=== PATIENT | female | born 1975 | race Caucasian/White ===

== ENCOUNTER 2016-03-18 18:58 | Outpatient (CLI) | payer OTHER ==
[~2016-03-18] VITALS: Ht 162.6 cm; Wt 77.1 kg
[~2016-03-18 18:58] MED LIST: ACET-1256 PO; ALBUAER2 INH; BUPR1SUB SL; CLC100 PO; ESOM20CA PO; GABA-113 PO; MIRT30TA PO; ONDA4TAB46 PO; PEDICHW50 PO; POLY335025 PO; SNQ/50 PO; [UNRECOGNIZED DRUG - CODE] PO; propanolol
[2016-03-18] MEDS ORDERED: PRENTAB26 PO (19:47)
[2016-03-18] MEDS ORDERED: LEVO112T2 PO (19:47)
[2016-03-18] MEDS ORDERED: CYCL1POW (19:47)
[2016-03-18] MEDS ORDERED: HYDR50CA2 PO (19:47)
[2016-03-18] MEDS ORDERED: ONDA4TAB65 PO (19:47)
[2016-03-18] MEDS ORDERED: POLY335019 PO (19:47)
[2016-03-18 19:49] VITALS: Ht 162.6 cm; Wt 77.1 kg
[2016-03-18 19:55] LABS: URINE APPEARANCE CLEAR (CLEAR); URINE BILIRUBIN NEG (NEG); URINE COLOR YELLOW; URINE EPITHELIAL CELL AUTO >30 /lpf (0-5); URINE NITRITE NEG (NEG); URINE SPECIFIC GRAVITY 1.006 (1.000-1.030); UROBILINOGEN NEG (NEG)
[2016-03-18 19:56] LABS: MANUAL MICROSCOPIC REQUIRED? NO; REVIEW REQ? NO
== END 2016-03-18 20:30 | disposition home or self-care (01) ==
LOC: C.OPB 18:58 → C.LD 18:58 → C.OPB 20:30
PROVIDERS: ATTEND Obstetrics & Gynecology
DX: O16.2 Unspecified maternal hypertension, second trimester (principal); O09.522 Supervision of elderly multigravida, second trimester; Z3A.22 22 weeks gestation of pregnancy

== ENCOUNTER → 2016-03-20 | Outpatient (CLI) | payer OTHER ==
[~2016-03-20] MED LIST changes: -ACET-1256 PO; -BUPR1SUB SL; -CLC100 PO; +CYCL1POW; -ESOM20CA PO; -GABA-113 PO; +HYDR50CA2 PO; +LEVO112T2 PO; -MIRT30TA PO; -ONDA4TAB46 PO; +ONDA4TAB65 PO; -PEDICHW50 PO; +POLY335019 PO; -POLY335025 PO; +PRENTAB26 PO; -SNQ/50 PO; -[UNRECOGNIZED DRUG - CODE] PO
[2016-03-20 12:24] LABS: PATIENT HEIGHT 165.1 cm
[2016-03-20 12:29] LABS: BASO % 0.4 %; BASO ABS # 0.03 K/uL (0-0.2); COMPLETE YES; EOS % 3.1 %; HEMATOCRIT 31.8 % (37-47); IG% 0.1 %; LYMPH % 23.4 %; LYMPH ABS # 1.57 K/uL (1.2-3.4); MEAN CELL VOLUME 94.1 fL (80-100); MEAN CORPUSCULAR HEMOGLOBIN 33.1 pg (25-34); MEAN CORPUSCULAR HGB CONC 35.2 g/dl (32-36); MEAN PLATELET VOLUME 9.4 fL (7.4-10.4); MONO % 8.5 %; NEUT % 64.5 %; PLATELET COUNT 222 K/uL (130-400); RED BLOOD COUNT 3.38 M/uL (4.2-5.4)
[2016-03-20 12:52] LABS: CREATININE 0.67 mg/dl (0.60-1.20); URIC ACID 2.4 mg/dl (2.6-7.2)
[2016-03-20 12:55] LABS: ALKALINE PHOSPHATASE 58 U/L (45-117); ALT/SGPT 13 U/L (12-78); AST/SGOT 13 U/L (15-37)
[2016-03-20 13:06] LABS: URINE TOTAL PROTEIN 13.2 mg/dl (0-11.9)
[2016-03-20 13:17] LABS: CREATININE 0.67 mg/dl (0.6-1.2); URINE TOTAL PROTEIN CALC 250.8 mg/24 hr (0-149.1)
== END | disposition home or self-care (01) ==
LOC: C.LAB 12:10
PROVIDERS: ATTEND Obstetrics & Gynecology
DX: O10.919 Unspecified pre-existing hypertension complicating pregnancy, unspecified trimester (principal)

== ENCOUNTER → 2016-03-23 | Outpatient (CLI) | payer OTHER ==
[~2016-03-23] MED LIST changes: +ACET-1256 PO; +BUPR1SUB SL; +CLC100 PO; +ESOM20CA PO; +GABA-113 PO; +MIRT30TA PO; +ONDA4TAB46 PO; +PEDICHW50 PO; +POLY335025 PO; +SNQ/50 PO; +[UNRECOGNIZED DRUG - CODE] PO
[2016-03-23 10:52] LABS: THYROID STIMULATING HORMONE 0.6 uIu/ml (0.300-4.500)
== END | disposition home or self-care (01) ==
LOC: C.LAB1850 09:18
PROVIDERS: ATTEND Obstetrics & Gynecology
DX: E05.00 Thyrotoxicosis with diffuse goiter without thyrotoxic crisis or storm (principal)

== ENCOUNTER → 2016-04-20 | Outpatient (CLI) | payer OTHER ==
[~2016-04-20] MED LIST changes: -ACET-1256 PO; -BUPR1SUB SL; -CLC100 PO; -ESOM20CA PO; -GABA-113 PO; -MIRT30TA PO; -ONDA4TAB46 PO; -PEDICHW50 PO; -POLY335025 PO; -SNQ/50 PO; -[UNRECOGNIZED DRUG - CODE] PO
[2016-04-20 13:02] LABS: HEMATOCRIT 30.4 % (37-47)
[2016-04-20 13:28] LABS: THYROID STIMULATING HORMONE 0.861 uIu/ml (0.300-4.500)
[2016-04-20 14:08] LABS: URINE APPEARANCE CLEAR (CLEAR); URINE BILIRUBIN NEG (NEG); URINE COLOR YELLOW; URINE EPITHELIAL CELL AUTO >30 /lpf (0-5); URINE NITRITE NEG (NEG); URINE PH 7.5 (4.5-7.5); URINE SPECIFIC GRAVITY 1.005 (1.000-1.030); UROBILINOGEN NEG (NEG)
[2016-04-20 14:11] LABS: MANUAL MICROSCOPIC REQUIRED? NO; REVIEW REQ? NO
== END | disposition home or self-care (01) ==
LOC: C.LAB1850 10:54
PROVIDERS: ATTEND Obstetrics & Gynecology
DX: O09.293 Supervision of pregnancy with other poor reproductive or obstetric history, third trimester (principal); O99.281 Endocrine, nutritional and metabolic diseases complicating pregnancy, first trimester

== ENCOUNTER → 2016-05-05 | Outpatient (CLI) | payer OTHER ==
[2016-05-05 14:38] LABS: PATIENT HEIGHT 165.1 cm
[2016-05-05 15:55] LABS: BASO % 0.4 %; BASO ABS # 0.03 K/uL (0-0.2); COMPLETE YES; EOS % 1.7 %; HEMATOCRIT 30.3 % (37-47); IG% 0.7 %; LYMPH % 23.8 %; LYMPH ABS # 1.67 K/uL (1.2-3.4); MEAN CELL VOLUME 90.4 fL (80-100); MEAN CORPUSCULAR HEMOGLOBIN 31.6 pg (25-34); MEAN PLATELET VOLUME 9.9 fL (7.4-10.4); NEUT % 61.4 %; PLATELET COUNT 245 K/uL (130-400); RED BLOOD COUNT 3.35 M/uL (4.2-5.4); WHITE BLOOD COUNT 7.01 K/uL (4.8-10.8)
[2016-05-05 16:11] LABS: URINE TOTAL PROTEIN 14.2 mg/dl (0-11.9)
[2016-05-05 16:14] LABS: THYROID STIMULATING HORMONE 0.788 uIu/ml (0.300-4.500); URIC ACID 3.1 mg/dl (2.6-7.2)
[2016-05-05 16:47] LABS: CREATININE 0.61 mg/dl (0.6-1.2); URINE TOTAL PROTEIN CALC 397.6 mg/24 hr (0-149.1)
== END | disposition home or self-care (01) ==
LOC: C.LAB1850 14:21
PROVIDERS: ATTEND Obstetrics & Gynecology
DX: I10 Essential (primary) hypertension (principal); O09.293 Supervision of pregnancy with other poor reproductive or obstetric history, third trimester; O99.282 Endocrine, nutritional and metabolic diseases complicating pregnancy, second trimester; O10.919 Unspecified pre-existing hypertension complicating pregnancy, unspecified trimester; F32.9 Major depressive disorder, single episode, unspecified

== ENCOUNTER → 2016-05-13 | Outpatient (CLI) | payer OTHER ==
[2016-05-13 10:21] LABS: HEMATOCRIT 31.3 % (37-47); MEAN CELL VOLUME 89.9 fL (80-100); MEAN CORPUSCULAR HEMOGLOBIN 30.7 pg (25-34); MEAN CORPUSCULAR HGB CONC 34.2 g/dl (32-36); MEAN PLATELET VOLUME 9.8 fL (7.4-10.4); PLATELET COUNT 244 K/uL (130-400); RED BLOOD COUNT 3.48 M/uL (4.2-5.4); WHITE BLOOD COUNT 8.09 K/uL (4.8-10.8)
[2016-05-13 10:32] LABS: ALT/SGPT 16 U/L (12-78); CREATININE 0.56 mg/dl (0.60-1.20); URIC ACID 3.5 mg/dl (2.6-7.2)
[2016-05-13 10:35] LABS: ALKALINE PHOSPHATASE 116 U/L (45-117); AST/SGOT 16 U/L (15-37)
== END | disposition home or self-care (01) ==
LOC: C.LAB1850 09:14
PROVIDERS: ATTEND Obstetrics & Gynecology
DX: O11.9 Pre-existing hypertension with pre-eclampsia, unspecified trimester (principal); O10.919 Unspecified pre-existing hypertension complicating pregnancy, unspecified trimester; Z3A.00 Weeks of gestation of pregnancy not specified

== ENCOUNTER → 2016-05-19 | Outpatient (CLI) | payer OTHER ==
[2016-05-19 12:54] LABS: HEMATOCRIT 30.7 % (37-47); MEAN CELL VOLUME 88.2 fL (80-100); MEAN CORPUSCULAR HEMOGLOBIN 30.7 pg (25-34); MEAN CORPUSCULAR HGB CONC 34.9 g/dl (32-36); MEAN PLATELET VOLUME 10.2 fL (7.4-10.4); PLATELET COUNT 217 K/uL (130-400); RED BLOOD COUNT 3.48 M/uL (4.2-5.4); WHITE BLOOD COUNT 7.05 K/uL (4.8-10.8)
[2016-05-19 13:19] LABS: ALKALINE PHOSPHATASE 135 U/L (45-117); ALT/SGPT 15 U/L (12-78); AST/SGOT 14 U/L (15-37)
== END | disposition home or self-care (01) ==
LOC: C.LAB1850 12:01
PROVIDERS: ATTEND Obstetrics & Gynecology
DX: O09.293 Supervision of pregnancy with other poor reproductive or obstetric history, third trimester (principal); Z3A.00 Weeks of gestation of pregnancy not specified

== ENCOUNTER → 2016-05-26 | Outpatient (CLI) | payer OTHER ==
[2016-05-26 13:18] LABS: HEMATOCRIT 32.3 % (37-47); MEAN CELL VOLUME 88.5 fL (80-100); MEAN CORPUSCULAR HEMOGLOBIN 30.1 pg (25-34); MEAN CORPUSCULAR HGB CONC 34.1 g/dl (32-36); MEAN PLATELET VOLUME 10.8 fL (7.4-10.4); PLATELET COUNT 256 K/uL (130-400); RED BLOOD COUNT 3.65 M/uL (4.2-5.4); WHITE BLOOD COUNT 7.49 K/uL (4.8-10.8)
[2016-05-26 14:05] LABS: ALT/SGPT 15 U/L (12-78); AST/SGOT 15 U/L (15-37); CREATININE 0.65 mg/dl (0.60-1.20); URIC ACID 4.1 mg/dl (2.6-7.2)
[2016-05-26 14:07] LABS: ALKALINE PHOSPHATASE 152 U/L (45-117)
== END | disposition home or self-care (01) ==
LOC: C.LAB1850 11:30
PROVIDERS: ATTEND Obstetrics & Gynecology
DX: O11.9 Pre-existing hypertension with pre-eclampsia, unspecified trimester (principal)

== ENCOUNTER → 2016-06-02 | Outpatient (CLI) | payer OTHER ==
[2016-06-02 12:33] LABS: BASO % 0.5 %; BASO ABS # 0.03 K/uL (0-0.2); COMPLETE YES; EOS % 1.1 %; HEMATOCRIT 32.2 % (37-47); IG% 0.6 %; LYMPH % 25.4 %; LYMPH ABS # 1.58 K/uL (1.2-3.4); MEAN CELL VOLUME 86.6 fL (80-100); MEAN CORPUSCULAR HEMOGLOBIN 29.6 pg (25-34); MEAN CORPUSCULAR HGB CONC 34.2 g/dl (32-36); MEAN PLATELET VOLUME 10.4 fL (7.4-10.4); MONO % 10.8 %; NEUT % 61.6 %; PLATELET COUNT 223 K/uL (130-400); RED BLOOD COUNT 3.72 M/uL (4.2-5.4); WHITE BLOOD COUNT 6.22 K/uL (4.8-10.8)
[2016-06-02 12:42] LABS: ALT/SGPT 16 U/L (12-78); AST/SGOT 13 U/L (15-37); CREATININE 0.72 mg/dl (0.60-1.20)
== END | disposition home or self-care (01) ==
LOC: C.LAB1850 10:55
PROVIDERS: ATTEND Obstetrics & Gynecology
DX: O11.9 Pre-existing hypertension with pre-eclampsia, unspecified trimester (principal)

== ENCOUNTER 2016-06-09 14:03 | Observation (INO) | payer OTHER ==
[~2016-06-09] VITALS: Ht 160 cm; Wt 84.8 kg
[2016-06-09] MEDS ORDERED: BETAMETH SOD PHOS/ACETATE IA 6 MG/ML IM SCH (14:45)
[2016-06-09] MEDS ORDERED: HydrALAZINE HCL 20 MG/ML VIAL IV. PRN (14:45)
[2016-06-09] MEDS ORDERED: MAGNESIUM SULFATE / WTR 1,000 ML IV ONE (14:45)
[2016-06-09] MEDS ORDERED: MAGNESIUM SULFATE 40GM/ WTR 1,000 ML BAG ONE (14:56)
[2016-06-09] MEDS ORDERED: MAGNESIUM SULFATE 40GM / WTR 1000 ML IV SCH (15:00)
[2016-06-09] MEDS ORDERED: IV FLUIDS COMPLETED PRN (15:00)
[2016-06-09] MEDS ORDERED: BETAMETH SOD PHOS/ACETATE IA 6 MG/ML ONE (15:00)
--- NOTE | 2016-06-09 15:07 | HISTORY & PHYSICAL EXAMINATION ---
DATE OF ADMISSION: 06/09/2016 REASON FOR ADMISSION: Severe preeclampsia. HISTORY OF PRESENT ILLNESS: This is a 40-year-old G4, P0-1-2-1 who was sent from the office due to elevated blood pressures and proteinuria. This has been complicated by chronic hypertension with propranolol, which the patient is reportedly given due to palpitations primarily as well as superimposed mild preeclampsia with current suspicion of conversion to severe preeclampsia. She additionally has diet-controlled gestational diabetes and Graves disease with hypothyroidism. She presented to the office today for a routine obstetric visit at 34 weeks and 1 day. Her pressures in the office were 180/110 and 170/110. The patient's protein dip in the office was negative; however, she has a prior 24-hour urine with greater than 300 mg of protein. The patient states she does not currently have a headache, vision changes, right upper quadrant pain or significant edema, although she does have trace edema in both ankles, which is relatively stable. She is feeling good movement, no contractions, no leakage of fluid and no vaginal bleeding. The patient was sent to labor and delivery for further evaluation. On arrival to labor and delivery, her first blood pressure was 195/103. Again, the patient is completely asymptomatic and when rolled on her left side her next blood pressure was in the 140s/90s. Given the liability of her blood pressures and her lack of symptoms, I have elected at this time not to give IV labetalol; however, the patient is aware that if her blood pressures continue to be in a severe range, she may require IV antihypertensive therapy. ALLERGIES: ASPIRIN AND SULFA DRUGS. CURRENT MEDICATIONS: Synthroid 112 mcg, Zofran as needed, propranolol 20 mg tablets, MiraLax as needed, vitamins daily, albuterol as needed, cyclobenzaprine which the patient has stopped, hydroxyzine and aspirin baby dose. PAST MEDICAL HISTORY: Chronic hypertension, depression and anxiety, Graves' disease, gastroesophageal reflux disease, asthma, hiatal hernia and varicella. PAST SURGICAL HISTORY: Includes a section, tonsillectomy, oral surgery for wisdom tooth removal, D\T\E, LEEP procedure and fundoplication x3. SOCIAL HISTORY: The patient is a tobacco user. She is a female. Denies use of alcohol or recreational drugs. FAMILY HISTORY: Noncontributory. OBSTETRIC HISTORY: The patient has a prior delivery in 2008 at 33 weeks of a 3 pound 9 ounce female via section for preeclampsia, which was severe as well as diet-controlled gestational diabetes. She also has 2 additional first trimester miscarriages, which were managed with dilation and evacuation. PHYSICAL EXAMINATION: VITAL SIGNS: On arrival, blood pressure as noted was 195/103 with a repeat blood pressure 140s/90s. Her pressures here in labor and delivery remained relatively labile with 159/87, 161/81 as the additional pressures so far obtained. heart tones are category 1, toco is quiet. ABDOMEN: The patient is gravid with a nontender abdomen. LOWER EXTREMITIES: Contained trace edema from knee down to the ankle; however, there is no pitting. Reflexes are 1+. CERVICAL AND VAGINAL: Deferred at this time. ASSESSMENT AND PLAN: This is a 40-year-old G4, P0-1-2-1 with a gannon intrauterine at 34 weeks and 1 day with chronic hypertension and now superimposed severe preeclampsia based on blood pressures. I have discussed with the patient that this merits delivery. She will be given her first dose of betamethasone here and started on IV magnesium with a 6 gram load for neuro protection followed by 2 grams maintenance. This is also has been discussed with Dr. Petersen of the accepting maternal medicine service at [place] to which she will be transferred and he is in agreement with this plan. The patient has thus far not required IV antihypertensives; however, if her blood pressures are again severe or she begins to have a headache or other symptoms, she is aware that this may merit acute treatment. The patient has been accepted in transfer based on her current condition over to [facility], and she will be transferred by you when transport is available.
[2016-06-09] MEDS ORDERED: MAG SULFATE IV SCH (15:30)
[2016-06-09] MEDS ORDERED: DEXTROSE 5% IV SCH (15:30)
[2016-06-09 15:44] LABS: BASO % 0.6 %; BASO ABS # 0.04 K/uL (0-0.2); EOS % 0.8 %; HEMATOCRIT 31.5 % (37-47); IG% 0.7 %; LYMPH % 23.9 %; LYMPH ABS # 1.73 K/uL (1.2-3.4); MEAN CELL VOLUME 87.7 fL (80-100); MEAN CORPUSCULAR HEMOGLOBIN 28.4 pg (25-34); MEAN PLATELET VOLUME 10.4 fL (7.4-10.4); MONO % 8.7 %; NEUT % 65.3 %; PLATELET COUNT 196 K/uL (130-400); RED BLOOD COUNT 3.59 M/uL (4.2-5.4); WHITE BLOOD COUNT 7.25 K/uL (4.8-10.8)
[2016-06-09 15:52] LABS: INR 0.9 (0.9-1.1); PROTHROMBIN TIME (PATIENT) 9.1 SECONDS (9.0-12.0)
[2016-06-09 15:58] LABS: COMPLETE YES; MEAN CORPUSCULAR HGB CONC 32.4 g/dl (32-36)
[2016-06-09 16:06] VITALS: Ht 160 cm; Wt 84.8 kg
[2016-06-09 16:11] LABS: CREATININE 0.65 mg/dl (0.60-1.20); URIC ACID 5.2 mg/dl (2.6-7.2)
--- NOTE | 2016-06-20 15:43 | DISCHARGE SUMMARY ---
COURSE OF CARE: A 40-year-old G4, P0-1-2-1 diagnosed with severe preeclampsia by a combination of blood pressures from the office in the hospital setting as well as lab work and status. The patient was recommended to deliver given her gestational age of 34 weeks 1 day and her diagnosis of severe preeclampsia. Her case was discussed with Dr. Petersen from [facility] service and he accepted the patient in transfer. A mutual decision was that the patient should be transferred via helicopter, which was indeed accomplished and the patient and her fetus were in stable condition at that time they departed [facility].
== END 2016-06-09 19:05 | disposition home or self-care (01) ==
LOC: C.OPB 14:03 → C.LD 14:03 → C.OPB 14:47 → C.LD 14:47
PROVIDERS: ADMIT Obstetrics & Gynecology; ATTEND Obstetrics & Gynecology
DX: O14.13 Severe pre-eclampsia, third trimester (principal); O09.523 Supervision of elderly multigravida, third trimester; O24.410 Gestational diabetes mellitus in pregnancy, diet controlled; O99.283 Endocrine, nutritional and metabolic diseases complicating pregnancy, third trimester; E03.9 Hypothyroidism, unspecified; O16.3 Unspecified maternal hypertension, third trimester; O99.343 Other mental disorders complicating pregnancy, third trimester; F32.9 Major depressive disorder, single episode, unspecified; O99.513 Diseases of the respiratory system complicating pregnancy, third trimester; J45.909 Unspecified asthma, uncomplicated; O99.333 Smoking (tobacco) complicating pregnancy, third trimester; F17.200 Nicotine dependence, unspecified, uncomplicated; Z3A.34 34 weeks gestation of pregnancy

== ENCOUNTER → 2017-01-04 | Outpatient (CLI) | payer OTHER ==
[~2017-01-04] MED LIST changes: -CYCL1POW; -HYDR50CA2 PO
--- NOTE | 2017-01-04 15:20 | MAMMOGRAPHY REPORT ---
BILATERAL DIGITAL SCREENING MAMMOGRAM TOMOSYNTHESIS WITH CAD: 01/04/2017 CLINICAL HISTORY: Routine screening. Baseline exam. TECHNIQUE: Breast tomosynthesis in addition to standard 2D mammography was performed. Current study was also evaluated with a Computer Aided Detection (CAD) system. COMPARISON: No prior exams were available for comparison. BREAST COMPOSITION: The tissue of both breasts is heterogeneously dense, which may obscure small mas ses. FINDINGS: No suspicious mass, architectural distortion or cluster of microcalcifications is seen. IMPRESSION: ACR BI-RADS CATEGORY 1: NEGATIVE There is no mammographic evidence of malignancy. A 1 year screening mammogram is recommended. The pa tient will receive written notification of the results. Approximately 10% of breast cancers are not detected with mammography. A negative mammographic report should not delay biopsy if a clinically suggestive mass is present. Chloe parks/evgeny:01/04/2017 13:32:55 Ordnance Equipment Worker: Zuleima JACQUES)(Ariane), [facility] letter sent: Normal 1/2 BI-RADS Code: ACR BI-RADS Category 1: Negative
== END | disposition home or self-care (01) ==
LOC: C.MAMM 13:04
PROVIDERS: ATTEND Physician Assistant
DX: Z12.31 Encounter for screening mammogram for malignant neoplasm of breast (principal)

== ENCOUNTER 2018-12-18 09:16 | Inpatient (IN) ==
[2018-12-18] MEDS ORDERED: ALBUTEROL 0.083% NEBU SOLN 3 ML VIAL NEB STA (09:31)
[2018-12-18] MEDS ORDERED: SODIUM CHLORIDE 0.9% 1000ML 2,000 ML IV ONE (09:31)
[2018-12-18] MEDS ORDERED: methylPREDNISolone 125 MG/2 ML VIAL IV STA ×2 (09:33→22:58)
[2018-12-18] MEDS ORDERED: LEVOFLOXACIN/D5W 750 MG/150 ML BAG IV SCH (09:45)
[2018-12-18 09:52] LABS: Base Excess VBG -3.7 mEq/L; Oxygen Saturation VBG 76.7 %; pH VBG 7.41 (7.36-7.41)
[2018-12-18 09:57] LABS: Basophils # (auto) 0.02 K/uL (0-0.2); Basophils % (auto) 0.2 %; Eosinophils # (auto) 0.02 K/uL (0-0.5); Eosinophils % (auto) 0.2 %; Hematocrit (blood only) 23.4 % (37-47); Hemoglobin 7.9 g/dL (12.0-16.0); Immature Granulocytes # (auto) 0.03 K/uL (0.00-0.02); Immature Granulocytes % (auto) 0.3 %; Lymphocytes # (auto) 0.54 K/uL (1.2-3.4); Lymphocytes % (auto) 4.7 %; Mean Corpuscular Hemoglobin 28.1 pg (25-34); Mean Corpuscular Hgb Conc 33.8 g/dL (32-36); Mean Corpuscular Volume 83.3 fL (80-100); Mean Platelet Volume 9.5 fL (7.4-10.4); Monocytes # (auto) 0.38 K/uL (0.11-0.59); Monocytes % (auto) 3.3 %; Neutrophils # (auto) 10.51 K/uL (1.4-6.5); Neutrophils % (auto) 91.3 %; Platelet Count 263 K/uL (130-400); RDW Coefficient of Variation 15.8 % (11.5-14.5); RDW Standard Deviation 48.9 fL (36.4-46.3); Red Blood Count 2.81 M/uL (4.2-5.4)
[2018-12-18 10:03] LABS: iSTAT Creatinine 1.1 mg/dl (0.6-1.3); iSTAT Hemoglobin 7.8 g/dl (12.0-16.0); iSTAT Ionized Calcium 1.14 mmol/l (1.12-1.32); iSTAT Potassium 3.1 mEq/L (3.3-5.0)
[2018-12-18 10:11] LABS: Partial Thromboplastin Time 26.2 Seconds (21.0-31.0); Prothrombin Time 10.3 Seconds (9.0-12.0)
[2018-12-18 10:12] LABS: Est GFR (African American) 64.5; Potassium 3.1 mmol/L (3.5-5.1)
[2018-12-18 10:13] LABS: Albumin Level 2.9 gm/dl (3.4-5.0); BUN Creatinine Ratio 11.3 (10-20); Calcium 8.1 mg/dl (8.5-10.1); Creatinine Clr Calc Pharmacy 63.3 ml/min; Est GFR (Non-African American) 55.7
[2018-12-18 10:15] LABS: Albumin Globulin Ratio 0.8 (0.9-2); Bilirubin,Total 0.4 mg/dl (0.2-1); Globulin 3.7 gm/dl (2.5-4.0); Total Protein 6.6 gm/dl (6.4-8.2)
[2018-12-18 10:20] LABS: Hypochromasia Present; Microcytosis Present; Polychromasia 1+
--- NOTE | 2018-12-18 10:29 | XRay Report ---
XR chest 1V portable CLINICAL HISTORY: Sepsis dyspnea COMPARISON STUDY: 07/03/2013 FINDINGS: Interval development of diffuse bilateral parenchymal infiltrative change versus pulmonary edema. Respiratory distress may present a similar fashion. Diaphragms are smooth. Costophrenic angles are sharp. IMPRESSION: 1. Diffuse bilateral parenchymal infiltrative change, versus pulmonary edema and/or respiratory distr ess. 2. No well-defined consolidative infiltrative process. The above report was generated using voice recognition software. It may contain grammatical, syntax or spelling errors. Electronically signed by: Vargas Patel M.D. 12/18/2018 10:28 AM
[2018-12-18] MEDS ORDERED: cefTRIAXone SODIUM 1,000 MG/50 ML BAG IV STA (10:31)
[2018-12-18] MEDS ORDERED: SODIUM CHLORIDE 0.9% 250 ML IV PRN (10:35)
[2018-12-18 11:02] LABS: Troponin I 0.106 ng/ml (0-0.045)
[2018-12-18] MEDS ORDERED: OPTIRAY 320 125ml IV PRN (11:46)
[2018-12-18 12:02] LABS: Immature Retic Fraction 13.9 % (3.0-15.9); Reticulated Hemoglobin 19.7 pg (28.2-36.6); Reticulocyte % 1.4 % (0.5-2.0); Reticulocytes # 0.04 10^6/uL (0.02-0.10)
--- NOTE | 2018-12-18 12:04 | CT Scan Report ---
CT angio chest PE protocol CT DOSE: 325.26 mGy.cm HISTORY: Dyspnea hypoxic tachy lexii trop TECHNIQUE: Multiaxial CT images of the chest were performed following the intravenous administration of contrast to evaluate the pulmonary arteries. Maximal intensity projection images were also obtaine d. A dose lowering technique was utilized adhering to the principles of ALARA. COMPARISON STUDY: None. FINDINGS: Study is considered negative for pulmonary embolism. No significant filling defect within t he pulmonary vasculature. Diffuse bilateral infiltrative and/or pulmonary edematous change. IMPRESSION: 1. Study is negative for pulmonary embolus. 2. Diffuse bilateral parenchymal infiltrative change versus pulmonary edema/respiratory distress. The above report was generated using voice recognition software. It may contain grammatical, syntax or spelling errors. Electronically signed by: Vargas Patel M.D. 12/18/2018 12:03 PM
[2018-12-18] MEDS ORDERED: POTASSIUM CHLORIDE 20 MEQ TABCR PO STA (12:23)
[2018-12-18 12:27] LABS: T4 Free Thyroxine 1.21 ng/dl (0.8-1.6); Thyroid Stimulating Hormone 0.227 uIu/ml (0.300-4.500)
--- NOTE | 2018-12-18 13:02 | History & Physical Report ---
Date of Service December 18, 2018 Assessment & Plan (1) Sepsis: (2) Community acquired pneumonia: This is a 43-year-old female who has significant PMH of asthma, tobacco abuse, HTN, GERD s/p monica fundoplication x3, chronic low back pain, migraine, depression with anxiety, Graves' disease status post thyroidectomy who presents to [facility] ED secondary to shortness of breath x2 to 3 days. In ED patient met sepsis criteria per CMS guidelines with SBP less than 100, t achycardia, subjective fever of 102.5 In ED POC lactic acid 1.7, procalcitonin elevated 1.21, influenza negative She received broad-spectrum IV antibiotics with Levaquin 750 mg and Rocephin 1 g Received IV fluid and blood pressure has remained adequate at time of admission 121/63 Source: Likely pulmonary with pneumonia, blood culture and urine culture ordered Her troponin and Pro BNP are elevated - no prior hx of CAD or CHF - + FH in mother of DE at 51 H/H low at 7.9/23.4 - 1 month prior Hgb 11.1 admit to PCU continue IV antibiotics - IV rocephin/azithromycin supplemental O2 with aggressive pulmonary tiolet trend procal blood culture pending sputum culture urine for legionella obtain echocardiogram (3) Hypoxia: 2/2 to PNA tx as above (4) Anemia: H&H 7.9 and 23.4 1 month prior baseline hemoglobin 11 Per history there is no apparent blood loss source, ? if dilutional due to 10lb weight gain Anemia work-up revealed iron low 8, ferritin 32, TIBC 419, transferrin 313 - likely iron deficiency anemia present Peripheral smear and haptoglobin pending Does not appear to be a hemolytic picture given normal LFTs, low reticulocyte count -but still in differential Serum mycoplasma pending FOBT stool Pt with hx of monica fundo - low threshold to consult GI (5) Hypokalemia: K3.1 40 M EQ KCl x1 now We will add additional 20 M EQ this evening Repeat BMP in a.m. (6) Weight gain: Bilateral lower extremity edema Venous Doppler negative for DVT Patient with hypothyroidism in setting of postsurgical removal due to Graves' disease Recent increase of her levothyroxine to 137 mcg, T4 1.21, TSH 0.227 today ? if 2/2 to hypothyroidism with recent change vs underlying acute process Will not treat with diuretic at this time, as patient still tachycardic Monitor volume status closely (7) Elevated troponin: troponin 0.106, proBNP 882 -may be in setting of underlying process/sepsis and demand ischemia She is without aj chest pain EKG reveals sinus tachycardia, RBBB, nonspecific ST anterior wave changes Currently do not feel we are dealing with ACS; however will get urgent echo to eval for wall motion abnormality Last echocardiogram was 11/29/2018, revealed EF 60 to 65%, no wall motion abnormality Trend troponin every 6 hours Repeat ECG Low threshold for cardiology consult (8) Hypertension: blood pressure low on arrival in setting of sepsis hold antihypertensives - labetalol and nifedipine (9) Depression: mood stable continue doxepin, hydroxyzine, clonazepam (10) Chronic low back pain: continue flexeril prn gabapentin recently started 11/20 due to numbness/tingling in lower ext Vit B12 low in EPIC and today is low normal here at 235 tx for deficiency - refer to Dr. Ro documentation (11) Tobacco abuse: encourage smoking cessation nicotine patch (12) DVT prophylaxis: SCD/TEDS for now hold chemical prophylaxis due to acute appearing anemia monitor daily for need for chemical prophylaxis Disposition: admit to PCU Follow up: PCP Jeanette Patel PA-C upon discharge Pt was seen and examined in collaboration with Dr. Ro, please see addendum History of Present Illness Chief Complaint: SOB x2-3 days. Primary Care Provider: Jeanette Patel PA-C This is a 43-year-old female who has significant PMH of asthma, tobacco abuse, HTN, GERD s/p monica fundoplication x3, chronic low back pain, migraine, depression with anxiety, Graves' disease status post thyroidectomy who presents to [facility] ED secondary to shortness of breath x2 to 3 days. Over the past 2 to 3 days she feels overall rundown, chest tightness, wheezing, dry cough, elevated temperature 99.5, 102.5 tympanically this morning. States she has history of pneumonia, "approximately once a year," but has never required hospitalization. She is been trying [id number] Tylenol and Mucinex with minimal relief. Requiring her albuterol inhaler 3-4 times a day with mild improvement. She further complains approximately 10 pound weight gain over the past 2 to 3 months along with myalgias in which she has been worked up by her PCP. Her PCP prescribed her Lasix 20 mg as needed in regards to her lower extremity swelling. She attributed it to her, "thyroid level being off." She feels her legs are swollen today, but improved from previously. Complains of lower extremity tightness, but no pain. She complains of chills/sweats. She denies dizziness, lightheadedness, syncope, chest pain, palpitations, hemoptysis, orthopnea, PND, BUCKLEY, emesis, abdominal pain, dysuria, increased urgency or frequency with urination, hematuria, melena, hematochezia, epistaxis. Appetite has been normal. Allergies Allergy/AdvReac Type Severity Reaction Status Date / Time aspirin Allergy Severe WHEEZING Verified 12/18/18 10:42 Sulfa (Sulfonamide Allergy Intermediate HIVES Verified 12/18/18 10:42 Antibiotics) Home Medications Home Medications Medication Instructions Recorded Confirmed Type albuterol sulfate [Ventolin HFA] 2 puff INHALATION Q6H #0 12/10/10 12/18/18 History multivitamin 1 tab PO HS #0 tab 03/18/16 12/18/18 History polyethylene glycol 3350 17 g PO DAILY #527 g 03/18/16 12/18/18 History cholecalciferol (vitamin D3) 50,000 unit PO RENO 12/18/18 12/18/18 History clonazepam 1 mg PO BID PRN 12/18/18 12/18/18 History cyclobenzaprine 10 mg PO TID PRN 12/18/18 12/18/18 History doxepin 300 mg PO HS 12/18/18 12/18/18 History furosemide 20 mg PO DAILY PRN 12/18/18 12/18/18 History gabapentin 600 mg PO TID 12/18/18 12/18/18 History hydroxyzine pamoate 50 mg PO HS PRN 12/18/18 12/18/18 History labetalol 200 mg PO BID 12/18/18 12/18/18 History levothyroxine 137 mcg PO QAM 12/18/18 12/18/18 History nifedipine 90 mg PO QAM 12/18/18 12/18/18 History ondansetron 4 mg PO Q6H PRN 12/18/18 12/18/18 History Past Med/Surg History Medical History Hypertension (Chronic) Asthma (Chronic) Fibromyalgia (Chronic) IBS (irritable bowel syndrome) (Chronic) Anxiety (Chronic) Depression (Chronic) Postoperative hypothyroidism (Chronic 12/11/10) Perforated viscus (Resolved) Surgical History History of dilation and curettage (Resolved) History of section (Resolved) Family History Mother COPD (chronic obstructive pulmonary disease) Myocardial infarction, Onset Age: 51 Social History Preferred Language: Omani Communication Ability: Effective Wardrobe Specialist Required: No Beliefs That Will Affect Care: None Current Living Situation: Family and Other Current Living Situation Comment: ex helps with children Other Information That Helps Us Care for You: No Feels Safe at Home: Yes Safety Concerns: Feels Safe At This Time Smoking Status: Current every day smoker Tobacco Type: cigarettes ; Cigarettes Per Day: 20 ; Do You Dip or Chew Tobacco: No ; Second Hand Exposure: No ; Tobacco Cessation Education Requested by Patient: No Hx Alcohol Use: No Hx Substance Use: No Review of Systems Review of Systems: All systems reviewed & are unremarkable except as noted in HPI & below Physical Exam Physical Exam: Constitutional: WD/WN,ill appearing, vitals as above, NAD, sitting up in bed, pleasant, conversing easily Head: Normocephalic, Atraumatic Eyes: PERRL, conjunctivae normal, anicteric sclerae ENMT: external ear and nose normal, oropharynx normal Neck: trachea midline, no thyromegaly normal visual inspection Respiratory: On O2 via oxymask, normal respiratory effort, lungs clear to auscultation with bibasilar crackles and crackles to L mid lung, no wheeze/rhonchi. Normal insp/exp effort, no accessory muscle use Cardiovascular: tachycardic rate and regular rhythm, no murmur, pre tibial edema L > R Vessels: no JVD or carotid bruit Chest: normal inspection of chest Abdomen: normal bowel sounds, soft, nontender, no hepatosplenomegaly Musculoskeletal: no cyanosis or clubbing, extremities motor strength 5/5 Skin: no rashes, warm and dry normal turgor Neurologic: PERRL, EOMI, accommodation nl, no face palsy, no dysarthria CN's II-XI intact bilaterally and moves all extremities Psychiatric: A+Ox3, euthymic affect Lymphatic: no cervical or axillary lymphadenopathy : deferred Results & Data Vital Signs (Past 12 Hours) Vital Signs Temp Pulse Pulse Resp BP BP Pulse Ox 12/18/18 11:14 102 H 22 94 12/18/18 11:00 100 H 21 126/64 93 12/18/18 10:45 103 H 34 H 93 12/18/18 10:31 104 H 29 H 92 12/18/18 10:30 102 H 106 H 34 H 121/63 121/63 92 12/18/18 10:15 106 H 25 H 96 12/18/18 10:03 96 H 18 118/71 99 12/18/18 10:01 96 H 14 95 12/18/18 10:00 97 H 98 H 23 118/71 97 12/18/18 09:47 89 L 12/18/18 09:45 100 H 29 H 91 12/18/18 09:40 89 L 12/18/18 09:32 108 H 17 91 12/18/18 09:30 110 H 24 115/62 91 12/18/18 09:20 37.2 C 111 H 24 94/52 L 76 L Laboratory Results Short CBC 12/18/18 12/18/18 Range/Units 09:39 09:39 WBC 11.50 H (4.8-10.8) K/uL Hgb 7.9 L (12.0-16.0) g/dL Hct 23.4 L (37-47) % Plt Count 263 (130-400) K/uL TSH 0.227 L (0.300-4.500) uIu/ml BMP 12/18/18 09:39 Sodium 138 Potassium 3.1 L Chloride 109 H Carbon Dioxide 20 L BUN 13 Creatinine 1.18 Glucose 199 H Calcium 8.1 L Cardiac Enzymes 12/18/18 12/18/18 Range/Units 09:39 09:39 Total Creatine Kinase 98 (26-192) U/L Troponin I 0.106 H* (0-0.045) ng/ml Liver Function 12/18/18 Range/Units 09:39 Total Bilirubin 0.4 (0.2-1) mg/dl AST 28 (15-37) U/L ALT 18 (12-78) U/L Alkaline Phosphatase 104 (45-117) U/L Albumin 2.9 L (3.4-5.0) gm/dl Diagnostic Findings Chest CT: IMPRESSION: 1. Study is negative for pulmonary embolus. 2. Diffuse bilateral parenchymal infiltrative change versus pulmonary edema/respiratory distress. CXR: IMPRESSION: 1. Diffuse bilateral parenchymal infiltrative change, versus pulmonary edema and/or respiratory distress. 2. No well-defined consolidative infiltrative process Medications Administered Levofloxacin/Dextrose (Levaquin/D5w) 750 mg in 150 mls @ 100 mls/hr IV Q24H HAL Stop: 01/01/19 09:44 Last Infusion: 12/18/18 12:01 Dose: 0 mls/hr Documented by: [id number] Admin: 12/18/18 09:52 Dose: 100 mls/hr Documented by: [id number] Ioversol (Optiray 320 125ml) 118 ml IV ONCE PRN PRN Reason: Interaction Checking Stop: 12/22/18 11:45 Last Admin: 12/18/18 11:47 Dose: 118 ml Documented by: [id number] Discontinued Medications Albuterol (Ventolin 0.083% 2.5mg/3ml) 5 mg NEB NOW STA Stop: 12/18/18 09:32 Last Admin: 12/18/18 09:55 Dose: 5 mg Documented by: [id number] Sodium Chloride (Nss 1000ml) 2,000 mls @ 999 mls/hr IV .Q2H1M ONE Stop: 12/18/18 11:31 Last Infusion: 12/18/18 10:49 Dose: 0 mls/hr Documented by: [id number] Admin: 12/18/18 09:40 Dose: 999 mls/hr Documented by: [id number] Ceftriaxone Sodium (Rocephin) 1,000 mg in 50 mls @ 100 mls/hr IV NOW STA Stop: 12/18/18 11:00 Last Infusion: 12/18/18 11:10 Dose: 0 mls/hr Documented by: [id number] Admin: 12/18/18 10:37 Dose: 100 mls/hr Documented by: [id number] Methylprednisolone (Solumedrol) 60 mg IV NOW STA Stop: 12/18/18 09:34 Last Admin: 12/18/18 09:52 Dose: 60 mg Documented by: [id number] ECG Rate (beats per minute): 109 Rhythm: sinus tachycardia Findings: + nonspecific-ST abn and + RBBB Code Status & VTE Plan Code Status Full Code VTE Prophylaxis Plan VTE Prophylaxis will be ordered: Yes Supervising Physician Co-Signing Physician Notes I have seen and examined the patient and have discussed the case with the provider above. I agree with the assessment and plan as stated with the following exceptions. 43 yo smoker presents with acute shortness of breath and weight gain of 10 lbs in recent weeks. Lab abnormalities also include a significant drop in H/H over the past month from 11.1/34.7-->7.9/23.4 today on admission. She has no overt bleeding. She reports a dry cough and fevers this morning close to 102. She reports taking Tylenol and Advil, but now this is wearing off. She was consented for HIV which was negative, however, she was intubated prior to disclosing that to her and signing that she was informed of the results. I passed this onto the CAST IRON DIPPER in the ICU now caring for her. I reviewed the abnormal CT scan with the stone sawyer, Dr. Simon, who broadened her abx spectrum to include Vanc, Zosyn and azithromycin. He placed her on hi flor oxygen, however, she continued to decline. Physical exam at the start of the hi flor oxygen revealed a WNWD female in no acute distress who was mentating clearly and afebrile. She was tachycardic and had intermittent tachypnea noted. Lungs sounded coars bilaterally without wheezing. Heart auscultation was normal without evidence of murmurs, gallops or rubs and although she had some pitting edema in the lower extremities, she overall appeared more euvolemic. Skin was warm and dry. Shortly after my exam, she was transferred to the ICU and intubated for acute respiratory failure. She underwent a bronchoscopy with evidence of DAH. Immune panel is pending. Cont ICU care. DO Jayjay (1) Sepsis Sepsis acute organ dysfunction status: unspecified Sepsis type: sepsis due to unspecified organism Qualified Code(s): A41.9 - Sepsis, unspecified organism
--- NOTE | 2018-12-18 13:04 | Ultrasound Report ---
US venous doppler LE BI CLINICAL HISTORY: Leg swelling COMPARISON STUDY: 02/05/2011 FINDINGS: Real-time and color flow Doppler imaging were performed. Flow was seen within the femoral, popliteal and calf veins with no intraluminal thrombus demonstrated. The saphenous vein is patent. Th e waveforms demonstrate prominent pulsatility. This raises the possibility of elevated right heart pr essures. IMPRESSION: No evidence of lower extremity DVT. Electronically signed by: Jeromy Ashley M.D. 12/18/2018 1:03 PM
[2018-12-18] MEDS ORDERED: DEXTROSE 50% 50 ML SYRINGE IV PRN (13:21)
[2018-12-18] MEDS ORDERED: ALUMINUM/MAGNESIUM SUSP 30 ML UDC PO PRN (13:21)
[2018-12-18] MEDS ORDERED: CYCLOBENZAPRINE HCL 10 MG TAB PO PRN (13:21)
[2018-12-18] MEDS ORDERED: MAGNESIUM HYDROXIDE SUSP 30 ML UDC PO PRN (13:21)
[2018-12-18] MEDS ORDERED: CARBOHYDRATES FOR HYPOGLYCEMIA PO PRN (13:21)
[2018-12-18] MEDS ORDERED: GLUCOSE 40% GEL 15 GM TUBE PO PRN (13:21)
[2018-12-18] MEDS ORDERED: GLUCOSE 10 TABS/TUBE PO PRN (13:21)
[2018-12-18] MEDS ORDERED: POLYETHYLENE (MIRALAX) 17 GM PACK PO PRN (13:21)
[2018-12-18] MEDS ORDERED: GLUCAGON FOR INJ 1 MG VIAL SQ PRN (13:21)
[2018-12-18 14:35] LABS: Hematocrit (blood only) 24.3 % (37-47)
[2018-12-18] MEDS ORDERED: VANCOMYCIN CONSULT ACTIVE PRN (15:17)
[2018-12-18] MEDS ORDERED: PIPERACILL/TAZOBAC CONSULT ACTIVE PRN (15:18)
[2018-12-18] MEDS ORDERED: ADENOSINE IV SOLN 3 MG/ML 2 ML VIAL IV ONE ×2 (15:23→15:37)
[2018-12-18] MEDS ORDERED: ETOMIDATE 2 MG/ML 20 ML VIAL IV ONE ×3 (15:23→21:48)
[2018-12-18] MEDS ORDERED: ROCURONIUM BROMIDE 10 MG/ML 10 ML VIAL IV ONE ×3 (15:23→21:51)
[2018-12-18] MEDS ORDERED: LIDOCAINE 2% 20 MG/ML 5 ML SYR IV ONE ×2 (15:23→15:37)
[2018-12-18] MEDS ORDERED: MIDAZOLAM HCL 5 MG/ML VIAL IV ONE ×2 (15:23→15:37)
[2018-12-18] MEDS: ALBUT/IPRATROP 3MG/0.5MG NEB 3 ML VIAL NEB SCH ×2 (15:28→19:43)
[2018-12-18] MEDS ORDERED: PIPERACILLIN/TAZOBACTAM 3.375 GM in DEXTROSE 5% 100 ML IV ONE (15:30)
[2018-12-18] MEDS ORDERED: VANCOMYCIN HCL 2,000 MG in SODIUM CHLORIDE 0.9% 500 ML IV ONE (15:45)
[2018-12-18 16:10] LABS: Appearance Urine Clear (Clear); Bilirubin Urine Negative (Negative); Blood Urine Negative (Negative); Color Urine Yellow; Glucose Urine UA Negative (Negative); Ketones Urine Negative (Negative); Leukocyte Esterase Urine Negative (Negative); Nitrite Urine Negative (Negative); Protein Urine Negative (Negative); Specific Gravity Urine <= 1.005 (1.000-1.030); Urobilinogen Urine Negative (Negative); pH Urine 5.5 (4.5-7.5)
--- NOTE | 2018-12-18 16:11 | Emergency Department Note ---
Entered by Sourav Childers acting as a scribe for History of Present Illness General Chief complaint: Fever Stated complaint: FEVER,BREATHING PROBS, ACHES AND PAINS Source: patient History of Present Illness Provider complaint: fever Onset (ago): hour(s) 3 Location: head Pain Consistency: + intermittent Maximum Pain Intensity: 6 Relieved By: + none Exacerbated By: + none Associated symptoms: + chest pain, + cough and + other (congestion, achy ) The patient is a 43 y/o female with a past medical history of hypertension, asthma, smoker and IBS, who presents to the emergency department for evaluation of an intermittent cough and fever of 102 that began this morning. The patient states that she has not been feeling well for the past few days with chest tightness that began three days ago for which she has been using her inhaler for. The patient also reports that she is achy, has a dry cough that feels like her asthma, some congestion, fever, and some leg swelling. The patient notes that the leg swelling has been ongoing for two weeks and she has been working with her PCP to find the cause. She states she had a kidney function test and echocardiogram two weeks ago that came back fine. 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 The patient denies abdominal pain and any other symptoms. Home Medications Home Medications Medication Instructions Recorded Confirmed Type albuterol sulfate [Ventolin HFA] 2 puff INHALATION Q6H #0 12/10/10 12/18/18 His tory multivitamin 1 tab PO HS #0 tab 03/18/16 12/18/18 History polyethylene glycol 3350 17 g PO DAILY #527 g 03/18/16 12/18/18 History cholecalciferol (vitamin D3) 50,000 unit PO RENO 12/18/18 12/18/18 History clonazepam 1 mg PO BID PRN 12/18/18 12/18/18 History cyclobenzaprine 10 mg PO TID PRN 12/18/18 12/18/18 History doxepin 300 mg PO HS 12/18/18 12/18/18 History furosemide 20 mg PO DAILY PRN 12/18/18 12/18/18 History gabapentin 600 mg PO TID 12/18/18 12/18/18 History hydroxyzine pamoate 50 mg PO HS PRN 12/18/18 12/18/18 History labetalol 200 mg PO BID 12/18/18 12/18/18 History levothyroxine 137 mcg PO QAM 12/18/18 12/18/18 History nifedipine 90 mg PO QAM 12/18/18 12/18/18 History ondansetron 4 mg PO Q6H PRN 12/18/18 12/18/18 History Allergies Allergy/AdvReac Type Severity Reaction Status Date / Time aspirin Allergy Severe WHEEZING Verified 12/18/18 10:42 Sulfa (Sulfonamide Allergy Intermediate HIVES Verified 12/18/18 10:42 Antibiotics) Past Med/Surg History Medical History Hypertension (Chronic) Asthma (Chronic) Fibromyalgia (Chronic) IBS (irritable bowel syndrome) (Chronic) Anxiety (Chronic) Depression (Chronic) Postoperative hypothyroidism (Chronic 12/11/10) Perforated viscus (Resolved) Surgical History History of dilation and curettage (Resolved) History of section (Resolved) Family History Mother COPD (chronic obstructive pulmonary disease) Myocardial infarction, Onset Age: 51 Social History Preferred Language: Egyptian Communication Ability: Effective Radiology Asst Required: No Beliefs That Will Affect Care: None Current Living Situation: Family and Other Current Living Situation Comment: ex helps with children Other Information That Helps Us Care for You: No Feels Safe at Home: Yes Safety Concerns: Feels Safe At This Time Smoking Status: Current every day smoker Tobacco Type: cigarettes ; Cigarettes Per Day: 20 ; Do You Dip or Chew Tobacco: No ; Second Hand Exposure: No ; Tobacco Cessation Education Requested by Patient: No Hx Alcohol Use: No Hx Substance Use: No Review of Systems See HPI for pertinent positives & negatives. and A total of 10 systems reviewed and were otherwise negative Physical Exam Vital Signs Vital Signs - 24 hr 12/18/18 09:20 12/18/18 09:30 12/18/18 09:32 Temperature 37.2 C Temperature Source Oral Sepsis Recent Fever Within 48 Hours Yes Sepsis New/Unexplained Change in Mental Status No Sepsis Action Taken by Nursing No Action Required Oxygen Flow Rate - Titration Pulse Oximetry Post Tiitration Pulse Rate 111 H 110 H 108 H Pulse Rate [Finger] Pulse Rate from SpO2 Sensor 110 H 108 H Pulse Rhythm Pulse Rhythm [Finger] Pulse Strength [Finger] Respiratory Rate 24 24 17 Respiratory Effort / Characteristics Blood Pressure 94/52 L 115/62 Blood Pressure [Right Arm] Blood Pressure Mean 66 79 Blood Pressure Mean [Right Arm] Blood Pressure Position [Right Arm] Pulse Oximetry 76 L 91 91 Oxygen Delivery Method Room Air Oxygen Flow Rate 12/18/18 09:40 12/18/18 09:45 12/18/18 09:47 Temperature Temperature Source Sepsis Recent Fever Within 48 Hours Sepsis New/Unexplained Change in Mental Status Sepsis Action Taken by Nursing Oxygen Flow Rate - Titration 6 Pulse Oximetry Post Tiitration 92 Pulse Rate 100 H Pulse Rate [Finger] Pulse Rate from SpO2 Sensor 100 H Pulse Rhythm Pulse Rhythm [Finger] Pulse Strength [Finger] Respiratory Rate 29 H Respiratory Effort / Characteristics Blood Pressure Blood Pressure [Right Arm] Blood Pressure Mean Blood Pressure Mean [Right Arm] Blood Pressure Position [Right Arm] Pulse Oximetry 89 L 91 89 L Oxygen Delivery Method Nasal Cannula Nasal Cannula Oxymask Oxygen Flow Rate 4 4 12/18/18 10:00 12/18/18 10:01 12/18/18 10:03 Temperature Temperature Source Sepsis Recent Fever Within 48 Hours Sepsis New/Unexplained Change in Mental Status Sepsis Action Taken by Nursing Oxygen Flow Rate - Titration Pulse Oximetry Post Tiitration Pulse Rate 97 H 96 H Pulse Rate [Finger] 98 H 96 H Pulse Rate from SpO2 Sensor 96 H 96 H Pulse Rhythm Pulse Rhythm [Finger] Regular Pulse Strength [Finger] Normal Respiratory Rate 23 14 18 Respiratory Effort / Characteristics Spontaneous Short of Breath Spontaneous Short of Breath Blood Pressure 118/71 Blood Pressure [Right Arm] 118/71 Blood Pressure Mean 86 Blood Pressure Mean [Right Arm] 86 Blood Pressure Position [Right Arm] Lying Pulse Oximetry 97 95 99 Oxygen Delivery Method Oxymask Oxymask Oxygen Flow Rate 6 6 12/18/18 10:15 12/18/18 10:30 12/18/18 10:31 Temperature Temperature Source Sepsis Recent Fever Within 48 Hours Sepsis New/Unexplained Change in Mental Status Sepsis Action Taken by Nursing Oxygen Flow Rate - Titration Pulse Oximetry Post Tiitration Pulse Rate 106 H 102 H 104 H Pulse Rate [Finger] 106 H Pulse Rate from SpO2 Sensor 107 H 102 H 106 H Pulse Rhythm Pulse Rhythm [Finger] Regular Pulse Strength [Finger] Normal Respiratory Rate 25 H 34 H 29 H Respiratory Effort / Characteristics Spontaneous Short of Breath Blood Pressure 121/63 Blood Pressure [Right Arm] 121/63 Blood Pressure Mean 82 Blood Pressure Mean [Right Arm] 82 Blood Pressure Position [Right Arm] Lying Pulse Oximetry 96 92 92 Oxygen Delivery Method Oxymask Oxygen Flow Rate 6 12/18/18 10:45 12/18/18 11:00 12/18/18 11:14 Temperature Temperature Source Sepsis Recent Fever Within 48 Hours Sepsis New/Unexplained Change in Mental Status Sepsis Action Taken by Nursing Oxygen Flow Rate - Titration Pulse Oximetry Post Tiitration Pulse Rate 103 H 100 H 102 H Pulse Rate [Finger] Pulse Rate from SpO2 Sensor 102 H 100 H Pulse Rhythm Regular Pulse Rhythm [Finger] Pulse Strength [Finger] Respiratory Rate 34 H 21 22 Respiratory Effort / Characteristics Blood Pressure 126/64 Blood Pressure [Right Arm] Blood Pressure Mean 84 Blood Pressure Mean [Right Arm] Blood Pressure Position [Right Arm] Pulse Oximetry 93 93 94 Oxygen Delivery Method Oxymask Oxygen Flow Rate 6 GENERAL: Laying in bed, alert, ill appearing, talking in full sentences, on nasal canula EYE EXAM: normal conjunctiva. OROPHARYNX: no exudate, no erythema, lips, buccal mucosa, and tongue normal and mucous membranes are moist NECK: supple, no nuchal rigidity, no adenopathy, non-tender. No JVD. LUNGS: Diffuse wheezing bilaterally. Normal chest wall mechanics HEART: no murmurs, S1 normal and S2 normal ABDOMEN: abdomen soft, non-tender, normo-active bowel sounds, no masses, no rebound or guarding. BACK: Back is symmetrical on inspection and there is no deformity, no midline tenderness, no CVA tenderness. SKIN: no rashes and no bruising UPPER EXTREMITIES: upper extremities are grossly normal. LOWER EXTREMITIES: Calves are equal bilaterally. Pitting edema bilaterally. NEURO EXAM: Normal sensorium, cranial nerves II-XII intact, normal speech, no weakness of arms, no weakness of legs. Course ED COURSE: Vital signs were reviewed and showed low O2 Sat. The patients medical record was reviewed The above diagnostic studies were performed and reviewed. ED treatments and interventions as stated above. 0929: The patient was evaluated in room B05. A complete history and physical examination was performed. 1013: Upon reevaluation, the patient is feeling a little better. 1042: I spoke with Dr. Lance Lay hospitalist, she will evaluate for further management. 1054: I discussed my findings with the patient and she understands and agrees with the treatment plan. Based on the patients age, coexisting illnesses, exam and lab findings the decision to treat as an inpatient was made. The patient remained stable while under my care. The patient will be evaluated for further management. Administered Medications Albuterol (Duoneb) 3 ml NEB QIDR HAL Stop: 01/17/19 14:59 Last Admin: 12/18/18 15:28 Dose: 3 ml Documented by: [id number] Ioversol (Optiray 320 125ml) 118 ml IV ONCE PRN PRN Reason: Interaction Checking Stop: 12/22/18 11:45 Last Admin: 12/18/18 11:47 Dose: 118 ml Documented by: [id number] Discontinued Medications Albuterol (Ventolin 0.083% 2.5mg/3ml) 5 mg NEB NOW STA Stop: 12/18/18 09:32 Last Admin: 12/18/18 09:55 Dose: 5 mg Documented by: [id number] Sodium Chloride (Nss 1000ml) 2,000 mls @ 999 mls/hr IV .Q2H1M ONE Stop: 12/18/18 11:31 Last Infusion: 12/18/18 10:49 Dose: 0 mls/hr Documented by: [id number] Admin: 12/18/18 09:40 Dose: 999 mls/hr Documented by: [id number] Levofloxacin/Dextrose (Levaquin/D5w) 750 mg in 150 mls @ 100 mls/hr IV Q24H HAL Stop: 01/01/19 09:44 Last Infusion: 12/18/18 12:01 Dose: 0 mls/hr Documented by: [id number] Admin: 12/18/18 09:52 Dose: 100 mls/hr Documented by: [id number] Ceftriaxone Sodium (Rocephin) 1,000 mg in 50 mls @ 100 mls/hr IV NOW STA Stop: 12/18/18 11:00 Last Infusion: 12/18/18 11:10 Dose: 0 mls/hr Documented by: [id number] Admin: 12/18/18 10:37 Dose: 100 mls/hr Documented by: [id number] Methylprednisolone (Solumedrol) 60 mg IV NOW STA Stop: 12/18/18 09:34 Last Admin: 12/18/18 09:52 Dose: 60 mg Documented by: [id number] Medical Decision Making Differential Diagnosis Differential diagnosis: Etiologies such as sepsis, UTI, pneumonia, bacteremia, metabolic process, electrolyte abnormalities, cardiac sources, intracerebral event, intra-abdominal process, toxicological process, neurologic process, as well as others were entertained. Medical Records Attestation: I reviewed the patient's medical records. Home Medications Current Medication List: was personally reviewed by me Laboratory Data Attestation: I reviewed the patient's lab results. Result diagrams: 12/18/18 14:23 12/18/18 09:39 Lab Results 12/18/18 12/18/18 12/18/18 Range/Units 09:39 09:39 09:39 WBC 11.50 H (4.8-10.8) K/uL RBC 2.81 L (4.2-5.4) M/uL Hgb 7.9 L (12.0-16.0) g/dL POC Hgb (12.0-16.0) g/dl Hct 23.4 L (37-47) % POC Hct (37-47) % MCV 83.3 (80-100) fL MCH 28.1 (25-34) pg MCHC 33.8 (32-36) g/dL RDW Std Deviation 48.9 H (36.4-46.3) fL RDW Coeff of Lorene 15.8 H (11.5-14.5) % Plt Count 263 (130-400) K/uL MPV 9.5 (7.4-10.4) fL Immature Gran % (Auto) 0.3 % Neut % (Auto) 91.3 % Lymph % (Auto) 4.7 % [place] % (Auto) 3.3 % Eos % (Auto) 0.2 % Baso % (Auto) 0.2 % Reticulocyte % (Auto) 1.4 (0.5-2.0) % Immature Gran # (Auto) 0.03 H (0.00-0.02) K/uL Neut # (Auto) 10.51 H (1.4-6.5) K/uL Lymph # (Auto) 0.54 L (1.2-3.4) K/uL [place] # (Auto) 0.38 (0.11-0.59) K/uL Eos # (Auto) 0.02 (0-0.5) K/uL Baso # (Auto) 0.02 (0-0.2) K/uL Reticulocyte # 0.04 (0.02-0.10) 10^6/uL Absolute Nucleated RBC 0.00 (0-0) K/uL Nucleated RBC % (auto) 0.0 % Polychromasia 1+ Hypochromasia Present Microcytosis Present Peripher Smr Path Cons Immature Retic Fraction 13.9 (3.0-15.9) % Retic Hgb Content 19.7 L (28.2-36.6) pg PT 10.3 (9.0-12.0) Seconds INR 1.0 (0.9-1.1) APTT 26.2 (21.0-31.0) Seconds PTT Ratio 1.0 VBG pH (7.36-7.41) VBG pCO2 (38-50) mmHg VBG pO2 mmHg VBG HCO3 mmol/L VBG O2 Saturation % VBG Base Excess mEq/L Barometric Pressure mm/Hg POC Sodium (135-144) mEq/L Sodium 138 (136-145) mmol/L POC Potassium (3.3-5.0) mEq/L Potassium 3.1 L (3.5-5.1) mmol/L POC Chloride (101-112) mEq/L Chloride 109 H (98-107) mmol/L Carbon Dioxide 20 L (21-32) mmol/L POC Total CO2 (24-31) mEq/l Anion Gap 9.0 (3-11) POC Anion Gap (16-25) mmol/L POC BUN (7-18) mg/dl BUN 13 (7-18) mg/dl Creatinine 1.18 (0.6-1.2) mg/dl POC Creatinine (0.6-1.3) mg/dl Est Cr Clr Drug Dosing 63.3 ml/min Est GFR ( Amer) 64.5 Est GFR (Non-Af Amer) 55.7 BUN/Creatinine Ratio 11.3 (10-20) Glucose 199 H (70-99) mg/dl POC Glucose (other) (70-99) mg/dl POC Lactic Acid Mina (0.90-1.70) mmol/L Calcium 8.1 L (8.5-10.1) mg/dl POC Ioniz Calcium Thang (1.12-1.32) mmol/l Iron (35-150) mcg/dl TIBC (250-450) mcg/dl Transferrin (200-360) mg/dl Ferritin (8-388) ng/ml Total Bilirubin 0.4 (0.2-1) mg/dl AST 28 (15-37) U/L ALT 18 (12-78) U/L Alkaline Phosphatase 104 (45-117) U/L Lactate Dehydrogenase (84-246) U/L Total Creatine Kinase (26-192) U/L Troponin I (0-0.045) ng/ml NT-Pro-B Natriuret Pep (0-450) pg/ml Total Protein 6.6 (6.4-8.2) gm/dl Albumin 2.9 L (3.4-5.0) gm/dl Globulin 3.7 (2.5-4.0) gm/dl Albumin/Globulin Ratio 0.8 L (0.9-2) Vitamin B12 (211-911) pg/ml Folate (>5.38) ng/ml Procalcitonin (0-0.5) ng/ml TSH (0.300-4.500) uIu/ml Free T4 (0.8-1.6) ng/dl Influenza Type A Ag (Neg) Influenza Type B Ag (Neg) Blood Type Antibody Screen Crossmatch 12/18/18 12/18/18 12/18/18 Range/Units 09:39 09:39 09:39 WBC (4.8-10.8) K/uL RBC (4.2-5.4) M/uL Hgb (12.0-16.0) g/dL POC Hgb (12.0-16.0) g/dl Hct (37-47) % POC Hct (37-47) % MCV (80-100) fL MCH (25-34) pg MCHC (32-36) g/dL RDW Std Deviation (36.4-46.3) fL RDW Coeff of Lorene (11.5-14.5) % Plt Count (130-400) K/uL MPV (7.4-10.4) fL Immature Gran % (Auto) % Neut % (Auto) % Lymph % (Auto) % [place] % (Auto) % Eos % (Auto) % Baso % (Auto) % Reticulocyte % (Auto) (0.5-2.0) % Immature Gran # (Auto) (0.00-0.02) K/uL Neut # (Auto) (1.4-6.5) K/uL Lymph # (Auto) (1.2-3.4) K/uL [place] # (Auto) (0.11-0.59) K/uL Eos # (Auto) (0-0.5) K/uL Baso # (Auto) (0-0.2) K/uL Reticulocyte # (0.02-0.10) 10^6/uL Absolute Nucleated RBC (0-0) K/uL Nucleated RBC % (auto) % Polychromasia Hypochromasia Microcytosis Peripher Smr Path Cons Immature Retic Fraction (3.0-15.9) % Retic Hgb Content (28.2-36.6) pg PT (9.0-12.0) Seconds INR (0.9-1.1) APTT (21.0-31.0) Seconds PTT Ratio VBG pH 7.41 (7.36-7.41) VBG pCO2 33 L (38-50) mmHg VBG pO2 42 mmHg VBG HCO3 20 mmol/L VBG O2 Saturation 76.7 % VBG Base Excess -3.7 mEq/L Barometric Pressure 737.6 mm/Hg POC Sodium (135-144) mEq/L Sodium (136-145) mmol/L POC Potassium (3.3-5.0) mEq/L Potassium (3.5-5.1) mmol/L POC Chloride (101-112) mEq/L Chloride (98-107) mmol/L Carbon Dioxide (21-32) mmol/L POC Total CO2 (24-31) mEq/l Anion Gap (3-11) POC Anion Gap (16-25) mmol/L POC BUN (7-18) mg/dl BUN (7-18) mg/dl Creatinine (0.6-1.2) mg/dl POC Creatinine (0.6-1.3) mg/dl Est Cr Clr Drug Dosing ml/min Est GFR ( Amer) Est GFR (Non-Af Amer) BUN/Creatinine Ratio (10-20) Glucose (70-99) mg/dl POC Glucose (other) (70-99) mg/dl POC Lactic Acid Mina (0.90-1.70) mmol/L Calcium (8.5-10.1) mg/dl POC Ioniz Calcium Thang (1.12-1.32) mmol/l Iron 8 L (35-150) mcg/dl TIBC 419 (250-450) mcg/dl Transferrin 313 (200-360) mg/dl Ferritin 32.0 (8-388) ng/ml Total Bilirubin (0.2-1) mg/dl AST (15-37) U/L ALT (12-78) U/L Alkaline Phosphatase (45-117) U/L Lactate Dehydrogenase (84-246) U/L Total Creatine Kinase 98 (26-192) U/L Troponin I 0.106 H* (0-0.045) ng/ml NT-Pro-B Natriuret Pep 882 H (0-450) pg/ml Total Protein (6.4-8.2) gm/dl Albumin (3.4-5.0) gm/dl Globulin (2.5-4.0) gm/dl Albumin/Globulin Ratio (0.9-2) Vitamin B12 (211-911) pg/ml Folate (>5.38) ng/ml Procalcitonin (0-0.5) ng/ml TSH 0.227 L (0.300-4.500) uIu/ml Free T4 1.21 (0.8-1.6) ng/dl Influenza Type A Ag (Neg) Influenza Type B Ag (Neg) Blood Type Antibody Screen Crossmatch 12/18/18 12/18/18 12/18/18 Range/Units 09:39 09:42 09:46 WBC (4.8-10.8) K/uL RBC (4.2-5.4) M/uL Hgb (12.0-16.0) g/dL POC Hgb 7.8 L (12.0-16.0) g/dl Hct (37-47) % POC Hct 23 L (37-47) % MCV (80-100) fL MCH (25-34) pg MCHC (32-36) g/dL RDW Std Deviation (36.4-46.3) fL RDW Coeff of Lorene (11.5-14.5) % Plt Count (130-400) K/uL MPV (7.4-10.4) fL Immature Gran % (Auto) % Neut % (Auto) % Lymph % (Auto) % [place] % (Auto) % Eos % (Auto) % Baso % (Auto) % Reticulocyte % (Auto) (0.5-2.0) % Immature Gran # (Auto) (0.00-0.02) K/uL Neut # (Auto) (1.4-6.5) K/uL Lymph # (Auto) (1.2-3.4) K/uL [place] # (Auto) (0.11-0.59) K/uL Eos # (Auto) (0-0.5) K/uL Baso # (Auto) (0-0.2) K/uL Reticulocyte # (0.02-0.10) 10^6/uL Absolute Nucleated RBC (0-0) K/uL Nucleated RBC % (auto) % Polychromasia Hypochromasia Microcytosis Peripher Smr Path Cons Immature Retic Fraction (3.0-15.9) % Retic Hgb Content (28.2-36.6) pg PT (9.0-12.0) Seconds INR (0.9-1.1) APTT (21.0-31.0) Seconds PTT Ratio VBG pH (7.36-7.41) VBG pCO2 (38-50) mmHg VBG pO2 mmHg VBG HCO3 mmol/L VBG O2 Saturation % VBG Base Excess mEq/L Barometric Pressure mm/Hg POC Sodium 138 (135-144) mEq/L Sodium (136-145) mmol/L POC Potassium 3.1 L (3.3-5.0) mEq/L Potassium (3.5-5.1) mmol/L POC Chloride 106 (101-112) mEq/L Chloride (98-107) mmol/L Carbon Dioxide (21-32) mmol/L POC Total CO2 19 L (24-31) mEq/l Anion Gap (3-11) POC Anion Gap 17.0 (16-25) mmol/L POC BUN 11 (7-18) mg/dl BUN (7-18) mg/dl Creatinine (0.6-1.2) mg/dl POC Creatinine 1.1 (0.6-1.3) mg/dl Est Cr Clr Drug Dosing ml/min Est GFR ( Amer) Est GFR (Non-Af Amer) BUN/Creatinine Ratio (10-20) Glucose (70-99) mg/dl POC Glucose (other) 200 H (70-99) mg/dl POC Lactic Acid Mina 1.71 H (0.90-1.70) mmol/L Calcium (8.5-10.1) mg/dl POC Ioniz Calcium Thang 1.14 (1.12-1.32) mmol/l Iron (35-150) mcg/dl TIBC (250-450) mcg/dl Transferrin (200-360) mg/dl Ferritin (8-388) ng/ml Total Bilirubin (0.2-1) mg/dl AST (15-37) U/L ALT (12-78) U/L Alkaline Phosphatase (45-117) U/L Lactate Dehydrogenase 427 H (84-246) U/L Total Creatine Kinase (26-192) U/L Troponin I (0-0.045) ng/ml NT-Pro-B Natriuret Pep (0-450) pg/ml Total Protein (6.4-8.2) gm/dl Albumin (3.4-5.0) gm/dl Globulin (2.5-4.0) gm/dl Albumin/Globulin Ratio (0.9-2) Vitamin B12 (211-911) pg/ml Folate (>5.38) ng/ml Procalcitonin (0-0.5) ng/ml TSH (0.300-4.500) uIu/ml Free T4 (0.8-1.6) ng/dl Influenza Type A Ag (Neg) Influenza Type B Ag (Neg) Blood Type Antibody Screen Crossmatch 12/18/18 12/18/18 12/18/18 Range/Units 09:47 10:01 11:36 WBC (4.8-10.8) K/uL RBC (4.2-5.4) M/uL Hgb (12.0-16.0) g/dL POC Hgb (12.0-16.0) g/dl Hct (37-47) % POC Hct (37-47) % MCV (80-100) fL MCH (25-34) pg MCHC (32-36) g/dL RDW Std Deviation (36.4-46.3) fL RDW Coeff of Lorene (11.5-14.5) % Plt Count (130-400) K/uL MPV (7.4-10.4) fL Immature Gran % (Auto) % Neut % (Auto) % Lymph % (Auto) % [place] % (Auto) % Eos % (Auto) % Baso % (Auto) % Reticulocyte % (Auto) (0.5-2.0) % Immature Gran # (Auto) (0.00-0.02) K/uL Neut # (Auto) (1.4-6.5) K/uL Lymph # (Auto) (1.2-3.4) K/uL [place] # (Auto) (0.11-0.59) K/uL Eos # (Auto) (0-0.5) K/uL Baso # (Auto) (0-0.2) K/uL Reticulocyte # (0.02-0.10) 10^6/uL Absolute Nucleated RBC (0-0) K/uL Nucleated RBC % (auto) % Polychromasia Hypochromasia Microcytosis Peripher Smr Path Cons Immature Retic Fraction (3.0-15.9) % Retic Hgb Content (28.2-36.6) pg PT (9.0-12.0) Seconds INR (0.9-1.1) APTT (21.0-31.0) Seconds PTT Ratio VBG pH (7.36-7.41) VBG pCO2 (38-50) mmHg VBG pO2 mmHg VBG HCO3 mmol/L VBG O2 Saturation % VBG Base Excess mEq/L Barometric Pressure mm/Hg POC Sodium (135-144) mEq/L Sodium (136-145) mmol/L POC Potassium (3.3-5.0) mEq/L Potassium (3.5-5.1) mmol/L POC Chloride (101-112) mEq/L Chloride (98-107) mmol/L Carbon Dioxide (21-32) mmol/L POC Total CO2 (24-31) mEq/l Anion Gap (3-11) POC Anion Gap (16-25) mmol/L POC BUN (7-18) mg/dl BUN (7-18) mg/dl Creatinine (0.6-1.2) mg/dl POC Creatinine (0.6-1.3) mg/dl Est Cr Clr Drug Dosing ml/min Est GFR ( Amer) Est GFR (Non-Af Amer) BUN/Creatinine Ratio (10-20) Glucose (70-99) mg/dl POC Glucose (other) (70-99) mg/dl POC Lactic Acid Mina (0.90-1.70) mmol/L Calcium (8.5-10.1) mg/dl POC Ioniz Calcium Thang (1.12-1.32) mmol/l Iron (35-150) mcg/dl TIBC (250-450) mcg/dl Transferrin (200-360) mg/dl Ferritin (8-388) ng/ml Total Bilirubin (0.2-1) mg/dl AST (15-37) U/L ALT (12-78) U/L Alkaline Phosphatase (45-117) U/L Lactate Dehydrogenase (84-246) U/L Total Creatine Kinase (26-192) U/L Troponin I (0-0.045) ng/ml NT-Pro-B Natriuret Pep (0-450) pg/ml Total Protein (6.4-8.2) gm/dl Albumin (3.4-5.0) gm/dl Globulin (2.5-4.0) gm/dl Albumin/Globulin Ratio (0.9-2) Vitamin B12 (211-911) pg/ml Folate (>5.38) ng/ml Procalcitonin 1.21 H (0-0.5) ng/ml TSH (0.300-4.500) uIu/ml Free T4 (0.8-1.6) ng/dl Influenza Type A Ag Neg for Influ A (Neg) Influenza Type B Ag Neg for Influ B (Neg) Blood Type O Negative Antibody Screen NEGATIVE Crossmatch See Detail 12/18/18 12/18/18 Range/Units 11:51 11:51 WBC (4.8-10.8) K/uL RBC (4.2-5.4) M/uL Hgb (12.0-16.0) g/dL POC Hgb (12.0-16.0) g/dl Hct (37-47) % POC Hct (37-47) % MCV (80-100) fL MCH (25-34) pg MCHC (32-36) g/dL RDW Std Deviation (36.4-46.3) fL RDW Coeff of Lorene (11.5-14.5) % Plt Count (130-400) K/uL MPV (7.4-10.4) fL Immature Gran % (Auto) % Neut % (Auto) % Lymph % (Auto) % [place] % (Auto) % Eos % (Auto) % Baso % (Auto) % Reticulocyte % (Auto) (0.5-2.0) % Immature Gran # (Auto) (0.00-0.02) K/uL Neut # (Auto) (1.4-6.5) K/uL Lymph # (Auto) (1.2-3.4) K/uL [place] # (Auto) (0.11-0.59) K/uL Eos # (Auto) (0-0.5) K/uL Baso # (Auto) (0-0.2) K/uL Reticulocyte # (0.02-0.10) 10^6/uL Absolute Nucleated RBC (0-0) K/uL Nucleated RBC % (auto) % Polychromasia Hypochromasia Microcytosis Peripher Smr Path Cons Immature Retic Fraction (3.0-15.9) % Retic Hgb Content (28.2-36.6) pg PT (9.0-12.0) Seconds INR (0.9-1.1) APTT (21.0-31.0) Seconds PTT Ratio VBG pH (7.36-7.41) VBG pCO2 (38-50) mmHg VBG pO2 mmHg VBG HCO3 mmol/L VBG O2 Saturation % VBG Base Excess mEq/L Barometric Pressure mm/Hg POC Sodium (135-144) mEq/L Sodium (136-145) mmol/L POC Potassium (3.3-5.0) mEq/L Potassium (3.5-5.1) mmol/L POC Chloride (101-112) mEq/L Chloride (98-107) mmol/L Carbon Dioxide (21-32) mmol/L POC Total CO2 (24-31) mEq/l Anion Gap (3-11) POC Anion Gap (16-25) mmol/L POC BUN (7-18) mg/dl BUN (7-18) mg/dl Creatinine (0.6-1.2) mg/dl POC Creatinine (0.6-1.3) mg/dl Est Cr Clr Drug Dosing ml/min Est GFR ( Amer) Est GFR (Non-Af Amer) BUN/Creatinine Ratio (10-20) Glucose (70-99) mg/dl POC Glucose (other) (70-99) mg/dl POC Lactic Acid M[place] (0.90-1.70) mmol/L Calcium (8.5-10.1) mg/dl POC Ioniz Calcium Thang (1.12-1.32) mmol/l Iron (35-150) mcg/dl TIBC (250-450) mcg/dl Transferrin (200-360) mg/dl Ferritin (8-388) ng/ml Total Bilirubin (0.2-1) mg/dl AST (15-37) U/L ALT (12-78) U/L Alkaline Phosphatase (45-117) U/L Lactate Dehydrogenase (84-246) U/L Total Creatine Kinase (26-192) U/L Troponin I (0-0.045) ng/ml NT-Pro-B Natriuret Pep (0-450) pg/ml Total Protein (6.4-8.2) gm/dl Albumin (3.4-5.0) gm/dl Globulin (2.5-4.0) gm/dl Albumin/Globulin Ratio (0.9-2) Vitamin B12 235 (211-911) pg/ml Folate 8.77 (>5.38) ng/ml Procalcitonin (0-0.5) ng/ml TSH (0.300-4.500) uIu/ml Free T4 (0.8-1.6) ng/dl Influenza Type A Ag (Neg) Influenza Type B Ag (Neg) Blood Type Antibody Screen Crossmatch Imaging Data Radiologist's Impression: Radiology results as stated below per my review and the radiologist's interpretation: XR chest 1V portable CLINICAL HISTORY: Sepsis dyspnea COMPARISON STUDY: 07/03/2013 FINDINGS: Interval development of diffuse bilateral parenchymal infiltrative change versus pulmonary edema. Respiratory distress may present a similar fashion. Diaphragms are smooth. Costophrenic angles are sharp. IMPRESSION: 1. Diffuse bilateral parenchymal infiltrative change, versus pulmonary edema and/or respiratory distress. 2. No well-defined consolidative infiltrative process. The above report was generated using voice recognition software. It may contain grammatical, syntax or spelling errors. Electronically signed by: Vargas Patel M.D. 12/18/2018 10:28 AM ECG Data Attestation: I personally reviewed and interpreted this ECG as follows: Indication: chest pain Rate (beats per minute): 109 Rhythm: sinus tachycardia ECG Intervals/blocks: Incomplete right bundle branch block and Normal QRS ECG Stewart: Normal ECG Findings: PVCs and Other (poor baseline anterior) Blood Pressure Blood Pressure Findings: Elevated blood pressure Blood Pressure Disposition: Referred to patients primary care provider MIKE Narrative Patient is a 43-year-old female who presents the ER for shortness of breath which is been present for the past 3 days. She does admit to having an echo 2 weeks ago. She notes that she has had a cough congestion sore throat which is been present for the past 24 hours. IV was established blood work is obtained. Lungs had rhonchi bilateral with pitting edema. She does have a history of asthma and smoking. IV was established and patient was given IV steroids, Levaquin, neb treatment and a chest x-ray was obtained and left appears to be more consistent with pulmonary edema and right is asymmetric although could be infectious versus pulmonary edema. CT chest was performed without PEs. Did discuss with the hospitalist. Troponin was elevated. EKG was not consistent with ischemia. Labs show no significant leukocytosis. Hemoglobin did drop down from 10-8. She was typed and crossed. She was hypoxic at 78% and placed on oxygen and titrated up to 4 L was 92%. VBG with a CO2 of 33. BMP with a hypokalemia. Lactate was not significantly elevated. LFTs bilirubin was unremarkable. TSH was unremarkable. Uncertain of the true cause of this but do favor secondary to pulmonary edema and I do question if she had a recent infarct but uncertain. Will benefit from an echo to clear this up. She was significantly improved with oxygen and will admit to the hospitalist. Heart rate did trend down and patient was not febrile while in the ER but does note did have a fever at home of 102. Patient was covered with broad-spectrum antibiotics. Impression & Plan Breath shortness, Sepsis, Hypoxia Critical Care Time Critical Care Time: Yes Total Critical Care Time: 45 I have personally spent 45 minutes of critical care time in the direct management of this patient. This includes bedside care, interpretation of diagnostic studies, and testing, discussion with consultants, patient, and family members, and other required patient management activities. This 45 minut es is in excess of all separately billable procedures. Discharge Plan Visit Data *Final* Discharge Date/Time: 12/18/18 13:05 Chief Complaint: Fever Stated Complaint: FEVER,BREATHING PROBS, ACHES AND PAINS ED Provider: Mejia Hunter Discharge Problem: Breath shortness, Sepsis, Hypoxia Patient Disposition: Admitted As Inpatient Discharge Instructions Interventions: ED Discharge Assessment Last Done: 12/18/18 13:05 Discharge Problem: Sepsis Qualifiers: Sepsis type: sepsis due to unspecified organism Sepsis acute organ dysfunction status: unspecified Qualified Code(s): A41.9 - Sepsis, unspecified organism The scribe's documentation has been prepared under my direction and personally reviewed by me in its entirety. I confirm that the note above accurately reflects all work, treatment, procedures, and medical decision making performed by me.
[2018-12-18 16:22] LABS: Bacteria Urine Automated Negative (Negative); Cast Urine Automated 0 /lpf (0-5); RBC Urine Automated 0-4 /hpf (0-4); WBC Urine Automated 0 /hpf (0-5)
--- NOTE | 2018-12-18 16:24 | Pulmonary Consultation ---
Date of Consultation December 18, 2018 Assessment & Plan (1) Sepsis with acute hypoxic respiratory failure: CT scan of the patient personally reviewed. Shows diffuse groundglass opacities with no pleural effusion. Interlobular wall thickening. No clear air bronchograms. No clear mediastinal lymphadenopathy. Patient spiked fever of 102 at home. Could be secondary to infectious etiology which includes multilobar pneumonia (PCP in the differential), influenza screen negative--> continue with broad- spectrum antibiotics including atypical coverage, follow-up urine Legionella, mycoplasma IgM and sputum culture, follow-up HIV, procalcitonin 1.21, LDH: 427 Monitor QTC 5 patient is on azithromycin Could also be secondary to pulmonary edema given that the patient has bilateral lower extremity edema going on since more than a year --> follow-up 2D echo and diurese as tolerated with strict in and out Could be secondary to autoimmune process which includes but not limited to hypersensitivity pneumonitis, diffuse alveolar hemorrhage (although patient is not bringing up any phlegm) --> follow-up autoimmune work-up, patient has no eosinophilia Continue with O2 supplementation we will put the patient on high flow to keep the saturation around 92% --> if the patient still is hypoxic will transition to BiPAP prior to making decision of intubation. If no clinical improvement, patient will need bronchoscopy. Procedure explained to patient. Possibility of intubation was explained to the patient which she understands and agreeable to. -- Normal anion gap metabolic acidosis Delta delta: Less than 1 --> gap plus non-gap Patient denies any diarrhea Follow-up urine lites -- Hypothyroidism with history of Graves' disease status post thyroidectomy On levothyroxine TSH: 0.22 (low), free T4 1.21(normal) -- B/l LE edema has been going on for a while f/u Urine Cr/Protein ratio Negative for DVT (2) Community acquired pneumonia: (3) Fibromyalgia: (4) Tobacco abuse: Patient is an active smoker with greater than [id number] smoking histor y. No recent trial of quitting. Patient denies using any vape. Advised to quit. (5) Ground glass opacity present on imaging of lung: As above. (6) Elevated troponin: Likely type II [place]. Monitor troponin. History of Present Illness Reason for Consultation: Hypoxia with diffuse groundglass opacities Attending Physician: Kandis Ro DO History of Present Illness 43-year-old female with past medical history of Asthma, active smoker greater than 30 pack years, hypertension, history of GERD status post Emanuel fundoplication, migraine, Graves' disease status post thyroidectomy presents to the hospital with complaints of worsening shortness of breath which has been going on since approximately 10 to 14 days. Was associated with fever of 102 Fahrenheit which was approximately a day ago. Patient has been having dry cough not bringing up any phlegm. Generalized weakness. Patient has been noticing swelling in her legs which is increased in size. Although patient states that the swelling in the legs has been going on since last couple of years and she gets diuretics as needed from the PMD. No dysuria, no diarrhea. No hemoptysis. No nausea or vomiting. No abdominal pain. No dizziness, no headache, no chest pain. Patient denies taking any new medications. Questionable history of fibromyalgia. Patient states that she follows up with neurology for possible MS but she has never been told that she has MS. No night sweats. No recent travel history. No recent sick contacts that she knows of. Denies any runny nose or tearing from the eyes. Patient got her flu shot this season. Patient personally denies in his [place] phenomena. No difficulty swallowing. Social history: Active smoker half a pack a day with greater than [id number] smoking history, no illicit drug use, denies use of marijuana, no alcohol use. 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 Has a dog at home. No birds at home. No poultry. Does not live near farm. Sexually active with ex- no use of protection. History of HPV. No other known STDs. Denies any history of HIV. Denies any history of hepatitis. Family history: History of lupus and sister. Allergies: Was intubated in 2010 for approximately 10 days and as per the patient that was because of aspiration from her GERD. Allergies Allergy/AdvReac Type Severity Reaction Status Date / Time aspirin Allergy Severe WHEEZING Verified 12/18/18 10:42 Sulfa (Sulfonamide Allergy Intermediate HIVES Verified 12/18/18 10:42 Antibiotics) Home Medications Home Medications Medication Instructions Recorded Confirmed Type albuterol sulfate [Ventolin HFA] 2 puff INHALATION Q6H #0 12/10/10 12/18/18 History multivitamin 1 tab PO HS #0 tab 03/18/16 12/18/18 History polyethylene glycol 3350 17 g PO DAILY #527 g 03/18/16 12/18/18 History cholecalciferol (vitamin D3) 50,000 unit PO RENO 12/18/18 12/18/18 History clonazepam 1 mg PO BID PRN 12/18/18 12/18/18 History cyclobenzaprine 10 mg PO TID PRN 12/18/18 12/18/18 History doxepin 300 mg PO HS 12/18/18 12/18/18 History furosemide 20 mg PO DAILY PRN 12/18/18 12/18/18 History gabapentin 600 mg PO TID 12/18/18 12/18/18 History hydroxyzine pamoate 50 mg PO HS PRN 12/18/18 12/18/18 History labetalol 200 mg PO BID 12/18/18 12/18/18 History levothyroxine 137 mcg PO QAM 12/18/18 12/18/18 History nifedipine 90 mg PO QAM 12/18/18 12/18/18 History ondansetron 4 mg PO Q6H PRN 12/18/18 12/18/18 History Patient History Medical History Hypertension (Chronic) Asthma (Chronic) Fibromyalgia (Chronic) IBS (irritable bowel syndrome) (Chronic) Anxiety (Chronic) Depression (Chronic) Postoperative hypothyroidism (Chronic 12/11/10) Perforated viscus (Resolved) Surgical History History of dilation and curettage (Resolved) History of section (Resolved) Family History Mother COPD (chronic obstructive pulmonary disease) Myocardial infarction, Onset Age: 51 Social History Preferred Language: [place] Communication Ability: Effective Transfer Clerk Required: No Beliefs That Will Affect Care: None Current Living Situation: Family and Other Current Living Situation Comment: ex helps with children Other Information That Helps Us Care for You: No Feels Safe at Home: Yes Safety Concerns: Feels Safe At This Time Smoking Status: Current every day smoker Tobacco Type: cigarettes ; Cigarettes Per Day: 20 ; Do You Dip or Chew Tobacco: No ; Second Hand Exposure: No ; Tobacco Cessation Education Requested by Patient: No Hx Alcohol Use: No Hx Substance Use: No Review of Systems Review of Systems: All systems reviewed & are unremarkable except as noted in HPI & below Physical Exam Physical Exam: Constitutional: Mild respiratory distress HEENT: EOMI, PERRLA, positive JVD Respiratory system: Decreased air entry bilaterally, positive diffuse crackles, no wheeze, no rhonchi CVS: S1-S2 positive, no murmurs or gallops tachycardia Abdomen: Soft, nontender, nondistended, positive bowel sounds x4 Extremities: +2 pulses bilaterally radialis/ dorsalis pedis, +3 pitting edema bilateral lower extremity, no cyanosis Neuro: Awake alert oriented x3 Psych: Normal mood and affect G/U: No De Leon Patient saturating 93% on 6 L nasal cannula at the time of examination with heart rate of 98 at rest. Skin: no rashes, warm and dry Lymphatic: no cervical or axillary lymphadenopathy Results & Data Vital Signs (Past 12 Hours) Vital Signs Temp Pulse Pulse Resp BP BP Pulse Ox 12/18/18 16:00 103 H 18 92 12/18/18 15:28 98 H 18 92 12/18/18 15:17 100 H 18 143/82 H 92 12/18/18 14:00 102 H 12/18/18 13:21 37.2 C 99 H 33 H 125/75 92 12/18/18 11:14 102 H 22 94 12/18/18 11:00 100 H 21 126/64 93 12/18/18 10:45 103 H 34 H 93 12/18/18 10:31 104 H 29 H 92 12/18/18 10:30 102 H 106 H 34 H 121/63 121/63 92 12/18/18 10:15 106 H 25 H 96 12/18/18 10:03 96 H 18 118/71 99 12/18/18 10:01 96 H 14 95 12/18/18 10:00 97 H 98 H 23 118/71 97 12/18/18 09:47 89 L 12/18/18 09:45 100 H 29 H 91 12/18/18 09:40 89 L 12/18/18 09:32 108 H 17 91 12/18/18 09:30 110 H 24 115/62 91 12/18/18 09:20 37.2 C 111 H 24 94/52 L 76 L Pulse Ox 12/18/18 16:00 12/18/18 15:28 12/18/18 15:17 12/18/18 14:00 12/18/18 13:21 92 12/18/18 11:14 12/18/18 11:00 12/18/18 10:45 12/18/18 10:31 12/18/18 10:30 12/18/18 10:15 12/18/18 10:03 12/18/18 10:01 12/18/18 10:00 12/18/18 09:47 12/18/18 09:45 12/18/18 09:40 12/18/18 09:32 12/18/18 09:30 12/18/18 09:20 12/18/18 14:23 12/18/18 09:39 Laboratory Results EKG: Sinus tachycardia, normal axis, RSR pattern in V1 V2, incomplete right bundle branch block, P pulmonale. No ST changes, T wave flattening in lead III. QTc 468 PG Care Time/CCT Total # of Minutes Spent Total Time Spent with Patient: Total time spent is greater than 50% in coordination of care (as documented) at patient's floor/unit and/or counseling patient:
[2018-12-18] MEDS: NICOTINE 14 MG/24 HR PATCH TD SCH ×2 (17:01→17:20)
[2018-12-18 17:02] LABS: Amphetamines+Metham, Urine Neg (Neg); Barbiturates, Urine Neg (Neg); Benzodiazepine, Urine Neg (Neg); Cocaine, Urine Neg (Neg); MDMA (Ecstacy), Urine Neg (Neg); Methadone, Urine Neg (Neg); Opiate, Urine Pos (Neg); Phencyclidine, Urine Neg (Neg)
[2018-12-18 17:05] LABS: Base Excess ABG -3.9 mEq/L (-9-1.8); HCO3 ABG 20 mmol/L (19-24); Oxygen Saturation ABG 86.6 % (90-95); PCO2 ABG 31 mmHg (35-46); PO2 ABG 53 mm/Hg (80-95); pH ABG 7.42 (7.35-7.45)
[2018-12-18 17:07] LABS: Allen Test Pos (Pos)
[2018-12-18] MEDS ORDERED: NICOTINE 21 MG/24 HR TDSY TD ONE (17:08)
[2018-12-18] MEDS: GABAPENTIN 600 MG TAB PO SCH ×2 (17:16→20:16)
[2018-12-18 17:24] LABS: Fibrinogen 561 mg/dl (184-400)
[2018-12-18 17:28] LABS: C Reactive Protein 22.1 mg/dl (0-0.29)
[2018-12-18 17:48] LABS: Hepatitis B Surface Ab Quant 14.48 mIU/mL (>or=10mIU/mL Immune); Hepatitis B Surface Antibody Immune
[2018-12-18 18:28] LABS: Hepatitis C IgG 13Yrs+Old_Rflx Neg (Neg)
[2018-12-18 18:30] LABS: Hepatitis B Surface Antigen Neg (Neg)
--- NOTE | 2018-12-18 18:46 | Communication Note ---
Date of Service: December 18, 2018 Reexamined the patient around 6:15 PM. Patient was saturating 86% on 55% high flow with 30 L. Increased FiO2 to 65% and flow to 40 L. Saturation increased to 92%. Patient gets in respiratory distress even on minimal movement. Echo official report back ejection fraction is good. This rules out cardiac issues of the groundglass opacity seen in the lung. Since UDS is positive for opiates. When I initially asked the patient while taking history she denied any illicit drug use. Will ask ask her again regarding use of any opiates. Opiate-induced noncardiogenic pulmonary edema is in the differential now. We will treated symptomatically with IV diuretics, high flow/BiPAP as needed. ABG 7.42/31/53/86% on 40% CRP: 22.10, ESR:58. Hepatitis B and hepatitis C negative. HIV negative We will transfer the patient to MICU so that we can monitor her closely. Patient is high risk for intubation. Plan discussed with hospitalist and patient will be made aware. For detailed history please look at my pulmonary consult progress note.
[2018-12-18] MEDS ORDERED: FUROSEMIDE 40 MG/4 ML VIAL IV ONE (19:17)
--- NOTE | 2018-12-18 19:42 | Critical Care Consultation ---
Date of Consultation December 18, 2018 Assessment & Plan (1) Admitted to intensive care unit: Reason Critically Ill: 43-year-old female presents with respiratory distress and acute hypoxic respiratory failure Neuro - [facility] ICU: Negative Cardiac - HTNholding oral medications for tinnitus patient is very hypoxic with low reserve, parents temporarily transition to IV if necessary Respiratory - Hypoxic respiratory failurepneumonia versus reactive pneumonitis versus pulmonary edema -Patient presents with shortness of breath and hypoxia, nonproductive dry cough, now requiring BiPAP -AB.42//53/20 -Continue duo nebs -Started on IV Lasix -CT chest showed bilateral ground-glass opacities, diffuse bilateral parenchymal infiltrates versus pulmonary edema, no evidence of PE -ERCP, procalcitonin, and lactate elevated; blood cultures pending; continue broad-spectrum antibiotics -BNP elevated, echocardiogram normal -HIV and hepatitis negative, immunology panel pending, influenza negative -We will consider IV steroids if chest x-ray unimproved in a.m. -Continuous monitoring on oxygen saturation GI - HFP within normal limits We will keep n.p.o. for now RENAL/LYTES - Creatinine 1.18, will monitor Hypokalemiareplete potassium as necessary Monitor routine BMPs - De Leon insertedstrict I's and O's UA unremarkable ENDO - No history diabetes, ICU hyperglycemic protocol History of Graves' disease status post thyroidectomy; TSH 0.227, continue Synthroid HEME - Anemiahemoglobin 7.9 on admission, was reportedly eleven 1 month ago -No obvious signs of bleeding, will perform Hemoccult with next bowel movement -Iron low on anemic work-up, likely element of iron deficiency anemia, would add supplement when appropriate -Hemoglobin currently stable at 8.0, will continue to monitor with routine CBCs and transfuse if necessary ID - Sepsislactate, procalcitonin elevated, and patient now febrile; most likely pulmonary source -Blood cultures pending -UA unremarkable -Continue azithromycin, Zosyn, vancomycin for now LINES/IV ACCESS - Peripheral IVs DVT PROPHYLAXIS - SCDs, holding anticoagulation as patient presents with new onset of anemia from unconfirmed source I have personally spent 50 minutes of critical care time in the direct management of this patient. This is a life/limb threatening event. This includes time spent evaluating patient, direct bedside care, chart review, placing orders, interpretation of diagnostic studies, discussion with consultants, patient, and family members, as well as other required patient management activities. This time is exclusive of all separately billable procedures, and teaching time and separate from and in addition to any other critical care service time. Thank you for allowing us to participate in the care of this patient. Please refer to my attending physician's documentation for any further recommendations. (2) Sepsis with acute hypoxic respiratory failure: (3) Tobacco abuse: Patient is an active smoker with greater than 88-[id number]-opem smoking hi story. No recent trial of quitting. Patient denies using any vape. Advised to quit. (4) Ground glass opacity present on imaging of lung: As above. (5) Community acquired pneumonia: (6) Fibromyalgia: (7) Elevated troponin: Likely type II [place]. Monitor troponin. Supervising Physician Co-Signing Physician Notes I saw and evaluated the patient with Chavo Thomas, and agree with findings and plan as documented in the note. Patient seen and examined again at bedside. Patient was in respiratory distress breathing and early 30s while on BiPAP. Saturating 90 to 93% on 50% FiO2. Plan to intubate the patient was made for impending respiratory failure. Patient was successfully intubated put on went in ARDS protocol. Patient's HIV came out to be negative. Echo shows good ejection fraction. UDS positive for opioids on asking patient said that she took Percocet for her back pain. She has fever. Elevated procalcitonin, ESR and CRP. Could be infectious versus autoimmune etiology still. Continue with broad-spectrum antibiotics. We will do bronchoscopy for the patient to send for differential of the fluid and culture And also to rule out alveolar hemorrhage. Of note patient says that she has been cleaning the leaves at her house since the last couple of days with the help of a blower. She found mold in her house as well. I have spent more than 50% of this 40 encounter in counseling and/or coordination of care with patient. History of Present Illness Attending Physician: Kandis Ro, History of Present Illness Patient is a 43-year-old female with past medical history of asthma, tobacco abuse, HTN, GERD/P Aron fundoplication, Graves' disease as/P thyroidectomy who presented to the hospital for ongoing shortness of breath with associated fevers. She has had nonproductive dry cough and malaise as well. She was tachycardic, mildly hypertensive, and febrile in the ED and was treated as sepsis from possible pulmonary source with broad-spectrum antibiotics. She was also anemic with hemoglobin 7.9 on admission. Patient was admitted to PCU but oxygen requirements continued to increase and patient was transferred to ICU on high flow nasal cannula which was soon transitioned to BiPAP. On arrival to the ICU the patient is very anxious and short of breath. She was placed on BiPAP which she said helped and her oxygenation improved. She denies headache, dizziness, syncope, chest pain, palpitations, abdominal pain, nausea or vomiting. Patient to remain in ICU for now she is low threshold for requiring intubation and has very little oxygen reserve and aggressively estrella aturates with minimal activity. Update 12/18/2018 2300: Patient became increasingly tachypneic despite use of BiPAP and decision was made to intubate and perform bronchoscopy by Dr. Simon. See procedural notes. Allergies Allergy/AdvReac Type Severity Reaction Status Date / Time aspirin Allergy Severe WHEEZING Verified 12/18/18 10:42 Sulfa (Sulfonamide Allergy Intermediate HIVES Verified 12/18/18 10:42 Antibiotics) Home Medications Home Medications Medication Instructions Recorded Confirmed Type albuterol sulfate [Ventolin HFA] 2 puff INHALATION Q6H #0 12/10/10 12/18/18 History multivitamin 1 tab PO HS #0 tab 03/18/16 12/18/18 History polyethylene glycol 3350 17 g PO DAILY #527 g 03/18/16 12/18/18 History cholecalciferol (vitamin D3) 50,000 unit PO RENO 12/18/18 12/18/18 History clonazepam 1 mg PO BID PRN 12/18/18 12/18/18 History cyclobenzaprine 10 mg PO TID PRN 12/18/18 12/18/18 History doxepin 300 mg PO HS 12/18/18 12/18/18 History furosemide 20 mg PO DAILY PRN 12/18/18 12/18/18 History gabapentin 600 mg PO TID 12/18/18 12/18/18 History hydroxyzine pamoate 50 mg PO HS PRN 12/18/18 12/18/18 History labetalol 200 mg PO BID 12/18/18 12/18/18 History levothyroxine 137 mcg PO QAM 12/18/18 12/18/18 History nifedipine 90 mg PO QAM 12/18/18 12/18/18 History ondansetron 4 mg PO Q6H PRN 12/18/18 12/18/18 History Patient History Medical History Hypertension (Chronic) Asthma (Chronic) Fibromyalgia (Chronic) IBS (irritable bowel syndrome) (Chronic) Anxiety (Chronic) Depression (Chronic) Postoperative hypothyroidism (Chronic 12/11/10) Perforated viscus (Resolved) Surgical History History of dilation and curettage (Resolved) History of section (Resolved) Family History Mother COPD (chronic obstructive pulmonary disease) Myocardial infarction, Onset Age: 51 Social History Preferred Language: Bulgarian Communication Ability: Effective Script Worker Required: No Beliefs That Will Affect Care: None Current Living Situation: Family and Other Current Living Situation Comment: ex helps with children Other Information That Helps Us Care for You: No Feels Safe at Home: Yes Safety Concerns: Feels Safe At This Time Smoking Status: Current every day smoker Tobacco Type: cigarettes ; Cigarettes Per Day: 20 ; Do You Dip or Chew Tobacco: No ; Second Hand Exposure: No ; Tobacco Cessation Education Requested by Patient: No Hx Alcohol Use: No Hx Substance Use: No Review of Systems Review of Systems: All systems reviewed & are unremarkable except as noted in HPI & below Physical Exam Constitutional: cooperative and + in distress Eyes: PERRL, conjunctivae normal, anicteric sclerae ENMT: external ear and nose normal, oropharynx normal Neck: trachea midline, no thyromegaly Respiratory: Lungs diminished in all byrd with fine crackles bilaterally, no wheezing, no stridor, tachypnea, labored breathing Cardiovascular: Rate/Rhythm: regular rate and regular rhythm Heart Sounds: normal S1 and normal S2; no murmur Vessels: no JVD Extremities: normal capillary refill and + edema Gastrointestinal (Abdomen): normal bowel sounds, soft, nontender, no hepatosplenomegaly Abdomen distended Musculoskeletal: no cyanosis or clubbing, extremities motor strength 5/5 Skin: no rashes, warm and dry Neurologic: PERRL, EOMI, accommodation nl, no face palsy, no dysarthria Psychiatric: Orientation: oriented x 3 Anxious Genitourinary: Indwelling De Leon catheter Lymphatic: no cervical or axillary lymphadenopathy Results & Data Vital Signs (Past 12 Hours) Vital Signs Temp Pulse Pulse Resp BP BP Pulse Ox 12/18/18 16:00 103 H 18 92 12/18/18 15:28 98 H 18 92 12/18/18 15:17 100 H 18 143/82 H 92 12/18/18 14:00 102 H 12/18/18 13:21 37.2 C 99 H 33 H 125/75 92 12/18/18 11:14 102 H 22 94 12/18/18 11:00 100 H 21 126/64 93 12/18/18 10:45 103 H 34 H 93 12/18/18 10:31 104 H 29 H 92 12/18/18 10:30 102 H 106 H 34 H 121/63 121/63 92 12/18/18 10:15 106 H 25 H 96 12/18/18 10:03 96 H 18 118/71 99 12/18/18 10:01 96 H 14 95 12/18/18 10:00 97 H 98 H 23 118/71 97 12/18/18 09:47 89 L 12/18/18 09:45 100 H 29 H 91 12/18/18 09:40 89 L 12/18/18 09:32 108 H 17 91 12/18/18 09:30 110 H 24 115/62 91 12/18/18 09:20 37.2 C 111 H 24 94/52 L 76 L Pulse Ox 12/18/18 16:00 12/18/18 15:28 12/18/18 15:17 12/18/18 14:00 12/18/18 13:21 92 12/18/18 11:14 12/18/18 11:00 12/18/18 10:45 12/18/18 10:31 12/18/18 10:30 12/18/18 10:15 12/18/18 10:03 12/18/18 10:01 12/18/18 10:00 12/18/18 09:47 12/18/18 09:45 12/18/18 09:40 12/18/18 09:32 12/18/18 09:30 12/18/18 09:20 12/19/18 03:43 12/19/18 03:43 [facility] Procedure Codes (Charges) Ventilator Management Ventilator Managment: 32442 Ventilation assist and management; Hospital inpt/obs, intl day Coding Level of Care Code Critical Care ea addt'l 30 min Diagnoses Sepsis with acute hypoxic respiratory failure A41.9; R65.20; J96.01 Tobacco abuse Z72.0 Ground glass opacity present on imaging of lung R91.8 Admitted to intensive care unit Z78.9 Community acquired pneumonia J18.9 Fibromyalgia M79.7 Elevated troponin R79.89 CPT Codes Ventilator Management - Ventilator Managment: 48624 Ventilation assist and management; Hospital inpt/obs, intl day ([id number])
[2018-12-18] MEDS: LABETALOL HCL 200 MG TAB PO SCH (20:16)
[2018-12-18] MEDS: PIPERACILLIN/TAZOBACTAM 3.375 GM in DEXTROSE 5% 100 ML IV SCH (20:16)
[2018-12-18] MEDS: MULTIVITAMIN TAB PO SCH (20:16)
[2018-12-18 21:03] LABS: Chloride Random Urine 131 mmol/L; Creatinine Urine Random < 13.0 mg/dl; Potassium Random Urine 6.6 mmol/L; Sodium Random Urine 123 mmol/L; Total Protein Urine Random 15.3 mg/dl (0-11.9)
[2018-12-18 21:25] LABS: iSTAT Allen Test Pass; iSTAT Art Bld Gas pCO2 Correct 33 mmHg (35-46); iSTAT Art Bld Gas pH Corrected 7.407 (7.35-7.45); iSTAT Arterial Blood Gas HCO3 21 meg/L (19-24); iSTAT Arterial Blood Gas pCO2 31 mmHg (35-46); iSTAT Arterial Blood Gas pH 7.43 (7.35-7.45); iSTAT Arterial Blood Gas pO2 71 mmHg (80-95); iSTAT Arterial Blood Gas pO2 C 79; iSTAT Carbon Dioxide 22 mEq/l (24-31); iSTAT FiO2 50 %; iSTAT Site R Radial
[2018-12-18 21:36] LABS: Basophils # (auto) 0.01 K/uL (0-0.2); Basophils % (auto) 0.1 %; Immature Granulocytes # (auto) 0.02 K/uL (0.00-0.02); Immature Granulocytes % (auto) 0.2 %; Lymphocytes # (auto) 0.15 K/uL (1.2-3.4); Lymphocytes % (auto) 1.6 %; Mean Corpuscular Volume 87.4 fL (80-100); Monocytes # (auto) 0.18 K/uL (0.11-0.59); Monocytes % (auto) 1.9 %; Neutrophils # (auto) 9.26 K/uL (1.4-6.5); Neutrophils % (auto) 96.2 %; Platelet Count 253 K/uL (130-400); RDW Standard Deviation 51.5 fL (36.4-46.3); Red Blood Count 2.86 M/uL (4.2-5.4); White Blood Count 9.62 K/uL (4.8-10.8)
[2018-12-18] MEDS ORDERED: RAPID SEQUENCE INDUCTION BAG ONE (21:38)
[2018-12-18 21:41] LABS: BUN Creatinine Ratio 9.9 (10-20); Calcium 9.1 mg/dl (8.5-10.1); Creatinine Clr Calc Pharmacy 67.3 ml/min; Est GFR (African American) 69.5; Est GFR (Non-African American) 59.9; Potassium 3.3 mmol/L (3.5-5.1)
[2018-12-18] MEDS ORDERED: LIDOCAINE 2% 20 MG/ML 5 ML SYR IV STA (21:48)
[2018-12-18] MEDS ORDERED: MIDAZOLAM HCL 5 MG/ML 1 ML VIAL IV STA (21:48)
[2018-12-18] MEDS ORDERED: PROPOFOL IV EMULSION 10 MG/ML 100 ML VIAL IV ONE (22:22)
[2018-12-18] MEDS: propofoL 1,000 MG/100 ML VIAL IV PRN (22:30)
[2018-12-18] MEDS: fentaNYL DRIP 1,250 MCG/250 ML BAG IV PRN (22:40)
--- NOTE | 2018-12-18 22:51 | XRay Report ---
XR chest 1V portable HISTORY: intubation COMPARISON: Chest 12/18/2018. FINDINGS: Endotracheal tube terminates 3.5 cm from the jennifer. Bilateral patchy airspace opacities squires ve slightly progressed within the lower lung zones. The heart remains mildly enlarged. No pneumothora x. IMPRESSION: 1. Endotracheal tube terminates 3.5 cm from the jennifer. 2. Slight progression of the bilateral airspace opacities. This could represent a pneumonia or pulmon dona edema. Electronically signed by: Andrés Cleveland M.D. 12/18/2018 10:49 PM
[2018-12-18] MEDS ORDERED: fentaNYL citrate 100 MCG/2 ML VIAL IV PRN (23:02)
[2018-12-18] MEDS ORDERED: fentaNYL citrate 100 MCG/2 ML VIAL IV STA (23:02)
[2018-12-18] MEDS ORDERED: PROPOFOL IV EMULSION 10 MG/ML 20 ML VIAL IV STA (23:02)
[2018-12-18] MEDS ORDERED: methylPREDNISolone 125 MG in SYRINGE 0 ML IV ONE (23:15)
[2018-12-18] MEDS ORDERED: FUROSEMIDE 40 MG in SYRINGE 0 ML IV ONE (23:20)
--- NOTE | 2018-12-18 23:37 | Procedure Note ---
Procedure Note Date of Service December 18, 2018 INTUBATION PROCEDURE NOTE: Attending: Dr Karel Simon MD Patient was evaluated and plan to intubate was made for ventilatory failure. Sedative agent used: Etomidate 20 mg, Versed 4 mg, lidocaine 100 mg Paralysis agent used: Rocuronium 30 mg Emergent consent was implied given patients rapidly declining clinical status and need for airway protection. The patient was prepared in the appropriate fashion. The patient was easily pre-oxygenated by using [id number] ventilation. With help of DL grade 2 vocal cords were visualized and 7.5 [place] ETT was introduced on second attempt to 22 cm at the lip. The stylette was removed and balloon was inflated with 10mL of air. Appropriate Colorimetric change was appreciated for at keast 10 breaths. Bilateral chest rise and breath sounds were appreciated without air sounds in the epigastrium. Patient tolerated the procedure well. Patient went into SVTs with heart rate into 170s after intubation. Patient maintain the blood pressure during the whole procedure. Had good pulses. Plan to give adenosine 12 mg was done but by the time we were about to push adenosine SVT broke on its own to sinus tachycardia. This was followed by propofol 40 mg IV push for sedation. Chest Xray showed good position of the ET tube, no pneumothorax appreciated. Coding CPT Codes Resuscitation - Resuscitation: Endotracheal Intubation, emergency ([id number])
[2018-12-18 23:53] LABS: iSTAT Allen Test Pass; iSTAT Art Bld Gas pCO2 Correct 38 mmHg (35-46); iSTAT Art Bld Gas pH Corrected 7.362 (7.35-7.45); iSTAT Arterial Blood Gas HCO3 21 meg/L (19-24); iSTAT Arterial Blood Gas pCO2 36 mmHg (35-46); iSTAT Arterial Blood Gas pH 7.38 (7.35-7.45); iSTAT Arterial Blood Gas pO2 58 mmHg (80-95); iSTAT Arterial Blood Gas pO2 C 62; iSTAT Carbon Dioxide 22 mEq/l (24-31); iSTAT FiO2 100 %; iSTAT Site L Radial
[2018-12-19] MEDS ORDERED: ACETAMINOPHEN 650 MG SUPP PR PRN (00:23)
[2018-12-19] MEDS: ACETAMINOPHEN 325 MG TAB PO PRN (00:50)
[2018-12-19] MEDS ORDERED: POTASSIUM CHLORIDE 20 MEQ/15 ML UDC PO STA (01:05)
[2018-12-19] MEDS ORDERED: POTASSIUM CHLORIDE / WTR 10 MEQ/100 ML PLCT IV ONE (01:27)
--- NOTE | 2018-12-19 01:32 | Procedure Note ---
Procedure Note Date of Service December 19, 2018 PREOPERATIVE DIAGNOSIS: Diffuse groundglass opacities with severe hypoxia POSTOPERATIVE DIAGNOSIS: Diffuse alveolar hemorrhage PROCEDURE PERFORMED: Flexible fiberoptic bronchoscopy with bronchoalveolar lavage and wash COMPLICATIONS: None. INDICATION: Sepsis with diffuse groundglass opacities and ventilatory failure PROCEDURE: After obtaining an informed consent just prior to intubating the patient. The patient was intubated, blood pressure, heart rate, and respiratory rate monitoring applied and monitored continuously throughout the procedure. Patient was put on 100% FiO2 on the ventilator. Subsequent to this, the patient was premedicated with 40 mg of propofol and 100 Mcg of fentanyl. Upper Airway: Not visualized as went through endotracheal tube size 7.5. Topical anesthesia with 1% lidocaine was applied to the trachea and jennifer. The trachea appeared normal.The bronchoscope was then advanced through the jennifer, which was sharp. The scope was then advanced into the right main stem and each segment, subsegement in the right upper lobe, right middle lobe and right lower lobe were visualized. There was no secretions noted. There were no other findings including evidence of mass, anatomic distortions, or hemorrhage. The bronchoscope was subsequently withdrawn and advanced into the left mainstem. Again, each segment and subsegment was well visualized. No specific masses or other lesions were identified throughout the tracheobronchial tree on the left. There was no secretions noted. The bronchoscope was then wedged in the right middle lobe lateral segment and bronchoalveolar lavage samples were obtained. 240 ml of saline was instilled and 180 ml of fluid was aspirated back.The bronchoscope was withdrawn and the area was suctioned clear. Subsequent bronchial wash showed increased hemorrhagic which goes with alveolar hemorrhage. The bronchoscope was then withdrawn to the mainstem. The area was suctioned clear. The bronchoscope was then withdrawn. The patient tolerated the procedure well without evidence complications. Bronchoalveolar lavage samples were sent for cell count, Gram stain and bacterial culture, AFB culture and smear, fungal culture and smear, flow cytometry and cytology. During the procedure bronchoscope was taken out of the ET tube when patient desaturated below 88%. And was reinserted when he went up to 94% and less than 2 minutes. Recommendations: Follow-up chest x-ray. We will start the patient on pulse steroids bolus of 125 mg followed by 150 mg every 8 hours for at least 3 days and then will gradually titrated off. Follow-up septic work-up. Coding CPT Codes Sedation/Anesthesia - Sedation/Anesthesia: Mod Sedation by the same physician;Init15 Min Child Age 5 & Up ([id number]) Sedation/Anesthesia - Sedation/Anesthesia: Mod Sedation by the same physician; Ea [id number] Minutes ([id number]) Pulmonary/Thoracic - Pulmonary and Thoracic: Dx bronchoscopy/wash ([id number])
[2018-12-19] MEDS: PIPERACILLIN/TAZOBACTAM 3.375 GM in DEXTROSE 5% 100 ML IV SCH ×3 (02:54→19:26)
[2018-12-19] MEDS: POTASSIUM CHLORIDE / WTR 10 MEQ/100 ML PLCT IV SCH ×2 (02:55→03:49)
[2018-12-19] MEDS: propofoL 1,000 MG/100 ML VIAL IV PRN ×4 (02:58→23:30)
[2018-12-19 04:25] LABS: Basophils # (auto) 0.01 K/uL (0-0.2); Basophils % (auto) 0.1 %; Hematocrit (blood only) 24.3 % (37-47); Hemoglobin 7.8 g/dL (12.0-16.0); Immature Granulocytes # (auto) 0.02 K/uL (0.00-0.02); Immature Granulocytes % (auto) 0.2 %; Lymphocytes % (auto) 3.1 %; Mean Corpuscular Hemoglobin 27.6 pg (25-34); Mean Corpuscular Hgb Conc 32.1 g/dL (32-36); Mean Corpuscular Volume 85.9 fL (80-100); Mean Platelet Volume 10.5 fL (7.4-10.4); Monocytes # (auto) 0.42 K/uL (0.11-0.59); Monocytes % (auto) 4.3 %; Neutrophils # (auto) 8.95 K/uL (1.4-6.5); Neutrophils % (auto) 92.3 %; Platelet Count 226 K/uL (130-400); RDW Coefficient of Variation 15.9 % (11.5-14.5); RDW Standard Deviation 49.9 fL (36.4-46.3); Red Blood Count 2.83 M/uL (4.2-5.4)
[2018-12-19 04:47] LABS: RBC Morphology Unremarkable
[2018-12-19 04:54] LABS: Albumin Level 2.8 gm/dl (3.4-5.0); BUN Creatinine Ratio 11.9 (10-20); Calcium 8.4 mg/dl (8.5-10.1); Creatinine Clr Calc Pharmacy 66.1 ml/min; Est GFR (Non-African American) 58.6; Potassium 3.8 mmol/L (3.5-5.1)
[2018-12-19] MEDS: METHYLPREDNISOLONE IV SCH ×3 (04:54→23:03)
[2018-12-19] MEDS: VANCOMYCIN HCL 1,250 MG in SODIUM CHLORIDE 0.9% 250 ML IV SCH ×2 (04:54→19:26)
[2018-12-19 04:56] LABS: Albumin Globulin Ratio 0.7 (0.9-2); Bilirubin,Total 0.7 mg/dl (0.2-1); Globulin 4.2 gm/dl (2.5-4.0); Phosphorus 3.4 mg/dl (2.5-4.9)
[2018-12-19] MEDS: FUROSEMIDE 40 MG in SYRINGE 0 ML IV SCH ×2 (05:09→19:56)
[2018-12-19 05:11] LABS: Troponin I 0.744 ng/ml (0-0.045)
[2018-12-19 05:14] LABS: Eosinophil Body Fluid Man 0 %; Fluid Mono/Macrophage 18 %; Lymphocyte Body Fluid Man 3 %; Neutrophil Body Fluid Man 79 %
[2018-12-19 06:07] LABS: iSTAT Allen Test Pass; iSTAT Art Bld Gas pCO2 Correct 34 mmHg (35-46); iSTAT Art Bld Gas pH Corrected 7.423 (7.35-7.45); iSTAT Arterial Blood Gas HCO3 22 meg/L (19-24); iSTAT Arterial Blood Gas pCO2 33 mmHg (35-46); iSTAT Arterial Blood Gas pH 7.43 (7.35-7.45); iSTAT Arterial Blood Gas pO2 135 mmHg (80-95); iSTAT Arterial Blood Gas pO2 C 138; iSTAT Carbon Dioxide 23 mEq/l (24-31); iSTAT FiO2 60 %; iSTAT Site R Radial
[2018-12-19 06:13] LABS: Estimated Average Glucose 114 mg/dl; Hemoglobin A1C 5.6 % (4.5-5.6)
--- NOTE | 2018-12-19 06:43 | XRay Report ---
XR chest 1V not portable CLINICAL HISTORY: Post bronchoscopy study COMPARISON STUDY: 12/18/2018 FINDINGS: There is an endotracheal tube 4 cm above the jennifer. There is a nasogastric tube which pass es into the stomach. There is a persistent catheter projected over the right hemithorax possibly repr esenting a chest tube. There are diffuse bilateral pulmonary airspace opacities similar to the prior study. No pneumothorax is visualized. IMPRESSION: 1. Persistent extensive bilateral pulmonary airspace opacities 2. No evidence of pneumothorax status post bronchoscopy Electronically signed by: Jeromy Ashley M.D. 12/19/2018 6:42 AM
[2018-12-19] MEDS: LEVOTHYROXINE SODIUM 137 MCG TABLET PO SCH (06:48)
[2018-12-19] MEDS ORDERED: methylPREDNISolone 80 MG in SYRINGE 0 ML IV SCH (07:00)
--- NOTE | 2018-12-19 07:01 | XRay Report ---
XR chest 1V portable CLINICAL HISTORY: Respiratory failure COMPARISON STUDY: 12/18/2018 FINDINGS: The endotracheal tube is 4 cm above the jennifer. There is a nasogastric tube passing into th e stomach. A right-sided catheter projects over the right chest possibly representing a chest tube. T here is no pneumothorax. There is slight improvement in the extensive bilateral pulmonary airspace op acities.[ IMPRESSION: Improving bilateral pulmonary airspace opacities. Electronically signed by: Jeromy Ashley M.D. 12/19/2018 6:59 AM
--- NOTE | 2018-12-19 07:26 | Critical Care Progress Note ---
Date of Service December 19, 2018 Assessment & Plan (1) Admitted to intensive care unit: Reason Critically Ill: 43-year-old female presents with respiratory distress and acute hypoxic respiratory failure Neuro - [facility] ICU: Negative Cardiac - HTNholding oral medications for tinnitus patient is very hypoxic with low reserve, parents temporarily transition to IV if necessary Respiratory - Hypoxic respiratory failurepneumonia versus reactive pneumonitis versus pulmonary edema -Patient presents with shortness of breath and hypoxia, nonproductive dry cough, now requiring BiPAP -AB.42//53/20 -Continue duo nebs -Started on IV Lasix -CT chest showed bilateral ground-glass opacities, diffuse bilateral parenchymal infiltrates versus pulmonary edema, no evidence of PE -ERCP, procalcitonin, and lactate elevated; blood cultures pending; continue broad-spectrum antibiotics -BNP elevated, echocardiogram normal -HIV and hepatitis negative, immunology panel pending, influenza negative -We will consider IV steroids if chest x-ray unimproved in a.m. -Continuous monitoring on oxygen saturation GI - HFP within normal limits We will keep n.p.o. for now RENAL/LYTES - Creatinine 1.18, will monitor Hypokalemiareplete potassium as necessary Monitor routine BMPs - De Leon insertedstrict I's and O's UA unremarkable ENDO - No history diabetes, ICU hyperglycemic protocol History of Graves' disease status post thyroidectomy; TSH 0.227, continue Synthroid HEME - Anemiahemoglobin 7.9 on admission, was reportedly eleven 1 month ago -No obvious signs of bleeding, will perform Hemoccult with next bowel movement -Iron low on anemic work-up, likely element of iron deficiency anemia, would add supplement when appropriate -Hemoglobin currently stable at 8.0, will continue to monitor with routine CBCs and transfuse if necessary ID - Sepsislactate, procalcitonin elevated, and patient now febrile; most likely pulmonary source -Blood cultures pending -UA unremarkable -Continue azithromycin, Zosyn, vancomycin for now LINES/IV ACCESS - Peripheral IVs DVT PROPHYLAXIS - SCDs, holding anticoagulation as patient presents with new onset of anemia from unconfirmed source I have personally spent 50 minutes of critical care time in the direct management of this patient. This is a life/limb threatening event. This includes time spent evaluating patient, direct bedside care, chart review, placing orders, interpretation of diagnostic studies, discussion with consultants, patient, and family members, as well as other required patient management activities. This time is exclusive of all separately billable procedures, and teaching time and separate from and in addition to any other critical care service time. Thank you for allowing us to participate in the care of this patient. Please refer to my attending physician's documentation for any further recommendations. (2) Sepsis with acute hypoxic respiratory failure: CT scan of the patient personally reviewed. Shows diffuse groundglass opacities with no pleural effusion. Interlobular wall thickening. No clear air bronchograms. No clear mediastinal lymphadenopathy. With diffuse alveolar hemorrhage found on bronchoscopy. BAL did not show any eosinophilia. Follow-up culture and Gram stain. Could be secondary to infectious etiology which includes multilobar pneumonia, influenza screen negative--> continue with broad-spectrum antibiotics including atypical coverage, follow-up urine Legionella, mycoplasma IgM and sputum culture, HIV negative, procalcitonin 1.21, LDH: 427, ESR: 58, CRP: 22.10, Monitor QTC as patient is on azithromycin Could also be secondary to noncardiogenic pulmonary edema as patient's UDS was positive for opiates although patient denies sniffing of opiates she says she took Percocet for her low back pain. 2D echo shows good ejection fraction with no pericardial effusion. Diurese as tolerated with strict in and out Could be secondary to autoimmune process with diffuse alveolar hemorrhage --> follow-up autoimmune work-up, patient has no eosinophilia in the blood or in the BAL, continue with high-dose steroids for the time being. Monitor H&H Possibility of intubation was explained to the patient which she understands and agreeable to. -- Hypothyroidism with history of Graves' disease status post thyroidectomy On levothyroxine TSH: 0.22 (low), free T4 1.21(normal) --Elevated troponins likely secondary to type II DC EKG shows no ST-T wave changes with normal sinus rhythm. -- B/l LE edema has been going on for a while Proteinuria in the urine 15.3 mg/dL, with creatinine less than 13 in the urine. Negative for DVT (3) Tobacco abuse: Patient is an active smoker with greater than [id number] smoking history. No recent trial of quitting. Patient denies using any vape. Advised to quit. (4) Ground glass opacity present on imaging of lung: As above. (5) Community acquired pneumonia: (6) Fibromyalgia: (7) Elevated troponin: Likely type II DC. Monitor troponin. Supervising Physician Co-Signing Physician Notes Dr Monahan was the resident-physician during care of patient. I separately evaluated patient for molina portions of the history and the exam. I was present during the critical portion of medical decision making, and I discussed the case with the resident. I generally agree with the findings and plan except for any additions/exceptions noted. Patient seen and examined at bedside. Patient was intubated overnight because of respiratory distress and impending respiratory failure. Patient on ARDS protocol with high PEEP low tidal volume with permissive hypercapnia. Patient made good amount of urine overnight she is -5 L so far. Chest x-ray from today shows improvement. ABG from today in the morning 7.43/30 3 35/99% on 15 of PEEP and FiO2 60%. We will go down on PEEP gradually to 10 and FiO2 to 50. Patient is awake and alert answering questions. Continue with diuresis as tolerated. Patient already diuresed adequately. We will see how she diuresis in the next 12 hours before deciding to give any more diuretics. Bronchoscopy done again yesterday which showed increasing hemorrhagic bronchoalveolar wash with subsequent washes which goes with diffuse ocular hemorrhage. Patient was started on steroids high-dose since last night. There is significant improvement in her oxygenation and her chest x-ray. But given that she diuresed pretty well and she is on steroids unsure which is benefiting the patient the most. For the time being we will continue with both and antibiotics as well. Hypersensitive pneumonitis is low on the differential now but still not excluded. Autoimmune work-up will give more answers hopefully. At the time of examination patient was on 40 of propofol and 50 of fentanyl. As the nurse to go down on propofol gradually. I have personally spent 50 minutes of critical care time in the direct management of this patient. This is a life/limb threatening event. This includes time spent evaluating patient, direct bedside care, chart review, placing orders, interpretation of diagnostic studies, discussion with consultants, patient, and/or family members regarding treatment decisions, as well as other required patient management activities. This time is exclusive of all separately billable procedures, and teaching time and separate from and in addition to any other critical care service time. Subjective Ms. Adorno is currently intubated and sedated. Intubated overnight. Review of Systems Review of Systems: Unobtainable due to endotracheal tube Physical Exam Physical Exam: General: Laying in bed intubated, eyes closed. Skin: No noted rashes or bruises Psych: Cannot be determined as pt sedated Neuro: Sedated, RASS-1 HEENT: NC/AT, endotracheal tube in mouth Chest: Nontender to palpation. CV: RRR, Normal s1, s2. No murmurs appreciated Resp: Breath sounds clear bilaterally on front, intubated and mechanically ventilated. Abdomen: Soft, nondistended. No organomegaly appreciated. Extremities: Trace edema in lower extremities bilaterally. Skin: no rashes, warm and dry Lymphatic: no cervical or axillary lymphadenopathy Results & Data Vital Signs (Past 12 Hours) Vital Signs Temp Pulse Pulse Resp BP BP Pulse Ox 12/19/18 06:05 77 28 H 99 12/19/18 06:00 37.4 C 79 28 H 126/92 98 12/19/18 05:00 37.4 C 79 28 H 135/90 99 12/19/18 04:00 37.9 C H 88 28 H 126/95 99 12/19/18 03:00 38.0 C H 88 28 H 115/88 98 12/19/18 02:30 100 H 28 H 99 12/19/18 02:00 38.1 C H 92 H 28 H 108/81 99 12/19/18 01:00 38.1 C H 87 28 H 114/85 98 12/19/18 00:43 38.1 C H 100 H 28 H 108/79 99 12/19/18 00:13 38.1 C H 94 H 28 H 113/80 99 12/18/18 23:43 37.9 C H 102 H 28 H 130/87 98 12/18/18 23:31 102 H 28 H 99 12/18/18 23:13 37.9 C H 102 H 25 H 133/89 99 12/18/18 21:00 102 H 12/18/18 20:00 100 H 125/102 H 91 12/18/18 19:49 97 H 24 97 12/18/18 19:47 97 H 26 H 97 12/18/18 19:45 95 H 20 146/76 H 95 Laboratory Results Laboratory Results - last 24 hr 12/18/18 12/18/18 12/18/18 09:39 09:39 09:39 WBC 11.50 H RBC 2.81 L Hgb 7.9 L POC Hgb Hct 23.4 L POC Hct MCV 83.3 MCH 28.1 MCHC 33.8 RDW Std Deviation 48.9 H RDW Coeff of Lorene 15.8 H Plt Count 263 MPV 9.5 Immature Gran % (Auto) 0.3 Neut % (Auto) 91.3 Lymph % (Auto) 4.7 Chase % (Auto) 3.3 Eos % (Auto) 0.2 Baso % (Auto) 0.2 Reticulocyte % (Auto) 1.4 Immature Gran # (Auto) 0.03 H Neut # (Auto) 10.51 H Lymph # (Auto) 0.54 L Chase # (Auto) 0.38 Eos # (Auto) 0.02 Baso # (Auto) 0.02 Reticulocyte # 0.04 Absolute Nucleated RBC 0.00 Nucleated RBC % (auto) 0.0 RBC Morphology Polychromasia 1+ Hypochromasia Present Microcytosis Present Peripher Smr Path Cons ESR Immature Retic Fraction 13.9 Retic Hgb Content 19.7 L Haptoglobin PT 10.3 INR 1.0 APTT 26.2 PTT Ratio 1.0 Fibrinogen Sample Site POC pH POC pCO2 POC pO2 POC HCO3 POC Base Excess ABG pH ABG pH (Temp Correct) ABG pCO2 ABG pCO2 (Temp Corrct ABG pO2 POC ABG pO2 at Pt Temp ABG HCO3 POC ABG O2 Sat ABG O2 Saturation ABG Base Excess Cade Test VBG pH VBG pCO2 VBG pO2 VBG HCO3 VBG O2 Saturation VBG Base Excess Barometric Pressure Oxygen Given O2 Delivery Device POC O2 Rate Minute Ventilation POC FiO2 Tidal Volume PEEP IPAP POC Sodium Sodium 138 POC Potassium Potassium 3.1 L POC Chloride Chloride 109 H Carbon Dioxide 20 L POC Total CO2 Anion Gap 9.0 POC Anion Gap POC BUN BUN 13 Creatinine 1.18 POC Creatinine Est Cr Clr Drug Dosing 63.3 Est GFR ( Amer) 64.5 Est GFR (Non-Af Amer) 55.7 BUN/Creatinine Ratio 11.3 Glucose 199 H POC Glucose POC Glucose (other) Estimat Average Glucose Hemoglobin A1c POC Lactic Acid Mina Lactate Calcium 8.1 L POC Ioniz Calcium Thang Phosphorus Magnesium Iron TIBC Transferrin Ferritin Total Bilirubin 0.4 AST 28 ALT 18 Alkaline Phosphatase 104 Lactate Dehydrogenase Total Creatine Kinase Troponin I C-Reactive Protein NT-Pro-B Natriuret Pep Total Protein 6.6 Albumin 2.9 L Globulin 3.7 Albumin/Globulin Ratio 0.8 L Vitamin B12 Folate Procalcitonin TSH Free T4 HCG, Quant Urine Color Urine Appearance Urine pH Ur Specific Hillman Urine Protein Urine Glucose (UA) Urine Ketones Urine Blood Urine Nitrite Urine Bilirubin Urine Urobilinogen Ur Leukocyte Esterase Urine WBC (Auto) Urine RBC (Auto) U Hyaline Cast (Auto) U Epithel Cells (Auto) Urine Bacteria (Auto) Ur Random Creatinine U Random Total Protein Ur Random Sodium Ur Random Potassium Ur Random Chloride Protein/Creatinin Ratio Fluid Neutrophils % Fluid Lymphocytes % Fluid Eosinophils % Fl Monocyt/Macrophag % Nasal Screen MRSA (PCR) Urine Opiates Screen U Codeine Confrm GC/MS Ur Morphine (GC/MS) Ur Hydrocodone (GC/MS) Ur Norhydrocodone Ur Noroxycodone Urine Oxycodone (GC/MS) U Oxymorphone GC/MS Ur Methadone, Qual Ur Hydromorphone (GC/MS) Urine Barbiturates Ur Phencyclidine (PCP) U Amphetamin/Meth Scrn MDMA (Ecstasy) Screen U Benzodiazepines Scrn Ur Cocaine Metabolite U Marijuana (THC) Screen Rheumatoid Factor Cycl Citrul Peptide IgG JORDAN Screen Proteinase 3 (PR3) Anti-Neutrophil (Flow) AZALIA-1 Antibody SS-A/Ro Antibody SS-B/La Antibody Sm (Palmer) Antibody POT RUNNER Antibody Scl-70 Scleroderma Ab Double Strand DNA Ab Anti-Centromere Ab Glomerular Base Memb Ab Hep Bs Antigen Hep Bs Antibody Hep Bs Antibody, Quant Hepatitis C Antibody Herpes Virus Source HSV I DNA PCR HSV II DNA PCR HIV 1&2 Ab/P24 Ag 4thGn Influenza Type A Ag Influenza Type B Ag Urine Legionella Ag Mycoplasma pneumon IgM Blood Type Antibody Screen Crossmatch 12/18/18 12/18/18 12/18/18 09:39 09:39 09:39 WBC RBC Hgb POC Hgb Hct POC Hct MCV MCH MCHC RDW Std Deviation RDW Coeff of Lorene Plt Count MPV Immature Gran % (Auto) Neut % (Auto) Lymph % (Auto) Chase % (Auto) Eos % (Auto) Baso % (Auto) Reticulocyte % (Auto) Immature Gran # (Auto) Neut # (Auto) Lymph # (Auto) Chase # (Auto) Eos # (Auto) Baso # (Auto) Reticulocyte # Absolute Nucleated RBC Nucleated RBC % (auto) RBC Morphology Polychromasia Hypochromasia Microcytosis Peripher Smr Path Cons ESR Immature Retic Fraction Retic Hgb Content Haptoglobin PT INR APTT PTT Ratio Fibrinogen Sample Site POC pH POC pCO2 POC pO2 POC HCO3 POC Base Excess ABG pH ABG pH (Temp Correct) ABG pCO2 ABG pCO2 (Temp Corrct ABG pO2 POC ABG pO2 at Pt Temp ABG HCO3 POC ABG O2 Sat ABG O2 Saturation ABG Base Excess Cade Test VBG pH 7.41 VBG pCO2 33 L VBG pO2 42 VBG HCO3 20 VBG O2 Saturation 76.7 VBG Base Excess -3.7 Barometric Pressure 737.6 Oxygen Given O2 Delivery Device POC O2 Rate Minute Ventilation POC FiO2 Tidal Volume PEEP IPAP POC Sodium Sodium POC Potassium Potassium POC Chloride Chloride Carbon Dioxide POC Total CO2 Anion Gap POC Anion Gap POC BUN BUN Creatinine POC Creatinine Est Cr Clr Drug Dosing Est GFR ( Amer) Est GFR (Non-Af Amer) BUN/Creatinine Ratio Glucose POC Glucose POC Glucose (other) Estimat Average Glucose Hemoglobin A1c POC Lactic Acid Mina Lactate Calcium POC Ioniz Calcium Thang Phosphorus Magnesium Iron 8 L TIBC 419 Transferrin 313 Ferritin 32.0 Total Bilirubin AST ALT Alkaline Phosphatase Lactate Dehydrogenase Total Creatine Kinase 98 Troponin I 0.106 H* C-Reactive Protein NT-Pro-B Natriuret Pep 882 H Total Protein Albumin Globulin Albumin/Globulin Ratio Vitamin B12 Folate Procalcitonin TSH 0.227 L Free T4 1.21 HCG, Quant Urine Color Urine Appearance Urine pH Ur Specific Hillman Urine Protein Urine Glucose (UA) Urine Ketones Urine Blood Urine Nitrite Urine Bilirubin Urine Urobilinogen Ur Leukocyte Esterase Urine WBC (Auto) Urine RBC (Auto) U Hyaline Cast (Auto) U Epithel Cells (Auto) Urine Bacteria (Auto) Ur Random Creatinine U Random Total Protein Ur Random Sodium Ur Random Potassium Ur Random Chloride Protein/Creatinin Ratio Fluid Neutrophils % Fluid Lymphocytes % Fluid Eosinophils % Fl Monocyt/Macrophag % Nasal Screen MRSA (PCR) Urine Opiates Screen U Codeine Confrm GC/MS Ur Morphine (GC/MS) Ur Hydrocodone (GC/MS) Ur Norhydrocodone Ur Noroxycodone Urine Oxycodone (GC/MS) U Oxymorphone GC/MS Ur Methadone, Qual Ur Hydromorphone (GC/MS) Urine Barbiturates Ur Phencyclidine (PCP) U Amphetamin/Meth Scrn MDMA (Ecstasy) Screen U Benzodiazepines Scrn Ur Cocaine Metabolite U Marijuana (THC) Screen Rheumatoid Factor Cycl Citrul Peptide IgG JORDAN Screen Proteinase 3 (PR3) Anti-Neutrophil (Flow) AZALIA-1 Antibody SS-A/Ro Antibody SS-B/La Antibody Sm (Palmer) Antibody POT RUNNER Antibody Scl-70 Scleroderma Ab Double Strand DNA Ab Anti-Centromere Ab Glomerular Base Memb Ab Hep Bs Antigen Hep Bs Antibody Hep Bs Antibody, Quant Hepatitis C Antibody Herpes Virus Source HSV I DNA PCR HSV II DNA PCR HIV 1&2 Ab/P24 Ag 4thGn Influenza Type A Ag Influenza Type B Ag Urine Legionella Ag Mycoplasma pneumon IgM Blood Type Antibody Screen Crossmatch 12/18/18 12/18/18 12/18/18 09:39 09:42 09:46 WBC RBC Hgb POC Hgb 7.8 L Hct POC Hct 23 L MCV MCH MCHC RDW Std Deviation RDW Coeff of Lorene Plt Count MPV Immature Gran % (Auto) Neut % (Auto) Lymph % (Auto) Chase % (Auto) Eos % (Auto) Baso % (Auto) Reticulocyte % (Auto) Immature Gran # (Auto) Neut # (Auto) Lymph # (Auto) Chase # (Auto) Eos # (Auto) Baso # (Auto) Reticulocyte # Absolute Nucleated RBC Nucleated RBC % (auto) RBC Morphology Polychromasia Hypochromasia Microcytosis Peripher Smr Path Cons ESR Immature Retic Fraction Retic Hgb Content Haptoglobin PT INR APTT PTT Ratio Fibrinogen Sample Site POC pH POC pCO2 POC pO2 POC HCO3 POC Base Excess ABG pH ABG pH (Temp Correct) ABG pCO2 ABG pCO2 (Temp Corrct ABG pO2 POC ABG pO2 at Pt Temp ABG HCO3 POC ABG O2 Sat ABG O2 Saturation ABG Base Excess Cade Test VBG pH VBG pCO2 VBG pO2 VBG HCO3 VBG O2 Saturation VBG Base Excess Barometric Pressure Oxygen Given O2 Delivery Device POC O2 Rate Minute Ventilation POC FiO2 Tidal Volume PEEP IPAP POC Sodium 138 Sodium POC Potassium 3.1 L Potassium POC Chloride 106 Chloride Carbon Dioxide POC Total CO2 19 L Anion Gap POC Anion Gap 17.0 POC BUN 11 BUN Creatinine POC Creatinine 1.1 Est Cr Clr Drug Dosing Est GFR ( Amer) Est GFR (Non-Af Amer) BUN/Creatinine Ratio Glucose POC Glucose POC Glucose (other) 200 H Estimat Average Glucose Hemoglobin A1c POC Lactic Acid Mina 1.71 H Lactate Calcium POC Ioniz Calcium Thang 1.14 Phosphorus Magnesium Iron TIBC Transferrin Ferritin Total Bilirubin AST ALT Alkaline Phosphatase Lactate Dehydrogenase 427 H Total Creatine Kinase Troponin I C-Reactive Protein NT-Pro-B Natriuret Pep Total Protein Albumin Globulin Albumin/Globulin Ratio Vitamin B12 Folate Procalcitonin TSH Free T4 HCG, Quant Urine Color Urine Appearance Urine pH Ur Specific Hillman Urine Protein Urine Glucose (UA) Urine Ketones Urine Blood Urine Nitrite Urine Bilirubin Urine Urobilinogen Ur Leukocyte Esterase Urine WBC (Auto) Urine RBC (Auto) U Hyaline Cast (Auto) U Epithel Cells (Auto) Urine Bacteria (Auto) Ur Random Creatinine U Random Total Protein Ur Random Sodium Ur Random Potassium Ur Random Chloride Protein/Creatinin Ratio Fluid Neutrophils % Fluid Lymphocytes % Fluid Eosinophils % Fl Monocyt/Macrophag % Nasal Screen MRSA (PCR) Urine Opiates Screen U Codeine Confrm GC/MS Ur Morphine (GC/MS) Ur Hydrocodone (GC/MS) Ur Norhydrocodone Ur Noroxycodone Urine Oxycodone (GC/MS) U Oxymorphone GC/MS Ur Methadone, Qual Ur Hydromorphone (GC/MS) Urine Barbiturates Ur Phencyclidine (PCP) U Amphetamin/Meth Scrn MDMA (Ecstasy) Screen U Benzodiazepines Scrn Ur Cocaine Metabolite U Marijuana (THC) Screen Rheumatoid Factor Cycl Citrul Peptide IgG JORDAN Screen Proteinase 3 (PR3) Anti-Neutrophil (Flow) AZALIA-1 Antibody SS-A/Ro Antibody SS-B/La Antibody Sm (Palmer) Antibody POT RUNNER Antibody Scl-70 Scleroderma Ab Double Strand DNA Ab Anti-Centromere Ab Glomerular Base Memb Ab Hep Bs Antigen Hep Bs Antibody Hep Bs Antibody, Quant Hepatitis C Antibody Herpes Virus Source HSV I DNA PCR HSV II DNA PCR HIV 1&2 Ab/P24 Ag 4thGn Influenza Type A Ag Influenza Type B Ag Urine Legionella Ag Mycoplasma pneumon IgM Blood Type Antibody Screen Crossmatch 12/18/18 12/18/18 12/18/18 09:47 09:47 10:01 WBC RBC Hgb POC Hgb Hct POC Hct MCV MCH MCHC RDW Std Deviation RDW Coeff of Lorene Plt Count MPV Immature Gran % (Auto) Neut % (Auto) Lymph % (Auto) Chase % (Auto) Eos % (Auto) Baso % (Auto) Reticulocyte % (Auto) Immature Gran # (Auto) Neut # (Auto) Lymph # (Auto) Chase # (Auto) Eos # (Auto) Baso # (Auto) Reticulocyte # Absolute Nucleated RBC Nucleated RBC % (auto) RBC Morphology Polychromasia Hypochromasia Microcytosis Peripher Smr Path Cons ESR Immature Retic Fraction Retic Hgb Content Haptoglobin Pending PT INR APTT PTT Ratio Fibrinogen Sample Site POC pH POC pCO2 POC pO2 POC HCO3 POC Base Excess ABG pH ABG pH (Temp Correct) ABG pCO2 ABG pCO2 (Temp Corrct ABG pO2 POC ABG pO2 at Pt Temp ABG HCO3 POC ABG O2 Sat ABG O2 Saturation ABG Base Excess Cade Test VBG pH VBG pCO2 VBG pO2 VBG HCO3 VBG O2 Saturation VBG Base Excess Barometric Pressure Oxygen Given O2 Delivery Device POC O2 Rate Minute Ventilation POC FiO2 Tidal Volume PEEP IPAP POC Sodium Sodium POC Potassium Potassium POC Chloride Chloride Carbon Dioxide POC Total CO2 Anion Gap POC Anion Gap POC BUN BUN Creatinine POC Creatinine Est Cr Clr Drug Dosing Est GFR ( Amer) Est GFR (Non-Af Amer) BUN/Creatinine Ratio Glucose POC Glucose POC Glucose (other) Estimat Average Glucose Hemoglobin A1c POC Lactic Acid Mina Lactate Calcium POC Ioniz Calcium Thang Phosphorus Magnesium Iron TIBC Transferrin Ferritin Total Bilirubin AST ALT Alkaline Phosphatase Lactate Dehydrogenase Total Creatine Kinase Troponin I C-Reactive Protein NT-Pro-B Natriuret Pep Total Protein Albumin Globulin Albumin/Globulin Ratio Vitamin B12 Folate Procalcitonin 1.21 H TSH Free T4 HCG, Quant Urine Color Urine Appearance Urine pH Ur Specific Hillman Urine Protein Urine Glucose (UA) Urine Ketones Urine Blood Urine Nitrite Urine Bilirubin Urine Urobilinogen Ur Leukocyte Esterase Urine WBC (Auto) Urine RBC (Auto) U Hyaline Cast (Auto) U Epithel Cells (Auto) Urine Bacteria (Auto) Ur Random Creatinine U Random Total Protein Ur Random Sodium Ur Random Potassium Ur Random Chloride Protein/Creatinin Ratio Fluid Neutrophils % Fluid Lymphocytes % Fluid Eosinophils % Fl Monocyt/Macrophag % Nasal Screen MRSA (PCR) Urine Opiates Screen U Codeine Confrm GC/MS Ur Morphine (GC/MS) Ur Hydrocodone (GC/MS) Ur Norhydrocodone Ur Noroxycodone Urine Oxycodone (GC/MS) U Oxymorphone GC/MS Ur Methadone, Qual Ur Hydromorphone (GC/MS) Urine Barbiturates Ur Phencyclidine (PCP) U Amphetamin/Meth Scrn MDMA (Ecstasy) Screen U Benzodiazepines Scrn Ur Cocaine Metabolite U Marijuana (THC) Screen Rheumatoid Factor Cycl Citrul Peptide IgG JORDAN Screen Proteinase 3 (PR3) Anti-Neutrophil (Flow) AZALIA-1 Antibody SS-A/Ro Antibody SS-B/La Antibody Sm (Palmer) Antibody POT RUNNER Antibody Scl-70 Scleroderma Ab Double Strand DNA Ab Anti-Centromere Ab Glomerular Base Memb Ab Hep Bs Antigen Hep Bs Antibody Hep Bs Antibody, Quant Hepatitis C Antibody Herpes Virus Source HSV I DNA PCR HSV II DNA PCR HIV 1&2 Ab/P24 Ag 4thGn Influenza Type A Ag Neg for Influ A Influenza Type B Ag Neg for Influ B Urine Legionella Ag Mycoplasma pneumon IgM Blood Type Antibody Screen Crossmatch 12/18/18 12/18/18 12/18/18 11:36 11:51 11:51 WBC RBC Hgb POC Hgb Hct POC Hct MCV MCH MCHC RDW Std Deviation RDW Coeff of Lorene Plt Count MPV Immature Gran % (Auto) Neut % (Auto) Lymph % (Auto) Chase % (Auto) Eos % (Auto) Baso % (Auto) Reticulocyte % (Auto) Immature Gran # (Auto) Neut # (Auto) Lymph # (Auto) Chase # (Auto) Eos # (Auto) Baso # (Auto) Reticulocyte # Absolute Nucleated RBC Nucleated RBC % (auto) RBC Morphology Polychromasia Hypochromasia Microcytosis Peripher Smr Path Cons ESR Immature Retic Fraction Retic Hgb Content Haptoglobin PT INR APTT PTT Ratio Fibrinogen Sample Site POC pH POC pCO2 POC pO2 POC HCO3 POC Base Excess ABG pH ABG pH (Temp Correct) ABG pCO2 ABG pCO2 (Temp Corrct ABG pO2 POC ABG pO2 at Pt Temp ABG HCO3 POC ABG O2 Sat ABG O2 Saturation ABG Base Excess Cade Test VBG pH VBG pCO2 VBG pO2 VBG HCO3 VBG O2 Saturation VBG Base Excess Barometric Pressure Oxygen Given O2 Delivery Device POC O2 Rate Minute Ventilation POC FiO2 Tidal Volume PEEP IPAP POC Sodium Sodium POC Potassium Potassium POC Chloride Chloride Carbon Dioxide POC Total CO2 Anion Gap POC Anion Gap POC BUN BUN Creatinine POC Creatinine Est Cr Clr Drug Dosing Est GFR ( Amer) Est GFR (Non-Af Amer) BUN/Creatinine Ratio Glucose POC Glucose POC Glucose (other) Estimat Average Glucose Hemoglobin A1c POC Lactic Acid Mina Lactate Calcium POC Ioniz Calcium Thang Phosphorus Magnesium Iron TIBC Transferrin Ferritin Total Bilirubin AST ALT Alkaline Phosphatase Lactate Dehydrogenase Total Creatine Kinase Troponin I C-Reactive Protein NT-Pro-B Natriuret Pep Total Protein Albumin Globulin Albumin/Globulin Ratio Vitamin B12 235 Folate 8.77 Procalcitonin TSH Free T4 HCG, Quant Urine Color Urine Appearance Urine pH Ur Specific [place] Urine Protein Urine Glucose (UA) Urine Ketones Urine Blood Urine Nitrite Urine Bilirubin Urine Urobilinogen Ur Leukocyte Esterase Urine WBC (Auto) Urine RBC (Auto) U Hyaline Cast (Auto) U Epithel Cells (Auto) Urine Bacteria (Auto) Ur Random Creatinine U Random Total Protein Ur Random Sodium Ur Random Potassium Ur Random Chloride Protein/Creatinin Ratio Fluid Neutrophils % Fluid Lymphocytes % Fluid Eosinophils % Fl Monocyt/Macrophag % Nasal Screen MRSA (PCR) Urine Opiates Screen U Codeine Confrm GC/MS Ur Morphine (GC/MS) Ur Hydrocodone (GC/MS) Ur Norhydrocodone Ur Noroxycodone Urine Oxycodone (GC/MS) U Oxymorphone GC/MS Ur Methadone, Qual Ur Hydromorphone (GC/MS) Urine Barbiturates Ur Phencyclidine (PCP) U Amphetamin/Meth Scrn MDMA (Ecstasy) Screen U Benzodiazepines Scrn Ur Cocaine Metabolite U Marijuana (THC) Screen Rheumatoid Factor Cycl Citrul Peptide IgG JORDAN Screen Proteinase 3 (PR3) Anti-Neutrophil (Flow) AZALIA-1 Antibody SS-A/Ro Antibody SS-B/La Antibody Sm ([place]) Antibody POT RUNNER Antibody Scl-70 Scleroderma Ab Double Strand DNA Ab Anti-Centromere Ab Glomerular Base Memb Ab Hep Bs Antigen Hep Bs Antibody Hep Bs Antibody, Quant Hepatitis C Antibody Herpes Virus Source HSV I DNA PCR HSV II DNA PCR HIV 1&2 Ab/P24 Ag 4thGn Influenza Type A Ag Influenza Type B Ag Urine Legionella Ag Mycoplasma pneumon IgM Blood Type O Negative Antibody Screen NEGATIVE Crossmatch See Detail 12/18/18 12/18/18 12/18/18 11:52 12:09 14:23 WBC RBC Hgb POC Hgb Hct POC Hct MCV MCH MCHC RDW Std Deviation RDW Coeff of [place]ore[place] Plt Count MPV Immature Gran % (Auto) Neut % (Auto) Lymph % (Auto) Chase % (Auto) Eos % (Auto) Baso % (Auto) Reticulocyte % (Auto) Immature Gran # (Auto) Neut # (Auto) Lymph # (Auto) Chase # (Auto) Eos # (Auto) Baso # (Auto) Reticulocyte # Absolute Nucleated RBC Nucleated RBC % (auto) RBC Morphology Polychromasia Hypochromasia Microcytosis Peripher Smr Path Cons ESR Immature Retic Fraction Retic Hgb Content Haptoglobin PT INR APTT PTT Ratio Fibrinogen Sample Site POC pH POC pCO2 POC pO2 POC HCO3 POC Base Excess ABG pH ABG pH (Temp Correct) ABG pCO2 ABG pCO2 (Temp Corrct ABG pO2 POC ABG pO2 at Pt Temp ABG HCO3 POC ABG O2 Sat ABG O2 Saturation ABG Base Excess Cade Test VBG pH VBG pCO2 VBG pO2 VBG HCO3 VBG O2 Saturation VBG Base Excess Barometric Pressure Oxygen Given O2 Delivery Device POC O2 Rate Minute Ventilation POC FiO2 Tidal Volume PEEP IPAP POC Sodium Sodium POC Potassium Potassium POC Chloride Chloride Carbon Dioxide POC Total CO2 Anion Gap POC Anion Gap POC BUN BUN Creatinine POC Creatinine Est Cr Clr Drug Dosing Est GFR ( Amer) Est GFR (Non-Af Amer) BUN/Creatinine Ratio Glucose POC Glucose POC Glucose (other) Estimat Average Glucose Hemoglobin A1c POC Lactic Acid Mina Lactate Calcium POC Ioniz Calcium Thang Phosphorus Magnesium Iron TIBC Transferrin Ferritin Total Bilirubin AST ALT Alkaline Phosphatase Lactate Dehydrogenase Total Creatine Kinase Troponin I 0.220 H* C-Reactive Protein NT-Pro-B Natriuret Pep Total Protein Albumin Globulin Albumin/Globulin Ratio Vitamin B12 Folate Procalcitonin TSH Free T4 HCG, Quant < 1 Urine Color Urine Appearance Urine pH Ur Specific [place] Urine Protein Urine Glucose (UA) Urine Ketones Urine Blood Urine Nitrite Urine Bilirubin Urine Urobilinogen Ur Leukocyte Esterase Urine WBC (Auto) Urine RBC (Auto) U Hyaline Cast (Auto) U Epithel Cells (Auto) Urine Bacteria (Auto) Ur Random Creatinine U Random Total Protein Ur Random Sodium Ur Random Potassium Ur Random Chloride Protein/Creatinin Ratio Fluid Neutrophils % Fluid Lymphocytes % Fluid Eosinophils % Fl Monocyt/Macrophag % Nasal Screen MRSA (PCR) Urine Opiates Screen U Codeine Confrm GC/MS Ur Morphine (GC/MS) Ur Hydrocodone (GC/MS) Ur Norhydrocodone Ur Noroxycodone Urine Oxycodone (GC/MS) U Oxymorphone GC/MS Ur Methadone, Qual Ur Hydromorphone (GC/MS) Urine Barbiturates Ur Phencyclidine (PCP) U Amphetamin/Meth Scrn MDMA (Ecstasy) Screen U Benzodiazepines Scrn Ur Cocaine Metabolite U Marijuana (THC) Screen Rheumatoid Factor Cycl Citrul Peptide IgG JORDAN Screen Proteinase 3 (PR3) Anti-Neutrophil (Flow) AZALIA-1 Antibody SS-A/Ro Antibody SS-B/La Antibody Sm ([place]) Antibody POT RUNNER Antibody Scl-70 Scleroderma Ab Double Strand DNA Ab Anti-Centromere Ab Glomerular Base Memb Ab Hep Bs Antigen Hep Bs Antibody Hep Bs Antibody, Quant Hepatitis C Antibody Herpes Virus Source HSV I DNA PCR HSV II DNA PCR HIV 1&2 Ab/P24 Ag 4thGn Influenza Type A Ag Influenza Type B Ag Urine Legionella Ag Mycoplasma pneumon IgM Pending Blood Type Antibody Screen Crossmatch 12/18/18 12/18/18 12/18/18 14:23 15:15 15:15 WBC RBC Hgb 8.0 L POC Hgb Hct 24.3 L POC Hct MCV MCH MCHC RDW Std Deviation RDW Coeff of [place] Plt Count MPV Immature Gran % (Auto) Neut % (Auto) Lymph % (Auto) Chase % (Auto) Eos % (Auto) Baso % (Auto) Reticulocyte % (Auto) Immature Gran # (Auto) Neut # (Auto) Lymph # (Auto) Chase # (Auto) Eos # (Auto) Baso # (Auto) Reticulocyte # Absolute Nucleated RBC Nucleated RBC % (auto) RBC Morphology Polychromasia Hypochromasia Microcytosis Peripher Smr Path Cons ESR Immature Retic Fraction Retic Hgb Content Haptoglobin PT INR APTT PTT Ratio Fibrinogen Sample Site POC pH POC pCO2 POC pO2 POC HCO3 POC Base Excess ABG pH ABG pH (Temp Correct) ABG pCO2 ABG pCO2 (Temp Corrct ABG pO2 POC ABG pO2 at Pt Temp ABG HCO3 POC ABG O2 Sat ABG O2 Saturation ABG Base Excess Cade Test VBG pH VBG pCO2 VBG pO2 VBG HCO3 VBG O2 Saturation VBG Base Excess Barometric Pressure Oxygen Given O2 Delivery Device POC O2 Rate Minute Ventilation POC FiO2 Tidal Volume PEEP IPAP POC Sodium Sodium POC Potassium Potassium POC Chloride Chloride Carbon Dioxide POC Total CO2 Anion Gap POC Anion Gap POC BUN BUN Creatinine POC Creatinine Est Cr Clr Drug Dosing Est GFR ( Amer) Est GFR (Non-Af Amer) BUN/Creatinine Ratio Glucose POC Glucose POC Glucose (other) Estimat Average Glucose Hemoglobin A1c POC Lactic Acid Mina Lactate Calcium POC Ioniz Calcium Thang Phosphorus Magnesium Iron TIBC Transferrin Ferritin Total Bilirubin AST ALT Alkaline Phosphatase Lactate Dehydrogenase Total Creatine Kinase Troponin I C-Reactive Protein NT-Pro-B Natriuret Pep Total Protein Albumin Globulin Albumin/Globulin Ratio Vitamin B12 Folate Procalcitonin TSH Free T4 HCG, Quant Urine Color Yellow Urine Appearance Clear Urine pH 5.5 Ur Specific [place] <= 1.005 Urine Protein Negative Urine Glucose (UA) Negative Urine Ketones Negative Urine Blood Negative Urine Nitrite Negative Urine Bilirubin Negative Urine Urobilinogen Negative Ur Leukocyte Esterase Negative Urine WBC (Auto) 0 Urine RBC (Auto) 0-4 U Hyaline Cast (Auto) 0 U Epithel Cells (Auto) 5-10 H Urine Bacteria (Auto) Negative Ur Random Creatinine U Random Total Protein Ur Random Sodium Ur Random Potassium Ur Random Chloride Protein/Creatinin Ratio Fluid Neutrophils % Fluid Lymphocytes % Fluid Eosinophils % Fl Monocyt/Macrophag % Nasal Screen MRSA (PCR) Urine Opiates Screen Pos H U Codeine Confrm GC/MS Ur Morphine (GC/MS) Ur Hydrocodone (GC/MS) Ur Norhydrocodone Ur Noroxycodone Urine Oxycodone (GC/MS) U Oxymorphone GC/MS Ur Methadone, Qual Neg Ur Hydromorphone (GC/MS) Urine Barbiturates Neg Ur Phencyclidine (PCP) Neg U Amphetamin/Meth Scrn Neg MDMA (Ecstasy) Screen Neg U Benzodiazepines Scrn Neg Ur Cocaine Metabolite Neg U Marijuana (THC) Screen Neg Rheumatoid Factor Cycl Citrul Peptide IgG JORDAN Screen Proteinase 3 (PR3) Anti-Neutrophil (Flow) AZALIA-1 Antibody SS-A/Ro Antibody SS-B/La Antibody Sm ([place]) Antibody POT RUNNER Antibody Scl-70 Scleroderma Ab Double Strand DNA Ab Anti-Centromere Ab Glomerular Base Memb Ab Hep Bs Antigen Hep Bs Antibody Hep Bs Antibody, Quant Hepatitis C Antibody Herpes Virus Source HSV I DNA PCR HSV II DNA PCR HIV 1&2 Ab/P24 Ag 4thGn Influenza Type A Ag Influenza Type B Ag Urine Legionella Ag Mycoplasma pneumon IgM Blood Type Antibody Screen Crossmatch 12/18/18 12/18/18 12/18/18 15:15 16:33 16:41 WBC RBC Hgb POC Hgb Hct POC Hct MCV MCH MCHC RDW Std Deviation RDW Coeff of [place] Plt Count MPV Immature Gran % (Auto) Neut % (Auto) Lymph % (Auto) Chase % (Auto) Eos % (Auto) Baso % (Auto) Reticulocyte % (Auto) Immature Gran # (Auto) Neut # (Auto) Lymph # (Auto) Chase # (Auto) Eos # (Auto) Baso # (Auto) Reticulocyte # Absolute Nucleated RBC Nucleated RBC % (auto) RBC Morphology Polychromasia Hypochromasia Microcytosis Peripher Smr Path Cons ESR 58 H Immature Retic Fraction Retic Hgb Content Haptoglobin PT INR APTT PTT Ratio Fibrinogen Sample Site POC pH POC pCO2 POC pO2 POC HCO3 POC Base Excess ABG pH Cancelled ABG pH (Temp Correct) ABG pCO2 Cancelled ABG pCO2 (Temp Corrct ABG pO2 Cancelled POC ABG pO2 at Pt Temp ABG HCO3 Cancelled POC ABG O2 Sat ABG O2 Saturation Cancelled ABG Base Excess Cancelled Cade Test Cancelled VBG pH VBG pCO2 VBG pO2 VBG HCO3 VBG O2 Saturation VBG Base Excess Barometric Pressure Cancelled Oxygen Given Cancelled O2 Delivery Device POC O2 Rate Minute Ventilation POC FiO2 Tidal Volume PEEP IPAP POC Sodium Sodium POC Potassium Potassium POC Chloride Chloride Carbon Dioxide POC Total CO2 Anion Gap POC Anion Gap POC BUN BUN Creatinine POC Creatinine Est Cr Clr Drug Dosing Est GFR ( Amer) Est GFR (Non-Af Amer) BUN/Creatinine Ratio Glucose POC Glucose POC Glucose (other) Estimat Average Glucose Hemoglobin A1c POC Lactic Acid Mina Lactate Calcium POC Ioniz Calcium Thang Phosphorus Magnesium Iron TIBC Transferrin Ferritin Total Bilirubin AST ALT Alkaline Phosphatase Lactate Dehydrogenase Total Creatine Kinase Troponin I C-Reactive Protein NT-Pro-B Natriuret Pep Total Protein Albumin Globulin Albumin/Globulin Ratio Vitamin B12 Folate Procalcitonin TSH Free T4 HCG, Quant Urine Color Urine Appearance Urine pH Ur Specific [place] Urine Protein Urine Glucose (UA) Urine Ketones Urine Blood Urine Nitrite Urine Bilirubin Urine Urobilinogen Ur Leukocyte Esterase Urine WBC (Auto) Urine RBC (Auto) U Hyaline Cast (Auto) U Epithel Cells (Auto) Urine Bacteria (Auto) Ur Random Creatinine U Random Total Protein Ur Random Sodium Ur Random Potassium Ur Random Chloride Protein/Creatinin Ratio Fluid Neutrophils % Fluid Lymphocytes % Fluid Eosinophils % Fl Monocyt/Macrophag % Nasal Screen MRSA (PCR) Urine Opiates Screen U Codeine Confrm GC/MS Pending Ur Morphine (GC/MS) Pending Ur Hydrocodone (GC/MS) Pending Ur Norhydrocodone Pending Ur Noroxycodone Pending Urine Oxycodone (GC/MS) Pending U Oxymorphone GC/MS Pending Ur Methadone, Qual Ur Hydromorphone (GC/MS) Pending Urine Barbiturates Ur Phencyclidine (PCP) U Amphetamin/Meth Scrn MDMA (Ecstasy) Screen U Benzodiazepines Scrn Ur Cocaine Metabolite U Marijuana (THC) Screen Rheumatoid Factor Cycl Citrul Peptide IgG JORDAN Screen Proteinase 3 (PR3) Anti-Neutrophil (Flow) AZALIA-1 Antibody SS-A/Ro Antibody SS-B/La Antibody Sm ([place]) Antibody POT RUNNER Antibody Scl-70 Scleroderma Ab Double Strand DNA Ab Anti-Centromere Ab Glomerular Base Memb Ab Hep Bs Antigen Hep Bs Antibody Hep Bs Antibody, Quant Hepatitis C Antibody Herpes Virus Source HSV I DNA PCR HSV II DNA PCR HIV 1&2 Ab/P24 Ag 4thGn Influenza Type A Ag Influenza Type B Ag Urine Legionella Ag Mycoplasma pneumon IgM Blood Type Antibody Screen Crossmatch 12/18/18 12/18/18 12/18/18 16:41 16:41 16:48 WBC RBC Hgb POC Hgb Hct POC Hct MCV MCH MCHC RDW Std Deviation RDW Coeff of [place] Plt Count MPV Immature Gran % (Auto) Neut % (Auto) Lymph % (Auto) Chase % (Auto) Eos % (Auto) Baso % (Auto) Reticulocyte % (Auto) Immature Gran # (Auto) Neut # (Auto) Lymph # (Auto) Chase # (Auto) Eos # (Auto) Baso # (Auto) Reticulocyte # Absolute Nucleated RBC Nucleated RBC % (auto) RBC Morphology Polychromasia Hypochromasia Microcytosis Peripher Smr Path Cons ESR Immature Retic Fraction Retic Hgb Content Haptoglobin PT INR APTT PTT Ratio Fibrinogen 561 H Sample Site POC pH POC pCO2 POC pO2 POC HCO3 POC Base Excess ABG pH ABG pH (Temp Correct) ABG pCO2 ABG pCO2 (Temp Corrct ABG pO2 POC ABG pO2 at Pt Temp ABG HCO3 POC ABG O2 Sat ABG O2 Saturation ABG Base Excess Cade Test VBG pH VBG pCO2 VBG pO2 VBG HCO3 VBG O2 Saturation VBG Base Excess Barometric Pressure Oxygen Given O2 Delivery Device POC O2 Rate Minute Ventilation POC FiO2 Tidal Volume PEEP IPAP POC Sodium Sodium POC Potassium Potassium POC Chloride Chloride Carbon Dioxide POC Total CO2 Anion Gap POC Anion Gap POC BUN BUN Creatinine POC Creatinine Est Cr Clr Drug Dosing Est GFR ( Amer) Est GFR (Non-Af Amer) BUN/Creatinine Ratio Glucose POC Glucose POC Glucose (other) Estimat Average Glucose Hemoglobin A1c POC Lactic Acid Mina Lactate Calcium POC Ioniz Calcium Thang Phosphorus Magnesium Iron TIBC Transferrin Ferritin Total Bilirubin AST ALT Alkaline Phosphatase Lactate Dehydrogenase Total Creatine Kinase 120 Troponin I C-Reactive Protein 22.10 H NT-Pro-B Natriuret Pep Total Protein Albumin Globulin Albumin/Globulin Ratio Vitamin B12 Folate Procalcitonin TSH Free T4 HCG, Quant Urine Color Urine Appearance Urine pH Ur Specific [place] Urine Protein Urine Glucose (UA) Urine Ketones Urine Blood Urine Nitrite Urine Bilirubin Urine Urobilinogen Ur Leukocyte Esterase Urine WBC (Auto) Urine RBC (Auto) U Hyaline Cast (Auto) U Epithel Cells (Auto) Urine Bacteria (Auto) Ur Random Creatinine U Random Total Protein Ur Random Sodium Ur Random Potassium Ur Random Chloride Protein/Creatinin Ratio Fluid Neutrophils % Fluid Lymphocytes % Fluid Eosinophils % Fl Monocyt/Macrophag % Nasal Screen MRSA (PCR) Urine Opiates Screen U Codeine Confrm GC/MS Ur Morphine (GC/MS) Ur Hydrocodone (GC/MS) Ur Norhydrocodone Ur Noroxycodone Urine Oxycodone (GC/MS) U Oxymorphone GC/MS Ur Methadone, Qual Ur Hydromorphone (GC/MS) Urine Barbiturates Ur Phencyclidine (PCP) U Amphetamin/Meth Scrn MDMA (Ecstasy) Screen U Benzodiazepines Scrn Ur Cocaine Metabolite U Marijuana (THC) Screen Rheumatoid Factor Cycl Citrul Peptide IgG JORDAN Screen Proteinase 3 (PR3) Anti-Neutrophil (Flow) AZALIA-1 Antibody SS-A/Ro Antibody SS-B/La Antibody Sm ([place]) Antibody POT RUNNER Antibody Scl-70 Scleroderma Ab Double Strand DNA Ab Anti-Centromere Ab Glomerular Base Memb Ab Hep Bs Antigen Hep Bs Antibody Hep Bs Antibody, Quant Hepatitis C Antibody Herpes Virus Source HSV I DNA PCR HSV II DNA PCR HIV 1&2 Ab/P24 Ag 4thGn Neg Influenza Type A Ag Influenza Type B Ag Urine Legionella Ag Mycoplasma pneumon IgM Blood Type Antibody Screen Crossmatch 12/18/18 12/18/18 12/18/18 16:48 16:48 16:48 WBC RBC Hgb POC Hgb Hct POC Hct MCV MCH MCHC RDW Std Deviation RDW Coeff of [place] Plt Count MPV Immature Gran % (Auto) Neut % (Auto) Lymph % (Auto) Chase % (Auto) Eos % (Auto) Baso % (Auto) Reticulocyte % (Auto) Immature Gran # (Auto) Neut # (Auto) Lymph # (Auto) Chase # (Auto) Eos # (Auto) Baso # (Auto) Reticulocyte # Absolute Nucleated RBC Nucleated RBC % (auto) RBC Morphology Polychromasia Hypochromasia Microcytosis Peripher Smr Path Cons ESR Immature Retic Fraction Retic Hgb Content Haptoglobin PT INR APTT PTT Ratio Fibrinogen Sample Site POC pH POC pCO2 POC pO2 POC HCO3 POC Base Excess ABG pH ABG pH (Temp Correct) ABG pCO2 ABG pCO2 (Temp Corrct ABG pO2 POC ABG pO2 at Pt Temp ABG HCO3 POC ABG O2 Sat ABG O2 Saturation ABG Base Excess Cade Test VBG pH VBG pCO2 VBG pO2 VBG HCO3 VBG O2 Saturation VBG Base Excess Barometric Pressure Oxygen Given O2 Delivery Device POC O2 Rate Minute Ventilation POC FiO2 Tidal Volume PEEP IPAP POC Sodium Sodium POC Potassium Potassium POC Chloride Chloride Carbon Dioxide POC Total CO2 Anion Gap POC Anion Gap POC BUN BUN Creatinine POC Creatinine Est Cr Clr Drug Dosing Est GFR ( Amer) Est GFR (Non-Af Amer) BUN/Creatinine Ratio Glucose POC Glucose POC Glucose (other) Estimat Average Glucose Hemoglobin A1c POC Lactic Acid Mina Lactate Calcium POC Ioniz Calcium Thang Phosphorus Magnesium Iron TIBC Transferrin Ferritin Total Bilirubin AST ALT Alkaline Phosphatase Lactate Dehydrogenase Total Creatine Kinase Troponin I C-Reactive Protein NT-Pro-B Natriuret Pep Total Protein Albumin Globulin Albumin/Globulin Ratio Vitamin B12 Folate Procalcitonin TSH Free T4 HCG, Quant Urine Color Urine Appearance Urine pH Ur Specific [place] Urine Protein Urine Glucose (UA) Urine Ketones Urine Blood Urine Nitrite Urine Bilirubin Urine Urobilinogen Ur Leukocyte Esterase Urine WBC (Auto) Urine RBC (Auto) U Hyaline Cast (Auto) U Epithel Cells (Auto) Urine Bacteria (Auto) Ur Random Creatinine U Random Total Protein Ur Random Sodium Ur Random Potassium Ur Random Chloride Protein/Creatinin Ratio Fluid Neutrophils % Fluid Lymphocytes % Fluid Eosinophils % Fl Monocyt/Macrophag % Nasal Screen MRSA (PCR) Urine Opiates Screen U Codeine Confrm GC/MS Ur Morphine (GC/MS) Ur Hydrocodone (GC/MS) Ur Norhydrocodone Ur Noroxycodone Urine Oxycodone (GC/MS) U Oxymorphone GC/MS Ur Methadone, Qual Ur Hydromorphone (GC/MS) Urine Barbiturates Ur Phencyclidine (PCP) U Amphetamin/Meth Scrn MDMA (Ecstasy) Screen U Benzodiazepines Scrn Ur Cocaine Metabolite U Marijuana (THC) Screen Rheumatoid Factor Pending Cycl Citrul Peptide IgG 0.64 JORDAN Screen Pending Proteinase 3 (PR3) Pending Anti-Neutrophil (Flow) Pending AZALIA-1 Antibody Pending SS-A/Ro Antibody Pending SS-B/La Antibody Pending Sm ([place]) Antibody Pending POT RUNNER Antibody Pending Scl-70 Scleroderma Ab Pending Double Strand DNA Ab Pending Cancelled Anti-Centromere Ab Pending Glomerular Base Memb Ab Pending Hep Bs Antigen Hep Bs Antibody Hep Bs Antibody, Quant Hepatitis C Antibody Herpes Virus Source HSV I DNA PCR HSV II DNA PCR HIV 1&2 Ab/P24 Ag 4thGn Influenza Type A Ag Influenza Type B Ag Urine Legionella Ag Mycoplasma pneumon IgM Blood Type Antibody Screen Crossmatch 12/18/18 12/18/18 12/18/18 16:48 16:51 20:09 WBC RBC Hgb POC Hgb Hct POC Hct MCV MCH MCHC RDW Std Deviation RDW Coeff of [place] Plt Count MPV Immature Gran % (Auto) Neut % (Auto) Lymph % (Auto) Chase % (Auto) Eos % (Auto) Baso % (Auto) Reticulocyte % (Auto) Immature Gran # (Auto) Neut # (Auto) Lymph # (Auto) Chase # (Auto) Eos # (Auto) Baso # (Auto) Reticulocyte # Absolute Nucleated RBC Nucleated RBC % (auto) RBC Morphology Polychromasia Hypochromasia Microcytosis Peripher Smr Path Cons ESR Immature Retic Fraction Retic Hgb Content Haptoglobin PT INR APTT PTT Ratio Fibrinogen Sample Site POC pH POC pCO2 POC pO2 POC HCO3 POC Base Excess ABG pH 7.42 ABG pH (Temp Correct) ABG pCO2 31 L ABG pCO2 (Temp Corrct ABG pO2 53 L POC ABG pO2 at Pt Temp ABG HCO3 20 POC ABG O2 Sat ABG O2 Saturation 86.6 L ABG Base Excess -3.9 Cade Test Pos VBG pH VBG pCO2 VBG pO2 VBG HCO3 VBG O2 Saturation VBG Base Excess Barometric Pressure 736.8 Oxygen Given 40 PERCENT O2 Delivery Device POC O2 Rate Minute Ventilation POC FiO2 Tidal Volume PEEP IPAP POC Sodium Sodium POC Potassium Potassium POC Chloride Chloride Carbon Dioxide POC Total CO2 Anion Gap POC Anion Gap POC BUN BUN Creatinine POC Creatinine Est Cr Clr Drug Dosing Est GFR ( Amer) Est GFR (Non-Af Amer) BUN/Creatinine Ratio Glucose POC Glucose POC Glucose (other) Estimat Average Glucose Hemoglobin A1c POC Lactic Acid Mina Lactate Calcium POC Ioniz Calcium Thang Phosphorus Magnesium Iron TIBC Transferrin Ferritin Total Bilirubin AST ALT Alkaline Phosphatase Lactate Dehydrogenase Total Creatine Kinase Troponin I C-Reactive Protein NT-Pro-B Natriuret Pep Total Protein Albumin Globulin Albumin/Globulin Ratio Vitamin B12 Folate Procalcitonin TSH Free T4 HCG, Quant Urine Color Urine Appearance Urine pH Ur Specific [place] Urine Protein Urine Glucose (UA) Urine Ketones Urine Blood Urine Nitrite Urine Bilirubin Urine Urobilinogen Ur Leukocyte Esterase Urine WBC (Auto) Urine RBC (Auto) U Hyaline Cast (Auto) U Epithel Cells (Auto) Urine Bacteria (Auto) Ur Random Creatinine U Random Total Protein Ur Random Sodium Ur Random Potassium Ur Random Chloride Protein/Creatinin Ratio Fluid Neutrophils % Fluid Lymphocytes % Fluid Eosinophils % Fl Monocyt/Macrophag % Nasal Screen MRSA (PCR) Negative Urine Opiates Screen U Codeine Confrm GC/MS Ur Morphine (GC/MS) Ur Hydrocodone (GC/MS) Ur Norhydrocodone Ur Noroxycodone Urine Oxycodone (GC/MS) U Oxymorphone GC/MS Ur Methadone, Qual Ur Hydromorphone (GC/MS) Urine Barbiturates Ur Phencyclidine (PCP) U Amphetamin/Meth Scrn MDMA (Ecstasy) Screen U Benzodiazepines Scrn Ur Cocaine Metabolite U Marijuana (THC) Screen Rheumatoid Factor Cycl Citrul Peptide IgG JORDAN Screen Proteinase 3 (PR3) Anti-Neutrophil (Flow) AZALIA-1 Antibody SS-A/Ro Antibody SS-B/La Antibody Sm ([place]) Antibody POT RUNNER Antibody Scl-70 Scleroderma Ab Double Strand DNA Ab Anti-Centromere Ab Glomerular Base Memb Ab Hep Bs Antigen Neg Hep Bs Antibody Immune Hep Bs Antibody, Quant 14.48 Hepatitis C Antibody Neg Herpes Virus Source HSV I DNA PCR HSV II DNA PCR HIV 1&2 Ab/P24 Ag 4thGn Influenza Type A Ag Influenza Type B Ag Urine Legionella Ag Mycoplasma pneumon IgM Blood Type Antibody Screen Crossmatch 12/18/18 12/18/18 12/18/18 20:15 20:20 20:20 WBC RBC Hgb POC Hgb Hct POC Hct MCV MCH MCHC RDW Std Deviation RDW Coeff of [place] Plt Count MPV Immature Gran % (Auto) Neut % (Auto) Lymph % (Auto) Chase % (Auto) Eos % (Auto) Baso % (Auto) Reticulocyte % (Auto) Immature Gran # (Auto) Neut # (Auto) Lymph # (Auto) Chase # (Auto) Eos # (Auto) Baso # (Auto) Reticulocyte # Absolute Nucleated RBC Nucleated RBC % (auto) RBC Morphology Polychromasia Hypochromasia Microcytosis Peripher Smr Path Cons ESR Immature Retic Fraction Retic Hgb Content Haptoglobin PT INR APTT PTT Ratio Fibrinogen Sample Site POC pH POC pCO2 POC pO2 POC HCO3 POC Base Excess ABG pH ABG pH (Temp Correct) ABG pCO2 ABG pCO2 (Temp Corrct ABG pO2 POC ABG pO2 at Pt Temp ABG HCO3 POC ABG O2 Sat ABG O2 Saturation ABG Base Excess Cade Test VBG pH VBG pCO2 VBG pO2 VBG HCO3 VBG O2 Saturation VBG Base Excess Barometric Pressure Oxygen Given O2 Delivery Device POC O2 Rate Minute Ventilation POC FiO2 Tidal Volume PEEP IPAP POC Sodium Sodium POC Potassium Potassium POC Chloride Chloride Carbon Dioxide POC Total CO2 Anion Gap POC Anion Gap POC BUN BUN Creatinine POC Creatinine Est Cr Clr Drug Dosing Est GFR ( Amer) Est GFR (Non-Af Amer) BUN/Creatinine Ratio Glucose POC Glucose 114 H POC Glucose (other) Estimat Average Glucose Hemoglobin A1c POC Lactic Acid Mina Lactate Calcium POC Ioniz Calcium Thang Phosphorus Magnesium Iron TIBC Transferrin Ferritin Total Bilirubin AST ALT Alkaline Phosphatase Lactate Dehydrogenase Total Creatine Kinase Troponin I C-Reactive Protein NT-Pro-B Natriuret Pep Total Protein Albumin Globulin Albumin/Globulin Ratio Vitamin B12 Folate Procalcitonin TSH Free T4 HCG, Quant Urine Color Urine Appearance Urine pH Ur Specific [place] Urine Protein Urine Glucose (UA) Urine Ketones Urine Blood Urine Nitrite Urine Bilirubin Urine Urobilinogen Ur Leukocyte Esterase Urine WBC (Auto) Urine RBC (Auto) U Hyaline Cast (Auto) U Epithel Cells (Auto) Urine Bacteria (Auto) Ur Random Creatinine U Random Total Protein Ur Random Sodium Ur Random Potassium Cancelled Ur Random Chloride Cancelled Protein/Creatinin Ratio Fluid Neutrophils % Fluid Lymphocytes % Fluid Eosinophils % Fl Monocyt/Macrophag % Nasal Screen MRSA (PCR) Urine Opiates Screen U Codeine Confrm GC/MS Ur Morphine (GC/MS) Ur Hydrocodone (GC/MS) Ur Norhydrocodone Ur Noroxycodone Urine Oxycodone (GC/MS) U Oxymorphone GC/MS Ur Methadone, Qual Ur Hydromorphone (GC/MS) Urine Barbiturates Ur Phencyclidine (PCP) U Amphetamin/Meth Scrn MDMA (Ecstasy) Screen U Benzodiazepines Scrn Ur Cocaine Metabolite U Marijuana (THC) Screen Rheumatoid Factor Cycl Citrul Peptide IgG JORDAN Screen Proteinase 3 (PR3) Anti-Neutrophil (Flow) AZALIA-1 Antibody SS-A/Ro Antibody SS-B/La Antibody Sm ([place]) Antibody POT RUNNER Antibody Scl-70 Scleroderma Ab Double Strand DNA Ab Anti-Centromere Ab Glomerular Base Memb Ab Hep Bs Antigen Hep Bs Antibody Hep Bs Antibody, Quant Hepatitis C Antibody Herpes Virus Source HSV I DNA PCR HSV II DNA PCR HIV 1&2 Ab/P24 Ag 4thGn Influenza Type A Ag Influenza Type B Ag Urine Legionella Ag Mycoplasma pneumon IgM Blood Type Antibody Screen Crossmatch 12/18/18 12/18/18 12/18/18 20:20 20:20 20:20 WBC RBC Hgb POC Hgb Hct POC Hct MCV MCH MCHC RDW Std Deviation RDW Coeff of [place] Plt Count MPV Immature Gran % (Auto) Neut % (Auto) Lymph % (Auto) Chase % (Auto) Eos % (Auto) Baso % (Auto) Reticulocyte % (Auto) Immature Gran # (Auto) Neut # (Auto) Lymph # (Auto) Chase # (Auto) Eos # (Auto) Baso # (Auto) Reticulocyte # Absolute Nucleated RBC Nucleated RBC % (auto) RBC Morphology Polychromasia Hypochromasia Microcytosis Peripher Smr Path Cons ESR Immature Retic Fraction Retic Hgb Content Haptoglobin PT INR APTT PTT Ratio Fibrinogen Sample Site POC pH POC pCO2 POC pO2 POC HCO3 POC Base Excess ABG pH ABG pH (Temp Correct) ABG pCO2 ABG pCO2 (Temp Corrct ABG pO2 POC ABG pO2 at Pt Temp ABG HCO3 POC ABG O2 Sat ABG O2 Saturation ABG Base Excess Cade Test VBG pH VBG pCO2 VBG pO2 VBG HCO3 VBG O2 Saturation VBG Base Excess Barometric Pressure Oxygen Given O2 Delivery Device POC O2 Rate Minute Ventilation POC FiO2 Tidal Volume PEEP IPAP POC Sodium Sodium POC Potassium Potassium POC Chloride Chloride Carbon Dioxide POC Total CO2 Anion Gap POC Anion Gap POC BUN BUN Creatinine POC Creatinine Est Cr Clr Drug Dosing Est GFR ( Amer) Est GFR (Non-Af Amer) BUN/Creatinine Ratio Glucose POC Glucose POC Glucose (other) Estimat Average Glucose Hemoglobin A1c POC Lactic Acid Mina Lactate Calcium POC Ioniz Calcium Thang Phosphorus Magnesium Iron TIBC Transferrin Ferritin Total Bilirubin AST ALT Alkaline Phosphatase Lactate Dehydrogenase Total Creatine Kinase Troponin I C-Reactive Protein NT-Pro-B Natriuret Pep Total Protein Albumin Globulin Albumin/Globulin Ratio Vitamin B12 Folate Procalcitonin TSH Free T4 HCG, Quant Urine Color Urine Appearance Urine pH Ur Specific [place] Urine Protein Urine Glucose (UA) Urine Ketones Urine Blood Urine Nitrite Urine Bilirubin Urine Urobilinogen Ur Leukocyte Esterase Urine WBC (Auto) Urine RBC (Auto) U Hyaline Cast (Auto) U Epithel Cells (Auto) Urine Bacteria (Auto) Ur Random Creatinine < 13.0 U Random Total Protein 15.3 H Ur Random Sodium Cancelled 123 Ur Random Potassium 6.6 Ur Random Chloride 131 Protein/Creatinin Ratio TNP Fluid Neutrophils % Fluid Lymphocytes % Fluid Eosinophils % Fl Monocyt/Macrophag % Nasal Screen MRSA (PCR) Urine Opiates Screen U Codeine Confrm GC/MS Ur Morphine (GC/MS) Ur Hydrocodone (GC/MS) Ur Norhydrocodone Ur Noroxycodone Urine Oxycodone (GC/MS) U Oxymorphone GC/MS Ur Methadone, Qual Ur Hydromorphone (GC/MS) Urine Barbiturates Ur Phencyclidine (PCP) U Amphetamin/Meth Scrn MDMA (Ecstasy) Screen U Benzodiazepines Scrn Ur Cocaine Metabolite U Marijuana (THC) Screen Rheumatoid Factor Cycl Citrul Peptide IgG JORDAN Screen Proteinase 3 (PR3) Anti-Neutrophil (Flow) AZALIA-1 Antibody SS-A/Ro Antibody SS-B/La Antibody Sm ([place]) Antibody POT RUNNER Antibody Scl-70 Scleroderma Ab Double Strand DNA Ab Anti-Centromere Ab Glomerular Base Memb Ab Hep Bs Antigen Hep Bs Antibody Hep Bs Antibody, Quant Hepatitis C Antibody Herpes Virus Source HSV I DNA PCR HSV II DNA PCR HIV 1&2 Ab/P24 Ag 4thGn Influenza Type A Ag Influenza Type B Ag Urine Legionella Ag Pending Mycoplasma pneumon IgM Blood Type Antibody Screen Crossmatch 12/18/18 12/18/18 12/18/18 20:31 20:31 20:31 WBC 9.62 RBC 2.86 L Hgb 8.0 L POC Hgb Hct 25.0 L POC Hct MCV 87.4 MCH 28.0 MCHC 32.0 RDW Std Deviation 51.5 H RDW Coeff of [place]ore[place] 16.0 H Plt Count 253 MPV 11.0 H Immature Gran % (Auto) 0.2 Neut % (Auto) 96.2 Lymph % (Auto) 1.6 Chase % (Auto) 1.9 Eos % (Auto) 0.0 Baso % (Auto) 0.1 Reticulocyte % (Auto) Immature Gran # (Auto) 0.02 Neut # (Auto) 9.26 H Lymph # (Auto) 0.15 L Chase # (Auto) 0.18 Eos # (Auto) 0.00 Baso # (Auto) 0.01 Reticulocyte # Absolute Nucleated RBC Nucleated RBC % (auto) RBC Morphology Polychromasia Hypochromasia Microcytosis Peripher Smr Path Cons ESR Immature Retic Fraction Retic Hgb Content Haptoglobin PT INR APTT PTT Ratio Fibrinogen Sample Site POC pH POC pCO2 POC pO2 POC HCO3 POC Base Excess ABG pH ABG pH (Temp Correct) ABG pCO2 ABG pCO2 (Temp Corrct ABG pO2 POC ABG pO2 at Pt Temp ABG HCO3 POC ABG O2 Sat ABG O2 Saturation ABG Base Excess Cade Test VBG pH VBG pCO2 VBG pO2 VBG HCO3 VBG O2 Saturation VBG Base Excess Barometric Pressure Oxygen Given O2 Delivery Device POC O2 Rate Minute Ventilation POC FiO2 Tidal Volume PEEP IPAP POC Sodium Sodium 142 POC Potassium Potassium 3.3 L POC Chloride Chloride 111 H Carbon Dioxide 23 POC Total CO2 Anion Gap 8.0 POC Anion Gap POC BUN BUN 11 Creatinine 1.11 POC Creatinine Est Cr Clr Drug Dosing 67.3 Est GFR ( Amer) 69.5 Est GFR (Non-Af Amer) 59.9 BUN/Creatinine Ratio 9.9 L Glucose 121 H POC Glucose POC Glucose (other) Estimat Average Glucose Hemoglobin A1c POC Lactic Acid Mina Lactate Calcium 9.1 POC Ioniz Calcium Thang Phosphorus Magnesium Iron TIBC Transferrin Ferritin Total Bilirubin AST ALT Alkaline Phosphatase Lactate Dehydrogenase Total Creatine Kinase Troponin I 0.271 H* C-Reactive Protein NT-Pro-B Natriuret Pep Total Protein Albumin Globulin Albumin/Globulin Ratio Vitamin B12 Folate Procalcitonin TSH Free T4 HCG, Quant Urine Color Urine Appearance Urine pH Ur Specific [place] Urine Protein Urine Glucose (UA) Urine Ketones Urine Blood Urine Nitrite Urine Bilirubin Urine Urobilinogen Ur Leukocyte Esterase Urine WBC (Auto) Urine RBC (Auto) U Hyaline Cast (Auto) U Epithel Cells (Auto) Urine Bacteria (Auto) Ur Random Creatinine U Random Total Protein Ur Random Sodium Ur Random Potassium Ur Random Chloride Protein/Creatinin Ratio Fluid Neutrophils % Fluid Lymphocytes % Fluid Eosinophils % Fl Monocyt/Macrophag % Nasal Screen MRSA (PCR) Urine Opiates Screen U Codeine Confrm GC/MS Ur Morphine (GC/MS) Ur Hydrocodone (GC/MS) Ur Norhydrocodone Ur Noroxycodone Urine Oxycodone (GC/MS) U Oxymorphone GC/MS Ur Methadone, Qual Ur Hydromorphone (GC/MS) Urine Barbiturates Ur Phencyclidine (PCP) U Amphetamin/Meth Scrn MDMA (Ecstasy) Screen U Benzodiazepines Scrn Ur Cocaine Metabolite U Marijuana (THC) Screen Rheumatoid Factor Cycl Citrul Peptide IgG JORDAN Screen Proteinase 3 (PR3) Anti-Neutrophil (Flow) AZALIA-1 Antibody SS-A/Ro Antibody SS-B/La Antibody Sm ([place]) Antibody POT RUNNER Antibody Scl-70 Scleroderma Ab Double Strand DNA Ab Anti-Centromere Ab Glomerular Base Memb Ab Hep Bs Antigen Hep Bs Antibody Hep Bs Antibody, Quant Hepatitis C Antibody Herpes Virus Source HSV I DNA PCR HSV II DNA PCR HIV 1&2 Ab/P24 Ag 4thGn Influenza Type A Ag Influenza Type B Ag Urine Legionella Ag Mycoplasma pneumon IgM Blood Type Antibody Screen Crossmatch 12/18/18 12/18/18 12/18/18 21:10 21:47 23:11 WBC RBC Hgb POC Hgb Hct POC Hct MCV MCH MCHC RDW Std Deviation RDW Coeff of [place] Plt Count MPV Immature Gran % (Auto) Neut % (Auto) Lymph % (Auto) Chase % (Auto) Eos % (Auto) Baso % (Auto) Reticulocyte % (Auto) Immature Gran # (Auto) Neut # (Auto) Lymph # (Auto) Chase # (Auto) Eos # (Auto) Baso # (Auto) Reticulocyte # Absolute Nucleated RBC Nucleated RBC % (auto) RBC Morphology Polychromasia Hypochromasia Microcytosis Peripher Smr Path Cons ESR Immature Retic Fraction Retic Hgb Content Haptoglobin PT INR APTT PTT Ratio Fibrinogen Sample Site R Radial POC pH 7.43 POC pCO2 31 L POC pO2 71 L POC HCO3 21 POC Base Excess -4.0 ABG pH ABG pH (Temp Correct) 7.407 ABG pCO2 ABG pCO2 (Temp Corrct 33 L ABG pO2 POC ABG pO2 at Pt Temp 79 ABG HCO3 POC ABG O2 Sat 95.0 ABG O2 Saturation ABG Base Excess Cade Test Pass VBG pH VBG pCO2 VBG pO2 VBG HCO3 VBG O2 Saturation VBG Base Excess Barometric Pressure Oxygen Given O2 Delivery Device BIPAP POC O2 Rate 16 Minute Ventilation POC FiO2 50 Tidal Volume PEEP IPAP 10 POC Sodium Sodium POC Potassium Potassium POC Chloride Chloride Carbon Dioxide POC Total CO2 22 L Anion Gap POC Anion Gap POC BUN BUN Creatinine POC Creatinine Est Cr Clr Drug Dosing Est GFR ( Amer) Est GFR (Non-Af Amer) BUN/Creatinine Ratio Glucose POC Glucose POC Glucose (other) Estimat Average Glucose Hemoglobin A1c POC Lactic Acid Mina Lactate 1.4 Calcium POC Ioniz Calcium Thang Phosphorus Magnesium Iron TIBC Transferrin Ferritin Total Bilirubin AST ALT Alkaline Phosphatase Lactate Dehydrogenase Total Creatine Kinase Troponin I C-Reactive Protein NT-Pro-B Natriuret Pep Total Protein Albumin Globulin Albumin/Globulin Ratio Vitamin B12 Folate Procalcitonin TSH Free T4 HCG, Quant Urine Color Urine Appearance Urine pH Ur Specific [place] Urine Protein Urine Glucose (UA) Urine Ketones Urine Blood Urine Nitrite Urine Bilirubin Urine Urobilinogen Ur Leukocyte Esterase Urine WBC (Auto) Urine RBC (Auto) U Hyaline Cast (Auto) U Epithel Cells (Auto) Urine Bacteria (Auto) Ur Random Creatinine U Random Total Protein Ur Random Sodium Ur Random Potassium Ur Random Chloride Protein/Creatinin Ratio Fluid Neutrophils % 79 Fluid Lymphocytes % 3 Fluid Eosinophils % 0 Fl Monocyt/Macrophag % 18 Nasal Screen MRSA (PCR) Urine Opiates Screen U Codeine Confrm GC/MS Ur Morphine (GC/MS) Ur Hydrocodone (GC/MS) Ur Norhydrocodone Ur Noroxycodone Urine Oxycodone (GC/MS) U Oxymorphone GC/MS Ur Methadone, Qual Ur Hydromorphone (GC/MS) Urine Barbiturates Ur Phencyclidine (PCP) U Amphetamin/Meth Scrn MDMA (Ecstasy) Screen U Benzodiazepines Scrn Ur Cocaine Metabolite U Marijuana (THC) Screen Rheumatoid Factor Cycl Citrul Peptide IgG JORDAN Screen Proteinase 3 (PR3) Anti-Neutrophil (Flow) AZALIA-1 Antibody SS-A/Ro Antibody SS-B/La Antibody Sm ([place]) Antibody POT RUNNER Antibody Scl-70 Scleroderma Ab Double Strand DNA Ab Anti-Centromere Ab Glomerular Base Memb Ab Hep Bs Antigen Hep Bs Antibody Hep Bs Antibody, Quant Hepatitis C Antibody Herpes Virus Source HSV I DNA PCR HSV II DNA PCR HIV 1&2 Ab/P24 Ag 4thGn Influenza Type A Ag Influenza Type B Ag Urine Legionella Ag Mycoplasma pneumon IgM Blood Type Antibody Screen Crossmatch 12/18/18 12/18/18 12/18/18 23:11 23:27 23:37 WBC RBC Hgb POC Hgb Hct POC Hct MCV MCH MCHC RDW Std Deviation RDW Coeff of [place] Plt Count MPV Immature Gran % (Auto) Neut % (Auto) Lymph % (Auto) Chase % (Auto) Eos % (Auto) Baso % (Auto) Reticulocyte % (Auto) Immature Gran # (Auto) Neut # (Auto) Lymph # (Auto) Chase # (Auto) Eos # (Auto) Baso # (Auto) Reticulocyte # Absolute Nucleated RBC Nucleated RBC % (auto) RBC Morphology Polychromasia Hypochromasia Microcytosis Peripher Smr Path Cons ESR Immature Retic Fraction Retic Hgb Content Haptoglobin PT INR APTT PTT Ratio Fibrinogen Sample Site L Radial POC pH 7.38 POC pCO2 36 POC pO2 58 L POC HCO3 21 POC Base Excess -4.0 ABG pH ABG pH (Temp Correct) 7.362 ABG pCO2 ABG pCO2 (Temp Corrct 38 ABG pO2 POC ABG pO2 at Pt Temp 62 ABG HCO3 POC ABG O2 Sat 89.0 L ABG O2 Saturation ABG Base Excess Cade Test Pass VBG pH VBG pCO2 VBG pO2 VBG HCO3 VBG O2 Saturation VBG Base Excess Barometric Pressure Oxygen Given O2 Delivery Device Ventilator POC O2 Rate 28 Minute Ventilation 10.8 POC FiO2 100 Tidal Volume 400 PEEP 15 IPAP POC Sodium Sodium POC Potassium Potassium POC Chloride Chloride Carbon Dioxide POC Total CO2 22 L Anion Gap POC Anion Gap POC BUN BUN Creatinine POC Creatinine Est Cr Clr Drug Dosing Est GFR ( Amer) Est GFR (Non-Af Amer) BUN/Creatinine Ratio Glucose POC Glucose 179 H POC Glucose (other) Estimat Average Glucose Hemoglobin A1c POC Lactic Acid Mina Lactate Calcium POC Ioniz Calcium Thang Phosphorus Magnesium Iron TIBC Transferrin Ferritin Total Bilirubin AST ALT Alkaline Phosphatase Lactate Dehydrogenase Total Creatine Kinase Troponin I C-Reactive Protein NT-Pro-B Natriuret Pep Total Protein Albumin Globulin Albumin/Globulin Ratio Vitamin B12 Folate Procalcitonin TSH Free T4 HCG, Quant Urine Color Urine Appearance Urine pH Ur Specific [place] Urine Protein Urine Glucose (UA) Urine Ketones Urine Blood Urine Nitrite Urine Bilirubin Urine Urobilinogen Ur Leukocyte Esterase Urine WBC (Auto) Urine RBC (Auto) U Hyaline Cast (Auto) U Epithel Cells (Auto) Urine Bacteria (Auto) Ur Random Creatinine U Random Total Protein Ur Random Sodium Ur Random Potassium Ur Random Chloride Protein/Creatinin Ratio Fluid Neutrophils % Fluid Lymphocytes % Fluid Eosinophils % Fl Monocyt/Macrophag % Nasal Screen MRSA (PCR) Urine Opiates Screen U Codeine Confrm GC/MS Ur Morphine (GC/MS) Ur Hydrocodone (GC/MS) Ur Norhydrocodone Ur Noroxycodone Urine Oxycodone (GC/MS) U Oxymorphone GC/MS Ur Methadone, Qual Ur Hydromorphone (GC/MS) Urine Barbiturates Ur Phencyclidine (PCP) U Amphetamin/Meth Scrn MDMA (Ecstasy) Screen U Benzodiazepines Scrn Ur Cocaine Metabolite U Marijuana (THC) Screen Rheumatoid Factor Cycl Citrul Peptide IgG JORDAN Screen Proteinase 3 (PR3) Anti-Neutrophil (Flow) AZALIA-1 Antibody SS-A/Ro Antibody SS-B/La Antibody Sm ([place]) Antibody POT RUNNER Antibody Scl-70 Scleroderma Ab Double Strand DNA Ab Anti-Centromere Ab Glomerular Base Memb Ab Hep Bs Antigen Hep Bs Antibody Hep Bs Antibody, Quant Hepatitis C Antibody Herpes Virus Source Pending HSV I DNA PCR Pending HSV II DNA PCR Pending HIV 1&2 Ab/P24 Ag 4thGn Influenza Type A Ag Influenza Type B Ag Urine Legionella Ag Mycoplasma pneumon IgM Blood Type Antibody Screen Crossmatch 12/19/18 12/19/18 12/19/18 03:43 03:43 03:43 WBC 9.70 RBC 2.83 L Hgb 7.8 L POC Hgb Hct 24.3 L POC Hct MCV 85.9 MCH 27.6 MCHC 32.1 RDW Std Deviation 49.9 H RDW Coeff of [place] 15.9 H Plt Count 226 MPV 10.5 H Immature Gran % (Auto) 0.2 Neut % (Auto) 92.3 Lymph % (Auto) 3.1 Chase % (Auto) 4.3 Eos % (Auto) 0.0 Baso % (Auto) 0.1 Reticulocyte % (Auto) Immature Gran # (Auto) 0.02 Neut # (Auto) 8.95 H Lymph # (Auto) 0.30 L Chase # (Auto) 0.42 Eos # (Auto) 0.00 Baso # (Auto) 0.01 Reticulocyte # Absolute Nucleated RBC Nucleated RBC % (auto) RBC Morphology Unremarkable Polychromasia Hypochromasia Microcytosis Peripher Smr Path Cons ESR Immature Retic Fraction Retic Hgb Content Haptoglobin PT INR APTT PTT Ratio Fibrinogen Sample Site POC pH POC pCO2 POC pO2 POC HCO3 POC Base Excess ABG pH ABG pH (Temp Correct) ABG pCO2 ABG pCO2 (Temp Corrct ABG pO2 POC ABG pO2 at Pt Temp ABG HCO3 POC ABG O2 Sat ABG O2 Saturation ABG Base Excess Cade Test VBG pH VBG pCO2 VBG pO2 VBG HCO3 VBG O2 Saturation VBG Base Excess Barometric Pressure Oxygen Given O2 Delivery Device POC O2 Rate Minute Ventilation POC FiO2 Tidal Volume PEEP IPAP POC Sodium Sodium 142 POC Potassium Potassium 3.8 D POC Chloride Chloride 110 H Carbon Dioxide 24 POC Total CO2 Anion Gap 8.0 POC Anion Gap POC BUN BUN 14 Creatinine 1.13 POC Creatinine Est Cr Clr Drug Dosing 66.1 Est GFR ( Amer) 68.0 Est GFR (Non-Af Amer) 58.6 BUN/Creatinine Ratio 11.9 Glucose 187 H POC Glucose POC Glucose (other) Estimat Average Glucose 114 Hemoglobin A1c 5.6 POC Lactic Acid Mina Lactate Calcium 8.4 L POC Ioniz Calcium Thang Phosphorus 3.4 Magnesium 2.0 Iron TIBC Transferrin Ferritin Total Bilirubin 0.7 AST 48 H ALT 29 Alkaline Phosphatase 121 H Lactate Dehydrogenase Total Creatine Kinase Troponin I 0.744 H* C-Reactive Protein NT-Pro-B Natriuret Pep Total Protein 7.0 Albumin 2.8 L Globulin 4.2 H Albumin/Globulin Ratio 0.7 L Vitamin B12 Folate Procalcitonin TSH Free T4 HCG, Quant Urine Color Urine Appearance Urine pH Ur Specific [place] Urine Protein Urine Glucose (UA) Urine Ketones Urine Blood Urine Nitrite Urine Bilirubin Urine Urobilinogen Ur Leukocyte Esterase Urine WBC (Auto) Urine RBC (Auto) U Hyaline Cast (Auto) U Epithel Cells (Auto) Urine Bacteria (Auto) Ur Random Creatinine U Random Total Protein Ur Random Sodium Ur Random Potassium Ur Random Chloride Protein/Creatinin Ratio Fluid Neutrophils % Fluid Lymphocytes % Fluid Eosinophils % Fl Monocyt/Macrophag % Nasal Screen MRSA (PCR) Urine Opiates Screen U Codeine Confrm GC/MS Ur Morphine (GC/MS) Ur Hydrocodone (GC/MS) Ur Norhydrocodone Ur Noroxycodone Urine Oxycodone (GC/MS) U Oxymorphone GC/MS Ur Methadone, Qual Ur Hydromorphone (GC/MS) Urine Barbiturates Ur Phencyclidine (PCP) U Amphetamin/Meth Scrn MDMA (Ecstasy) Screen U Benzodiazepines Scrn Ur Cocaine Metabolite U Marijuana (THC) Screen Rheumatoid Factor Cycl Citrul Peptide IgG JORDAN Screen Proteinase 3 (PR3) Anti-Neutrophil (Flow) AZALIA-1 Antibody SS-A/Ro Antibody SS-B/La Antibody Sm ([place]) Antibody [place] Antibody Scl-70 Scleroderma Ab Double Strand DNA Ab Anti-Centromere Ab Glomerular Base Memb Ab Hep Bs Antigen Hep Bs Antibody Hep Bs Antibody, Quant Hepatitis C Antibody Herpes Virus Source HSV I DNA PCR HSV II DNA PCR HIV 1&2 Ab/P24 Ag 4thGn Influenza Type A Ag Influenza Type B Ag Urine Legionella Ag Mycoplasma pneumon IgM Blood Type Antibody Screen Crossmatch 12/19/18 12/19/18 12/19/18 05:16 05:52 08:43 WBC RBC Hgb POC Hgb Hct POC Hct MCV MCH MCHC RDW Std Deviation RDW Coeff of [place] Plt Count MPV Immature Gran % (Auto) Neut % (Auto) Lymph % (Auto) Chase % (Auto) Eos % (Auto) Baso % (Auto) Reticulocyte % (Auto) Immature Gran # (Auto) Neut # (Auto) Lymph # (Auto) Chase # (Auto) Eos # (Auto) Baso # (Auto) Reticulocyte # Absolute Nucleated RBC Nucleated RBC % (auto) RBC Morphology Polychromasia Hypochromasia Microcytosis Peripher Smr Path Cons ESR Immature Retic Fraction Retic Hgb Content Haptoglobin PT INR APTT PTT Ratio Fibrinogen Sample Site R Radial POC pH 7.43 POC pCO2 33 L POC pO2 135 H POC HCO3 22 POC Base Excess -2.0 ABG pH ABG pH (Temp Correct) 7.423 ABG pCO2 ABG pCO2 (Temp Corrct 34 L ABG pO2 POC ABG pO2 at Pt Temp 138 ABG HCO3 POC ABG O2 Sat 99.0 H ABG O2 Saturation ABG Base Excess Cade Test Pass VBG pH VBG pCO2 VBG pO2 VBG HCO3 VBG O2 Saturation VBG Base Excess Barometric Pressure Oxygen Given O2 Delivery Device Ventilator POC O2 Rate 28 Minute Ventilation 10.7 POC FiO2 60 Tidal Volume 400 PEEP 15 IPAP POC Sodium Sodium POC Potassium Potassium POC Chloride Chloride Carbon Dioxide POC Total CO2 23 L Anion Gap POC Anion Gap POC BUN BUN Creatinine POC Creatinine Est Cr Clr Drug Dosing Est GFR ( Amer) Est GFR (Non-Af Amer) BUN/Creatinine Ratio Glucose POC Glucose 216 H POC Glucose (other) Estimat Average Glucose Hemoglobin A1c POC Lactic Acid Mina Lactate Calcium POC Ioniz Calcium Thang Phosphorus Magnesium Iron TIBC Transferrin Ferritin Total Bilirubin AST ALT Alkaline Phosphatase Lactate Dehydrogenase Total Creatine Kinase Troponin I Pending C-Reactive Protein NT-Pro-B Natriuret Pep Total Protein Albumin Globulin Albumin/Globulin Ratio Vitamin B12 Folate Procalcitonin TSH Free T4 HCG, Quant Urine Color Urine Appearance Urine pH Ur Specific [place] Urine Protein Urine Glucose (UA) Urine Ketones Urine Blood Urine Nitrite Urine Bilirubin Urine Urobilinogen Ur Leukocyte Esterase Urine WBC (Auto) Urine RBC (Auto) U Hyaline Cast (Auto) U Epithel Cells (Auto) Urine Bacteria (Auto) Ur Random Creatinine U Random Total Protein Ur Random Sodium Ur Random Potassium Ur Random Chloride Protein/Creatinin Ratio Fluid Neutrophils % Fluid Lymphocytes % Fluid Eosinophils % Fl Monocyt/Macrophag % Nasal Screen MRSA (PCR) Urine Opiates Screen U Codeine Confrm GC/MS Ur Morphine (GC/MS) Ur Hydrocodone (GC/MS) Ur Norhydrocodone Ur Noroxycodone Urine Oxycodone (GC/MS) U Oxymorphone GC/MS Ur Methadone, Qual Ur Hydromorphone (GC/MS) Urine Barbiturates Ur Phencyclidine (PCP) U Amphetamin/Meth Scrn MDMA (Ecstasy) Screen U Benzodiazepines Scrn Ur Cocaine Metabolite U Marijuana (THC) Screen Rheumatoid Factor Cycl Citrul Peptide IgG JORDAN Screen Proteinase 3 (PR3) Anti-Neutrophil (Flow) AZALIA-1 Antibody SS-A/Ro Antibody SS-B/La Antibody Sm ([place]) Antibody [place] Antibody Scl-70 Scleroderma Ab Double Strand DNA Ab Anti-Centromere Ab Glomerular Base Memb Ab Hep Bs Antigen Hep Bs Antibody Hep Bs Antibody, Quant Hepatitis C Antibody Herpes Virus Source HSV I DNA PCR HSV II DNA PCR HIV 1&2 Ab/P24 Ag 4thGn Influenza Type A Ag Influenza Type B Ag Urine Legionella Ag Mycoplasma pneumon IgM Blood Type Antibody Screen Crossmatch Medications Administered Home Medications albuterol sulfate [Ventolin HFA] 2 puff INHALATION Q6H #0 12/10/10 [History Confirmed 12/18/18] multivitamin 1 tab PO HS #0 tab 03/18/16 [History Confirmed 12/18/18] polyethylene glycol 3350 17 g PO DAILY #527 g 03/18/16 [History Confirmed 12/18/18] cholecalciferol (vitamin D3) 50,000 unit PO RENO 12/18/18 [History Confirmed 12/18/18] clonazepam 1 mg PO BID PRN 12/18/18 [History Confirmed 12/18/18] cyclobenzaprine 10 mg PO TID PRN 12/18/18 [History Confirmed 12/18/18] doxepin 300 mg PO HS 12/18/18 [History Confirmed 12/18/18] furosemide 20 mg PO DAILY PRN 12/18/18 [History Confirmed 12/18/18] gabapentin 600 mg PO TID 12/18/18 [History Confirmed 12/18/18] hydroxyzine pamoate 50 mg PO HS PRN 12/18/18 [History Confirmed 12/18/18] labetalol 200 mg PO BID 12/18/18 [History Confirmed 12/18/18] levothyroxine 137 mcg PO QAM 12/18/18 [History Confirmed 12/18/18] nifedipine 90 mg PO QAM 12/18/18 [History Confirmed 12/18/18] ondansetron 4 mg PO Q6H PRN 12/18/18 [History Confirmed 12/18/18] Active Medications Acetaminophen (Tylenol) 650 mg PO Q4H PRN PRN Reason: Pain or Fever Stop: 01/17/19 13:20 Last Admin: 12/19/18 00:50 Dose: 650 mg Documented by: Acetaminophen (Tylenol) 650 mg CO Q4H PRN PRN Reason: Pain or Fever Stop: 01/18/19 00:22 Last Admin: 12/19/18 00:50 Dose: 650 mg Documented by: Al Hydrox/Mg Hydrox/Simethicone (Maalox) 15 ml PO Q4H PRN PRN Reason: Dyspepsia Stop: 01/17/19 13:20 Albuterol (Duoneb) 3 ml NEB QIDR HAL Stop: 01/17/19 14:59 Last Admin: 12/19/18 07:31 Dose: 3 ml Documented by: Clonazepam (Klonopin) 1 mg PO BID PRN PRN Reason: Anxiety Stop: 01/17/19 13:20 Dextrose (Dextrose 50%) 25 - 50 ml IV UD PRN; Protocol PRN Reason: Hypoglycemia Protocol Stop: 01/17/19 13:20 Fentanyl Citrate (Fentanyl Citrate) 25 mcg IV ONE PRN PRN Reason: Pain Not Controlled by Drip Stop: 01/01/19 23:01 Gabapentin (Neurontin) 600 mg PO TID HAL Stop: 01/17/19 13:59 Last Admin: 12/19/18 08:15 Dose: 600 mg Documented by: Glucagon (Glucagen) 1 mg SQ UD PRN; Protocol PRN Reason: Hypoglycemia Protocol Stop: 01/17/19 13:20 Glucose (Glucose 40%) 15 - 30 gm PO UD PRN; Protocol PRN Reason: Hypoglycemia Protocol Stop: 01/17/19 13:20 Glucose (Dex4 Glucose) 4 - 8 tabs PO UD PRN; Protocol PRN Reason: Hypoglycemia Protocol Stop: 01/17/19 13:20 Hydroxyzine HCl (Vistaril) 50 mg PO HS PRN PRN Reason: Insomnia Stop: 01/17/19 13:20 Azithromycin 500 mg/ Dextrose 255 mls @ 125 mls/hr IV DAILY HAL Stop: 12/26/18 08:59 Last Admin: 12/19/18 08:17 Dose: 125 mls/hr Documented by: Piperacillin Sod/Tazobactam (Sod 3.375 gm/ Dextrose) 115 mls @ 28.75 mls/hr IV Q8H HAL; Protocol Stop: 12/25/18 19:59 Last Infusion: 12/19/18 06:32 Dose: Infused Documented by: Vancomycin HCl 1,250 mg/ (Sodium Chloride) 275 mls @ 125 mls/hr IV Q14H [facility] Stop: 12/26/18 05:59 Last Infusion: 12/19/18 07:22 Dose: Infused Documented by: Furosemide 40 mg/ Syringe 4 mls @ 4 mls/min IV Q12H HAL Stop: 01/18/19 06:59 Last Admin: 12/19/18 05:09 Dose: 4 mls/min Documented by: Fentanyl Citrate (Fentanyl Drip) 1,250 mcg in 250 mls @ 10 mls/hr IV .Q24H PRN; Protocol PRN Reason: .SEDATION Stop: 01/01/19 23:01 Last Titration: 12/19/18 07:15 Dose: 50 mcg/hr, 10 mls/hr Documented by: Propofol (Diprivan) 1,000 mg in 100 mls @ 12.135 mls/hr IV .Q8H15M PRN; Protocol PRN Reason: TITRATE Stop: 12/21/18 23:01 Last Admin: 12/19/18 09:06 Dose: 25 mcg/kg/min, 12.1 mls/hr Documented by: Methylprednisolone 150 mg/ (Syringe) 2.4 mls @ 1.5 mls/min IV Q8H HAL Stop: 01/18/19 06:59 Last Admin: 12/19/18 04:54 Dose: 1.5 mls/min Documented by: Ioversol (Optiray 320 125ml) 118 ml IV ONCE PRN PRN Reason: Interaction Checking Stop: 12/22/18 11:45 Last Admin: 12/18/18 11:47 Dose: 118 ml Documented by: Labetalol HCl (Normodyne) 200 mg PO BID HAL Stop: 01/17/19 20:59 Last Admin: 12/19/18 08:14 Dose: 200 mg Documented by: Levothyroxine Sodium (Levothyroxine Sodium) 137 mcg PO DAILYBB HAL Stop: 01/18/19 06:29 Last Admin: 12/19/18 06:48 Dose: 137 mcg Documented by: Magnesium Hydroxide (Milk Of Magnesia) 30 ml PO Q12H PRN PRN Reason: Constipation Stop: 01/17/19 13:20 Miscellaneous (Carbohydrates For Hypoglycemia) 15 - 30 gm PO UD PRN PRN Reason: Hypoglycemia Treatment Stop: 01/17/19 13:20 Miscellaneous (Remove Nicoderm Patch) 1 ea N/A HS [facility] Stop: 01/17/19 20:59 Last Admin: 12/18/18 21:00 Dose: Not Given Documented by: Miscellaneous Information (Consult) 1 ea N/A UD PRN PRN Reason: Consult Stop: 01/17/19 15:17 Miscellaneous Information (Consult) 1 ea N/A UD PRN PRN Reason: Consult Stop: 01/17/19 15:16 Multivitamins (Multivitamin Tab) 1 tab PO HS HAL Stop: 01/17/19 20:59 Last Admin: 12/18/18 20:16 Dose: Not Given Documented by: Nicotine (Nicoderm Cq) 21 mg TD QAM HAL Stop: 01/18/19 08:59 Last Admin: 12/19/18 08:15 Dose: 21 mg Documented by: Nifedipine (Procardia Xl) 90 mg PO QAM HAL Stop: 01/18/19 08:59 Ondansetron HCl (Zofran) 4 mg IV Q6H PRN PRN Reason: Nausea Stop: 01/17/19 13:20 Polyethylene Glycol (Miralax Powder Packet) 17 gm PO DAILY PRN PRN Reason: Constipation Stop: 01/17/19 13:20 Polyethylene Glycol (Miralax Powder Packet) 17 gm PO DAILY HAL Stop: 01/18/19 08:59 Last Admin: 12/19/18 08:16 Dose: 17 gm Documented by: Coding Level of Care Code Critical Care 1st 30-74 mins Diagnoses Admitted to intensive care unit Z78.9 Sepsis with acute hypoxic respiratory failure A41.9; R65.20; J96.01 Tobacco abuse Z72.0 Ground glass opacity present on imaging of lung R91.8 Community acquired pneumonia J18.9 Fibromyalgia M79.7 Elevated troponin R79.89 Time Spent (min) 50 Resident Activity Tracking Resident Involvement: Resident Care Provided Care Provided: Adult Hospital Medicine
[2018-12-19] MEDS: ALBUT/IPRATROP 3MG/0.5MG NEB 3 ML VIAL NEB SCH ×4 (07:31→19:43)
[2018-12-19] MEDS ORDERED: cefTRIAXone SODIUM 2,000 MG in DEXTROSE 5% 50 ML IV SCH (08:00)
[2018-12-19] MEDS: LABETALOL HCL 200 MG TAB PO SCH ×2 (08:14→21:14)
[2018-12-19] MEDS: GABAPENTIN 600 MG TAB PO SCH ×3 (08:15→21:14)
[2018-12-19] MEDS: NICOTINE 21 MG/24 HR TDSY TD SCH (08:15)
[2018-12-19] MEDS: POLYETHYLENE (MIRALAX) 17 GM PACK PO SCH (08:16)
[2018-12-19] MEDS: AZITHROMYCIN 500 MG in DEXTROSE 5% 250 ML IV SCH (08:17)
[2018-12-19] MEDS: NIFEdipine EXTENDED REL 30 MG TABCR PO SCH (10:07)
[2018-12-19] MEDS: PANTOprazole 40 MG in SYRINGE 0 ML IV SCH (10:36)
[2018-12-19] MEDS ORDERED: PEPTAMEN INTENSE VHP 1.0 CAL 1,000 ML BAG OG SCH (11:00)
[2018-12-19] MEDS: AMLODIPINE BESYLATE 5 MG TAB PO SCH (11:06)
--- NOTE | 2018-12-19 12:15 | Pharmacy Report ---
Pharmacy Abx Dose Short Note - Date of Service December 19, 2018 - Assessment & Plan Assessment 43 year old F receiving vancomycin/zosyn/azithromycin for treatment of possible sepsis from pulmonary source. MRSA nasal swab was negative and thus far no organism seen on bronch specimen. Vancomycin dosing was initiated last afternoon by pharmacist. Will continue as is through today as renal function was unchanged from yesterday; provider indicated he may de-escalate tomorrow. If therapy is to continue will order a trough level tomorrow. Day # 2 of antimicrobial therapy. Plan Vancomycin * Loading dose of 2000mg given yesterday afternoon * Continue dose of 1250 mg IV every 14 hours for now * Goal trough level : 15 to 20 mcg/mL * Trough or random level ordered for:pending therapy continuation Pharmacy will continue to follow and will adjust dose/frequency as necessary. Thank you.
[2018-12-19] MEDS: INSULIN ASPART 100 UNITS/ML 3 ML PEN SC SCH ×3 (12:23→23:37)
[2018-12-19] MEDS: PEPTAMEN INTENSE VHP 1.0 CAL 1,000 ML BAG OG SCH (14:24)
--- NOTE | 2018-12-19 16:19 | Hospitalist Progress Note ---
Date of Service December 19, 2018 Assessment & Plan (1) Sepsis: (2) Community acquired pneumonia: Patient is a 43 yr female with H/O Asthma, tobacco abuse, HTN, GERD s/p monica fundoplication x3, chronic low back pain, migraine, depression with anxiety, Graves' disease status post thyroidectomy who presents to [facility] secondary to shortness of breath x2 to 3 days. Acute respiratory failure with hypoxia Acute respiratory distress syndrome Diffuse alveolar hemorrhage Sepsis DD: Pneumonia/reactive pneumonitis/pulmonary edema Chest CTA: Study is negative for pulmonary embolus. Diffuse bilateral parenchymal infiltrative change versus pulmonary edema/respiratory distress. Venous Doppler:No evidence of lower extremity DVT. Influenza screen--negative Elevated lactate, procalcitonin levels Blood cultures: No growth to date Bronchial washing/sputum culture: pending HIV, hematological, serological, urine for Legionella work-up pending Vent management as per ICU team Continue Empiric Abx: IV vancomycin, Zosyn, azithromycin Continue IV Solu-Medrol and diuretics as needed Continue nebs On Tube feeds (3) Hypoxia: Management as above (4) Anemia: Acute on chronic normocytic anemia Likely due to alveolar hemorrhage, partly dilutional Monitor CBC Normal haptoglobin, low reticulocyte count Peripheral smear suggestive of iron deficiency anemia (5) Hypokalemia: monitor and replace electrolytes as needed (6) Weight gain: B/L LE edema Venous Doppler negative for DVT H/O Hypothyroidism-- Postsurgical removal due to Graves' disease TSH:0.22, Normal Free T4 Recently levothyroxine increased to 137 mcg Continue Levothyroxine Needs repeat thyroid function testing as outpatient (7) Elevated troponin: Elevated troponin Likely secondary to demand ischemia ECHO: No regional wall motion abnormality, EF 65 to 70%, no significant valvular heart disease EKG: No signs of acute ischemia (8) Hypertension: On labetalol, nifedipine at home Continue labetalol Started on amlodipine (9) Depression: mood stable continue home mds (10) Chronic low back pain: Stable (11) Tobacco abuse: Encourage smoking cessation Nicotine patch (12) DVT prophylaxis: SCD/TEDS for now Code Status Full Code Disposition: Monitor in ICU Subjective Patient is seen and examined at bedside Sedated and Intubated on ARDS protocol Chest X ray today showed some improvement Had Bronchoscopy yesterday suggestive of alveolar hemorrhage on Tube feeds Discussed with patient's family at bedside Review of Systems Review of Systems: Unobtainable due to endotracheal tube Physical Exam Physical Exam: Physical Exam: Vitals signs as noted above General Appearance:Moderately built and nourished, +Intubated, sedated Head: normocephalic, Atraumatic Eyes: normal inspection Neck: supple, Trachea midline Respiratory/Chest: Coarse breath sounds, No accessory muscle use Cardiovascular: S1, S2, No murmur Abdomen/GI:Soft, Non tender, Bowel sounds present Extremities/Musculoskelatal:normal inspection, Trace LE edema Neurologic/Psych:Sedated, could not perform complete neuro exam Skin: normal color, warm Results & Data Vital Signs (Past 12 Hours) Vital Signs Temp Pulse Pulse Resp BP BP Pulse Ox 12/19/18 15:08 78 12/19/18 14:00 73 122/82 96 12/19/18 13:45 73 21 96 12/19/18 13:00 74 104/71 97 12/19/18 12:00 67 118/87 96 12/19/18 11:50 80 22 94 12/19/18 11:00 69 98/70 L 99 12/19/18 10:00 74 105/73 98 12/19/18 09:01 81 99 12/19/18 09:00 82 18 130/94 100 12/19/18 08:00 85 147/103 H 100 12/19/18 07:45 77 28 H 99 12/19/18 07:00 37.2 C 79 131/97 100 12/19/18 06:43 77 12/19/18 06:05 77 28 H 99 12/19/18 06:00 37.4 C 79 28 H 126/92 98 12/19/18 05:00 37.4 C 79 28 H 135/90 99 Laboratory Results Short CBC 12/18/18 12/19/18 Range/Units 20:31 03:43 WBC 9.62 9.70 (4.8-10.8) K/uL Hgb 8.0 L 7.8 L (12.0-16.0) g/dL Hct 25.0 L 24.3 L (37-47) % Plt Count 253 226 (130-400) K/uL BMP 12/18/18 12/19/18 20:31 03:43 Sodium 142 142 Potassium 3.3 L 3.8 D Chloride 111 H 110 H Carbon Dioxide 23 24 BUN 11 14 Creatinine 1.11 1.13 Glucose 121 H 187 H Calcium 9.1 8.4 L Cardiac Enzymes 12/18/18 12/18/18 12/19/18 Range/Units 16:41 20:31 03:43 Total Creatine Kinase 120 (26-192) U/L Troponin I 0.271 H* 0.744 H* (0-0.045) ng/ml 12/19/18 Range/Units 08:43 Total Creatine Kinase (26-192) U/L Troponin I 0.843 H* (0-0.045) ng/ml Liver Function 12/19/18 Range/Units 03:43 Total Bilirubin 0.7 (0.2-1) mg/dl AST 48 H (15-37) U/L ALT 29 (12-78) U/L Alkaline Phosphatase 121 H (45-117) U/L Albumin 2.8 L (3.4-5.0) gm/dl (1) Sepsis Sepsis acute organ dysfunction status: unspecified Sepsis type: sepsis due to unspecified organism Qualified Code(s): A41.9 - Sepsis, unspecified organism
[2018-12-19] MEDS: fentaNYL DRIP 1,250 MCG/250 ML BAG IV PRN (19:20)
[2018-12-19] MEDS ORDERED: Nursing to Pharmacy Communication ONE (19:56)
[2018-12-19] MEDS: MULTIVITAMIN TAB PO SCH (21:14)
[2018-12-20] MEDS: PIPERACILLIN/TAZOBACTAM 3.375 GM in DEXTROSE 5% 100 ML IV SCH ×3 (04:06→19:37)
[2018-12-20] MEDS: METHYLPREDNISOLONE IV SCH ×3 (06:11→22:56)
[2018-12-20] MEDS: propofoL 1,000 MG/100 ML VIAL IV PRN (06:11)
[2018-12-20] MEDS: INSULIN ASPART 100 UNITS/ML 3 ML PEN SC SCH ×4 (06:12→20:02)
[2018-12-20] MEDS: LEVOTHYROXINE SODIUM 137 MCG TABLET PO SCH (06:12)
--- NOTE | 2018-12-20 06:58 | XRay Report ---
XR chest 1V portable CLINICAL HISTORY: Respiratory failure COMPARISON STUDY: 12/19/2018 FINDINGS: There is an endotracheal tube 33 mm above the jennifer. A nasogastric tube passes into the st omach. The previously described catheter overlying the right hemithorax is no longer visualized. The heart remains enlarged. There is a lesser inspiration on the current study. There are persistent bila teral pulmonary airspace opacities. No pneumothorax is visualized.[ IMPRESSION: Persistent bilateral pulmonary airspace opacities, likely accentuated due to the lower fernando ng volumes on the current study. Electronically signed by: Jeromy Ashley M.D. 12/20/2018 6:56 AM
[2018-12-20] MEDS: ALBUT/IPRATROP 3MG/0.5MG NEB 3 ML VIAL NEB SCH ×4 (07:40→18:42)
[2018-12-20 07:47] LABS: Hematocrit (blood only) 22.6 % (37-47); Hemoglobin 7.4 g/dL (12.0-16.0); Immature Granulocytes # (auto) 0.02 K/uL (0.00-0.02); Immature Granulocytes % (auto) 0.2 %; Lymphocytes # (auto) 0.37 K/uL (1.2-3.4); Lymphocytes % (auto) 4.4 %; Mean Corpuscular Hemoglobin 27.5 pg (25-34); Mean Platelet Volume 9.9 fL (7.4-10.4); Monocytes # (auto) 0.43 K/uL (0.11-0.59); Monocytes % (auto) 5.1 %; Neutrophils # (auto) 7.55 K/uL (1.4-6.5); Neutrophils % (auto) 90.3 %; Platelet Count 215 K/uL (130-400); Red Blood Count 2.69 M/uL (4.2-5.4); White Blood Count 8.37 K/uL (4.8-10.8)
[2018-12-20] MEDS: FUROSEMIDE 40 MG in SYRINGE 0 ML IV SCH ×2 (07:49→08:15)
[2018-12-20 07:53] LABS: Mean Corpuscular Hgb Conc 32.7 g/dL (32-36)
[2018-12-20 08:03] LABS: Albumin Level 2.6 gm/dl (3.4-5.0); BUN Creatinine Ratio 26.3 (10-20); Calcium 8.9 mg/dl (8.5-10.1); Creatinine Clr Calc Pharmacy 74.2 ml/min; Est GFR (African American) 80.7; Est GFR (Non-African American) 69.7; Magnesium 2.2 mg/dl (1.8-2.4); Potassium 3.6 mmol/L (3.5-5.1)
[2018-12-20 08:06] LABS: Albumin Globulin Ratio 0.6 (0.9-2); Bilirubin,Total 0.3 mg/dl (0.2-1); Globulin 4.3 gm/dl (2.5-4.0); Phosphorus 3.3 mg/dl (2.5-4.9); Total Protein 6.9 gm/dl (6.4-8.2)
[2018-12-20 08:08] LABS: Anisocytosis Present; Polychromasia 1+; Spherocytes 1+
[2018-12-20] MEDS ORDERED: POTASSIUM CHLORIDE 20 MEQ/15 ML UDC PO STA (08:08)
[2018-12-20] MEDS: AZITHROMYCIN 500 MG in DEXTROSE 5% 250 ML IV SCH (08:09)
[2018-12-20] MEDS: LABETALOL HCL 200 MG TAB PO SCH ×2 (08:10→20:03)
[2018-12-20] MEDS: AMLODIPINE BESYLATE 5 MG TAB PO SCH (08:10)
[2018-12-20] MEDS: GABAPENTIN 600 MG TAB PO SCH ×3 (08:10→20:33)
[2018-12-20] MEDS: NICOTINE 21 MG/24 HR TDSY TD SCH (08:11)
[2018-12-20] MEDS: POLYETHYLENE (MIRALAX) 17 GM PACK PO SCH (08:14)
--- NOTE | 2018-12-20 08:21 | Critical Care Progress Note ---
Date of Service December 20, 2018 Assessment & Plan (1) Admitted to intensive care unit: Reason Critically Ill: 43-year-old female presents with respiratory distress and acute hypoxic respiratory failure Neuro - [facility] ICU: Negative Cardiac - HTNholding oral medications for tinnitus patient is very hypoxic with low reserve, parents temporarily transition to IV if necessary Respiratory - Hypoxic respiratory failurepneumonia versus reactive pneumonitis versus pulmonary edema -Patient presents with shortness of breath and hypoxia, nonproductive dry cough, now requiring BiPAP -AB.42///20 -Continue duo nebs -Started on IV Lasix -CT chest showed bilateral ground-glass opacities, diffuse bilateral parenchymal infiltrates versus pulmonary edema, no evidence of PE -ERCP, procalcitonin, and lactate elevated; blood cultures pending; continue broad-spectrum antibiotics -BNP elevated, echocardiogram normal -HIV and hepatitis negative, immunology panel pending, influenza negative -We will consider IV steroids if chest x-ray unimproved in a.m. -Continuous monitoring on oxygen saturation GI - HFP within normal limits We will keep n.p.o. for now RENAL/LYTES - Creatinine 1.18, will monitor Hypokalemiareplete potassium as necessary Monitor routine BMPs - De Leon insertedstrict I's and O's UA unremarkable ENDO - No history diabetes, ICU hyperglycemic protocol History of Graves' disease status post thyroidectomy; TSH 0.227, continue Synthroid HEME - Anemiahemoglobin 7.9 on admission, was reportedly eleven 1 month ago -No obvious signs of bleeding, will perform Hemoccult with next bowel movement -Iron low on anemic work-up, likely element of iron deficiency anemia, would add supplement when appropriate -Hemoglobin continue to monitor with routine CBCs and transfuse if necessary to keep hemoglobin greater than 7 ID - Sepsislactate, procalcitonin elevated, and patient now febrile; most likely pulmonary source -Blood cultures pending -UA unremarkable -Continue azithromycin, Zosyn, vancomycin for now LINES/IV ACCESS - Peripheral IVs DVT PROPHYLAXIS - SCDs, holding anticoagulation as patient presents with new onset of anemia from unconfirmed source I have personally spent 50 minutes of critical care time in the direct management of this patient. This is a life/limb threatening event. This includes time spent evaluating patient, direct bedside care, chart review, placing orders, interpretation of diagnostic studies, discussion with consultants, patient, and family members, as well as other required patient management activities. This time is exclusive of all separately billable procedures, and teaching time and separate from and in addition to any other critical care service time. Thank you for allowing us to participate in the care of this patient. Please refer to my attending physician's documentation for any further recommendations. (2) Sepsis with acute hypoxic respiratory failure: CT scan of the patient personally reviewed. Shows diffuse groundglass opacities with no pleural effusion. Interlobular wall thickening. No clear air bronchograms. No clear mediastinal lymphadenopathy. With diffuse alveolar hemorrhage found on bronchoscopy. BAL did not show any eosinophilia. Follow-up culture and Gram stain --> negative to date. Could be secondary to infectious etiology which includes multilobar pneumonia, influenza screen negative--> continue with broad-spectrum antibiotics including atypical coverage, follow-up urine Legionella, mycoplasma IgM and sputum culture, HIV negative, procalcitonin 1.21, LDH: 427, ESR: 58, CRP: 22.10 Monitor QTC as patient is on azithromycin, QTc 455 today Could also be secondary to noncardiogenic pulmonary edema as patient's UDS was positive for opiates although patient denies sniffing of opiates she says she took Percocet for her low back pain. 2D echo shows good ejection fraction with no pericardial effusion. Diurese as tolerated with strict in and out Could be secondary to autoimmune process with diffuse alveolar hemorrhage --> follow-up autoimmune work-up, patient has no eosinophilia in the blood or in the BAL, continue with high-dose steroids for the time being. Monitor H&H -- Hypothyroidism with history of Graves' disease status post thyroidectomy On levothyroxine TSH: 0.22 (low), free T4 1.21(normal) --Elevated troponins likely secondary to type II MN EKG shows no ST-T wave changes with normal sinus rhythm. -- B/l LE edema has been going on for a while Proteinuria in the urine 15.3 mg/dL, with creatinine less than 13 in the urine. Negative for DVT (3) Tobacco abuse: Patient is an active smoker with greater than [id number] smoking history. No recent trial of quitting. Patient denies using any vape. Advised to quit. (4) Ground glass opacity present on imaging of lung: As above. (5) Community acquired pneumonia: (6) Fibromyalgia: (7) Elevated troponin: Likely type II MN. Monitor troponin. Supervising Physician Co-Signing Physician Notes Dr Monahan was the resident-physician during care of patient. I separately evaluated patient for molina portions of the history and the exam. I was present during the critical portion of medical decision making, and I discussed the case with the resident. I generally agree with the findings and plan except for any additions/exceptions noted. Patient seen and examined at bedside. No acute distress. Patient on 20 of propofol and 25 fentanyl at the time of examination. Ross -1. Following commands. Maximal inspiratory pressure -40. Patient is total 2 L negative since coming to the hospital. We will change her Lasix from 40 twice daily to once daily. We will go down on PEEP to 5. LV saturation is maintained full have extubation trial to BiPAP. There is improvement in oxygenation. There is minimal drop in hemoglobin to 7.4. We will repeat H&H later today. If it is less than 7 will transfuse 1 unit PRBC. Continue with steroids 150 mg 3 times daily for another 24 hours then will go down 200 mg 3 times daily. Patient getting tube feeds. Compression boots for DVT prophylaxis. Stress ulcer prophylaxis. Bronchial wash cultures are negative so far. Will DC vancomycin. Continue with azithromycin and Zosyn. Autoimmune work-up still pending. I have personally spent 50 minutes of critical care time in the direct management of this patient. This is a life/limb threatening event. This includes time spent evaluating patient, direct bedside care, chart review, placing orders, interpretation of diagnostic studies, discussion with consultants, patient, and/or family members regarding treatment decisions, as well as other required patient management activities. This time is exclusive of all separately billable procedures, and teaching time and separate from and in addition to any other critical care service time. Subjective Pt seen this AM. Is awake but still intubated. Able to communicate nonverbally. No acute events overnight. Review of Systems Review of Systems: Unobtainable due to endotracheal tube Physical Exam Physical Exam: General: Alert, intubated. No acute distress Skin: No noted rashes or bruises Psych: Cannot be determined Neuro: Still moderately sedated but awake. HEENT: NC/AT,intubated Chest: Nontender to palpation. CV: RRR, Normal s1, s2. No murmurs appreciated Resp: Breath sounds clear bilaterally, intubated. Abdomen: Soft, nondistended. No guarding. Extremities: SCDs on lower extremities bilaterally. Results & Data Vital Signs (Past 12 Hours) Vital Signs Pulse Resp BP Pulse Ox 12/20/18 07:45 71 21 95 12/20/18 07:00 72 125/80 97 12/20/18 06:40 67 12/20/18 06:00 70 124/76 95 12/20/18 05:30 71 95 12/20/18 05:00 70 116/71 94 12/20/18 04:38 72 21 92 12/20/18 04:37 19 12/20/18 04:30 73 92 12/20/18 04:00 76 126/75 90 12/20/18 03:30 73 90 12/20/18 03:00 70 117/75 96 12/20/18 02:30 72 96 12/20/18 02:00 72 119/66 96 12/20/18 01:48 78 19 96 12/20/18 01:30 71 96 12/20/18 01:00 74 123/78 95 12/20/18 00:30 75 97 12/20/18 00:00 70 119/78 97 12/19/18 23:30 75 97 12/19/18 23:01 73 20 98 12/19/18 23:00 75 133/86 97 12/19/18 22:30 73 97 12/19/18 22:00 75 119/79 96 12/19/18 21:30 80 95 12/19/18 21:00 89 132/84 92 12/19/18 20:38 91 H 102/39 L 100 Coding Level of Care Code Critical Care 1st 30-74 mins Diagnoses Admitted to intensive care unit Z78.9 Sepsis with acute hypoxic respiratory failure A41.9; R65.20; J96.01 Tobacco abuse Z72.0 Ground glass opacity present on imaging of lung R91.8 Community acquired pneumonia J18.9 Fibromyalgia M79.7 Elevated troponin R79.89 CPT Codes Ventilator Management - Ventilator Managment: [id number] Ventilation assist and management; Hospital inpt/obs, each subs ([id number]) Time Spent (min) 50 Resident Activity Tracking Resident Involvement: Resident Care Provided Care Provided: Adult Hospital Medicine
[2018-12-20 08:23] LABS: iSTAT Allen Test Pass; iSTAT Art Bld Gas pCO2 Correct 43 mmHg (35-46); iSTAT Art Bld Gas pH Corrected 7.379 (7.35-7.45); iSTAT Arterial Blood Gas HCO3 25 meg/L (19-24); iSTAT Arterial Blood Gas pCO2 42 mmHg (35-46); iSTAT Arterial Blood Gas pH 7.39 (7.35-7.45); iSTAT Arterial Blood Gas pO2 76 mmHg (80-95); iSTAT Arterial Blood Gas pO2 C 78; iSTAT Carbon Dioxide 26 mEq/l (24-31); iSTAT FiO2 50 %; iSTAT Hematocrit 39 % (37-47); iSTAT Hemoglobin 13.3 g/dl (12.0-16.0); iSTAT Potassium 3.4 mEq/L (3.3-5.0); iSTAT Site R Radial; iSTAT Sodium 137 mEq/L (135-144)
[2018-12-20] MEDS: POTASSIUM CHLORIDE / WTR 10 MEQ/100 ML PLCT IV SCH ×2 (08:40→10:03)
[2018-12-20] MEDS: PANTOprazole 40 MG in SYRINGE 0 ML IV SCH (10:14)
[2018-12-20] MEDS: VANCOMYCIN HCL 1,250 MG in SODIUM CHLORIDE 0.9% 250 ML IV SCH (10:23)
[2018-12-20] MEDS: PEPTAMEN INTENSE VHP 1.0 CAL 1,000 ML BAG OG SCH (12:21)
[2018-12-20] MEDS: ACETAMINOPHEN 325 MG TAB PO PRN ×2 (13:55→21:13)
[2018-12-20] MEDS ORDERED: PHARMACY GLYCEMIC MGMT CONSULT PRN (16:25)
--- NOTE | 2018-12-20 17:17 | Hospitalist Progress Note ---
Date of Service December 20, 2018 Assessment & Plan (1) Sepsis: (2) Community acquired pneumonia: Patient is a 43 yr female with H/O Asthma, tobacco abuse, HTN, GERD s/p monica fundoplication x3, chronic low back pain, migraine, depression with anxiety, Graves' disease status post thyroidectomy who presents to [facility] secondary to shortness of breath x2 to 3 days. Acute respiratory failure with hypoxia Acute respiratory distress syndrome Diffuse alveolar hemorrhage Sepsis DD: Pneumonia/reactive pneumonitis/pulmonary edema Chest CTA: Study is negative for pulmonary embolus. Diffuse bilateral parenchymal infiltrative change versus pulmonary edema/respiratory distress. Venous Doppler:No evidence of lower extremity DVT. Influenza screen--negative Elevated lactate, procalcitonin levels Blood cultures: No growth to date Bronchial washing/sputum culture: pending HIV, hematological, serological, urine for Legionella work-up pending S/P Extubation on 12/20/18 Continue Empiric Abx: IV Zosyn, azithromycin IV vancomycin discontinued Continue IV Solu-Medrol and diuretics as needed Continue nebs BiPAP PRN Plan to transition to high flow oxygen as able (3) Hypoxia: Management as above (4) Anemia: Acute on chronic normocytic anemia Likely due to alveolar hemorrhage, partly dilutional Monitor CBC Normal haptoglobin, low reticulocyte count Peripheral smear suggestive of iron deficiency anemia Transfuse PRBCs as needed (5) Hypokalemia: monitor and replace electrolytes as needed (6) Weight gain: B/L LE edema Venous Doppler negative for DVT H/O Hypothyroidism-- Postsurgical removal due to Graves' disease TSH:0.22, Normal Free T4 Recently levothyroxine increased to 137 mcg Continue Levothyroxine Needs repeat thyroid function testing as outpatient (7) Elevated troponin: Elevated troponin Likely secondary to demand ischemia ECHO: No regional wall motion abnormality, EF 65 to 70%, no significant valvular heart disease EKG: No signs of acute ischemia (8) Hypertension: On labetalol, nifedipine at home Continue labetalol, amlodipine (9) Depression: mood stable continue home mds (10) Chronic low back pain: Stable (11) Tobacco abuse: Encourage smoking cessation Nicotine patch (12) DVT prophylaxis: SCD/TEDS for now Code Status Full Code Disposition: Monitor in ICU Subjective Patient is seen and examined at bedside Extubated today On BiPAP earlier this morning Plan to be transition to high flow oxygen States feeling anxious, congested earlier this morning Plan to DC vancomycin today Review of Systems 2 Review of Systems: All systems reviewed & are unremarkable except as noted in HPI & below Physical Exam Physical Exam: Physical Exam: Vitals signs as noted above General Appearance:Moderately built and nourished, no apparent distress Head: normocephalic, Atraumatic Eyes: normal inspection Neck: supple, Trachea midline Respiratory/Chest: Coarse breath sounds, No accessory muscle use Cardiovascular: S1, S2, No murmur Abdomen/GI:Soft, Non tender, Bowel sounds present Extremities/Musculoskelatal:normal inspection, Trace LE edema Neurologic/Psych: Grossly no focal deficits Skin: normal color, warm Results & Data Vital Signs (Past 12 Hours) Vital Signs Pulse Pulse Resp BP Pulse Ox 12/20/18 16:00 85 130/81 95 12/20/18 15:30 84 12/20/18 15:12 87 20 96 12/20/18 15:11 80 20 96 12/20/18 15:00 84 140/89 95 12/20/18 14:00 83 157/92 H 89 L 12/20/18 13:00 79 135/84 96 12/20/18 12:00 79 124/81 96 12/20/18 11:36 85 20 96 12/20/18 11:18 75 21 98 12/20/18 11:00 71 125/75 96 12/20/18 10:00 76 140/87 98 12/20/18 09:00 75 129/78 93 12/20/18 08:00 82 130/82 93 12/20/18 07:45 71 21 95 12/20/18 07:00 72 125/80 97 12/20/18 06:40 67 12/20/18 06:00 70 124/76 95 12/20/18 05:30 71 95 Laboratory Results Short CBC 12/18/18 12/20/18 Range/Units 11:36 07:35 WBC 8.37 (4.8-10.8) K/uL Hgb 7.4 L (12.0-16.0) g/dL Hct 22.6 L (37-47) % Plt Count 215 (130-400) K/uL Blood Type O Negative Antibody Screen NEGATIVE Crossmatch See Detail BMP 12/20/18 07:35 Sodium 138 Potassium 3.6 Chloride 106 Carbon Dioxide 25 BUN 26 H D Creatinine 0.98 Glucose 169 H Calcium 8.9 Liver Function 12/20/18 Range/Units 07:35 Total Bilirubin 0.3 (0.2-1) mg/dl AST 22 (15-37) U/L ALT 26 (12-78) U/L Alkaline Phosphatase 105 (45-117) U/L Albumin 2.6 L (3.4-5.0) gm/dl (1) Sepsis Sepsis acute organ dysfunction status: unspecified Sepsis type: sepsis due to unspecified organism Qualified Code(s): A41.9 - Sepsis, unspecified organism
[2018-12-20 18:08] LABS: Hematocrit (blood only) 24.8 % (37-47); Hemoglobin 7.8 g/dL (12.0-16.0)
[2018-12-20 18:26] LABS: BUN Creatinine Ratio 25.7 (10-20); Calcium 9.1 mg/dl (8.5-10.1); Creatinine Clr Calc Pharmacy 63.2 ml/min; Est GFR (African American) 66.5; Est GFR (Non-African American) 57.4; Potassium 3.5 mmol/L (3.5-5.1)
[2018-12-20] MEDS ORDERED: POTASSIUM CHLORIDE 20 MEQ TABCR PO STA (19:11)
[2018-12-20] MEDS ORDERED: POTASSIUM CHLORIDE / WTR 10 MEQ/100 ML PLCT IV ONE (19:11)
[2018-12-20] MEDS ORDERED: FUROSEMIDE 40 MG/4 ML VIAL IV STA (19:11)
[2018-12-20] MEDS: MULTIVITAMIN TAB PO SCH (20:33)
[2018-12-21] MEDS: INSULIN ASPART 100 UNITS/ML 3 ML PEN SC SCH ×7 (00:10→23:46)
[2018-12-21] MEDS: PIPERACILLIN/TAZOBACTAM 3.375 GM in DEXTROSE 5% 100 ML IV SCH ×3 (03:53→20:08)
[2018-12-21] MEDS: LEVOTHYROXINE SODIUM 137 MCG TABLET PO SCH (06:04)
[2018-12-21] MEDS: METHYLPREDNISOLONE IV SCH (07:39)
[2018-12-21 07:57] LABS: Eosinophils # (auto) 0.01 K/uL (0-0.5); Eosinophils % (auto) 0.1 %; Hematocrit (blood only) 23.3 % (37-47); Hemoglobin 7.4 g/dL (12.0-16.0); Immature Granulocytes # (auto) 0.07 K/uL (0.00-0.02); Lymphocytes # (auto) 0.49 K/uL (1.2-3.4); Lymphocytes % (auto) 6.8 %; Mean Corpuscular Hemoglobin 27.2 pg (25-34); Mean Corpuscular Volume 85.7 fL (80-100); Monocytes # (auto) 0.38 K/uL (0.11-0.59); Monocytes % (auto) 5.3 %; Neutrophils # (auto) 6.26 K/uL (1.4-6.5); Neutrophils % (auto) 86.8 %; Nucleated RBC # (auto) 0.04 K/uL (0-0); Nucleated RBC % (auto) 0.6 %; Platelet Count 234 K/uL (130-400); RDW Coefficient of Variation 15.9 % (11.5-14.5); Red Blood Count 2.72 M/uL (4.2-5.4); White Blood Count 7.21 K/uL (4.8-10.8)
[2018-12-21] MEDS: ALBUT/IPRATROP 3MG/0.5MG NEB 3 ML VIAL NEB SCH ×4 (07:58→19:03)
[2018-12-21 07:59] LABS: Mean Corpuscular Hgb Conc 31.8 g/dL (32-36)
[2018-12-21 08:12] LABS: Albumin Level 2.8 gm/dl (3.4-5.0); Calcium 8.6 mg/dl (8.5-10.1); Creatinine Clr Calc Pharmacy 63.2 ml/min; Est GFR (African American) 66.5; Est GFR (Non-African American) 57.4; Potassium 3.8 mmol/L (3.5-5.1)
[2018-12-21 08:15] LABS: Albumin Globulin Ratio 0.7 (0.9-2); Bilirubin,Total 0.3 mg/dl (0.2-1); Total Protein 6.8 gm/dl (6.4-8.2)
[2018-12-21] MEDS: NICOTINE 21 MG/24 HR TDSY TD SCH (08:15)
[2018-12-21] MEDS: GABAPENTIN 600 MG TAB PO SCH ×3 (08:15→20:09)
[2018-12-21] MEDS: FUROSEMIDE 40 MG in SYRINGE 0 ML IV SCH (08:15)
[2018-12-21] MEDS: ONDANSETRON INJ 2 MG/ML 2 ML VIAL IV PRN (08:16)
[2018-12-21] MEDS: LABETALOL HCL 200 MG TAB PO SCH ×2 (08:17→20:10)
[2018-12-21 08:19] LABS: Giant Platelets 1+; Hypochromasia Present
[2018-12-21] MEDS: POLYETHYLENE (MIRALAX) 17 GM PACK PO SCH (08:19)
[2018-12-21] MEDS: AZITHROMYCIN 500 MG in DEXTROSE 5% 250 ML IV SCH (08:19)
[2018-12-21] MEDS ORDERED: POTASSIUM CHLORIDE 20 MEQ/15 ML UDC PO STA (08:35)
[2018-12-21 08:44] LABS: Magnesium 2.5 mg/dl (1.8-2.4); Phosphorus 4.5 mg/dl (2.5-4.9)
[2018-12-21 09:29] LABS: HSV Type 1 DNA Not Detected (Not Detected); HSV Type 2 DNA Not Detected (Not Detected)
[2018-12-21 09:49] LABS: Codeine Urine NEGATIVE NG/ML (CUTOFF=50); Hydrocodone Urine NEGATIVE NG/ML (CUTOFF=50); Hydromor Urine NEGATIVE NG/ML (CUTOFF=50); Morphine Urine NEGATIVE NG/ML (CUTOFF=50); Norhydrocodone Conf Ur NEGATIVE NG/ML (CUTOFF=50); Noroxycodone Urine 954 NG/ML (CUTOFF=50); Oxycodone Urine 200 NG/ML (CUTOFF=50); Oxymorph Urine 218 NG/ML (CUTOFF=50)
--- NOTE | 2018-12-21 09:51 | Critical Care Progress Note ---
Date of Service December 21, 2018 Assessment & Plan (1) Admitted to intensive care unit: Reason Critically Ill: 43-year-old female presents with respiratory distress and acute hypoxic respiratory failure Neuro - [facility] ICU: Negative Cardiac - HTNholding oral medications for tinnitus patient is very hypoxic with low reserve, parents temporarily transition to IV if necessary Respiratory - Hypoxic respiratory failurepneumonia versus reactive pneumonitis versus pulmonary edema -Patient presents with shortness of breath and hypoxia, nonproductive dry cough, now requiring BiPAP -AB.42///20 -Continue duo nebs -Started on IV Lasix -CT chest showed bilateral ground-glass opacities, diffuse bilateral parenchymal infiltrates versus pulmonary edema, no evidence of PE -ERCP, procalcitonin, and lactate elevated; blood cultures pending; continue broad-spectrum antibiotics -BNP elevated, echocardiogram normal -HIV and hepatitis negative, immunology panel pending, influenza negative -We will consider IV steroids if chest x-ray unimproved in a.m. -Continuous monitoring on oxygen saturation GI - HFP within normal limits We will keep n.p.o. for now RENAL/LYTES - Creatinine 1.18, will monitor Hypokalemiareplete potassium as necessary Monitor routine BMPs - De Leon insertedstrict I's and O's UA unremarkable ENDO - No history diabetes, ICU hyperglycemic protocol History of Graves' disease status post thyroidectomy; TSH 0.227, continue Synthroid HEME - Anemiahemoglobin 7.9 on admission, was reportedly eleven 1 month ago -No obvious signs of bleeding, will perform Hemoccult with next bowel movement -Iron low on anemic work-up, likely element of iron deficiency anemia, would add supplement when appropriate -Hemoglobin continue to monitor with routine CBCs and transfuse if necessary to keep hemoglobin greater than 7 ID - Sepsislactate, procalcitonin elevated, and patient now febrile; most likely pulmonary source -Blood cultures pending -UA unremarkable -Continue azithromycin, Zosyn, vancomycin for now LINES/IV ACCESS - Peripheral IVs DVT PROPHYLAXIS - SCDs, holding anticoagulation as patient presents with new onset of anemia from unconfirmed source I have personally spent 50 minutes of critical care time in the direct management of this patient. This is a life/limb threatening event. This includes time spent evaluating patient, direct bedside care, chart review, placing orders, interpretation of diagnostic studies, discussion with consultants, patient, and family members, as well as other required patient management activities. This time is exclusive of all separately billable procedures, and teaching time and separate from and in addition to any other critical care service time. Thank you for allowing us to participate in the care of this patient. Please refer to my attending physician's documentation for any further recommendations. (2) Sepsis with acute hypoxic respiratory failure: CT scan of the patient personally reviewed. Shows diffuse groundglass opacities with no pleural effusion. Interlobular wall thickening. No clear air bronchograms. No clear mediastinal lymphadenopathy. With diffuse alveolar hemorrhage found on bronchoscopy. BAL did not show any eosinophilia. Follow-up culture and Gram stain --> negative to date. Could be secondary to infectious etiology which includes multilobar pneumonia, influenza screen negative--> continue with broad-spectrum antibiotics including atypical coverage, follow-up urine Legionella, mycoplasma IgM and sputum culture, HIV negative, procalcitonin 1.21, LDH: 427, ESR: 58, CRP: 22.10 Monitor QTC as patient is on azithromycin, monitor QTC Could also be secondary to noncardiogenic pulmonary edema as patient's UDS was positive for opiates although patient denies sniffing of opiates she says she took Percocet for her low back pain. 2D echo shows good ejection fraction with no pericardial effusion. Diurese as tolerated with strict in and out Could be secondary to autoimmune process with diffuse alveolar hemorrhage --> follow-up autoimmune work-up, patient has no eosinophilia in the blood or in the BAL, continue with high-dose steroids for the time being. Monitor H&H -- Hypothyroidism with history of Graves' disease status post thyroidectomy On levothyroxine TSH: 0.22 (low), free T4 1.21(normal) --Elevated troponins likely secondary to type II [place] EKG shows no ST-T wave changes with normal sinus rhythm. -- B/l LE edema has been going on for a while Proteinuria in the urine 15.3 mg/dL, with creatinine less than 13 in the urine. Negative for DVT (3) Tobacco abuse: Patient is an active smoker with greater than [id number] smoking history. No recent trial of quitting. Patient denies using any vape. Advised to quit. (4) Ground glass opacity present on imaging of lung: As above. (5) Community acquired pneumonia: (6) Fibromyalgia: (7) Elevated troponin: Likely type II [place]. Monitor troponin. Supervising Physician Co-Signing Physician Notes Dr Monahan was the resident-physician during care of patient. I separately evaluated patient for molina portions of the history and the exam. I was present during the critical portion of medical decision making, and I discussed the case with the resident. I generally agree with the findings and plan except for any additions/exceptions noted. Patient seen and examined at bedside. Status post extubation 12/20/2018. Patient tolerating high flow during the day and BiPAP nightly. We will try the patient on nasal cannula today to see how she saturates. Denies any chest pain, no nausea, no vomiting. Patient is constipated we will start patient on stool softeners. For her anemia we are going to start her on Feosol. Hemoglobin staying around 7.4. Monitor H&H if there is drop in hemoglobin less than 7 transfuse 1 unit PRBC. Decrease Solu-Medrol 200 mg 3 times daily. Patient tolerating p.o. diet. Compression boots for DVT prophylaxis. Stress ulcer prophylaxis. Bronchial wash cultures are negative so far. Vancomycin DC'd, will DC Zosyn after today's dose. Continue with azithromycin. Autoimmune work-up still pending. DC De Leon. Continue with Lasix. If the patient is doing good may downgrade the patient to floor later in the afternoon. I have personally spent 40 minutes of critical care time in the direct management of this patient. This is a life/limb threatening event. This includes time spent evaluating patient, direct bedside care, chart review, placing orders, interpretation of diagnostic studies, discussion with consultants, patient, and/or family members regarding treatment decisions, as well as other required patient management activities. This time is exclusive of all separately billable procedures, and teaching time and separate from and in addition to any other critical care service time. Subjective Ms. Adorno is currently extubated. Laying in bed with Bipap on. Review of Systems Review of Systems: Other (has BiPap on.) Physical Exam Physical Exam: General: Alert, laying in bed with Bipap on. Skin: No noted rashes or bruises Neuro: No gross deficits HEENT: NC/AT, Bipap on face Chest: Nontender to palpation. CV: RRR, Normal s1, s2. No murmurs appreciated Resp: Breath sounds with some faint crackles Abdomen: Soft, nontender, nondistended. Extremities: No edema in lower extremities bilaterally. Skin: no rashes, warm and dry Lymphatic: no cervical or axillary lymphadenopathy Results & Data Vital Signs (Past 12 Hours) Vital Signs Temp Pulse Pulse Resp BP Pulse Ox 12/21/18 07:35 72 72 18 97 12/21/18 07:00 72 140/83 97 12/21/18 06:00 69 146/84 H 98 12/21/18 05:00 69 142/83 H 97 12/21/18 04:00 70 126/74 97 12/21/18 03:00 71 124/77 98 12/21/18 02:00 75 135/81 97 12/21/18 01:30 80 30 H 96 12/21/18 01:00 81 138/85 96 12/21/18 00:00 37.3 C 78 127/75 95 12/20/18 23:00 79 132/83 96 12/20/18 22:05 81 20 96 12/20/18 22:00 80 134/83 92 Coding Level of Care Code Critical Care 1st 30-74 mins Diagnoses Admitted to intensive care unit Z78.9 Sepsis with acute hypoxic respiratory failure A41.9; R65.20; J96.01 Tobacco abuse Z72.0 Ground glass opacity present on imaging of lung R91.8 Community acquired pneumonia J18.9 Fibromyalgia M79.7 Elevated troponin R79.89 Time Spent (min) 40 Resident Activity Tracking Resident Involvement: Resident Care Provided Care Provided: Adult Hospital Medicine
[2018-12-21] MEDS: DOCUSATE SODIUM/SENNA 50/8.6MG TAB PO SCH ×2 (10:32→20:10)
[2018-12-21] MEDS: AMLODIPINE BESYLATE 5 MG TAB PO SCH (10:32)
[2018-12-21] MEDS ORDERED: INSULIN GLARGINE SOLOSTAR 100 UNITS/ML 3 ML PEN SC ONE ×2 (11:30→21:00)
[2018-12-21] MEDS: PANTOprazole 40 MG TAB PO SCH (13:49)
--- NOTE | 2018-12-21 14:02 | Hospitalist Progress Note ---
Date of Service December 21, 2018 Assessment & Plan (1) Sepsis: (2) Community acquired pneumonia: Patient is a 43 yr female with H/O Asthma, tobacco abuse, HTN, GERD s/p monica fundoplication x3, chronic low back pain, migraine, depression with anxiety, Graves' disease status post thyroidectomy who presents to [facility] secondary to shortness of breath x2 to 3 days. Acute respiratory failure with hypoxia Possible ARDS Diffuse alveolar hemorrhage Sepsis DD: Pneumonia/reactive pneumonitis/pulmonary edema Chest CTA: Study is negative for pulmonary embolus. Diffuse bilateral parenchymal infiltrative change versus pulmonary edema/respiratory distress. Venous Doppler:No evidence of lower extremity DVT. Influenza screen--negative Elevated lactate, procalcitonin levels Blood cultures: No growth to date Bronchial washing/sputum culture: Avelina HIV, hematological, serological, urine for Legionella work-up pending S/P Extubation on 12/20/18 Continue Empiric Abx: Plan to continue azithromycin for now IV Zosyn to be discontinued after today IV vancomycin discontinued Continue IV Solu-Medrol and diuretics as needed Continue nebs BiPAP PRN and HS On high flow oxygen, plan to transition to nasal cannula as able Appreciate physician neonatology input (3) Hypoxia: Management as above Hyperglycemia Likely steroid-induced HbA1c 5.6 Continue insulin sliding scale Monitor blood glucose levels while on steroids (4) Anemia: Acute on chronic normocytic anemia Likely due to alveolar hemorrhage, partly dilutional Monitor CBC Normal haptoglobin, low reticulocyte count Peripheral smear suggestive of iron deficiency anemia Transfuse PRBCs as needed Continue iron supplements (5) Hypokalemia: monitor and replace electrolytes as needed (6) Weight gain: B/L LE edema Venous Doppler negative for DVT H/O Hypothyroidism-- Postsurgical removal due to Graves' disease TSH:0.22, Normal Free T4 Recently levothyroxine increased to 137 mcg Continue Levothyroxine Needs repeat thyroid function testing as outpatient (7) Elevated troponin: Elevated troponin Likely secondary to demand ischemia ECHO: No regional wall motion abnormality, EF 65 to 70%, no significant valvular heart disease EKG: No signs of acute ischemia (8) Hypertension: On labetalol, nifedipine at home Continue labetalol, amlodipine Constipation: Continue bowel regimen (9) Depression: mood stable continue home mds (10) Chronic low back pain: Stable (11) Tobacco abuse: Encourage smoking cessation Nicotine patch (12) DVT prophylaxis: SCD/TEDS Re: Anemia Code Status Full Code Disposition: Plan to be transferred out of ICU later today Subjective Patient is seen and examined at bedside States having chest congestion and low back pain Reports constipation Was on high flow oxygen, currently being transitioned to nasal cannula Discussed with physician neonatology today Offers no other complaints Denies any chest pain, nausea, abdominal pain, dizziness Review of Systems Review of Systems: All systems reviewed & are unremarkable except as noted in HPI & below Physical Exam Physical Exam: Physical Exam: Vitals signs as noted above General Appearance:Moderately built and nourished, no apparent distress Head: normocephalic, Atraumatic Eyes: normal inspection Neck: supple, Trachea midline Respiratory/Chest: Decreased breath sounds, Scattered crackles Cardiovascular: S1, S2, No murmur Abdomen/GI:Soft, Non tender, Bowel sounds present Extremities/Musculoskelatal:normal inspection, Trace LE edema Neurologic/Psych: Grossly no focal deficits Skin: normal color, warm Results & Data Vital Signs (Past 12 Hours) Vital Signs Pulse Pulse Resp BP Pulse Ox 12/21/18 13:00 86 23 114/71 89 L 12/21/18 12:00 81 33 H 139/83 93 12/21/18 11:40 75 28 H 95 12/21/18 11:00 69 32 H 130/80 98 12/21/18 10:00 71 34 H 127/81 97 12/21/18 09:00 83 29 H 126/81 96 12/21/18 08:00 72 134/81 94 12/21/18 07:35 72 72 18 97 12/21/18 07:00 72 140/83 97 12/21/18 06:00 69 146/84 H 98 12/21/18 05:00 69 142/83 H 97 12/21/18 04:00 70 126/74 97 12/21/18 03:00 71 124/77 98 12/21/18 02:00 75 135/81 97 Laboratory Results Short CBC 12/20/18 12/21/18 Range/Units 18:00 07:47 WBC 7.21 (4.8-10.8) K/uL Hgb 7.8 L 7.4 L (12.0-16.0) g/dL Hct 24.8 L 23.3 L (37-47) % Plt Count 234 (130-400) K/uL BMP 12/20/18 12/21/18 18:00 07:47 Sodium 141 141 Potassium 3.5 3.8 Chloride 108 H 107 Carbon Dioxide 26 27 BUN 30 H 35 H Creatinine 1.15 1.15 Glucose 155 H 155 H Calcium 9.1 8.6 Liver Function 12/21/18 Range/Units 07:47 Total Bilirubin 0.3 (0.2-1) mg/dl AST 19 (15-37) U/L ALT 26 (12-78) U/L Alkaline Phosphatase 99 (45-117) U/L Albumin 2.8 L (3.4-5.0) gm/dl (1) Sepsis Sepsis acute organ dysfunction status: unspecified Sepsis type: sepsis due to unspecified organism Qualified Code(s): A41.9 - Sepsis, unspecified organism
[2018-12-21] MEDS: methylPREDNISolone 100 MG in SYRINGE 0 ML IV SCH ×2 (14:42→23:45)
--- NOTE | 2018-12-21 15:41 | Pharmacy Report ---
Pharmacy Glycemic Short Note 2 - Date of Service December 21, 2018 - Glycemic Short BSG Results (Last 24 hours): 12/20/18 12/20/18 12/20/18 16:30 18:00 19:57 Glucose 155 H POC Glucose 153 H 171 H 12/21/18 12/21/18 12/21/18 00:02 03:48 07:35 Glucose POC Glucose 187 H 168 H 170 H 12/21/18 12/21/18 07:47 11:20 Glucose 155 H POC Glucose 205 H OUTPATIENT ANTIDIABETIC REGIMEN: * None ASSESSMENT: * 43 yo F non-diabetic patient based on A1c of 5.9% with steroid-induced hyperglycemia * Tubefeeds were stopped yesterday and patient now ordered T2DM diet, which is appropriate * Steroids tapered today, but still higher dose / very likely to have significant impact on glycemic regimen (now methylpred 100 mg IV q8h). Anticipate BSG's will be well controlled without insulin once steroids are discontinued -> will need to significantly adjust regimen once steroids tapered/discontinued * BSG's ranged 153-205 mg/dL the last 24 hours * Will add in basal insulin * Will adjust Novolog parameters to weight-based severe stress PLAN FOR INPATIENT GLYCEMIC CONTROL: * Basal insulin: Lantus 15 units x1 now, then HS x1 based on BSG * 0 units for BSG less than 140 mg/dL * 5 units for BSG 140-180 mg/dL * 10 units for BSG greater than 180 mg/dL * Bolus insulin * NovoLog per scale ACHS or Q6hrs while NPO * Goal Range: Low 110 mg/dL - High 140 mg/dL * Correction Factor: 20 mg/dL/unit * Nutritional / Prandial insulin per carb ratio of 1 unit per 7 grams CHO consumed
[2018-12-21] MEDS: LACTULOSE SYRUP 20 GM/30 ML UDC PO SCH (20:09)
[2018-12-21] MEDS: MULTIVITAMIN TAB PO SCH (20:09)
[2018-12-22] MEDS: INSULIN ASPART 100 UNITS/ML 3 ML PEN SC SCH ×5 (03:28→20:14)
[2018-12-22] MEDS: PIPERACILLIN/TAZOBACTAM 3.375 GM in DEXTROSE 5% 100 ML IV SCH ×3 (03:28→20:49)
[2018-12-22] MEDS: LEVOTHYROXINE SODIUM 137 MCG TABLET PO SCH (05:59)
--- NOTE | 2018-12-22 06:55 | XRay Report ---
XR chest 1V portable HISTORY: 43 years-old Female f/u follow-up study in a patient with respiratory distress COMPARISON: Chest radiograph 12/20/2018 TECHNIQUE: Portable AP view of the chest FINDINGS: Status post extubation. The cardiac silhouette remains enlarged. No pneumothorax. Pulmonary vascular congestion with bibasilar opacities. Moderately improved aeration of the lungs. Mild blunting of the costophrenic angles without large pleural effusion. Bones appear grossly intact. IMPRESSION: 1. Status post extubation. 2. Moderately improved aeration of the lungs with persistent bibasilar predominant opacities. The above report was generated using voice recognition software. It may contain grammatical, syntax o r spelling errors. Electronically signed by: Sherif Mckay M.D. 12/22/2018 6:53 AM
[2018-12-22] MEDS: ALBUT/IPRATROP 3MG/0.5MG NEB 3 ML VIAL NEB SCH ×4 (07:18→19:07)
[2018-12-22] MEDS: methylPREDNISolone 100 MG in SYRINGE 0 ML IV SCH ×2 (07:30→20:50)
[2018-12-22 08:42] LABS: Hematocrit (blood only) 24.1 % (37-47); Hemoglobin 7.6 g/dL (12.0-16.0); Immature Granulocytes # (auto) 0.12 K/uL (0.00-0.02); Immature Granulocytes % (auto) 1.6 %; Lymphocytes # (auto) 0.51 K/uL (1.2-3.4); Lymphocytes % (auto) 6.7 %; Mean Corpuscular Hgb Conc 31.5 g/dL (32-36); Mean Corpuscular Volume 85.8 fL (80-100); Mean Platelet Volume 10.9 fL (7.4-10.4); Monocytes # (auto) 0.39 K/uL (0.11-0.59); Monocytes % (auto) 5.1 %; Neutrophils # (auto) 6.58 K/uL (1.4-6.5); Neutrophils % (auto) 86.6 %; Nucleated RBC # (auto) 0.05 K/uL (0-0); Nucleated RBC % (auto) 0.6 %; Platelet Count 284 K/uL (130-400); RDW Standard Deviation 50.4 fL (36.4-46.3); Red Blood Count 2.81 M/uL (4.2-5.4)
[2018-12-22] MEDS: FUROSEMIDE 40 MG in SYRINGE 0 ML IV SCH (08:47)
[2018-12-22] MEDS: LACTULOSE SYRUP 20 GM/30 ML UDC PO SCH (08:47)
[2018-12-22] MEDS: GABAPENTIN 600 MG TAB PO SCH ×3 (08:48→20:51)
[2018-12-22] MEDS: LABETALOL HCL 200 MG TAB PO SCH ×2 (08:48→20:54)
[2018-12-22] MEDS: FERROUS SULFATE 325 MG TAB PO SCH (08:48)
[2018-12-22] MEDS: PANTOprazole 40 MG TAB PO SCH (08:49)
[2018-12-22] MEDS: AMLODIPINE BESYLATE 5 MG TAB PO SCH (08:49)
[2018-12-22] MEDS: DOCUSATE SODIUM/SENNA 50/8.6MG TAB PO SCH ×2 (08:49→20:46)
[2018-12-22] MEDS: AZITHROMYCIN 250 MG TAB PO SCH (08:49)
[2018-12-22] MEDS ORDERED: INSULIN GLARGINE SOLOSTAR 100 UNITS/ML 3 ML PEN SC ONE (09:00)
[2018-12-22 09:03] LABS: Hypochromasia Present; Target Cells 1+
[2018-12-22 09:07] LABS: Albumin Level 2.8 gm/dl (3.4-5.0); BUN Creatinine Ratio 40.3 (10-20); Calcium 8.7 mg/dl (8.5-10.1); Creatinine Clr Calc Pharmacy 72.8 ml/min; Est GFR (African American) 79.8; Est GFR (Non-African American) 68.8; Potassium 3.6 mmol/L (3.5-5.1)
[2018-12-22 09:10] LABS: Albumin Globulin Ratio 0.7 (0.9-2); Bilirubin,Total 0.3 mg/dl (0.2-1); Globulin 3.9 gm/dl (2.5-4.0); Total Protein 6.7 gm/dl (6.4-8.2)
[2018-12-22] MEDS: ONDANSETRON INJ 2 MG/ML 2 ML VIAL IV PRN (09:39)
[2018-12-22] MEDS ORDERED: POTASSIUM CHLORIDE 20 MEQ TABCR PO STA (11:06)
--- NOTE | 2018-12-22 11:29 | Pulmonology Progress Note ---
Date of Service December 22, 2018 Assessment & Plan (1) Sepsis with acute hypoxic respiratory failure: Diffuse alveolar hemorrhage found on bronchoscopy. BAL did not show any eosinophilia. Follow-up culture and Gram stain --> negative to date. Sputum c ulture showing Avelina which is normal chuy. Could be secondary to autoimmune process with diffuse alveolar hemorrhage --> follow-up autoimmune work-up, patient has no eosinophilia in the blood or in the BAL, continue with high-dose steroids for the time being. Anti-CCP: 0.64 which is within normal limits We will go down on Solu-Medrol to 100 mg every 12 hours for 2 days then 50 every 12 for 2 days followed by 60 mg p.o. daily. Patient likely needs to be on steroids for at least 3 to 6 months. c/w Azithromycin, can DC zosyn Monitor QTC as patient is on azithromycin, monitor QTC There is also component of noncardiogenic pulmonary edema as patient's UDS was positive for opiates although patient denies sniffing of opiates she says she took Percocet for her low back pain. 2D echo shows good ejection fraction with no pericardial effusion. Diurese as tolerated with strict in and out -- Hypothyroidism with history of Graves' disease status post thyroidectomy On levothyroxine TSH: 0.22 (low), free T4 1.21(normal) --Elevated troponins likely secondary to type II [place] EKG shows no ST-T wave changes with normal sinus rhythm. -- B/l LE edema has been going on for a while Proteinuria in the urine 15.3 mg/dL, with creatinine less than 13 in the urine. Negative for DVT --Secondary hypercoagulable state IPC's given the patient valvular hemorrhage and low hemoglobin (2) Tobacco abuse: Patient is an active smoker with greater than [id number] smoking history. No recent trial of quitting. Patient denies using any vape. Advised to quit. (3) Ground glass opacity present on imaging of lung: As above. (4) Community acquired pneumonia: (5) Fibromyalgia: (6) Elevated troponin: Likely type II [place]. Monitor troponin. Subjective Patient seen and examined at bedside. No acute distress, no adverse events overnight. Shortness of breath is improved, no hemoptysis. No chest pain, no headache, no nausea, no vomiting. Urinating well. Saturation at the time of examination was 89 to 90% on 4 L nasal cannula with heart rate of 74 at rest. Patient has been drinking a lot of fluids which includes diet soda, ice tea and free water. Patient was advised to keep an eye on total intake of water. Review of Systems Review of Systems: All systems reviewed & are unremarkable except as noted in HPI & below Physical Exam Physical Exam: Constitutional: No acute distress HEENT: EOMI, PERRLA Respiratory system: Decreased air entry bilaterally, no wheeze, no rhonchi positive bilateral crackles more on the lower lobes CVS: S1-S2 positive, no murmurs or gallops Abdomen: Soft, nontender, nondistended, positive bowel sounds x4 Extremities: +2 pulses bilaterally radialis/ dorsalis pedis, no edema, no cyanosis Neuro: Awake alert oriented x3 Psych: Normal mood and affect G/U: No De Leon Skin: no rashes, warm and dry Lymphatic: no cervical or axillary lymphadenopathy Results & Data Vital Signs (Past 12 Hours) Vital Signs Temp Pulse Pulse Pulse Resp BP Pulse Ox 12/22/18 11:15 68 12/22/18 11:12 36.7 C 64 16 108/67 92 12/22/18 07:47 36.7 C 75 18 115/72 92 12/22/18 07:18 85 16 91 12/22/18 03:22 36.8 C 65 19 112/70 100 12/22/18 03:00 22 96 12/22/18 00:00 69 12/21/18 23:28 37.2 C 73 20 106/69 98 12/22/18 07:21 12/22/18 07:21 12/22/18 07:21 12/22/18 07:21 PG Care Time/CCT Total # of Minutes Spent Total Time Spent with Patient: Total time spent is greater than 50% in coordination of care (as documented) at patient's floor/unit and/or counseling patient:
[2018-12-22] MEDS: POLYETHYLENE (MIRALAX) 17 GM PACK PO SCH (11:41)
[2018-12-22] MEDS: NICOTINE 21 MG/24 HR TDSY TD SCH (11:41)
--- NOTE | 2018-12-22 13:35 | Hospitalist Progress Note ---
Date of Service December 22, 2018 Assessment & Plan (1) Sepsis with acute hypoxic respiratory failure: Uncertain etiology with causes including but not limited to DAH, autoimmune disease, infection. Broad spectrum abx have been de-escalated to azithromycin as monotherapy. Blood cultures are negative. BAL specimen revealed negative AFB, no fungal or bacteria present with Avelina presumed to be normal chuy. Cont high dose steroids per Pulmonology and de-escalate these per pulmonology. She is prepared to go home with oxygen in place to await final results of workup. Will discuss with Pulmonology. (2) Community acquired pneumonia: Flu negative. Broad spectrum abx de-escalated to azithromycin as monotherapy. Clinically improved. Encouraged smoking cessation strongly. 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 Monitor need for transfusion on am labs. Cont iron supplementation. (4) Weight gain: 2/2 fluid retention. Venous Doppler negative for DVT. Resolved with Lasix in hospital and weight is also down 3kg from admission. Pt is feeling well. (5) Hypothyroidism: h/o Graves disease s/p thyroidectomy, Synthroid recently increased to 137 mcg PO daily. Follow TFTs as outpatient. (6) Demand ischemia: ECHO: No regional wall motion abnormality, EF 65 to 70%, no significant valvular heart disease EKG: No signs of acute ischemia--> No further workup at this time. (7) Hypertension: BP at goal, cont home labetalol and nifedipine. (8) Depression: mood stable but has been off doxepin since admission. Will discuss with patient how she is feeling and if she wants to start back on this medication. (9) Tobacco abuse: Encourage smoking cessation--contemplative phase--Nicotine patch (10) DVT prophylaxis: SCD/TEDS Re: Anemia Full Code Disposition: cont tele monitoring now. Cont to discuss with pulm what is appropriate for DC while we are seeing a clinical improvement and awaiting labwork return. Pt expected to go home on supplemental oxygen once stable. Kandis Ro DO [facility] Hospitalist Subjective 43 yo F presented with acute worsening hypoxia x 2 weeks and was subsequently intubated on day of admission, found to have DAH on bronchoscopy. She was tr eated for sepsis 2/2 infectious pneumonia and was started on high dose steroids with autoimmune workup pending. She has improved and was extubated with continued improvement but persistent hypoxia requiring at least 4LPM oxygen via NC. She also had edema in her lower extremities which has now resolved. She reports finally having a BM this morning and is on multiple laxatives and stool softeners. We discussed stopped the lactulose. She reports her breathing feels better, she reports an intermittent dry cough without hemoptysis. She is tolerating food and is afebrile. She is requesting to go home dariela as her needs to go back to work and she has two children 2 yo and 10 yo. Review of Systems Review of Systems: All systems reviewed & are unremarkable except as noted in HPI & below Physical Exam Physical Exam: CONSTITUTIONAL: WNWD, vitals as above, generally well- appearing EYES: normal conjunctivae, no scleral icterus ENT: MMM RESPIRATORY: good air movement on the right lung, but has crackles to bases of the left lung, no rales or wheezes heard. Normal respiratory effort CARDIOVASCULAR: regular rate and rhythm, S1 and 2 heard without murmurs, gallops or rubs, no JVD, no peripheral edema GASTROINTESTINAL: normal bowel sounds, soft, nontender, nondistended MUSCULOSKELETAL: strength 5/5 throughout, head is normocephalic and atraumatic SKIN: warm and dry NEUROLOGIC: CN 2-12 grossly intact, normal cognition, no gross focal deficits. PSYCHIATRIC: alert cooperative and oriented to person, place and time. Results & Data Vital Signs (Past 12 Hours) Vital Signs Temp Pulse Pulse Pulse Resp BP Pulse Ox 12/22/18 11:24 65 16 89 L 12/22/18 11:15 68 12/22/18 11:12 36.7 C 64 16 108/67 92 12/22/18 07:47 36.7 C 75 18 115/72 92 12/22/18 07:18 85 16 91 12/22/18 03:22 36.8 C 65 19 112/70 100 12/22/18 03:00 22 96 Laboratory Results Short CBC 12/22/18 Range/Units 07:21 WBC 7.60 (4.8-10.8) K/uL Hgb 7.6 L (12.0-16.0) g/dL Hct 24.1 L (37-47) % Plt Count 284 (130-400) K/uL BMP 12/22/18 07:21 Sodium 141 Potassium 3.6 Chloride 106 Carbon Dioxide 28 BUN 40 H Creatinine 0.99 Glucose 134 H Calcium 8.7 Liver Function 12/22/18 Range/Units 07:21 Total Bilirubin 0.3 (0.2-1) mg/dl AST 16 (15-37) U/L ALT 32 (12-78) U/L Alkaline Phosphatase 91 (45-117) U/L Albumin 2.8 L (3.4-5.0) gm/dl Medications Administered Current Inpatient Medications Acetaminophen (Tylenol) 650 mg PO Q4H PRN PRN Reason: Pain or Fever Stop: 01/17/19 13:20 Last Admin: 12/20/18 21:13 Dose: 650 mg Documented by: Acetaminophen (Tylenol) 650 mg AR Q4H PRN PRN Reason: Pain or Fever Stop: 01/18/19 00:22 Last Admin: 12/19/18 00:50 Dose: 650 mg Documented by: Al Hydrox/Mg Hydrox/Simethicone (Maalox) 15 ml PO Q4H PRN PRN Reason: Dyspepsia Stop: 01/17/19 13:20 Albuterol (Duoneb) 3 ml NEB QIDR [facility] Stop: 01/17/19 14:59 Last Admin: 12/22/18 11:23 Dose: 3 ml Documented by: Amlodipine Besylate (Norvasc) 10 mg PO [facility] Stop: 01/18/19 10:29 Last Admin: 12/22/18 08:49 Dose: 10 mg Documented by: Azithromycin (Zithromax) 500 mg PO [facility] Stop: 12/29/18 08:59 Last Admin: 12/22/18 08:49 Dose: 500 mg Documented by: Clonazepam (Klonopin) 1 mg PO BID PRN PRN Reason: Anxiety Stop: 01/17/19 13:20 Dextrose (Dextrose 50%) 25 - 50 ml IV UD PRN; Protocol PRN Reason: Hypoglycemia Protocol Stop: 01/17/19 13:20 Fentanyl Citrate (Fentanyl Citrate) 25 mcg IV ONE PRN PRN Reason: Pain Not Controlled by Drip Stop: 01/01/19 23:01 Ferrous Sulfate (Feosol) 325 mg PO [facility] Stop: 01/21/19 08:59 Last Admin: 12/22/18 08:48 Dose: 325 mg Documented by: Gabapentin (Neurontin) 600 mg PO TID [facility] Stop: 01/17/19 13:59 Last Admin: 12/22/18 08:48 Dose: 600 mg Documented by: Glucagon (Glucagen) 1 mg SQ UD PRN; Protocol PRN Reason: Hypoglycemia Protocol Stop: 01/17/19 13:20 Glucose (Glucose 40%) 15 - 30 gm PO UD PRN; Protocol PRN Reason: Hypoglycemia Protocol Stop: 01/17/19 13:20 Glucose (Dex4 Glucose) 4 - 8 tabs PO UD PRN; Protocol PRN Reason: Hypoglycemia Protocol Stop: 01/17/19 13:20 Hydroxyzine HCl (Vistaril) 50 mg PO HS PRN PRN Reason: Insomnia Stop: 01/17/19 13:20 Piperacillin Sod/Tazobactam (Sod 3.375 gm/ Dextrose) 115 mls @ 28.75 mls/hr IV Q8H [facility]; Protocol Stop: 12/22/18 23:59 Last Infusion: 12/22/18 07:00 Dose: 0 mls/hr Documented by: Furosemide 40 mg/ Syringe 4 mls @ 4 mls/min IV DAILY [facility] Stop: 01/19/19 08:59 Last Admin: 12/22/18 08:47 Dose: 4 mls/min Documented by: Methylprednisolone 100 mg/ (Syringe) 1.6 mls @ 1.5 mls/min IV Q12 [facility] Stop: 01/21/19 20:59 Insulin Aspart (Novolog Flexpen) 0 units SC ACHS [facility]; Protocol Stop: 01/20/19 11:29 Last Admin: 12/22/18 11:47 Dose: 7 units Documented by: Labetalol HCl (Normodyne) 200 mg PO BID [facility] Stop: 01/17/19 20:59 Last Admin: 12/22/18 08:48 Dose: 200 mg Documented by: Levothyroxine Sodium (Levothyroxine Sodium) 137 mcg PO DAILYBB [facility] Stop: 01/18/19 06:29 Last Admin: 12/22/18 05:59 Dose: 137 mcg Documented by: Magnesium Hydroxide (Milk Of Magnesia) 30 ml PO Q12H PRN PRN Reason: Constipation Stop: 01/17/19 13:20 Miscellaneous (Carbohydrates For Hypoglycemia) 15 - 30 gm PO UD PRN PRN Reason: Hypoglycemia Treatment Stop: 01/17/19 13:20 Miscellaneous (Remove Nicoderm Patch) 1 ea N/A HS [facility] Stop: 01/17/19 20:59 Last Admin: 12/21/18 20:10 Dose: 1 ea Documented by: Miscellaneous Information (Consult) 1 ea N/A UD PRN PRN Reason: Consult Stop: 12/22/18 23:59 Miscellaneous Information (Consult Glycemic Management Pharmacy) 1 ea N/A UD PRN PRN Reason: Consult Stop: 01/19/19 16:24 Multivitamins (Multivitamin Tab) 1 tab PO HS [facility] Stop: 01/17/19 20:59 Last Admin: 12/21/18 20:09 Dose: 1 tab Documented by: Nic[facility] ([facility]q) [facility] Stop: 01/18/19 08:59 Last Admin: 12/22/18 11:41 Dose: 21 mg Documented by: Nifedipine (Procardia Xl) 90 mg PO QAM [facility] Stop: 01/18/19 08:59 Last Admin: 12/19/18 10:07 Dose: Not Given Documented by: Ondansetron HCl (Zofran) 4 mg IV Q6H PRN PRN Reason: Nausea Stop: 01/17/19 13:20 Last Admin: 12/22/18 09:39 Dose: 4 mg Documented by: Pantoprazole Sodium (Protonix) 40 mg PO QAM [facility] Stop: 01/20/19 10:59 Last Admin: 12/22/18 08:49 Dose: 40 mg Documented by: Polyethylene Glycol (Miralax Powder Packet) 17 gm PO DAILY PRN PRN Reason: Constipation Stop: 01/17/19 13:20 Polyethylene Glycol (Miralax Powder Packet) 17 gm PO DAILY [facility] Stop: 01/18/19 08:59 Last Admin: 12/22/18 11:41 Dose: 17 gm Documented by: Senna/Docusate Sodium (Senokot S) 1 tab PO BID [facility] Stop: 01/20/19 10:59 Last Admin: 12/22/18 08:49 Dose: 1 tab Documented by:
[2018-12-22] MEDS: MULTIVITAMIN TAB PO SCH (20:52)
[2018-12-22] MEDS: clonazePAM 1 MG TAB PO PRN (21:02)
[2018-12-23] MEDS: LEVOTHYROXINE SODIUM 137 MCG TABLET PO SCH (05:33)
[2018-12-23 06:26] LABS: Hematocrit (blood only) 26.3 % (37-47); Hemoglobin 8.4 g/dL (12.0-16.0); Immature Granulocytes # (auto) 0.17 K/uL (0.00-0.02); Immature Granulocytes % (auto) 2.1 %; Lymphocytes # (auto) 0.79 K/uL (1.2-3.4); Lymphocytes % (auto) 9.6 %; Mean Corpuscular Hemoglobin 27.6 pg (25-34); Mean Corpuscular Hgb Conc 31.9 g/dL (32-36); Mean Corpuscular Volume 86.5 fL (80-100); Mean Platelet Volume 10.2 fL (7.4-10.4); Monocytes # (auto) 0.44 K/uL (0.11-0.59); Monocytes % (auto) 5.3 %; Neutrophils # (auto) 6.86 K/uL (1.4-6.5); Nucleated RBC # (auto) 0.04 K/uL (0-0); Nucleated RBC % (auto) 0.4 %; Platelet Count 302 K/uL (130-400); RDW Standard Deviation 51.3 fL (36.4-46.3); Red Blood Count 3.04 M/uL (4.2-5.4); White Blood Count 8.26 K/uL (4.8-10.8)
[2018-12-23 07:10] LABS: BUN Creatinine Ratio 30.5 (10-20); Creatinine Clr Calc Pharmacy 63.2 ml/min; Est GFR (African American) 67.3; Potassium 4.4 mmol/L (3.5-5.1)
[2018-12-23] MEDS: ALBUT/IPRATROP 3MG/0.5MG NEB 3 ML VIAL NEB SCH ×4 (07:11→19:01)
[2018-12-23 07:21] LABS: Albumin Globulin Ratio 0.8 (0.9-2); Bilirubin,Total 0.3 mg/dl (0.2-1); Globulin 3.9 gm/dl (2.5-4.0); Total Protein 6.9 gm/dl (6.4-8.2)
[2018-12-23] MEDS: methylPREDNISolone 100 MG in SYRINGE 0 ML IV SCH (08:11)
[2018-12-23] MEDS: NICOTINE 21 MG/24 HR TDSY TD SCH (08:12)
[2018-12-23] MEDS: FERROUS SULFATE 325 MG TAB PO SCH (08:12)
[2018-12-23] MEDS: AZITHROMYCIN 250 MG TAB PO SCH (08:13)
[2018-12-23] MEDS: PANTOprazole 40 MG TAB PO SCH (08:14)
[2018-12-23] MEDS: GABAPENTIN 600 MG TAB PO SCH ×3 (08:15→20:27)
[2018-12-23] MEDS: LABETALOL HCL 200 MG TAB PO SCH ×2 (08:16→20:30)
[2018-12-23] MEDS: FUROSEMIDE 40 MG in SYRINGE 0 ML IV SCH ×2 (08:16→14:51)
[2018-12-23] MEDS: DOCUSATE SODIUM/SENNA 50/8.6MG TAB PO SCH ×2 (08:17→20:29)
[2018-12-23] MEDS: INSULIN ASPART 100 UNITS/ML 3 ML PEN SC SCH ×4 (08:22→20:33)
[2018-12-23] MEDS: POLYETHYLENE (MIRALAX) 17 GM PACK PO SCH (08:23)
[2018-12-23] MEDS: clonazePAM 1 MG TAB PO PRN ×2 (08:28→20:26)
[2018-12-23] MEDS ORDERED: INSULIN GLARGINE SOLOSTAR 100 UNITS/ML 3 ML PEN SC ONE (09:00)
[2018-12-23] MEDS: NIFEdipine EXTENDED REL 30 MG TABCR PO SCH (10:11)
--- NOTE | 2018-12-23 11:04 | Pharmacy Report ---
Pharmacy Glycemic Short Note 2 - Date of Service December 23, 2018 - Glycemic Short BSG Results (Last 24 hours): 12/22/18 12/22/18 12/23/18 16:03 19:58 06:16 Glucose 146 H POC Glucose 161 H 117 H 12/23/18 07:08 Glucose POC Glucose 165 H OUTPATIENT ANTIDIABETIC REGIMEN: * None ASSESSMENT: * BSGs while on SM continue to remain well controlled. We will continue with current insulin orders. PLAN FOR INPATIENT GLYCEMIC CONTROL: * Basal insulin: 13u QAM 12/22 & 12/23. Will dec'r lantus while steroids are being tapered. 2 days of SM 100mg q12 then on 12/24 SM 50mg Q12 x2 days. Then Prednisone 60mg QD * Bolus insulin * NovoLog per scale ACHS or Q6hrs while NPO * Goal Range: Low 110 mg/dL - High 140 mg/dL * Correction Factor: 20 mg/dL/unit * Nutritional / Prandial insulin per carb ratio of 1 unit per 7 grams CHO consumed
--- NOTE | 2018-12-23 13:00 | Pulmonology Progress Note ---
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 BAL did not show any eosinophilia. Follow-up culture and Gram stain --> negative to date. Sputum c ulture showing Avelina which is normal chuy. Could be secondary to autoimmune process with diffuse alveolar hemorrhage --> follow-up autoimmune work-up, patient has no eosinophilia in the blood or in the BAL Patient's mycoplasma IgM came out to be positive at the level of 2455 which is very high. Treat with azithromycin for at least 10 days. ( ? Could be mycoplasma induced DAH if autoimmune work-up is negative). Monitor QTC as patient is on azithromycin, monitor QTC Go down on Solu-Medrol to 40 mg every 12 hours and change it to p.o. starting Monday 40 mg. Patient likely needs to be on steroids for at least 3 to 6 months. There is also component of noncardiogenic pulmonary edema as patient's UDS was positive for opiates although patient denies sniffing of opiates she says she took Percocet for her low back pain. 2D echo shows good ejection fraction with no pericardial effusion. Diurese as tolerated with strict in and out -- Hypothyroidism with history of Graves' disease status post thyroidectomy On levothyroxine TSH: 0.22 (low), free T4 1.21(normal) --Elevated troponins likely secondary to type II MO EKG shows no ST-T wave changes with normal sinus rhythm. -- B/l LE edema has been going on for a while Proteinuria in the urine 15.3 mg/dL, with creatinine less than 13 in the urine. Negative for DVT --Secondary hypercoagulable state IPC's given the patient valvular hemorrhage and low hemoglobin (2) Tobacco abuse: Patient is an active smoker with greater than [id number] smoking history. No recent trial of quitting. Patient denies using any vape. Advised to quit. (3) Ground glass opacity present on imaging of lung: As above. (4) Community acquired pneumonia: (5) Fibromyalgia: (6) Elevated troponin: Likely type II MO. Monitor troponin. Subjective Patient seen and examined at bedside. No acute distress, no adverse event overnight. Denies any chest pain, shortness of breath is improved. No headache, no dizziness, no nausea, no vomiting. Patient has been walking in the room. No hematuria, no hematochezia, no hemoptysis. Patient saturating 92% on 2 L nasal cannula at rest. Review of Systems Review of Systems: All systems reviewed & are unremarkable except as noted in HPI & below Physical Exam Physical Exam: Constitutional: No acute distress HEENT: EOMI, PERRLA Respiratory system: Decreased air entry bilaterally, no wheeze, no rhonchi, positive bilateral crackles more on the lower lobes CVS: S1-S2 positive, no murmurs or gallops Abdomen: Soft, nontender, nondistended, positive bowel sounds x4 Extremities: +2 pulses bilaterally radialis/ dorsalis pedis, no edema, no cyanosis Neuro: Awake alert oriented x3 Psych: Normal mood and affect G/U: No [place] Skin: no rashes, warm and dry Lymphatic: no cervical or axillary lymphadenopathy Results & Data Vital Signs (Past 12 Hours) Vital Signs Temp Pulse Pulse Resp BP Pulse Ox 12/23/18 11:30 36.7 C 65 18 105/63 94 12/23/18 11:14 65 16 92 12/23/18 09:17 66 19 104/66 95 12/23/18 07:53 36.7 C 67 18 107/65 92 12/23/18 07:11 63 16 94 12/23/18 06:45 63 12/23/18 03:05 72 18 93 12/23/18 02:04 36.9 C 60 19 116/68 96 Laboratory Tests 12/18/18 11:52 Mycoplasma pneumon IgM 2455 H 12/23/18 06:16 12/23/18 06:16 PG Care Time/CCT Total # of Minutes Spent Total Time Spent with Patient: Total time spent is greater than 50% in coordination of care (as documented) at patient's floor/unit and/or counseling patient:
[2018-12-23 13:58] LABS: Protein Creatinine Ratio Urine 0.2 (0-0.2); Total Protein Urine Random 20.9 mg/dl (0-11.9)
--- NOTE | 2018-12-23 14:35 | Hospitalist Progress Note ---
Date of Service December 23, 2018 Assessment & Plan (1) Sepsis with acute hypoxic respiratory failure: Uncertain etiology with causes including but not limited to DAH, autoimmune disease, infection, smoking induced injury, adverse response to medications such as opiates. Mycoplasma IgM is positive. Cont azithro. BAL specimen revealed negative AFB, no fungal or bacteria present with Avelina presumed to be normal chuy. Cont high dose steroids with taper per Pulmonology and de-escalate these per pulmonology. She is prepared to go home with oxygen in place to await final results of workup. (2) Community acquired pneumonia: Flu negative. Broad spectrum abx de-escalated to azithromycin as monotherapy. Clinically improved. Encouraged smoking cessation strongly. 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 Monitor need for transfusion on am labs. Cont iron supplementation. (4) Weight gain: 2/2 fluid retention. Venous Doppler negative for DVT. Resolved with Lasix in hospital and weight is also down >3kg from admission. Pt is feeling well. (5) Hypothyroidism: h/o Graves disease s/p thyroidectomy, Synthroid recently increased to 137 mcg PO daily. Follow TFTs as outpatient. (6) Demand ischemia: ECHO: No regional wall motion abnormality, EF 65 to 70%, no significant valvular heart disease EKG: No signs of acute ischemia--> No further workup at this time. (7) Hypertension: BP at goal, cont home labetalol and nifedipine unless hypotensive. (8) Depression: mood stable but has been off doxepin since admission. Will discuss with patient how she is feeling and if she wants to start back on this medication. (9) Tobacco abuse: Encourage smoking cessation--contemplative phase--Nicotine patch (10) DVT prophylaxis: SCDs with anemia. Full Code Disposition: cont telemetry DO [facility] Hospital[facility] Subjective feeling well today, denies cough fevers or chills. No hemoptysis. Ambulating in [place]. Tolerating PO. Feels well enough to go home. Family at bedside; updated and reviewed xray images with he and the patient. Discussed the case with pulmonology with plan for potential discharge home on . Review of Systems Review of Systems: All systems reviewed & are unremarkable except as noted in HPI & below Physical Exam Physical Exam: CONSTITUTIONAL: WNWD, vitals as above, generally well- appearing EYES: normal conjunctivae, no scleral icterus ENT: MMM RESPIRATORY: good air movement on the right lung, but has crackles to bases of the left lung, no rales or wheezes heard. Normal respiratory effort CARDIOVASCULAR: regular rate and rhythm, S1 and 2 heard without murmurs, gallops or rubs, no JVD, no peripheral edema GASTROINTESTINAL: normal bowel sounds, soft, nontender, nondistended MUSCULOSKELETAL: strength 5/5 throughout, head is normocephalic and atraumatic SKIN: warm and dry NEUROLOGIC: CN 2-12 grossly intact, normal cognition, no gross focal deficits. PSYCHIATRIC: alert cooperative and oriented to person, place and time. Results & Data Vital Signs (Past 12 Hours) Vital Signs Temp Pulse Pulse Resp BP Pulse Ox 12/23/18 11:30 36.7 C 65 18 105/63 94 12/23/18 11:14 65 16 92 12/23/18 09:17 66 19 104/66 95 12/23/18 07:53 36.7 C 67 18 107/65 92 12/23/18 07:11 63 16 94 12/23/18 06:45 63 12/23/18 03:05 72 18 93 Laboratory Results Short CBC 12/23/18 Range/Units 06:16 WBC 8.26 (4.8-10.8) K/uL Hgb 8.4 L (12.0-16.0) g/dL Hct 26.3 L (37-47) % Plt Count 302 (130-400) K/uL BMP 12/23/18 06:16 Sodium 137 Potassium 4.4 D Chloride 101 Carbon Dioxide 28 BUN 35 H Creatinine 1.14 Glucose 146 H Calcium 9.0 Liver Function 12/23/18 Range/Units 06:16 Total Bilirubin 0.3 (0.2-1) mg/dl AST 13 L (15-37) U/L ALT 33 (12-78) U/L Alkaline Phosphatase 90 (45-117) U/L Albumin 3.0 L (3.4-5.0) gm/dl Medications Administered Current Inpatient Medications Acetaminophen (Tylenol) 650 mg PO Q4H PRN PRN Reason: Pain or Fever Stop: 01/17/19 13:20 Last Admin: 12/20/18 21:13 Dose: 650 mg Documented by: Acetaminophen (Tylenol) 650 mg IN Q4H PRN PRN Reason: Pain or Fever Stop: 01/18/19 00:22 Last Admin: 12/19/18 00:50 Dose: 650 mg Documented by: Al Hydrox/Mg Hydrox/Simethicone (Maalox) 15 ml PO Q4H PRN PRN Reason: Dyspepsia Stop: 01/17/19 13:20 Albuterol (Duoneb) 3 ml NEB QIDR [facility] Stop: 01/17/19 14:59 Last Admin: 12/23/18 11:14 Dose: 3 ml Documented by: Azithromycin (Zithromax) 500 mg PO QAM [facility] Stop: 12/29/18 08:59 Last Admin: 12/23/18 08:13 Dose: 500 mg Documented by: Clonazepam (Klonopin) 1 mg PO BID PRN PRN Reason: Anxiety Stop: 01/17/19 13:20 Last Admin: 12/23/18 08:28 Dose: 1 mg Documented by: Dextrose (Dextrose 50%) 25 - 50 ml IV UD PRN; Protocol PRN Reason: Hypoglycemia Protocol Stop: 01/17/19 13:20 Fentanyl Citrate (Fentanyl Citrate) 25 mcg IV ONE PRN PRN Reason: Pain Not Controlled by Drip Stop: 01/01/19 23:01 Ferrous Sulfate ([facility]osol) [facility] Stop: 01/21/19 08:59 Last Admin: 12/23/18 08:12 Dose: 325 mg Documented by: Gabapentin (Neurontin) 600 mg PO TID [facility] Stop: 01/17/19 13:59 Last Admin: 12/23/18 13:45 Dose: 600 mg Documented by: Glucagon (Glucagen) 1 mg SQ UD PRN; Protocol PRN Reason: Hypoglycemia Protocol Stop: 01/17/19 13:20 Glucose (Glucose 40%) 15 - 30 gm PO UD PRN; Protocol PRN Reason: Hypoglycemia Protocol Stop: 01/17/19 13:20 Glucose (Dex4 Glucose) 4 - 8 tabs PO UD PRN; Protocol PRN Reason: Hypoglycemia Protocol Stop: 01/17/19 13:20 Hydroxyzine HCl (Vistaril) 50 mg PO HS PRN PRN Reason: Insomnia Stop: 01/17/19 13:20 Last Admin: 12/22/18 21:48 Dose: 50 mg Documented by: Furosemide 40 mg/ Syringe 4 mls @ 4 mls/min IV DAILY [facility] Stop: 01/19/19 08:59 Last Admin: 12/22/18 08:47 Dose: 4 mls/min Documented by: Methylprednisolone 40 mg/ (Syringe) 0.64 mls @ 1.5 mls/min IV Q12 [facility] Stop: 01/22/19 20:59 Insulin Aspart (Novolog Flexpen) 0 units SC ACHS [facility]; Protocol Stop: 01/20/19 11:29 Last Admin: 12/23/18 12:10 Dose: 8 units Documented by: Labetalol HCl (Normodyne) 200 mg PO BID [facility] Stop: 01/17/19 20:59 Last Admin: 12/23/18 08:16 Dose: 200 mg Documented by: Levothyroxine Sodium (Levothyroxine Sodium) 137 mcg PO DAILYBB [facility] Stop: 01/18/19 06:29 Last Admin: 12/23/18 05:33 Dose: 137 mcg Documented by: Magnesium Hydroxide (Milk Of Magnesia) 30 ml PO Q12H PRN PRN Reason: Constipation Stop: 01/17/19 13:20 Miscellaneous (Carbohydrates For Hypoglycemia) 15 - 30 gm PO UD PRN PRN Reason: Hypoglycemia Treatment Stop: 01/17/19 13:20 Miscellaneous (Remove Nicoderm Patch) 1 ea N/A HS [facility] Stop: 01/17/19 20:59 Last Admin: 12/22/18 20:52 Dose: Not Given Documented by: Miscellaneous Information (Consult Glycemic Management Pharmacy) 1 ea N/A UD PRN PRN Reason: Consult Stop: 01/19/19 16:24 Multivitamins (Multivitamin Tab) 1 tab PO [facility] Stop: 01/17/19 20:59 Last Admin: 12/22/18 20:52 Dose: 1 tab Documented by: Nicotine (Nicoderm Cq) 21 mg TD QAM [facility] Stop: 01/18/19 08:59 Last Admin: 12/23/18 08:12 Dose: 21 mg Documented by: Nifedipine (Procardia Xl) 90 mg PO QAM [facility] Stop: 01/18/19 08:59 Last Admin: 12/23/18 10:11 Dose: 90 mg Documented by: Ondansetron HCl (Zofran) 4 mg IV Q6H PRN PRN Reason: Nausea Stop: 01/17/19 13:20 Last Admin: 12/22/18 09:39 Dose: 4 mg Documented by: Pantoprazole Sodium (Protonix) 40 mg PO QAM [facility] Stop: 01/20/19 10:59 Last Admin: 12/23/18 08:14 Dose: 40 mg Documented by: Polyethylene Glycol (Miralax Powder Packet) 17 gm PO DAILY PRN PRN Reason: Constipation Stop: 01/17/19 13:20 Polyethylene Glycol (Miralax Powder Packet) 17 gm PO DAILY [facility] Stop: 01/18/19 08:59 Last Admin: 12/23/18 08:23 Dose: Not Given Documented by: Senna/Docusate Sodium (Senokot S) 1 tab PO BID [facility] Stop: 01/20/19 10:59 Last Admin: 12/23/18 08:17 Dose: Not Given Documented by:
[2018-12-23] MEDS: MULTIVITAMIN TAB PO SCH (20:27)
[2018-12-23] MEDS: methylPREDNISolone 40 MG in SYRINGE 0 ML IV SCH (20:29)
[2018-12-24 06:35] LABS: Eosinophils # (auto) 0.01 K/uL (0-0.5); Eosinophils % (auto) 0.1 %; Hematocrit (blood only) 24.6 % (37-47); Hemoglobin 7.9 g/dL (12.0-16.0); Immature Granulocytes # (auto) 0.15 K/uL (0.00-0.02); Immature Granulocytes % (auto) 1.9 %; Lymphocytes # (auto) 1.13 K/uL (1.2-3.4); Lymphocytes % (auto) 14.5 %; Mean Corpuscular Hemoglobin 27.3 pg (25-34); Mean Corpuscular Hgb Conc 32.1 g/dL (32-36); Mean Corpuscular Volume 85.1 fL (80-100); Mean Platelet Volume 10.3 fL (7.4-10.4); Monocytes # (auto) 0.69 K/uL (0.11-0.59); Monocytes % (auto) 8.9 %; Neutrophils # (auto) 5.79 K/uL (1.4-6.5); Neutrophils % (auto) 74.6 %; Platelet Count 313 K/uL (130-400); RDW Standard Deviation 49.8 fL (36.4-46.3); Red Blood Count 2.89 M/uL (4.2-5.4); White Blood Count 7.77 K/uL (4.8-10.8)
[2018-12-24] MEDS: ALBUT/IPRATROP 3MG/0.5MG NEB 3 ML VIAL NEB SCH ×4 (07:07→19:01)
[2018-12-24] MEDS: LEVOTHYROXINE SODIUM 137 MCG TABLET PO SCH (07:08)
[2018-12-24 07:09] LABS: Polychromasia 1+
--- NOTE | 2018-12-24 07:22 | XRay Report ---
XR chest 1V portable CLINICAL HISTORY: Abnormal chest x-ray. Follow-up examination. COMPARISON STUDY: 12/22/2018 FINDINGS: The heart is mildly enlarged. There is no overt failure. There are persistent but improving bibasilar opacities. There are no significant pleural effusions.[ IMPRESSION: Persistent but improving bibasilar opacities. Electronically signed by: Jeromy Ashley M.D. 12/24/2018 7:20 AM
[2018-12-24 07:24] LABS: Albumin Globulin Ratio 0.8 (0.9-2); Albumin Level 2.7 gm/dl (3.4-5.0); Bilirubin,Total 0.2 mg/dl (0.2-1); Calcium 8.5 mg/dl (8.5-10.1); Creatinine Clr Calc Pharmacy 71.1 ml/min; Est GFR (African American) 76.9; Est GFR (Non-African American) 66.4; Globulin 3.4 gm/dl (2.5-4.0); Potassium 3.3 mmol/L (3.5-5.1); Total Protein 6.1 gm/dl (6.4-8.2)
[2018-12-24] MEDS: NICOTINE 21 MG/24 HR TDSY TD SCH (08:42)
[2018-12-24] MEDS: POTASSIUM CHLORIDE 20 MEQ TABCR PO SCH ×2 (08:42→15:26)
[2018-12-24] MEDS: INSULIN ASPART 100 UNITS/ML 3 ML PEN SC SCH ×4 (08:43→21:20)
[2018-12-24] MEDS: PANTOprazole 40 MG TAB PO SCH (08:44)
[2018-12-24] MEDS: POLYETHYLENE (MIRALAX) 17 GM PACK PO SCH (08:44)
[2018-12-24] MEDS: AZITHROMYCIN 250 MG TAB PO SCH (08:44)
[2018-12-24] MEDS: DOCUSATE SODIUM/SENNA 50/8.6MG TAB PO SCH (08:44)
[2018-12-24] MEDS: GABAPENTIN 600 MG TAB PO SCH ×3 (08:45→22:30)
[2018-12-24] MEDS: methylPREDNISolone 40 MG in SYRINGE 0 ML IV SCH (08:45)
[2018-12-24] MEDS: FERROUS SULFATE 325 MG TAB PO SCH (08:45)
[2018-12-24] MEDS: clonazePAM 1 MG TAB PO PRN ×2 (08:49→21:27)
[2018-12-24] MEDS ORDERED: INSULIN GLARGINE SOLOSTAR 100 UNITS/ML 3 ML PEN SC ONE (09:00)
[2018-12-24] MEDS: LABETALOL HCL 200 MG TAB PO SCH (09:15)
[2018-12-24] MEDS: FUROSEMIDE 40 MG in SYRINGE 0 ML IV SCH (09:15)
--- NOTE | 2018-12-24 12:57 | Pulmonology Progress Note ---
Date of Service December 24, 2018 Assessment & Plan (1) Sepsis with acute hypoxic respiratory failure: Diffuse alveolar hemorrhage found on bronchoscopy. BAL did not show any eosinophilia. Follow-up culture and Gram stain --> negative to date. Sputum c ulture showing Avelina which is normal chuy. Could be secondary to autoimmune process with diffuse alveolar hemorrhage --> follow-up autoimmune work-up, patient has no eosinophilia in the blood or in the BAL Patient's mycoplasma IgM came out to be positive at the level of 2455 which is very high. Treat with azithromycin for at least 10 days. ( ? Could be mycoplasma induced DAH if autoimmune work-up is negative). Monitor QTC as patient is on azithromycin Transition to PO prednisone 40 mg BID and decrease by 5 mg every day until down to 40 mg. She can follow up with us in pulmonary clinic in 2 weeks with a repeat CXR. Will need full PFTs as well. She notes that she has had 5 episodes of respiratory failure in the last few years and each time she gets massive leg swelling. As noted previously, auto-immune serologies pending. She may need a lung bx in the future to help establish a possible etiology. Another possible cause is non-cardiogenic pulmonary edema secondary to opiates causing pulmonary leak and bland alveolar hemorrhage. This may also be an idiopathic interstitial pneumonia from smoking related ILD. She needs to absolutely abstain from tobacco products. Lastly, recommend starting her on PJP ppx with Bactrim DS tab MWF while she is on >20 mg PO prednisone. (2) Tobacco abuse: Patient is an active smoker with greater than 57-[id number] smoking history. No recent trial of quitting. Patient denies using any vape. Advised to quit. (3) Ground glass opacity present on imaging of lung: As above. (4) Community acquired pneumonia: (5) Fibromyalgia: (6) Elevated troponin: Likely type II [place]. Monitor troponin. Subjective Patient laying in bed and satting in mid 90s on 2LNC. Patient is feeling less s hort of breath today. Was able to ambulate. Denies chest pain. No nausea or vomiting. No fevers. Physical Exam Constitutional: Laying in bed with nasal cannula in place. No distress. Appears weak Eyes: PERRL, conjunctivae normal, anicteric sclerae ENMT: external ear and nose normal, oropharynx normal Neck: normal visual inspection Respiratory: normal respiratory effort, lungs clear to auscultation Cardiovascular: RRR, no murmur, no edema Gastrointestinal (Abdomen): normal bowel sounds, soft, nontender, no hepatosplenomegaly Musculoskeletal: no cyanosis or clubbing, extremities motor strength 5/5 Skin: no rashes, warm and dry Neurologic: PERRL, EOMI, accommodation nl, no face palsy, no dysarthria Psychiatric: A+Ox3, euthymic affect Results & Data Vital Signs (Past 12 Hours) Vital Signs Temp Pulse Pulse Pulse Resp BP BP 12/24/18 11:38 12/24/18 11:29 97.7 F 59 L 16 103/67 12/24/18 11:02 63 18 12/24/18 08:41 69 94/55 L 12/24/18 07:40 97.9 F 64 18 94/54 L 12/24/18 07:10 65 18 12/24/18 06:45 64 12/24/18 03:32 97.5 F L 63 16 97/63 L Pulse Ox Pulse Ox Pulse Ox Pulse Ox 12/24/18 11:38 92 92 93 12/24/18 11:29 94 12/24/18 11:02 91 12/24/18 08:41 93 12/24/18 07:40 92 12/24/18 07:10 90 12/24/18 06:45 12/24/18 03:32 95 I personally reviewed pertinent labs and chest imaging. PG Care Time/CCT Total # of Minutes Spent Total Time Spent with Patient: Total time spent is greater than 50% in coordination of care (as documented) at patient's floor/unit and/or counseling patient:
--- NOTE | 2018-12-24 15:41 | Hospitalist Progress Note ---
Date of Service December 24, 2018 Assessment & Plan (1) Sepsis with acute hypoxic respiratory failure: Uncertain etiology with causes including but not limited to DAH, autoimmune disease, infection. Serology will need to be followed up with PCP as outpatient. Mycoplasma +. Cont Azitho. Blood cultures are negative. BAL specimen revealed negative AFB, no fungal or bacteria present with Avelina presumed to be normal chuy. Cont high dose steroids with long taper per Pulmonology. Two step in am in preparation for home with oxygen. Will add Dapsone for prophylaxis on chronic immune suppression therapy. (2) Community acquired pneumonia: Flu negative. Broad spectrum abx de-escalated to azithromycin as monotherapy. Clinically improved. Encouraged smoking cessation strongly. 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 Monitor need for transfusion on am labs. Cont iron supplementation. (4) Weight gain: 2/2 fluid retention. Venous Doppler negative for DVT. Resolved with Lasix in hospital and weight is also down 3kg from admission. Pt is feeling well. (5) Hypothyroidism: h/o Graves disease s/p thyroidectomy, Synthroid recently increased to 137 mcg PO daily. Follow TFTs as outpatient. (6) Demand ischemia: ECHO: No regional wall motion abnormality, EF 65 to 70%, no significant valvular heart disease EKG: No signs of acute ischemia--> No further workup at this time. (7) Hypertension: BP low, holding nifedipine and decreased labetalol by 50% (8) Depression: mood stable but has been off doxepin since admission. Will discuss with patient how she is feeling and if she wants to start back on this medication. (9) Tobacco abuse: Encourage smoking cessation--contemplative phase--Nicotine patch (10) DVT prophylaxis: Lovenox added today as H/H stable and improving. She is ambulating. Full Code Disposition: to floor. May shower. Home in am with oxygen per two step. No BIPAP needed overnight. Kandis Ro DO [facility] Hospitalist Subjective doing well, breathing is very stable. denies coughing, fevers, chills. Tolerating PO. Ambulating around the hallways on 2L NC for the past 24-48 hours consistently. Review of Systems Review of Systems: All systems reviewed & are unremarkable except as noted in HPI & below Physical Exam Physical Exam: CONSTITUTIONAL: WNWD, vitals as above, generally well- appearing EYES: normal conjunctivae, no scleral icterus ENT: MMM RESPIRATORY: good air movement throughout without crackles, rales or wheezes heard. Normal respiratory effort CARDIOVASCULAR: regular rate and rhythm, S1 and 2 heard without murmurs, gallops or rubs, no JVD, no peripheral edema GASTROINTESTINAL: normal bowel sounds, soft, nontender, nondistended MUSCULOSKELETAL: strength 5/5 throughout, head is normocephalic and atraumatic SKIN: warm and dry NEUROLOGIC: CN 2-12 grossly intact, normal cognition, no gross focal deficits. PSYCHIATRIC: alert cooperative and oriented to person, place and time. Results & Data Vital Signs (Past 12 Hours) Vital Signs Temp Pulse Pulse Pulse Resp BP BP 12/24/18 15:37 36.6 C 74 18 109/69 12/24/18 15:23 73 18 12/24/18 11:38 12/24/18 11:29 36.5 C 59 L 16 103/67 12/24/18 11:02 63 18 12/24/18 08:41 69 94/55 L 12/24/18 07:40 36.6 C 64 18 94/54 L 12/24/18 07:10 65 18 12/24/18 06:45 64 Pulse Ox Pulse Ox Pulse Ox Pulse Ox 12/24/18 15:37 95 12/24/18 15:23 96 12/24/18 11:38 92 92 93 12/24/18 11:29 94 12/24/18 11:02 91 12/24/18 08:41 93 12/24/18 07:40 92 12/24/18 07:10 90 12/24/18 06:45 Laboratory Results Short CBC 12/24/18 Range/Units 05:47 WBC 7.77 (4.8-10.8) K/uL Hgb 7.9 L (12.0-16.0) g/dL Hct 24.6 L (37-47) % Plt Count 313 (130-400) K/uL BMP 12/24/18 05:47 Sodium 138 Potassium 3.3 L D Chloride 102 Carbon Dioxide 28 BUN 33 H Creatinine 1.02 Glucose 127 H Calcium 8.5 Liver Function 12/24/18 Range/Units 05:47 Total Bilirubin 0.2 (0.2-1) mg/dl AST 9 L (15-37) U/L ALT 32 (12-78) U/L Alkaline Phosphatase 88 (45-117) U/L Albumin 2.7 L (3.4-5.0) gm/dl Medications Administered Current Inpatient Medications Acetaminophen (Tylenol) 650 mg PO Q4H PRN PRN Reason: Pain or Fever Stop: 01/17/19 13:20 Last Admin: 12/20/18 21:13 Dose: 650 mg Documented by: Al Hydrox/Mg Hydrox/Simethicone (Maalox) 15 ml PO Q4H PRN PRN Reason: Dyspepsia Stop: 01/17/19 13:20 Albuterol (Duoneb) 3 ml NEB QIDR [facility] Stop: 01/17/19 14:59 Last Admin: 12/24/18 15:21 Dose: 3 ml Documented by: Azithromycin (Zithromax) 500 mg PO QAM [facility] Stop: 12/29/18 08:59 Last Admin: 12/24/18 08:44 Dose: 500 mg Documented by: Clonazepam (Klonopin) 1 mg PO BID PRN PRN Reason: Anxiety Stop: 01/17/19 13:20 Last Admin: 12/24/18 08:49 Dose: 1 mg Documented by: Dextrose (Dextrose 50%) 25 - 50 ml IV UD PRN; Protocol PRN Reason: Hypoglycemia Protocol Stop: 01/17/19 13:20 Fentanyl Citrate (Fentanyl Citrate) 25 mcg IV ONE PRN PRN Reason: Pain Not Controlled by Drip Stop: 01/01/19 23:01 Ferrous Sulfate (Feosol) [facility] [place] [facility] [place]: 01/21/19 08:59 Last Admin: 12/24/18 08:45 Dose: 325 mg Documented by: Gabapentin (Neurontin) 600 mg PO TID [facility] Stop: 01/17/19 13:59 Last Admin: 12/24/18 13:14 Dose: 600 mg Documented by: Glucagon (Glucagen) 1 mg SQ UD PRN; Protocol PRN Reason: Hypoglycemia Protocol Stop: 01/17/19 13:20 Glucose (Glucose 40%) 15 - 30 gm PO UD PRN; Protocol PRN Reason: Hypoglycemia Protocol Stop: 01/17/19 13:20 Glucose (Dex4 Glucose) 4 - 8 tabs PO UD PRN; Protocol PRN Reason: Hypoglycemia Protocol Stop: 01/17/19 13:20 Hydroxyzine HCl (Vistaril) 50 mg PO HS PRN PRN Reason: Insomnia Stop: 01/17/19 13:20 Last Admin: 12/23/18 21:15 Dose: 50 mg Documented by: Furosemide 40 mg/ Syringe 4 mls @ 4 mls/min IV DAILY [facility] Stop: 01/19/19 08:59 Last Admin: 12/24/18 09:15 Dose: Not Given Documented by: Insulin Aspart (Novolog Flexpen) 0 units SC ACHS [facility]; Protocol Stop: 01/20/19 11:29 Last Admin: 12/24/18 13:14 Dose: 11 units Documented by: Labetalol HCl (Normodyne) 100 mg PO BID [facility] Stop: 01/23/19 20:59 Levothyroxine Sodium (Levothyroxine Sodium) 137 mcg PO DAILYBB [facility] Stop: 01/18/19 06:29 Last Admin: 12/24/18 07:08 Dose: 137 mcg Documented by: Magnesium Hydroxide (Milk Of Magnesia) 30 ml PO Q12H PRN PRN Reason: Constipation Stop: 01/17/19 13:20 Miscellaneous (Carbohydrates For Hypoglycemia) 15 - 30 gm PO UD PRN PRN Reason: Hypoglycemia Treatment Stop: 01/17/19 13:20 Miscellaneous (Remove Nicoderm Patch) 1 ea N/A HS [facility] Stop: 01/17/19 20:59 Last Admin: 12/23/18 20:29 Dose: Not Given Documented by: Miscellaneous Information (Consult Glycemic Management Pharmacy) 1 ea N/A UD PRN PRN Reason: Consult Stop: 01/19/19 16:24 Nicotine (Nicoderm Cq) 21 mg [place] [facility] [place]: 01/18/19 08:59 Last Admin: 12/24/18 08:42 Dose: 21 mg Documented by: Nifedipine (Procardia Xl) 90 mg PO QAM [facility] Stop: 01/18/19 08:59 Last Admin: 12/23/18 10:11 Dose: 90 mg Documented by: Ondansetron HCl (Zofran) 4 mg IV Q6H PRN PRN Reason: Nausea Stop: 01/17/19 13:20 Last Admin: 12/22/18 09:39 Dose: 4 mg Documented by: Pantoprazole Sodium (Protonix) 40 mg PO QAM [facility] Stop: 01/20/19 10:59 Last Admin: 12/24/18 08:44 Dose: 40 mg Documented by: Polyethylene Glycol (Miralax Powder Packet) 17 gm PO DAILY PRN PRN Reason: Constipation Stop: 01/17/19 13:20 Polyethylene Glycol (Miralax Powder Packet) 17 gm PO DAILY [facility] Stop: 01/18/19 08:59 Last Admin: 12/24/18 08:44 Dose: Not Given Documented by: Prednisone (Prednisone) 40 mg PO BID [facility] Stop: 01/23/19 20:59
[2018-12-24] MEDS ORDERED: ENOXAPARIN INJ 40 MG/0.4 ML SYR SQ SCH (21:00)
[2018-12-24] MEDS ORDERED: LABETALOL HCL 200 MG TAB PO SCH (21:00)
[2018-12-24] MEDS: LABETALOL HCL 100 MG TAB PO SCH (21:21)
[2018-12-24] MEDS: predniSONE 20 MG TAB PO SCH (21:23)
[2018-12-25] MEDS: LEVOTHYROXINE SODIUM 137 MCG TABLET PO SCH (06:08)
[2018-12-25] MEDS: ALBUT/IPRATROP 3MG/0.5MG NEB 3 ML VIAL NEB SCH ×3 (07:03→14:52)
[2018-12-25 07:46] LABS: Hematocrit (blood only) 25.8 % (37-47); Hemoglobin 8.1 g/dL (12.0-16.0); Mean Corpuscular Hemoglobin 26.8 pg (25-34); Mean Corpuscular Hgb Conc 31.4 g/dL (32-36); Mean Corpuscular Volume 85.4 fL (80-100); Mean Platelet Volume 9.9 fL (7.4-10.4); Platelet Count 299 K/uL (130-400); RDW Standard Deviation 50.3 fL (36.4-46.3); Red Blood Count 3.02 M/uL (4.2-5.4); White Blood Count 7.02 K/uL (4.8-10.8)
[2018-12-25 08:16] LABS: Calcium 8.7 mg/dl (8.5-10.1); Est GFR (Non-African American) 74.2; Potassium 4.1 mmol/L (3.5-5.1)
[2018-12-25] MEDS: clonazePAM 1 MG TAB PO PRN (08:20)
[2018-12-25] MEDS: FERROUS SULFATE 325 MG TAB PO SCH (09:00)
[2018-12-25] MEDS ORDERED: INSULIN GLARGINE SOLOSTAR 100 UNITS/ML 3 ML PEN SC ONE (09:00)
[2018-12-25] MEDS: PANTOprazole 40 MG TAB PO SCH (09:01)
[2018-12-25] MEDS: LABETALOL HCL 100 MG TAB PO SCH (09:02)
[2018-12-25] MEDS: predniSONE 20 MG TAB PO SCH (09:02)
[2018-12-25] MEDS: GABAPENTIN 600 MG TAB PO SCH ×2 (09:02→13:41)
[2018-12-25] MEDS: NICOTINE 21 MG/24 HR TDSY TD SCH (09:03)
[2018-12-25] MEDS: POLYETHYLENE (MIRALAX) 17 GM PACK PO SCH (09:04)
[2018-12-25] MEDS: AZITHROMYCIN 250 MG TAB PO SCH (09:05)
[2018-12-25] MEDS: INSULIN ASPART 100 UNITS/ML 3 ML PEN SC SCH ×2 (09:12→12:17)
--- NOTE | 2018-12-25 09:27 | Pharmacy Report ---
Pharmacy Glycemic Short Note 2 - Date of Service December 25, 2018 - Glycemic Short BSG Results (Last 24 hours): 12/24/18 12/24/18 12/24/18 11:22 16:09 20:20 Glucose POC Glucose 158 H 82 126 H 12/25/18 12/25/18 07:22 07:29 Glucose 130 H POC Glucose 134 H OUTPATIENT ANTIDIABETIC REGIMEN: * None ASSESSMENT: * Steroids tapered to prednisone 40 mg PO BID starting last night * BSGs well controlled yesterday (82-169 mg/dL) * Received 31 units of insulin yesterday (10 of which were basal) * Fasting BSG this morning of 134 mg/dL * CR loosened with dinner last evening PLAN FOR INPATIENT GLYCEMIC CONTROL: * Basal insulin: 13 units of Lantus this morning (consider decreasing dose if steroids are further tapered) * Bolus insulin - loosen CF/CR in light of steroid taper * NovoLog per scale ACHS or Q6hrs while NPO * Goal Range: Low 110 mg/dL - High 140 mg/dL * Correction Factor: 30 mg/dL/unit * Nutritional / Prandial insulin per carb ratio of 1 unit per 12 grams CHO consumed Discharge: Elevated BSGs most likely due to steroid-induced hyperglycemia. Patient has normal A1c of 5.6% (12/19/18). Will assess as steroids continue to be tapered. Anticipating no need for further treatment with antidiabetic agents/insulin at discharge.
--- NOTE | 2018-12-25 14:23 | Discharge Summary ---
Date of Service December 25, 2018 Admission HPI Per Admitting Provider This is a 43-year-old female who has significant PMH of asthma, tobacco abuse, HTN, GERD s/p monica fundoplication x3, chronic low back pain, migraine, depression with anxiety, Graves' disease status post thyroidectomy who presents to [facility] ED secondary to shortness of breath x2 to 3 days. Over the past 2 to 3 days she feels overall rundown, chest tightness, wheezing, dry cough, elevated temperature 99.5, 102.5 tympanically this morning. States she has history of pneumonia, "approximately once a year," but has never required hospitalization. She is been trying [id number] Tylenol and Mucinex with minimal relief. Requiring her albuterol inhaler 3-4 times a day with mild improvement. She further complains approximately 10 pound weight gain over the past 2 to 3 months along with myalgias in which she has been worked up by her PCP. Her PCP prescribed her Lasix 20 mg as needed in regards to her lower extremity swelling. She attributed it to her, "thyroid level being off." She feels her legs are swollen today, but improved from previously. Complains of lower extremity tightness, but no pain. She complains of chills/sweats. She denies dizziness, lightheadedness, syncope, chest pain, palpitations, hemoptysis, orthopnea, PND, BUCKLEY, emesis, abdominal pain, dysuria, increased urgency or frequency with urination, hematuria, melena, hematochezia, epistaxis. Appetite has been normal. Admission Exam Per Admitting Provider Constitutional: WD/WN,ill appearing, vitals as above, NAD, sitting up in bed, pleasant, conversing easily Head: Normocephalic, Atraumatic Eyes: PERRL, conjunctivae normal, anicteric sclerae ENMT: external ear and nose normal, oropharynx normal Neck: trachea midline, no thyromegaly normal visual inspection Respiratory: On O2 via oxymask, normal respiratory effort, lungs clear to auscultation with bibasilar crackles and crackles to L mid lung, no wheeze/rhonchi. Normal insp/exp effort, no accessory muscle use Cardiovascular: tachycardic rate and regular rhythm, no murmur, pre tibial edema L > R Vessels: no JVD or carotid bruit Chest: normal inspection of chest Abdomen: normal bowel sounds, soft, nontender, no hepatosplenomegaly Musculoskeletal: no cyanosis or clubbing, extremities motor strength 5/5 Skin: no rashes, warm and dry normal turgor Neurologic: PERRL, EOMI, accommodation nl, no face palsy, no dysarthria CN's II-XI intact bilaterally and moves all extremities Psychiatric: A+Ox3, euthymic affect Lymphatic: no cervical or axillary lymphadenopathy : deferred Principal Diagnosis Acute respiratory failure with sepsis with resolution of hypoxia Mycoplasma pneumonia Diffuse alveolar hemorrhage Iron deficiency anemia Weight Gain Demand ischemia Tobacco use Steroid-induced hyperglycemia Discharge Data Allergies Allergy/AdvReac Type Severity Reaction Status Date / Time aspirin Allergy Severe WHEEZING Verified 12/18/18 10:42 Sulfa (Sulfonamide Allergy Intermediate HIVES Verified 12/18/18 10:42 Antibiotics) Consultations 12/18/18 10:42 ED Decision to Admit Stat 12/18/18 15:06 Consult Pulmonology Routine 12/18/18 19:12 Consult Marine Surveyor Routine Ordered Studies 12/18/18 11:15 CT angio chest PE protocol Stat 12/18/18 12:03 US venous doppler LE BI Stat Hospital Course (1) Sepsis with acute hypoxic respiratory failure: (2) Community acquired pneumonia: (3) Iron deficiency anemia due to chronic blood loss: (4) Weight gain: (5) Hypothyroidism: (6) Demand ischemia: (7) Tobacco abuse: 43-year-old female presented with sepsis with acute hypoxic respiratory failure. On hospital day 1 she was intubated and placed in the ICU. Bronchoscopy was performed and diffuse alveolar hemorrhage was observed. Bronchoscopic alveolar lavage did not show any eosinophilia. Follow-up culture and Gram stain were negative. Sputum culture revealed Avelina which was consistent with normal chuy. An autoimmune process was considered with pending autoimmune serology work-up at time of discharge. No peripheral eosinophilia was seen. She did have a positive mycoplasma IgM that came out of the level of 2455 which was high. She was treated with azithromycin and consideration was given to mycoplasma induced diffuse alveolar hemorrhage if autoimmune work-up is negative. Iron deficiency anemia was noted on labwork, and no blood transfusion was given. Iron supplementation was started. She was given high-dose steroids with good clinical response and transitioned to oral prednisone with a slow taper at discharge. PPI was added for stress ulcer prophylaxis. She was foll owed by pulmonology throughout her hospitalization with plans to followup in the pulmonary clinic within 2 weeks for repeat chest x-ray and full pulmonary function tests, also. She is noted to have 5 episodes of respiratory failure in the last few years with each time associated with massive leg swelling. She had been noted to gain 10 pounds with significant lower extremity edema on admission and subsequent improvement with IV Lasix during hospitalization. She may need a lung biopsy in the future to help establish a possible etiology. Another possible cause considered was noncardiogenic pulmonary edema secondary to opiates causing pulmonary leak and bland alveolar hemorrhage. This may also be an idiopathic interstitial pneumonia from smoking-related interstitial lung disease. She was strongly counseled to abstain from tobacco products. Lastly she is allergic to sulfa drugs PJP prophylaxis with Bactrim was not an option and a G6PD deficiency test was ordered prior to starting dapsone for prophylaxis. The results were negative and this result was shared with her mold capper helper who will follow her up in the clinic. PJP prophylaxis will be important while she is on greater than 20 mg of oral prednisone daily which may be long-term. At time of discharge a two-step respiratory test was performed revealing no evidence of oxygen needs with rest or ambulation. She was hemodyna mically stable and afebrile and tolerating p.o. She was mentating and ambulating at baseline with some weakness secondary to prolonged hospitalization and ICU stay. She did not require rehabilitation. She was eager to get back to her 2 small children to care for them, and was discharged in stable condition to home with close primary care follow-up recommended and close pulmonary care recommended. Total Time Total Time Spent Total Time Spent (In Minutes): 60 Total Time Includes: Examination of the Patient, Discharge Planning, Medication Reconciliation, Communication With Other Providers and Other (Arrange outpatient follow-up) Discharge Plan Discharge Items Patient Disposition: Home - Self-Care Reason For Visit: SEPSIS 2/2 TO PNA, ACUTE ANEMIA Discharge Diagnosis: Acute respiratory failure with sepsis with resolution of hypoxia Mycoplasma pneumonia Diffuse alveolar hemorrhage Iron deficiency anemia Weight Gain Demand ischemia Tobacco use Steroid-induced hyperglycemia Condition on Discharge: Good Health Concerns: Needs close pulmonary follow-up Stop smoking Activity: Resume your previous activity Non-emergency contact: Primary Care Provider Call non-emergency contact if: you have any medication questions, your symptoms worsen, your pain is not controlled, your pain is worsening, your pain is unusual for you, your pain is concerning for you and you have a fever Follow-up/Referrals: Karel Simon MD [Physician] - Jeanette Patel PA-C [Primary Care Provider] - Diet: Carb Consistent or DM2 Addtl Attending Provider Instructions: Please take all medications as instructed on discharge list below. Multiple medications changes were made as follows: (New) Prednisone 10mg-start 40mg twice daily, then decrease by 5mg every daily until you are taking 50mg daily. Cont taking 50mg (5 pills) daily until seen by Pulmonology for follow-up. (New) Spiriva Respimat inhaler-per lung doctor (New) Nicoderm patches-to help quit smoking (New) Ferrous Iron tablets-to treat anemia (New) Pantoprozole 40mg daily-to prevent stomach ulcers while on steroids (Decreased) Labetalol 100mg twice daily (Decreased) Nifedipine 30mg once daily You will need to take Dapsone for PCP prophylaxis, however, we need to rule out G6PD deficiency first. That lab was drawn prior to discharge and you can follow-up on the result with your primary care physician next week. Also this visit will be important to recheck blood pressure and pulse and make sure you are tolerating all the medications well. It will also be important to review your blood sugar numbers at that time. Please check your blood sugar 1-2 times per day. If you see numbers consistently over 200, please contact your primary care provider right away. 12/31/2018 1:30 PM Jeanette Patel PA-C [facility] You will need to follow-up with [facility] [place] Pulmonology in 1-2 weeks. Please call them to schedule an appointment. It was a pleasure taking care of you! Please call if you have any questions or problems. You can reach a [facility] hospitalist on duty at [facility] 24 hours a day by calling [phone]. Take care of yourself. Kandis Ro, DO [facility] Hospitalist Pending Studies at Discharge: Yes Studies:: Immunology panel Stand-Alone Forms: My [facility], Smoking Cessation Medications and DC Order Prescriptions: New nicotine [Nicoderm CQ] 21 mg/24 hr Patch 24 Hour 21 mg transdermal QAM Qty: 14 RF: 1 ferrous sulfate 325 mg (65 mg iron) Tablet,Delayed Release (Dr/Ec) 325 mg PO QAM Qty: 30 RF: 2 labetalol 100 mg Tablet 100 mg PO BID Qty: 60 RF: 1 nifedipine 30 mg tablet extended release 30 mg PO DAILY Qty: 30 RF: 1 pantoprazole 40 mg Tablet,Delayed Release (Dr/Ec) 40 mg PO QAM Qty: 30 RF: 1 prednisone 10 mg tablet 10 mg PO UD Qty: 110 RF: 0 Continued albuterol sulfate [Ventolin HFA] 90 mcg/actuation Hfa Aerosol Inhaler 2 puff INHALATION Q6H Qty: 0 RF: 0 multivitamin Tablet 1 tab PO HS Qty: 0 RF: 0 polyethylene glycol 3350 17 gram Powder In Packet 17 g PO DAILY Qty: 527 RF: 0 cyclobenzaprine 10 mg tablet 10 mg PO TID PRN (Reason: Muscle Spasm) RF: 0 gabapentin 600 mg tablet 600 mg PO TID RF: 0 clonazepam 1 mg tablet 1 mg PO BID PRN (Reason: Anxiety) RF: 0 hydroxyzine pamoate 50 mg capsule 50 mg PO HS PRN (Reason: Insomnia) RF: 0 furosemide 20 mg tablet 20 mg PO DAILY PRN (Reason: Fluid Retention) RF: 0 doxepin 150 mg capsule 300 mg PO HS RF: 0 levothyroxine 137 mcg tablet 137 mcg PO QAM RF: 0 ondansetron 4 mg tablet,disintegrating 4 mg PO Q6H PRN (Reason: Nausea) RF: 0 cholecalciferol (vitamin D3) 50,000 unit capsule 50,000 unit PO RENO RF: 0 Discontinued labetalol 200 mg tablet 200 mg PO BID RF: 0 nifedipine 90 mg tablet extended release 90 mg PO QAM RF: 0 No Action Incruse Ellipta 62.5 mcg/actuation blister with device 1 puffs INH DAILY Qty: 30 RF: 1 Discharge Orders: Discharge Order (Routine); Ordered 12/25/18 Ordered By: Kandis Ro Admission Data Admit Date/Time: 12/18/18 12:03 Attending Provider: Kandis Ro Admit Provider: Kandis Ro Primary Care Provider: Jeanette Patel Other Providers: Karel Simon ; Kandis Ro Other Interventions: Discharge Summary Assessment (RN) Last Done: 12/25/18 15:00 DC Date/Time DO NOT enter until pt leaves facility: 12/25/18 15:38
[2018-12-26 21:20] LABS: Anti Nuclear Antibody Screen NEGATIVE (NEGATIVE); Anti-Centromere Ab <1.0 NEG AI (<1.0 NEG); Anti-Glom Basement Antibody <1.0 AI (<1.0); Anti-Neutrophil Antibody NONE DETECTED (NONE DETECTED); Anti-SS-A <1.0 NEG AI (<1.0 NEG); Anti-SS-B <1.0 NEG AI (<1.0 NEG); Anti-dsDNA Recombinant 13 IU/ML; JO 1 Antibody <1.0 NEG AI (<1.0 NEG); Proteinase-3 Ab <1.0 AI (<1.0); RNP Antibody <1.0 NEG AI (<1.0 NEG); Rheumatoid Factor < 14 IU/ML (<14); Scleroderma Anti Scl-70 Ab <1.0 NEG AI (<1.0 NEG); Sm Antibody <1.0 NEG AI (<1.0 NEG)
== END 2018-12-25 15:38 | disposition home or self-care (01) | DRG 871 ==
LOC: ED 09:16 → SUATTDRO 12:03 → 2E 12:03 → 1E 18:43 → 2S 12-21 14:37 → 4W 12-24 15:37

== ENCOUNTER 2021-07-27 18:03 | Inpatient (IN) ==
--- NOTE | 2021-07-27 19:07 | Emergency Department Note ---
Impression & Plan Hypercarbia, Acute confusion, Fall ED Provider Note NAME: MARLENA ALFRED AGE: 45 SEX: F : 1975 ARRIVES VIA: Walk-In INFORMANT: Patient, ED PROVIDER(S): Gerard Junior MD Chief Complaint: Confusion, found down HPI: Patient presents due to concern for confusion disorientation. The patient's . Patient was reportedly found down and was not very responsive at that time. The patient does have a known history of seizures and does follow Dr. Delgado taking Keppra twice daily. The patient does smoke and states that she has some shortness of breath but this is not changed from her typical. The patient denies any chest pains. The patient does complain of some mild lower back discomfort since she was found down. The patient's daughter had been around her during the day and did hear her mother called out her name but did not think anything of it until about a minute later and noticed the patient on the floor. The patient was down for maybe several minutes. states that she has had some chronic skin issues and there was concern about possible scabies and had undergone a treatment of ivermectin and permethrin. He states that she just seems kind of out of it. Patient denies any headache or neck pain. Patient denies any nausea vomiting. The patient denies extremity pain. Patient has had itchiness along with these excoriations for approximate month in duration. No known inciting event. Other family with in the home do not have similar symptoms ROS: See HPI for pertinent positives and negatives. A total of 10 systems were reviewed and otherwise negative. Past medical history: See below Surgical history: See below Social history: See below Physical Exam: GENERAL: Fatigued in appearance, wearing glasses and a mask but nontoxic. EYE EXAM: Normal conjunctiva. PERRL, no anisocoria and EOM's grossly intact w/o pain. OROPHARYNX: Moist mucus membranes. Grossly normal dentition. NECK: Supple, no nuchal rigidity, no adenopathy, non-tender. No signs of meningismus. No midline C-spine TTP LUNGS: Clear to auscultation. Normal chest wall mechanics. Chest: No reproducible chest wall or posterior rib pain HEART: NSR, no MRG. ABDOMEN: Abdomen soft, non-tender, normo-active bowel sounds, no masses, no rebound or guarding. BACK: Mild midline mid LBP without step-offs or overlying skin changes. SKIN: Small excoriations to bilateral hands, redness noted to the bilateral lower extremities beginning in the mid castillo to the feet, warmth and redness noted without crepitus or active drainage. Nonblistering UPPER EXTREMITIES: Upper extremities are grossly normal. LOWER EXTREMITIES: Grossly normal, no edema. NEURO EXAM: A&O x3, cranial nerves II-XII grossly intact, normal speech, moves all 4 extremities on command w/o issue. Good [id number]. No drift. Differential diagnoses: Infection, dehydration, metabolic abnormality, hypo/hyperglycemia, electrolyte disturbance, anemia, hypoxia, cardiac sources, intracerebral event, toxicologic, neurologic, as well as other pathologies. Course: Patient was seen and evaluated the bedside. Full history physical exam was performed. EKG interpreted by me Normal sinus rhythm, rate of 66, normal intervals, normal axis, T wave version in lead III noncontiguous leads, T wave version in V2. Not in V3. No obvious ST elevations. Imaging Studies: See Below Cardiac monitoring: An order was placed for continuous cardiac monitoring. The monitor shows a rate of 77 with sinus rhythm. MDM: Patient presented due to concern for being found down with confusion and disorientation. Blood work is obtained along with CT of the head and lumbar spine. Chest x-ray was also obtained the patient was given a dose of Rocephin given the possible cellulitic change in the bilateral lower extremities. Patient lower shows a normal white count virtually normal hemoglobin 11.8. Platelet count is unremarkable. Patient's initial blood gas did show concern for pH of 7.27 with hypercarbia. Of PCO2 of 59. Patient's other blood work is fairly unremarkable. CT of the head is neck negative for CT head negative. CT cervical spine negative for chest x-ray with chronic findings but no change CT lumbar spine is negative. Given the patient's hypercarbia and confusion with this fall versus unresponsive episode do believe the patient would benefit from inpatient treatment. The patient was stable on the BiPAP. I did speak the on- call hospitalist the patient was admitted by Dr. Guerrero. Critical Care: I have personally spent 35 minutes of critical care time in direct management of this patient. This includes bedside care, interpretation of diagnostic studies, and testing, discussion with consultants, patient, and family members, and other require inpatient management activities. This 35 minutes is in excess of all separately billable procedures. 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) Snoring Tobacco abuse counseling Surgical History History of section History of dilation and curettage Family History Mother COPD (chronic obstructive pulmonary disease) Myocardial infarction, Onset Age: 51 Social History Smoking Status: Current every day smoker Tobacco Type: Cigarettes Cigarettes Per Day: 20; Second Hand Exposure: No; Hx Alcohol Use: No Hx Substance Use: No Preferred Language: Montenegrin Communication Ability: Impaired Visual Impairment: No Limitations Technical Sales Support Specialist Required: No Beliefs That Will Affect Care: None Current Living Situation: Family and Other Current Living Situation Comment: ex helps with children Feels Safe at Home: Yes Assistive Devices: Glasses Allergies Allergies Allergy/AdvReac Type Severity Reaction Status Date / Time aspirin Allergy Severe WHEEZING Verified 07/27/21 21:46 Sulfa (Sulfonamide Allergy Intermediate HIVES Verified 07/27/21 21:46 Antibiotics) Home Meds Home Medications Medication Instructions Recorded Confirmed clonazepam 1 mg tablet 1 mg PO BID PRN 12/18/18 07/27/21 cyclobenzaprine 10 mg tablet 10 mg PO TID PRN 12/18/18 07/27/21 doxepin 150 mg capsule 450 mg PO HS 12/18/18 07/27/21 hydroxyzine pamoate 50 mg capsule 50 mg PO HS PRN 12/18/18 07/27/21 levothyroxine 137 mcg tablet See Rx Instructions .ROUTE .COMPLEX 12/18/1809/10 ondansetron 4 mg disintegrating 4 mg PO Q6H PRN 12/18/18 07/27/21 tablet cholecalciferol (vitamin D3) 25 25 mcg PO DAILY 01/24/19 07/27/21 mcg (1,000 unit) capsule folic acid 1 mg tablet 1 mg PO DAILY 01/24/19 07/27/21 omeprazole 40 mg capsule,delayed 40 mg PO DAILY 01/24/19 07/27/21 release cyanocobalamin (vitamin B-12) 1,000 mcg PO DAILY 12/05/20 07/27/21 1,000 mcg tablet (Vitamin B-12) gabapentin 800 mg tablet 800 mg PO TID 12/05/20 07/27/21 cabergoline 0.5 mg tablet 0.25 mg PO 2XWK 12/11/20 07/27/21 metoclopramide HCl 10 mg tablet 10 mg PO TID PRN 12/11/20 07/27/21 polyethylene glycol 3350 17 17 g PO DAILY 12/11/20 07/27/21 gram/dose oral powder furosemide 20 mg tablet (Lasix) 20 mg PO DAILY 07/27/21 07/27/21 Previous Rx's Medication Instructions Recorded ferrous sulfate 325 mg (65 mg 325 mg PO QAM #30 tab 12/25/18 iron) tablet,delayed release labetalol 100 mg tablet 100 mg PO BID #60 tab 12/25/18 nicotine 21 mg/24 hr daily 21 mg TRANSDERMAL QAM #14 ea 12/25/18 transdermal patch (Nicoderm CQ) nifedipine 30 mg tablet,extended 30 mg PO DAILY #30 tab 12/25/18 release Incentive Spirometer #1 ea 01/03/19 Portable Oxygen #1 ea 06/10/19 albuterol sulfate 90 mcg/actuation 2 puff INHALATION Q6H PRN #8.5 g 01/06/21 aerosol inhaler (Ventolin HFA) levocetirizine 5 mg tablet 5 mg PO DAILY PRN #30 tab 01/06/21 umeclidinium 62.5 mcg-vilanterol 1 inh INH DAILY #60 ea 01/06/21 25 mcg/actuation powdr for inhalation (Anoro Ellipta) levetiracetam 1,000 mg tablet 1,000 mg PO BID 30 Days #60 tab 04/27/21 Results & Data (ED) Vital Signs Vital Signs - 24 hr 07/27/21 18:08 07/27/21 18:43 07/27/21 20:03 Temperature 36.4 C L Temperature Source Temporal Artery Scan Pulse Rate 75 Pulse Rate [Right Finger] 72 Pulse Rhythm [Right Finger] Regular Pulse Strength [Right Finger] Normal Respiratory Rate 16 16 Respiratory Effort / Characteristics Non-Labored Spontaneous Non-Labored Spontaneous Respiratory Depth Normal Normal Respiratory Pattern Regular Blood Pressure 102/71 Blood Pressure [Right Arm] 138/81 Blood Pressure Mean 81 Blood Pressure Mean [Right Arm] 100 Blood Pressure Position Sitting Blood Pressure Position [Right Arm] Pulse Oximetry 98 99 Oxygen Delivery Method Room Air Room Air BiPAP Fraction of Inspired Oxygen Sepsis Recent Fever Within 48 Hours No Sepsis New/Unexplained Change in Mental Status No Sepsis Action Taken by Nursing No Action Required Pulse Oximetry Post Tiitration 100 07/27/21 21:15 07/27/21 23:00 07/27/21 23:05 Temperature Temperature Source Pulse Rate 72 Pulse Rate [Right Finger] 66 68 Pulse Rhythm [Right Finger] Regular Regular Pulse Strength [Right Finger] Normal Normal Respiratory Rate 24 18 16 Respiratory Effort / Characteristics Spontaneous Non-Labored Spontaneous Non-Labored Spontaneous Respiratory Depth Normal Normal Normal Respiratory Pattern Regular Tachypnea Regular Blood Pressure Blood Pressure [Right Arm] 156/85 H 117/83 Blood Pressure Mean Blood Pressure Mean [Right Arm] 108 94 Blood Pressure Position Blood Pressure Position [Right Arm] Lying Pulse Oximetry 98 99 94 Oxygen Delivery Method BiPAP BiPAP Fraction of Inspired Oxygen 25 Sepsis Recent Fever Within 48 Hours Sepsis New/Unexplained Change in Mental Status Sepsis Action Taken by Nursing Pulse Oximetry Post Tiitration 07/27/21 23:08 07/27/21 23:20 Temperature Temperature Source Pulse Rate 67 Pulse Rate [Right Finger] 64 Pulse Rhythm [Right Finger] Pulse Strength [Right Finger] Respiratory Rate 26 H 26 H Respiratory Effort / Characteristics Non-Labored Spontaneous Spontaneous Respiratory Depth Normal Respiratory Pattern Regular Blood Pressure Blood Pressure [Right Arm] Blood Pressure Mean Blood Pressure Mean [Right Arm] Blood Pressure Position Blood Pressure Position [Right Arm] Pulse Oximetry 99 97 Oxygen Delivery Method BiPAP Fraction of Inspired Oxygen 25 25 Sepsis Recent Fever Within 48 Hours Sepsis New/Unexplained Change in Mental Status Sepsis Action Taken by Nursing Pulse Oximetry Post Tiitration Home Medications Current Medication List: was personally reviewed by me Laboratory Data Attestation: I reviewed the patient's lab results. Result diagrams: 07/27/21 19:00 07/27/21 19:00 Lab Results 07/27/21 07/27/21 07/27/21 Range/Units 19:00 19:00 19:00 WBC 4.99 (4.8-10.8) K/uL RBC 3.97 L (4.2-5.4) M/uL Hgb 11.8 L (12.0-16.0) g/dL Hct 36.1 L (37-47) % MCV 90.9 (80-100) fL MCH 29.7 (25-34) pg MCHC 32.7 (32-36) g/dL RDW Std Deviation 47.2 H (36.4-46.3) fL RDW Coeff of Lorene 14.1 (11.5-14.5) % Plt Count 359 (130-400) K/uL MPV 9.7 (7.4-10.4) fL Immature Gran % (Auto) 0.8 % Neut % (Auto) 41.1 % Lymph % (Auto) 40.3 % [place] % (Auto) 12.4 % Eos % (Auto) 4.6 % Baso % (Auto) 0.8 % Neut # (Auto) 2.05 (1.4-6.5) K/uL Lymph # (Auto) 2.01 (1.2-3.4) K/uL [place] # (Auto) 0.62 H (0.11-0.59) K/uL Eos # (Auto) 0.23 (0-0.5) K/uL Baso # (Auto) 0.04 (0-0.2) K/uL Immature Gran # (Auto) 0.04 H (0.00-0.02) K/uL ABG pH (7.35-7.45) ABG pCO2 (35-46) mmHg ABG pO2 (80-95) mmHg ABG HCO3 (19-24) mmol/L ABG O2 Saturation (90-95) % ABG Base Excess (-9-1.8) mEq/L Cade Test (Pos) VBG pH (7.36-7.41) VBG pCO2 (38-50) mmHg VBG pO2 mmHg VBG HCO3 mmol/L VBG O2 Saturation % VBG Base Excess mEq/L Barometric Pressure mm/Hg Oxygen Given Sodium 139 (136-145) mmol/L Potassium 3.7 (3.5-5.1) mmol/L Chloride 107 (98-107) mmol/L Carbon Dioxide 24 (21-32) mmol/L Anion Gap 8 (3-11) BUN 21 (6-23) mg/dl Creatinine 1.45 H (0.6-1.2) mg/dl Est Cr Clr Drug Dosing Not Reportable Est GFR ( Amer) 49.6 ml/min Est GFR (Non-Af Amer) 42.8 ml/min BUN/Creatinine Ratio 14.5 (10-20) Glucose 98 (70-99(Fasting)) mg/dl POC Glucose (70-99) mg/dl Lactate (0.4-2.0) mmol/L Calcium 9.1 (8.5-10.1) mg/dl Magnesium 2.1 (1.7-2.4) mg/dl Total Bilirubin 0.3 (0.2-1.0) mg/dl AST 26 (13-39) U/L ALT 27 (7-52) U/L Alkaline Phosphatase 134 H (34-104) U/L Ammonia (18-72) umol/L Troponin I High Sens 3.3 (0-14) pg/ml Total Protein 7.4 (6.0-8.3) gm/dl Albumin 4.4 (3.4-5.0) gm/dl Globulin 3.0 (2.5-4.0) gm/dl Albumin/Globulin Ratio 1.5 (0.9-2) TSH 4.406 (0.300-4.500) uIu/ml SARS-CoV-2, RNA, NAAT (NEGATIVE) 07/27/21 07/27/21 07/27/21 Range/Units 19:15 20:00 20:00 WBC (4.8-10.8) K/uL RBC (4.2-5.4) M/uL Hgb (12.0-16.0) g/dL Hct (37-47) % MCV (80-100) fL MCH (25-34) pg MCHC (32-36) g/dL RDW Std Deviation (36.4-46.3) fL RDW Coeff of Lorene (11.5-14.5) % Plt Count (130-400) K/uL MPV (7.4-10.4) fL Immature Gran % (Auto) % Neut % (Auto) % Lymph % (Auto) % [place] % (Auto) % Eos % (Auto) % Baso % (Auto) % Neut # (Auto) (1.4-6.5) K/uL Lymph # (Auto) (1.2-3.4) K/uL [place] # (Auto) (0.11-0.59) K/uL Eos # (Auto) (0-0.5) K/uL Baso # (Auto) (0-0.2) K/uL Immature Gran # (Auto) (0.00-0.02) K/uL ABG pH (7.35-7.45) ABG pCO2 (35-46) mmHg ABG pO2 (80-95) mmHg ABG HCO3 (19-24) mmol/L ABG O2 Saturation (90-95) % ABG Base Excess (-9-1.8) mEq/L Cade Test (Pos) VBG pH 7.27 L (7.36-7.41) VBG pCO2 59 H (38-50) mmHg VBG pO2 21 mmHg VBG HCO3 27 mmol/L VBG O2 Saturation < 60.0 % VBG Base Excess -1.2 mEq/L Barometric Pressure 727.9 mm/Hg Oxygen Given Sodium (136-145) mmol/L Potassium (3.5-5.1) mmol/L Chloride (98-107) mmol/L Carbon Dioxide (21-32) mmol/L Anion Gap (3-11) BUN (6-23) mg/dl Creatinine (0.6-1.2) mg/dl Est Cr Clr Drug Dosing Est GFR ( Amer) ml/min Est GFR (Non-Af Amer) ml/min BUN/Creatinine Ratio (10-20) Glucose (70-99(Fasting)) mg/dl POC Glucose 114 H (70-99) mg/dl Lactate 0.5 (0.4-2.0) mmol/L Calcium (8.5-10.1) mg/dl Magnesium (1.7-2.4) mg/dl Total Bilirubin (0.2-1.0) mg/dl AST (13-39) U/L ALT (7-52) U/L Alkaline Phosphatase (34-104) U/L Ammonia (18-72) umol/L Troponin I High Sens (0-14) pg/ml Total Protein (6.0-8.3) gm/dl Albumin (3.4-5.0) gm/dl Globulin (2.5-4.0) gm/dl Albumin/Globulin Ratio (0.9-2) TSH (0.300-4.500) uIu/ml SARS-CoV-2, RNA, NAAT (NEGATIVE) 07/27/21 07/27/21 07/27/21 Range/Units 21:05 22:19 22:19 WBC (4.8-10.8) K/uL RBC (4.2-5.4) M/uL Hgb (12.0-16.0) g/dL Hct (37-47) % MCV (80-100) fL MCH (25-34) pg MCHC (32-36) g/dL RDW Std Deviation (36.4-46.3) fL RDW Coeff of Lorene (11.5-14.5) % Plt Count (130-400) K/uL MPV (7.4-10.4) fL Immature Gran % (Auto) % Neut % (Auto) % Lymph % (Auto) % [place] % (Auto) % Eos % (Auto) % Baso % (Auto) % Neut # (Auto) (1.4-6.5) K/uL Lymph # (Auto) (1.2-3.4) K/uL [place] # (Auto) (0.11-0.59) K/uL Eos # (Auto) (0-0.5) K/uL Baso # (Auto) (0-0.2) K/uL Immature Gran # (Auto) (0.00-0.02) K/uL ABG pH 7.33 L (7.35-7.45) ABG pCO2 48 H (35-46) mmHg ABG pO2 84 (80-95) mmHg ABG HCO3 25 H (19-24) mmol/L ABG O2 Saturation 96.0 H (90-95) % ABG Base Excess -1.6 (-9-1.8) mEq/L Cade Test POS (Pos) VBG pH (7.36-7.41) VBG pCO2 (38-50) mmHg VBG pO2 mmHg VBG HCO3 mmol/L VBG O2 Saturation % VBG Base Excess mEq/L Barometric Pressure 728.2 mm/Hg Oxygen Given ROOM AIR Sodium (136-145) mmol/L Potassium (3.5-5.1) mmol/L Chloride (98-107) mmol/L Carbon Dioxide (21-32) mmol/L Anion Gap (3-11) BUN (6-23) mg/dl Creatinine (0.6-1.2) mg/dl Est Cr Clr Drug Dosing Est GFR ( Amer) ml/min Est GFR (Non-Af Amer) ml/min BUN/Creatinine Ratio (10-20) Glucose (70-99(Fasting)) mg/dl POC Glucose (70-99) mg/dl Lactate (0.4-2.0) mmol/L Calcium (8.5-10.1) mg/dl Magnesium (1.7-2.4) mg/dl Total Bilirubin (0.2-1.0) mg/dl AST (13-39) U/L ALT (7-52) U/L Alkaline Phosphatase (34-104) U/L Ammonia 39.0 (18-72) umol/L Troponin I High Sens (0-14) pg/ml Total Protein (6.0-8.3) gm/dl Albumin (3.4-5.0) gm/dl Globulin (2.5-4.0) gm/dl Albumin/Globulin Ratio (0.9-2) TSH (0.300-4.500) uIu/ml SARS-CoV-2, RNA, NAAT NEGATIVE (NEGATIVE) Administered Medications Discontinued Medications Albuterol (Albut/Ipratrop 3mg/0.5mg Neb 3 Ml Vial) 3 ml NEB NOW STA; Protocol Stop: 07/27/21 23:05 Last Admin: 07/27/21 23:20 Dose: 3 ml Documented by: [id number] Sodium Chloride (Nss) 500 mls @ 999 mls/hr IV .Q31M HAL Stop: 07/27/21 20:00 Last Infusion: 07/27/21 21:07 Dose: 0 mls/hr Documented by: [id number] Admin: 07/27/21 19:58 Dose: 999 mls/hr Documented by: [id number] Ceftriaxone Sodium (Rocephin) 2,000 mg in 70 mls @ 140 mls/hr IV NOW STA Stop: 07/27/21 19:56 Last Infusion: 07/27/21 20:42 Dose: 0 mls/hr Documented by: [id number] Admin: 07/27/21 19:58 Dose: 140 mls/hr Documented by: [id number] Levetiracetam 1,000 mg/ Sodium (Chloride) 110 mls @ 440 mls/hr IV NOW STA Stop: 07/27/21 19:42 Last Infusion: 07/27/21 21:07 Dose: 0 mls/hr Documented by: [id number] Admin: 07/27/21 20:43 Dose: 440 mls/hr Documented by: [id number] Imaging Data Radiologist's Impression: Chest X-Ray 07/27/21 19:27 XR chest 1V portable HISTORY: 45 years-old Female weakness acute weakness COMPARISON: 12/05/2020 TECHNIQUE: Portable AP view of the chest FINDINGS: Cardiac silhouette is enlarged. Unchanged linear scarring versus atelectasis of the lung bases. No pneumothorax, pleural effusion, airspace consolidation or overt pulmonary edema. Bones appear grossly intact. IMPRESSION: Chronic findings as above without acute process. ACT 112: Negative or not required by law. The above report was generated using voice recognition software. It may contain grammatical, syntax or spelling errors. Electronically signed by: Abel Mckay M.D. 07/27/2021 7:[address] 07/27/21 19:27 CT head/brain wo con CLINICAL HISTORY: 45 years-old Female with confusion, found down. Acute head trauma status post fall TECHNIQUE: Multiple axial CT images of the head were obtained without contrast. A dose lowering technique was utilized adhering to the principles of ALARA. COMPARISON: Head CT 12/23/2020 FINDINGS: No acute intracranial hemorrhage, midline shift, intracranial mass, hydrocephalus, territorial ischemia or abnormal extra-axial collection. The calvarium is intact. The paranasal sinuses, mastoid air cells, and middle ear cavities are clear. IMPRESSION: No acute intracranial abnormality or calvarial fracture. ACT 112: Negative or not required by law. The above report was generated using voice recognition software. It may contain grammatical, syntax or spelling errors. Electronically signed by: Abel Mckay M.D. 07/27/2021 7:[address] 07/27/21 19:37 CT cervical spine wo con CT DOSE: 1839.76 mGy.cm CLINICAL HISTORY: 45 years-old Female with fall. Acute neck pain status post fall COMPARISON: Head CT of same day TECHNIQUE: Multiple axial CT images of the cervical spine were obtained without contrast. A dose lowering technique was utilized adhering to the principles of ALARA. FINDINGS: Vertebral body heights and alignment are normal. Reversal the normal cervical lordosis with kyphosis centered at C4-C5. Mild multilevel uncovertebral hypertrophy. 3 mm anterolisthesis C2 on C3 and C3 on C4 is likely degenerative. Multilevel facet arthrosis, severe on the left at C2-C3. No fracture or subluxation is identifed. The intervertebral disc spaces are preserved. No significant central canal or neural foraminal stenosis is identified. The cervical soft tissues appear unremarkable. Trace left mastoid effusion. Mild gaseous distention of the upper esophagus. Calcified plaque of the carotid bulbs. The visualized lung apices appear clear. IMPRESSION: No acute cervical spine fracture. ACT 112: Negative or not required by law. The above report was generated using voice recognition software. It may contain grammatical, syntax or spelling errors. Electronically signed by: Abel Mckay M.D. 07/27/2021 8:[address] 07/27/21 19:37 CT lumbar spine wo con HISTORY: 45 years-old Female LBP s/p fall acute low back pain status post fall COMPARISON: CT abdomen and pelvis 12/11/2020 TECHNIQUE: Multiple axial CT images of the lumbar spine were obtained without the use of IV contrast. A dose lowering technique was used consistent with the principals of ALARA. FINDINGS: Minimal lumbar levoscoliosis. No acute fracture, subluxation, endplate erosion or suspicious bone lesion. There is mild multilevel facet arthrosis. The intervertebral disc spaces are generally well preserved. The imaged sacrum and iliac bones appear intact. Central canal and neuroforamina is better assessed by MRI. No significant disc bulges, high-grade central canal or neural foraminal narrowing identified. Atherosclerosis of the aorta. No paravertebral edema. Increased attenuation of the hepatic parenchyma incidentally noted. Urinary bladder distention. IMPRESSION: No acute fracture or subluxation. ACT 112: Negative or not required by law. The above report was generated using voice recognition software. It may contain grammatical, syntax or spelling errors. Electronically signed by: Abel Mckay M.D. 07/27/2021 8:07 PM Discharge Plan Visit Data Chief Complaint: Confusion Stated Complaint: FOUND UNCONCIOUS. CONFUSED. [facility] ED Provider: Gerard Junior Discharge Problem: Hypercarbia, Acute confusion, Fall Patient Disposition: Admitted As Inpatient Forms Stand Alone Forms: [facility] Prescriptions Prescriptions: No Action levetiracetam 1,000 mg tablet 1,000 mg PO BID 30 Days Qty: 60 RF: 5 (DME) Incentive Spirometer Misc See Rx Instructions .ROUTE .MEDSUPPLY Qty: 1 RF: 0 (DME) Portable Oxygen Misc See Rx Instructions .ROUTE .MEDSUPPLY Qty: 1 RF: 0 omeprazole 40 mg capsule,delayed release(DR/EC) 40 mg PO DAILY RF: 0 folic acid 1 mg tablet 1 mg PO DAILY RF: 0 cholecalciferol (vitamin D3) 25 mcg (1,000 unit) capsule 25 mcg PO DAILY RF: 0 albuterol sulfate [Ventolin HFA] 90 mcg/actuation HFA aerosol inhaler 2 puff INHALATION Q6H PRN (Reason: Shortness Of Breath) Qty: 8.5 RF: 3 Anoro Ellipta 62.5-25 mcg/actuation blister with device 1 inh INH DAILY Qty: 60 RF: 11 levocetirizine 5 mg tablet 5 mg PO DAILY PRN (Reason: allergy symptoms) Qty: 30 RF: 0 cyclobenzaprine 10 mg tablet 10 mg PO TID PRN (Reason: Muscle Spasm) RF: 0 clonazepam 1 mg tablet 1 mg PO BID PRN (Reason: Anxiety) RF: 0 hydroxyzine pamoate 50 mg capsule 50 mg PO HS PRN (Reason: Insomnia) RF: 0 doxepin 150 mg capsule 450 mg PO HS RF: 0 levothyroxine 137 mcg tablet See Rx Instructions .ROUTE .COMPLEX RF: 0 ondansetron 4 mg tablet,disintegrating 4 mg PO Q6H PRN (Reason: Nausea) RF: 0 nicotine [Nicoderm CQ] 21 mg/24 hr Patch 24 Hour 21 mg transdermal QAM Qty: 14 RF: 1 ferrous sulfate 325 mg (65 mg iron) Tablet,Delayed Release (Dr/Ec) 325 mg PO QAM Qty: 30 RF: 2 labetalol 100 mg Tablet 100 mg PO BID Qty: 60 RF: 1 nifedipine 30 mg tablet extended release 30 mg PO DAILY Qty: 30 RF: 1 furosemide [Lasix] 20 mg tablet 20 mg PO DAILY RF: 0 cyanocobalamin (vitamin B-12) [Vitamin B-12] 1,000 mcg Tablet 1,000 mcg PO DAILY RF: 0 gabapentin 800 mg tablet 800 mg PO TID RF: 0 cabergoline 0.5 mg tablet 0.25 mg PO 2XWK RF: 0 polyethylene glycol 3350 17 gram/dose powder 17 g PO DAILY RF: 0 metoclopramide HCl 10 mg tablet 10 mg PO TID PRN (Reason: Nausea) RF: 0 Referrals Referrals: Jeanette Patel, THALIA [Primary Care Provider] -
[2021-07-27] MEDS ORDERED: cefTRIAXone SODIUM 2,000 MG/70 ML BAG IV STA (19:27)
[2021-07-27] MEDS ORDERED: levETIRAcetam 1,000 MG in 0.9 % SODIUM CHLORIDE 100 ML IV STA (19:28)
[2021-07-27] MEDS ORDERED: SODIUM CHLORIDE 0.9% 500 ML IV SCH (19:30)
[2021-07-27 19:41] LABS: Basophils # (auto) 0.04 K/uL (0-0.2); Basophils % (auto) 0.8 %; Eosinophils # (auto) 0.23 K/uL (0-0.5); Eosinophils % (auto) 4.6 %; Hematocrit (blood only) 36.1 % (37-47); Hemoglobin 11.8 g/dL (12.0-16.0); Immature Granulocytes # (auto) 0.04 K/uL (0.00-0.02); Immature Granulocytes % (auto) 0.8 %; Lymphocytes # (auto) 2.01 K/uL (1.2-3.4); Lymphocytes % (auto) 40.3 %; Mean Corpuscular Hemoglobin 29.7 pg (25-34); Mean Corpuscular Hgb Conc 32.7 g/dL (32-36); Mean Corpuscular Volume 90.9 fL (80-100); Mean Platelet Volume 9.7 fL (7.4-10.4); Monocytes # (auto) 0.62 K/uL (0.11-0.59); Monocytes % (auto) 12.4 %; Neutrophils # (auto) 2.05 K/uL (1.4-6.5); Neutrophils % (auto) 41.1 %; Platelet Count 359 K/uL (130-400); RDW Coefficient of Variation 14.1 % (11.5-14.5); RDW Standard Deviation 47.2 fL (36.4-46.3); Red Blood Count 3.97 M/uL (4.2-5.4); White Blood Count 4.99 K/uL (4.8-10.8)
--- NOTE | 2021-07-27 19:56 | XRay Report ---
XR chest 1V portable HISTORY: 45 years-old Female weakness acute weakness COMPARISON: 12/05/2020 TECHNIQUE: Portable AP view of the chest FINDINGS: Cardiac silhouette is enlarged. Unchanged linear scarring versus atelectasis of the lung bases. No pn eumothorax, pleural effusion, airspace consolidation or overt pulmonary edema. Bones appear grossly i ntact. IMPRESSION: Chronic findings as above without acute process. ACT 112: Negative or not required by law. The above report was generated using voice recognition software. It may contain grammatical, syntax o r spelling errors. Electronically signed by: Abel Mckay M.D. 07/27/2021 7:55 PM
[2021-07-27 19:59] LABS: Troponin I High Sensitivity 3.3 pg/ml (0-14)
--- NOTE | 2021-07-27 20:00 | CT Scan Report ---
CT head/brain wo con CLINICAL HISTORY: 45 years-old Female with confusion, found down. Acute head trauma status post fall TECHNIQUE: Multiple axial CT images of the head were obtained without contrast. A dose lowering tech nique was utilized adhering to the principles of ALARA. COMPARISON: Head CT 12/23/2020 FINDINGS: No acute intracranial hemorrhage, midline shift, intracranial mass, hydrocephalus, territorial ischem ia or abnormal extra-axial collection. The calvarium is intact. The paranasal sinuses, mastoid air cells, and middle ear cavities are clear . IMPRESSION: No acute intracranial abnormality or calvarial fracture. ACT 112: Negative or not required by law. The above report was generated using voice recognition software. It may contain grammatical, syntax o r spelling errors. Electronically signed by: Abel Mckay M.D. 07/27/2021 7:59 PM
[2021-07-27 20:05] LABS: Alanine Aminotransferase 27 U/L (7-52); Albumin Globulin Ratio 1.5 (0.9-2); Albumin Level 4.4 gm/dl (3.4-5.0); Alkaline Phosphatase 134 U/L (34-104); Anion Gap 8 (3-11); Aspartate Aminotransferase 26 U/L (13-39); BUN Creatinine Ratio 14.5 (10-20); Bilirubin,Total 0.3 mg/dl (0.2-1.0); Blood Urea Nitrogen 21 mg/dl (6-23); Calcium 9.1 mg/dl (8.5-10.1); Carbon Dioxide 24 mmol/L (21-32); Chloride 107 mmol/L (98-107); Est GFR (African American) 49.6 ml/min; Est GFR (Non-African American) 42.8 ml/min; Glucose 98 mg/dl (70-99(Fasting)); Magnesium 2.1 mg/dl (1.7-2.4); Potassium 3.7 mmol/L (3.5-5.1); Sodium 139 mmol/L (136-145); Total Protein 7.4 gm/dl (6.0-8.3)
--- NOTE | 2021-07-27 20:05 | CT Scan Report ---
CT cervical spine wo con CT DOSE: 1839.76 mGy.cm CLINICAL HISTORY: 45 years-old Female with fall. Acute neck pain status post fall COMPARISON: Head CT of same day TECHNIQUE: Multiple axial CT images of the cervical spine were obtained without contrast. A dose low ering technique was utilized adhering to the principles of ALARA. FINDINGS: Vertebral body heights and alignment are normal. Reversal the normal cervical lordosis with kyphosis centered at C4-C5. Mild multilevel uncovertebral hypertrophy. 3 mm anterolisthesis C2 on C3 and C3 on C4 is likely degenerative. Multilevel facet arthrosis, severe on the left at C2-C3. No fra cture or subluxation is identifed. The intervertebral disc spaces are preserved. No significant c entral canal or neural foraminal stenosis is identified. The cervical soft tissues appear unremarkable. Trace left mastoid effusion. Mild gaseous distention o f the upper esophagus. Calcified plaque of the carotid bulbs. The visualized lung apices appear clear . IMPRESSION: No acute cervical spine fracture. ACT 112: Negative or not required by law. The above report was generated using voice recognition software. It may contain grammatical, syntax o r spelling errors. Electronically signed by: Abel Mckay M.D. 07/27/2021 8:04 PM
--- NOTE | 2021-07-27 20:10 | CT Scan Report ---
CT lumbar spine wo con HISTORY: 45 years-old Female LBP s/p fall acute low back pain status post fall COMPARISON: CT abdomen and pelvis 12/11/2020 TECHNIQUE: Multiple axial CT images of the lumbar spine were obtained without the use of IV contrast. A dose lowering technique was used consistent with the principals of ALARA. FINDINGS: Minimal lumbar levoscoliosis. No acute fracture, subluxation, endplate erosion or suspicious bone les ion. There is mild multilevel facet arthrosis. The intervertebral disc spaces are generally well pres erved. The imaged sacrum and iliac bones appear intact. Central canal and neuroforamina is better ass essed by MRI. No significant disc bulges, high-grade central canal or neural foraminal narrowing iden tified. Atherosclerosis of the aorta. No paravertebral edema. Increased attenuation of the hepatic parenchyma incidentally noted. Urinary bladder distention. IMPRESSION: No acute fracture or subluxation. ACT 112: Negative or not required by law. The above report was generated using voice recognition software. It may contain grammatical, syntax o r spelling errors. Electronically signed by: Abel Mckay M.D. 07/27/2021 8:07 PM
[2021-07-27 20:19] LABS: Base Excess VBG -1.2 mEq/L; HCO3 VBG 27 mmol/L; PCO2 VBG 59 mmHg (38-50); PO2 VBG 21 mmHg; pH VBG 7.27 (7.36-7.41)
[2021-07-27 20:25] LABS: Oxygen Saturation VBG < 60.0 %
--- NOTE | 2021-07-27 22:29 | History & Physical Report ---
Date of Service July 27, 2021 Assessment & Plan (1) Encephalopathy: Plan: Likely secondary to hypercapnic respiratory failure/respiratory acidosis multifactorial : Possible breakthrough seizure, recent outpatient permethrin Rx for scabies Complicated bronchitis, no sepsis for now Home neuropsychotropic meds contributory ARF secondary to illness fibromyalgia as per records asthma, no overt wheezing on exam Ongoing tobacco abuse postsurgical hypothyroidism, euthyroid as of today's TSH history of Graves disease status post surgery History of prolactinemia attributed to multiple medications, outpatient MRI sella was negative as per [facility] Endocrinology note. On cabergoline Rx from Gynecology. GERD status post surgery, chronic anemia, hemoglobin at baseline LLE cellulitis secondary to scratching scabies lesions. Medical telemetry BiPAP Recheck ABG Seizure precautions Continue current Keppra dose Caution with subsequent permethrin Rx for scabies Neurology consult Re: Breakthrough seizure Appropriate to hold home neuropsychotropic meds until patient more awake Doxycycline for complicated bronchitis, and LLE cellulitis Monitor creatinine response to IVF Dermatology consult Re: Scabies Nicotine patch DVT prophylaxis. Heparin subcu Full code Text document was generated using [employer] voice recognition software. It may contain grammatical or spelling errors. Kindly contact undersigned for clarification of any documentation item in question. History of Present Illness Chief Complaint: Possible seizures Primary Care Provider: Jeanette Patel PA-C History obtained from patient and records. History somewhat difficult to obtain from patient secondary to patient's letharg y and BiPAP. Medical history significant for seizure disorder, fibromyalgia as per records, asthma, tobacco abuse, postsurgical hypothyroidism, history of Graves disease, history prolactinemia, irritable bowel syndrome, GERD status post surgery, chronic anemia (baseline hemoglobin of 11), mood disorder, hx scabies status post treatment. Last confinement December 2018 for respiratory failure secondary to mycoplasma pneumonia. Patient's left leg noted to be swollen for about a week by patient. Admits to itching from scabies. Scabies noted since second week of May 2021. Has been treated with doxycycline, topical steroid and permethrin. Household disinfection recommended by PCP. Few days history of junky cough symptoms without chest pain/shortness of breath. Patient denies aspiration. No known recent sick contacts. Patient completed COVID-19 vaccination. Ivermectin dose prescribed by PCP on follow-up visit last week with note of scabbed areas on patient's extremities. Outpatient Dermatology referral contemplated as per note. Patient noted to be disoriented and not very responsive by her today. Patient thinks she may have had seizures with shaking. No tongue biting, no incontinence. Usual low back discomfort. Patient denies chest pain. Patient brought to the ER for evaluation. Ceftriaxone given for possible infection. BiPAP initiated at the ER. Patient currently more awake. MEDICAL HISTORY: As above. SURGICAL HISTORY: Tonsillectomy. D&C. section. Thyroidectomy for Graves disease. LEEP procedure for precancerous cervical lesion, wrist ganglion surgery esophogastric fundoplasty FAMILY HISTORY: Hypertension, history of pulmonary embolism. PERSONAL AND SOCIAL HISTORY: 1 pack daily, no EtOH intake, currently unemployed. Allergies Allergy/AdvReac Type Severity Reaction Status Date / Time aspirin Allergy Severe WHEEZING Verified 07/27/21 21:46 Sulfa (Sulfonamide Allergy Intermediate HIVES Verified 07/27/21 21:46 Antibiotics) Home Medications Medication Instructions Recorded Confirmed Type clonazepam 1 mg tablet 1 mg PO BID PRN 12/18/18 07/27/21 History cyclobenzaprine 10 mg tablet 10 mg PO TID PRN 12/18/18 07/27/21 History doxepin 150 mg capsule 450 mg PO HS 12/18/18 07/27/21 History hydroxyzine pamoate 50 mg capsule 50 mg PO HS PRN 12/18/18 07/27/21 History levothyroxine 137 mcg tablet See Rx Instructions .ROUTE .COMPLEX 12/18/18 07/27/21 History ondansetron 4 mg disintegrating 4 mg PO Q6H PRN 12/18/18 07/27/21 History tablet ferrous sulfate 325 mg (65 mg 325 mg PO QAM #30 tab 12/25/18 07/27/21 Rx iron) tablet,delayed release labetalol 100 mg tablet 100 mg PO BID #60 tab 12/25/18 07/27/21 Rx nicotine 21 mg/24 hr daily 21 mg TRANSDERMAL QAM #14 ea 12/25/18 07/27/21 Rx transdermal patch (Nicoderm CQ) nifedipine 30 mg tablet,extended 30 mg PO DAILY #30 tab 12/25/18 07/27/21 Rx release Incentive Spirometer #1 ea 01/03/19 07/27/21 Rx cholecalciferol (vitamin D3) 25 25 mcg PO DAILY 01/24/19 07/27/21 History mcg (1,000 unit) capsule folic acid 1 mg tablet 1 mg PO DAILY 01/24/19 07/27/21 History omeprazole 40 mg capsule,delayed 40 mg PO DAILY 01/24/19 07/27/21 History release Portable Oxygen #1 ea 06/10/19 07/27/21 Rx cyanocobalamin (vitamin B-12) 1,000 mcg PO DAILY 12/05/20 07/27/21 History 1,000 mcg tablet (Vitamin B-12) gabapentin 800 mg tablet 800 mg PO TID 12/05/20 07/27/21 History cabergoline 0.5 mg tablet 0.25 mg PO 2XWK 12/11/20 07/27/21 History metoclopramide HCl 10 mg tablet 10 mg PO TID PRN 12/11/20 07/27/21 History polyethylene glycol 3350 17 17 g PO DAILY 12/11/20 07/27/21 History gram/dose oral powder albuterol sulfate 90 mcg/actuation 2 puff INHALATION Q6H PRN #8.5 g 01/06/21 07/27/21 Rx aerosol inhaler (Ventolin HFA) levocetirizine 5 mg tablet 5 mg PO DAILY PRN #30 tab 01/06/21 07/27/21 Rx umeclidinium 62.5 mcg-vilanterol 1 inh INH DAILY #60 ea 01/06/21 07/27/21 Rx 25 mcg/actuation powdr for inhalation (Anoro Ellipta) levetiracetam 1,000 mg tablet 1,000 mg PO BID 30 Days #60 tab 04/27/21 07/27/21 Rx furosemide 20 mg tablet (Lasix) 20 mg PO DAILY 07/27/21 07/27/21 History 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) Snoring Tobacco abuse counseling Surgical History History of section History of dilation and curettage Family History Mother COPD (chronic obstructive pulmonary disease) Myocardial infarction, Onset Age: 51 Social History Smoking Status: Current every day smoker Tobacco Type: Cigarettes Cigarettes Per Day: 20; Second Hand Exposure: Yes; Hx Alcohol Use: No Hx Substance Use: No Preferred Language: Setswana Communication Ability: Impaired Visual Impairment: No Limitations Reducing Salon Attendant Required: No Beliefs That Will Affect Care: None Current Living Situation: Family Current Living Situation Comment: ex helps with children Other Information That Helps Us Care for You: No Feels Safe at Home: Yes Assistive Devices: Walker Assistive Devices Comment: uses at home Review of Systems Review of Systems: Could not be reliably obtained secondary to patient lethargy and BiPAP Physical Exam Physical Exam: GENERAL: uncomfortable, lethargic, no respiratory distress SKIN: Pallor, warm, excoriations noted over extremities and finger webs HEENT: Pale palpebral conjunctivae, no ptosis, dry buccal mucosa, BiPAP in place NECK : Supple, no tenderness CHEST : Decreased breath sounds, no wheezes, no tenderness HEART : RRR, no obvious murmurs ABDOMEN: Some distention, nontender EXTREMITIES : Induration LLE with minimal tenderness with overlying excoriations NEUROLOGIC : Lethargic , no facial asymmetry, no other gross focality Results & Data Results & Data ([facility]) Vital Signs (Past 12 Hours) Vital Signs Temp Pulse Pulse Resp BP BP Pulse Ox 07/27/21 21:15 72 24 98 07/27/21 20:03 72 16 138/81 99 07/27/21 18:08 36.4 C L 75 16 102/71 98 Laboratory Results Lab Results 07/27/21 07/27/21 07/27/21 Range/Units 19:00 19:00 19:00 WBC 4.99 (4.8-10.8) K/uL RBC 3.97 L (4.2-5.4) M/uL Hgb 11.8 L (12.0-16.0) g/dL Hct 36.1 L (37-47) % MCV 90.9 (80-100) fL MCH 29.7 (25-34) pg MCHC 32.7 (32-36) g/dL RDW Std Deviation 47.2 H (36.4-46.3) fL RDW Coeff of Lorene 14.1 (11.5-14.5) % Plt Count 359 (130-400) K/uL MPV 9.7 (7.4-10.4) fL Immature Gran % (Auto) 0.8 % Neut % (Auto) 41.1 % Lymph % (Auto) 40.3 % Towner % (Auto) 12.4 % Eos % (Auto) 4.6 % Baso % (Auto) 0.8 % Neut # (Auto) 2.05 (1.4-6.5) K/uL Lymph # (Auto) 2.01 (1.2-3.4) K/uL Towner # (Auto) 0.62 H (0.11-0.59) K/uL Eos # (Auto) 0.23 (0-0.5) K/uL Baso # (Auto) 0.04 (0-0.2) K/uL Immature Gran # (Auto) 0.04 H (0.00-0.02) K/uL ABG pH (7.35-7.45) ABG pCO2 (35-46) mmHg ABG pO2 (80-95) mmHg ABG HCO3 (19-24) mmol/L ABG O2 Saturation (90-95) % ABG Base Excess (-9-1.8) mEq/L Cade Test (Pos) VBG pH (7.36-7.41) VBG pCO2 (38-50) mmHg VBG pO2 mmHg VBG HCO3 mmol/L VBG O2 Saturation % VBG Base Excess mEq/L Barometric Pressure mm/Hg Oxygen Given Sodium 139 (136-145) mmol/L Potassium 3.7 (3.5-5.1) mmol/L Chloride 107 (98-107) mmol/L Carbon Dioxide 24 (21-32) mmol/L Anion Gap 8 (3-11) BUN 21 (6-23) mg/dl Creatinine 1.45 H (0.6-1.2) mg/dl Est Cr Clr Drug Dosing Not Reportable Est GFR ( Amer) 49.6 ml/min Est GFR (Non-Af Amer) 42.8 ml/min BUN/Creatinine Ratio 14.5 (10-20) Glucose 98 (70-99(Fasting)) mg/dl POC Glucose (70-99) mg/dl Estimat Average Glucose mg/dl Hemoglobin A1c (4.5-5.6) % Lactate (0.4-2.0) mmol/L Calcium 9.1 (8.5-10.1) mg/dl Magnesium 2.1 (1.7-2.4) mg/dl Total Bilirubin 0.3 (0.2-1.0) mg/dl AST 26 (13-39) U/L ALT 27 (7-52) U/L Alkaline Phosphatase 134 H (34-104) U/L Ammonia (18-72) umol/L Troponin I High Sens 3.3 (0-14) pg/ml Total Protein 7.4 (6.0-8.3) gm/dl Albumin 4.4 (3.4-5.0) gm/dl Globulin 3.0 (2.5-4.0) gm/dl Albumin/Globulin Ratio 1.5 (0.9-2) TSH 4.406 (0.300-4.500) uIu/ml Urine Color Urine Appearance (Clear) Urine pH (4.5-7.5) Ur Specific Woody (1.000-1.030) Urine Protein (Negative) Urine Glucose (UA) (Negative) Urine Ketones (Negative) Urine Blood (Negative) Urine Nitrite (Negative) Urine Bilirubin (Negative) Urine Urobilinogen (Negative) Ur Leukocyte Esterase (Negative) SARS-CoV-2, RNA, NAAT (NEGATIVE) 07/27/21 07/27/21 07/27/21 Range/Units 19:15 20:00 20:00 WBC (4.8-10.8) K/uL RBC (4.2-5.4) M/uL Hgb (12.0-16.0) g/dL Hct (37-47) % MCV (80-100) fL MCH (25-34) pg MCHC (32-36) g/dL RDW Std Deviation (36.4-46.3) fL RDW Coeff of Lorene (11.5-14.5) % Plt Count (130-400) K/uL MPV (7.4-10.4) fL Immature Gran % (Auto) % Neut % (Auto) % Lymph % (Auto) % Towner % (Auto) % Eos % (Auto) % Baso % (Auto) % Neut # (Auto) (1.4-6.5) K/uL Lymph # (Auto) (1.2-3.4) K/uL Towner # (Auto) (0.11-0.59) K/uL Eos # (Auto) (0-0.5) K/uL Baso # (Auto) (0-0.2) K/uL Immature Gran # (Auto) (0.00-0.02) K/uL ABG pH (7.35-7.45) ABG pCO2 (35-46) mmHg ABG pO2 (80-95) mmHg ABG HCO3 (19-24) mmol/L ABG O2 Saturation (90-95) % ABG Base Excess (-9-1.8) mEq/L Cade Test (Pos) VBG pH 7.27 L (7.36-7.41) VBG pCO2 59 H (38-50) mmHg VBG pO2 21 mmHg VBG HCO3 27 mmol/L VBG O2 Saturation < 60.0 % VBG Base Excess -1.2 mEq/L Barometric Pressure 727.9 mm/Hg Oxygen Given Sodium (136-145) mmol/L Potassium (3.5-5.1) mmol/L Chloride (98-107) mmol/L Carbon Dioxide (21-32) mmol/L Anion Gap (3-11) BUN (6-23) mg/dl Creatinine (0.6-1.2) mg/dl Est Cr Clr Drug Dosing Est GFR ( Amer) ml/min Est GFR (Non-Af Amer) ml/min BUN/Creatinine Ratio (10-20) Glucose (70-99(Fasting)) mg/dl POC Glucose 114 H (70-99) mg/dl Estimat Average Glucose mg/dl Hemoglobin A1c (4.5-5.6) % Lactate 0.5 (0.4-2.0) mmol/L Calcium (8.5-10.1) mg/dl Magnesium (1.7-2.4) mg/dl Total Bilirubin (0.2-1.0) mg/dl AST (13-39) U/L ALT (7-52) U/L Alkaline Phosphatase (34-104) U/L Ammonia (18-72) umol/L Troponin I High Sens (0-14) pg/ml Total Protein (6.0-8.3) gm/dl Albumin (3.4-5.0) gm/dl Globulin (2.5-4.0) gm/dl Albumin/Globulin Ratio (0.9-2) TSH (0.300-4.500) uIu/ml Urine Color Urine Appearance (Clear) Urine pH (4.5-7.5) Ur Specific Woody (1.000-1.030) Urine Protein (Negative) Urine Glucose (UA) (Negative) Urine Ketones (Negative) Urine Blood (Negative) Urine Nitrite (Negative) Urine Bilirubin (Negative) Urine Urobilinogen (Negative) Ur Leukocyte Esterase (Negative) SARS-CoV-2, RNA, NAAT (NEGATIVE) 07/27/21 07/27/21 07/27/21 Range/Units 21:05 22:18 22:19 WBC (4.8-10.8) K/uL RBC (4.2-5.4) M/uL Hgb (12.0-16.0) g/dL Hct (37-47) % MCV (80-100) fL MCH (25-34) pg MCHC (32-36) g/dL RDW Std Deviation (36.4-46.3) fL RDW Coeff of Lorene (11.5-14.5) % Plt Count (130-400) K/uL MPV (7.4-10.4) fL Immature Gran % (Auto) % Neut % (Auto) % Lymph % (Auto) % Towner % (Auto) % Eos % (Auto) % Baso % (Auto) % Neut # (Auto) (1.4-6.5) K/uL Lymph # (Auto) (1.2-3.4) K/uL Towner # (Auto) (0.11-0.59) K/uL Eos # (Auto) (0-0.5) K/uL Baso # (Auto) (0-0.2) K/uL Immature Gran # (Auto) (0.00-0.02) K/uL ABG pH 7.33 L (7.35-7.45) ABG pCO2 48 H (35-46) mmHg ABG pO2 84 (80-95) mmHg ABG HCO3 25 H (19-24) mmol/L ABG O2 Saturation 96.0 H (90-95) % ABG Base Excess -1.6 (-9-1.8) mEq/L Cade Test POS (Pos) VBG pH (7.36-7.41) VBG pCO2 (38-50) mmHg VBG pO2 mmHg VBG HCO3 mmol/L VBG O2 Saturation % VBG Base Excess mEq/L Barometric Pressure 728.2 mm/Hg Oxygen Given ROOM AIR Sodium (136-145) mmol/L Potassium (3.5-5.1) mmol/L Chloride (98-107) mmol/L Carbon Dioxide (21-32) mmol/L Anion Gap (3-11) BUN (6-23) mg/dl Creatinine (0.6-1.2) mg/dl Est Cr Clr Drug Dosing Est GFR ( Amer) ml/min Est GFR (Non-Af Amer) ml/min BUN/Creatinine Ratio (10-20) Glucose (70-99(Fasting)) mg/dl POC Glucose (70-99) mg/dl Estimat Average Glucose 126 mg/dl Hemoglobin A1c 6.0 H (4.5-5.6) % Lactate (0.4-2.0) mmol/L Calcium (8.5-10.1) mg/dl Magnesium (1.7-2.4) mg/dl Total Bilirubin (0.2-1.0) mg/dl AST (13-39) U/L ALT (7-52) U/L Alkaline Phosphatase (34-104) U/L Ammonia (18-72) umol/L Troponin I High Sens (0-14) pg/ml Total Protein (6.0-8.3) gm/dl Albumin (3.4-5.0) gm/dl Globulin (2.5-4.0) gm/dl Albumin/Globulin Ratio (0.9-2) TSH (0.300-4.500) uIu/ml Urine Color Urine Appearance (Clear) Urine pH (4.5-7.5) Ur Specific Woody (1.000-1.030) Urine Protein (Negative) Urine Glucose (UA) (Negative) Urine Ketones (Negative) Urine Blood (Negative) Urine Nitrite (Negative) Urine Bilirubin (Negative) Urine Urobilinogen (Negative) Ur Leukocyte Esterase (Negative) SARS-CoV-2, RNA, NAAT NEGATIVE (NEGATIVE) 07/27/21 07/28/21 07/28/21 Range/Units 22:19 01:00 05:48 WBC 6.95 (4.8-10.8) K/uL RBC 3.72 L (4.2-5.4) M/uL Hgb 11.1 L (12.0-16.0) g/dL Hct 34.2 L (37-47) % MCV 91.9 (80-100) fL MCH 29.8 (25-34) pg MCHC 32.5 (32-36) g/dL RDW Std Deviation 47.9 H (36.4-46.3) fL RDW Coeff of Lorene 14.3 (11.5-14.5) % Plt Count 276 (130-400) K/uL MPV 9.3 (7.4-10.4) fL Immature Gran % (Auto) 0.3 % Neut % (Auto) 63.5 % Lymph % (Auto) 17.0 % Towner % (Auto) 15.7 % Eos % (Auto) 3.2 % Baso % (Auto) 0.3 % Neut # (Auto) 4.42 (1.4-6.5) K/uL Lymph # (Auto) 1.18 L (1.2-3.4) K/uL Towner # (Auto) 1.09 H (0.11-0.59) K/uL Eos # (Auto) 0.22 (0-0.5) K/uL Baso # (Auto) 0.02 (0-0.2) K/uL Immature Gran # (Auto) 0.02 (0.00-0.02) K/uL ABG pH (7.35-7.45) ABG pCO2 (35-46) mmHg ABG pO2 (80-95) mmHg ABG HCO3 (19-24) mmol/L ABG O2 Saturation (90-95) % ABG Base Excess (-9-1.8) mEq/L Cade Test (Pos) VBG pH (7.36-7.41) VBG pCO2 (38-50) mmHg VBG pO2 mmHg VBG HCO3 mmol/L VBG O2 Saturation % VBG Base Excess mEq/L Barometric Pressure mm/Hg Oxygen Given Sodium (136-145) mmol/L Potassium (3.5-5.1) mmol/L Chloride (98-107) mmol/L Carbon Dioxide (21-32) mmol/L Anion Gap (3-11) BUN (6-23) mg/dl Creatinine (0.6-1.2) mg/dl Est Cr Clr Drug Dosing Est GFR ( Amer) ml/min Est GFR (Non-Af Amer) ml/min BUN/Creatinine Ratio (10-20) Glucose (70-99(Fasting)) mg/dl POC Glucose (70-99) mg/dl Estimat Average Glucose mg/dl Hemoglobin A1c (4.5-5.6) % Lactate (0.4-2.0) mmol/L Calcium (8.5-10.1) mg/dl Magnesium (1.7-2.4) mg/dl Total Bilirubin (0.2-1.0) mg/dl AST (13-39) U/L ALT (7-52) U/L Alkaline Phosphatase (34-104) U/L Ammonia 39.0 (18-72) umol/L Troponin I High Sens (0-14) pg/ml Total Protein (6.0-8.3) gm/dl Albumin (3.4-5.0) gm/dl Globulin (2.5-4.0) gm/dl Albumin/Globulin Ratio (0.9-2) TSH (0.300-4.500) uIu/ml Urine Color Yellow Urine Appearance Clear (Clear) Urine pH 6.0 (4.5-7.5) Ur Specific Woody 1.013 (1.000-1.030) Urine Protein Negative (Negative) Urine Glucose (UA) Negative (Negative) Urine Ketones Negative (Negative) Urine Blood Negative (Negative) Urine Nitrite Negative (Negative) Urine Bilirubin Negative (Negative) Urine Urobilinogen Negative (Negative) Ur Leukocyte Esterase Negative (Negative) SARS-CoV-2, RNA, NAAT (NEGATIVE) 08 Range/Units 05:48 WBC (4.8-10.8) K/uL RBC (4.2-5.4) M/uL Hgb (12.0-16.0) g/dL Hct (37-47) % MCV (80-100) fL MCH (25-34) pg MCHC (32-36) g/dL RDW Std Deviation (36.4-46.3) fL RDW Coeff of Lorene (11.5-14.5) % Plt Count (130-400) K/uL MPV (7.4-10.4) fL Immature Gran % (Auto) % Neut % (Auto) % Lymph % (Auto) % Towner % (Auto) % Eos % (Auto) % Baso % (Auto) % Neut # (Auto) (1.4-6.5) K/uL Lymph # (Auto) (1.2-3.4) K/uL Towner # (Auto) (0.11-0.59) K/uL Eos # (Auto) (0-0.5) K/uL Baso # (Auto) (0-0.2) K/uL Immature Gran # (Auto) (0.00-0.02) K/uL ABG pH (7.35-7.45) ABG pCO2 (35-46) mmHg ABG pO2 (80-95) mmHg ABG HCO3 (19-24) mmol/L ABG O2 Saturation (90-95) % ABG Base Excess (-9-1.8) mEq/L Cade Test (Pos) VBG pH (7.36-7.41) VBG pCO2 (38-50) mmHg VBG pO2 mmHg VBG HCO3 mmol/L VBG O2 Saturation % VBG Base Excess mEq/L Barometric Pressure mm/Hg Oxygen Given Sodium 140 (136-145) mmol/L Potassium 3.6 (3.5-5.1) mmol/L Chloride 111 H (98-107) mmol/L Carbon Dioxide 25 (21-32) mmol/L Anion Gap 4 (3-11) BUN 19 (6-23) mg/dl Creatinine 1.17 (0.6-1.2) mg/dl Est Cr Clr Drug Dosing 60.4 Est GFR ( Amer) 64.3 ml/min Est GFR (Non-Af Amer) 55.4 ml/min BUN/Creatinine Ratio 16.2 (10-20) Glucose 81 (70-99(Fasting)) mg/dl POC Glucose (70-99) mg/dl Estimat Average Glucose mg/dl Hemoglobin A1c (4.5-5.6) % Lactate (0.4-2.0) mmol/L Calcium 8.6 (8.5-10.1) mg/dl Magnesium (1.7-2.4) mg/dl Total Bilirubin (0.2-1.0) mg/dl AST (13-39) U/L ALT (7-52) U/L Alkaline Phosphatase (34-104) U/L Ammonia (18-72) umol/L Troponin I High Sens (0-14) pg/ml Total Protein (6.0-8.3) gm/dl Albumin (3.4-5.0) gm/dl Globulin (2.5-4.0) gm/dl Albumin/Globulin Ratio (0.9-2) TSH (0.300-4.500) uIu/ml Urine Color Urine Appearance (Clear) Urine pH (4.5-7.5) Ur Specific Woody (1.000-1.030) Urine Protein (Negative) Urine Glucose (UA) (Negative) Urine Ketones (Negative) Urine Blood (Negative) Urine Nitrite (Negative) Urine Bilirubin (Negative) Urine Urobilinogen (Negative) Ur Leukocyte Esterase (Negative) SARS-CoV-2, RNA, NAAT (NEGATIVE) Chest X-Ray 07/27/21 19:27 XR chest 1V portable HISTORY: 45 years-old Female weakness acute weakness COMPARISON: 12/05/2020 TECHNIQUE: Portable AP view of the chest FINDINGS: Cardiac silhouette is enlarged. Unchanged linear scarring versus atelectasis of the lung bases. No pneumothorax, pleural effusion, airspace consolidation or overt pulmonary edema. Bones appear grossly intact. IMPRESSION: Chronic findings as above without acute process. ACT 112: Negative or not required by law. The above report was generated using voice recognition software. It may contain grammatical, syntax or spelling errors. Electronically signed by: Abel Mckay M.D. 07/27/2021 7:[address] 07/27/21 19:27 CT head/brain wo con CLINICAL HISTORY: 45 years-old Female with confusion, found down. Acute head t rauma status post fall TECHNIQUE: Multiple axial CT images of the head were obtained without contrast. A dose lowering technique was utilized adhering to the principles of ALARA. COMPARISON: Head CT 12/23/2020 FINDINGS: No acute intracranial hemorrhage, midline shift, intracranial mass, hydrocephalus, territorial ischemia or abnormal extra-axial collection. The calvarium is intact. The paranasal sinuses, mastoid air cells, and middle ear cavities are clear. IMPRESSION: No acute intracranial abnormality or calvarial fracture. ACT 112: Negative or not required by law. The above report was generated using voice recognition software. It may contain grammatical, syntax or spelling errors. Electronically signed by: Abel Mckay M.D. 07/27/2021 7:[address] 07/27/21 19:37 CT cervical spine wo con CT DOSE: 1839.76 mGy.cm CLINICAL HISTORY: 45 years-old Female with fall. Acute neck pain status post fall COMPARISON: Head CT of same day TECHNIQUE: Multiple axial CT images of the cervical spine were obtained without contrast. A dose lowering technique was utilized adhering to the principles of ALARA. FINDINGS: Vertebral body heights and alignment are normal. Reversal the normal cervical lordosis with kyphosis centered at C4-C5. Mild multilevel uncovertebral hypertrophy. 3 mm anterolisthesis C2 on C3 and C3 on C4 is likely degenerative. Multilevel facet arthrosis, severe on the left at C2-C3. No fracture or subluxation is identifed. The intervertebral disc spaces are preserved. No significant central canal or neural foraminal stenosis is identified. The cervical soft tissues appear unremarkable. Trace left mastoid effusion. Mild gaseous distention of the upper esophagus. Calcified plaque of the carotid bulbs. The visualized lung apices appear clear. IMPRESSION: No acute cervical spine fracture. ACT 112: Negative or not required by law. The above report was generated using voice recognition software. It may contain grammatical, syntax or spelling errors. Electronically signed by: Abel Mckay M.D. 07/27/2021 8:[address] 07/27/21 19:37 CT lumbar spine wo con HISTORY: 45 years-old Female LBP s/p fall acute low back pain status post fall COMPARISON: CT abdomen and pelvis 12/11/2020 TECHNIQUE: Multiple axial CT images of the lumbar spine were obtained without the use of IV contrast. A dose lowering technique was used consistent with the principals of ALARA. FINDINGS: Minimal lumbar levoscoliosis. No acute fracture, subluxation, endplate erosion or suspicious bone lesion. There is mild multilevel facet arthrosis. The intervertebral disc spaces are generally well preserved. The imaged sacrum and iliac bones appear intact. Central canal and neuroforamina is better assessed by MRI. No significant disc bulges, high-grade central canal or neural foraminal narrowing identified. Atherosclerosis of the aorta. No paravertebral edema. Increased attenuation of the hepatic parenchyma incidentally noted. Urinary bladder distention. IMPRESSION: No acute fracture or subluxation. ACT 112: Negative or not required by law. The above report was generated using voice recognition software. It may contain grammatical, syntax or spelling errors. Electronically signed by: Abel Mckay M.D. 07/27/2021 8:07 PM Diagnostic Findings EKG as per my interpretation: Rate 65, NSR, LAD, LAFB, T wave abnormalities inferior and septal leads
[2021-07-27 22:39] LABS: Allen Test POS (Pos); Base Excess ABG -1.6 mEq/L (-9-1.8); HCO3 ABG 25 mmol/L (19-24); PCO2 ABG 48 mmHg (35-46); PO2 ABG 84 mmHg (80-95); pH ABG 7.33 (7.35-7.45)
[2021-07-27] MEDS ORDERED: DOXYCYCLINE HYCLATE 100 MG in DEXTROSE 5% 100 ML IV STA (23:03)
[2021-07-27] MEDS ORDERED: ALBUT/IPRATROP 3MG/0.5MG NEB 3 ML VIAL NEB STA (23:04)
[2021-07-28 03:04] LABS: Appearance Urine Clear (Clear); Bilirubin Urine Negative (Negative); Blood Urine Negative (Negative); Color Urine Yellow; Glucose Urine UA Negative (Negative); Ketones Urine Negative (Negative); Leukocyte Esterase Urine Negative (Negative); Nitrite Urine Negative (Negative); Protein Urine Negative (Negative); Specific Gravity Urine 1.013 (1.000-1.030); Urobilinogen Urine Negative (Negative)
[2021-07-28] MEDS ORDERED: LORazepam 2 MG/1 ML VIAL IV PRN (03:56)
[2021-07-28] MEDS ORDERED: LEVALBUTEROL 1.25MG/0.5ML NEB INH PRN (03:56)
[2021-07-28] MEDS ORDERED: LACTATED RINGER'S 1,000 ML IV ONE (03:56)
[2021-07-28] MEDS ORDERED: KETOROLAC TROMETHAMINE 15 MG/ML VIAL IV ONE (03:56)
[2021-07-28] MEDS ORDERED: IPRATROPIUM BROMIDE NEB SOLN 0.02% 2.5 ML VIAL INH PRN (03:56)
[2021-07-28] MEDS ORDERED: CETIRIZINE HCL 10 MG TABLET PO PRN (03:56)
[2021-07-28] MEDS ORDERED: XOPENEX/ATROVENT 1.25mg/0.5MG NEB COMBO NEB PRN (03:56)
[2021-07-28 06:19] LABS: Basophils # (auto) 0.02 K/uL (0-0.2); Basophils % (auto) 0.3 %; Eosinophils # (auto) 0.22 K/uL (0-0.5); Eosinophils % (auto) 3.2 %; Hematocrit (blood only) 34.2 % (37-47); Hemoglobin 11.1 g/dL (12.0-16.0); Immature Granulocytes # (auto) 0.02 K/uL (0.00-0.02); Immature Granulocytes % (auto) 0.3 %; Lymphocytes # (auto) 1.18 K/uL (1.2-3.4); Mean Corpuscular Hemoglobin 29.8 pg (25-34); Mean Corpuscular Hgb Conc 32.5 g/dL (32-36); Mean Corpuscular Volume 91.9 fL (80-100); Mean Platelet Volume 9.3 fL (7.4-10.4); Monocytes # (auto) 1.09 K/uL (0.11-0.59); Monocytes % (auto) 15.7 %; Neutrophils # (auto) 4.42 K/uL (1.4-6.5); Neutrophils % (auto) 63.5 %; Platelet Count 276 K/uL (130-400); RDW Coefficient of Variation 14.3 % (11.5-14.5); RDW Standard Deviation 47.9 fL (36.4-46.3); Red Blood Count 3.72 M/uL (4.2-5.4); White Blood Count 6.95 K/uL (4.8-10.8)
[2021-07-28] MEDS ORDERED: LEVOTHYROXINE SODIUM 137 MCG TABLET PO SCH (06:30)
[2021-07-28 06:37] LABS: BUN Creatinine Ratio 16.2 (10-20); Calcium 8.6 mg/dl (8.5-10.1); Creatinine Clr Calc Pharmacy 60.4 ml/min; Est GFR (African American) 64.3 ml/min; Est GFR (Non-African American) 55.4 ml/min; Potassium 3.6 mmol/L (3.5-5.1)
[2021-07-28 07:59] LABS: Estimated Average Glucose 126 mg/dl
[2021-07-28] MEDS ORDERED: FOLIC ACID 1 MG TAB PO SCH (09:00)
[2021-07-28] MEDS ORDERED: LABETALOL HCL 100 MG TAB PO SCH (09:00)
[2021-07-28] MEDS ORDERED: NICOTINE 21 MG/24 HR TDSY TD SCH (09:00)
[2021-07-28] MEDS ORDERED: PANTOprazole 40 MG TAB PO SCH (09:00)
[2021-07-28] MEDS ORDERED: DOXYCYCLINE HYCLATE 100 MG CAP PO SCH (09:00)
[2021-07-28] MEDS ORDERED: UMECLIDINIUM/VILANTEROL 62.5/25MCG 7 PUFFS/INHALER INH SCH (09:00)
[2021-07-28] MEDS ORDERED: levETIRAcetam 500 MG TAB PO SCH (09:00)
[2021-07-28] MEDS ORDERED: CYANOCOBALAMIN (B-12) 500 MCG TABLET PO SCH (09:00)
[2021-07-28] MEDS ORDERED: NIFEdipine EXTENDED REL 30 MG TABCR PO SCH (09:00)
--- NOTE | 2021-07-28 09:26 | Neurology Consultation ---
Date of Consultation July 28, 2021 Assessment & Plan (1) Seizure disorder: (2) Encephalopathy: (3) Fibromyalgia: (4) Bradykinesia: (5) Cognitive dysfunction: this patient is somewhat complicated neurologically with chronic neurologic and pulmonary issues. In addition, patient has had some cognitive problems over last 2 years, worse since fall. The patient had a witnessed event yesterday consistent with a seizure or syncope from some other event. The patient has a history of seizures since November of 2020. She continues to have episodes of tonic and clonic activity as well as episodes where she "loses time" being unaware of what happened for about an hour. she is on levetiracetam 1000 mg twice a day, gabapentin 800 mg 3 times a day, and clonazepam 1 mg twice a day all of which should stop seizures. Yet, she continues to have these events. I cannot exclude pseudoseizures (PNES). 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 MRI of the brain did not show any te mporal lobe dysfunction including mesial temporal lobe sclerosis back in January of 2021. The addition of levetiracetam has not stopped her spells/events. the patient has a significant pulmonary problem requiring oxygen and she has hypoxia nocturnally as well as hypercarbia. She might be experiencing some daytime hypoxia which could lead to an event such as she had yesterday. Generalized hypoxia would increase her risk for seizure. She has chronic pain, fibromyalgia, and displays a progressive cognitive dysfunction to her family as well as a bradykinesia. She does not have rigidity, resting tremor or an obvious Parkinson's gait but metoclopramide can give extra pyramidal side effects such as bradykinesia. Interestingly, cabergoline might decrease the extrapyramidal side effects of metoclopramide (as well as decreasing the galactorrhea from increased prolactin) but she has been off this medication for at least 4 months. She is on a very high dose of doxepin which would lower her seizure threshold as well. Recommendations: 1. MRI of the brain with/without contrast, with attention to the temporal lobes. 2. EEG routine 3. Obtain CK, prolactin, ESR, B12, folate, Lyme antibody titers, and a levetiracetam level. 4. Consider initiating lamotrigine 25 mg twice a day. This can be titrated as an outpatient and the levetiracetam can be tapered off slowly. Lamotrigine wou ld be a better anticonvulsant and mood stabilizing medication for this patient. Levetiracetam could be giving her some cognitive side effects. 5. otherwise keep levetiracetam the same at 1000 mg twice daily, for now. 6. consider lowering doxepin to somewhere between 100 - 150 mg each evening. 7. as an outpatient, we will consider complete neuropsychological testing 8. as an outpatient, we may need to consider sending her to an epilepsy monitoring unit to rule out and better classify her seizures (versus pseudoseizures). Overall, I spent a total of 120 minutes with this case including review of records, reviewing MRI and CT films, direct evaluation the patient at bedside, and discussion of the case with patient and RN at bedside as well as Dr. Gonzalez, including differential diagnosis and treatment options. History of Present Illness Reason for Consultation: Patient is a 45-year-old, who I was asked to see at the request of Dr. Guerrero, Her neurologic evaluation regarding probable seizure Requesting Physician: Dr. Guerrero Attending Physician: Jc Gonzalez MD History of Present Illness this patient has a longstanding history of fibromyalgia as well as an asthma/ COPD overlap syndrome, hypertension, depression/anxiety, and hypothyroidism. The patient has a history of sepsis with acute hypoxic respiratory failure and community-acquired pneumonia requiring hospitalization December. she was also noted to have iron deficiency anemia, cardiac demand ischemia, and weight gain which was improved with the furosemide. she has been followed by Dr. 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 She continues to smoke cigarettes which she has been doing for many years. She was off cigarettes last year on Chantix but started back on about 6 months ago when she could not get the Chantix. 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 She uses oxygen at night on a regular basis. Starting in late November of 2020, the patient had a seizure-like event with witnessed seizures. She ended up seeing Dr. Delgado December 24, who diagnosed seizures following an EEG which showed left temporal slowing and sharp waves ( potentially epileptogenic ). MRI of the brain with without contrast was unremarkable at that time and showed no evidence of focal findings or mesial temporal sclerosis. She was initiated on levetiracetam and has been increased as she continued to have spells. He last saw her in February of 2021 and increased her to 750 mg twice a day. Later on she was increased to her current dose of 1000 mg twice a day. Her 1st seizure, in late November was witnessed by her we talked to over the telephone. Apparently she was walking downstairs let out a scream and then stiffened up. caught her before she fell and she was jerking in his arms and alternately becoming stiff. She then will was lowered to the ground and was unresponsive not moving for about 2 minutes. She then came around and was confused and slow. The patient tells us that she has episodes about 1 to 2 times a week where she "loses time". She will be doing something and then all the sudden she realizes that and our has gone by and she does not know what happened. During these times no one has ever witnessed any seizure activity and the patient does not wake up on the floor or with unusual conditions. She believes that she had a seizure about 2 weeks ago but did not go to the Emergency room. Has a gather her history, it is clear to me that she does not always take medications as prescribed. She is currently taking clonazepam 1 mg twice a day (for many years) and gabapentin 800 mg 3 times a day which helps her chronic pain in the limbs, legs greater than arms. Her fibromyalgia symptoms can flare up frequently. For her anxiety and depression she is also some opposed to be on doxepin. The chart states that she is on 3 of the 150 mg capsules at bedtime, but she states they are 100 mg capsules. In addition if she is tired she will only take 1 or 2 capsules and not all 3. she does not take the doxepin regularly. She has been on metoclopramide for GI symptoms for about 5 years. She was on cabergoline because the metoclopramide gave her galactorrhea. This helped, but she stopped the cabergoline about 4 months ago. She believes she is getting some galactorrhea again at times. The tells us that the patient , over the last 2 years, has had a somewhat insidious and slowly progressive decline in her cognitive status. this has become worse since November of 2020. she has been very slow although she can do activities of daily living such as cleaning herself up, doing some simple cooking and cleaning. She will only rarely drives locally. On July 27, she remembers waking up around 10:00 a.m.. She was having pain "all over" because of her fibromyalgia. She really does not remember much of what she did yesterday but apparently was around the house doing typical things and seemed about her baseline according to the family. Patient tells me that sometime in the afternoon she felt very hot in the head and became vertiginous. The next thing she remembers she is going to the car. Apparently, she was found by the patient's daughter on the ground unresponsive. The spouse felt that she did not move for 5-10 minutes and then could get her up. She was mumbling but lethargic and confused. He drove her to the emergency room. Patient arrived at the emergency room at 6:08 p.m. on July 27 with a temperature 36.4, pulse 75 and regular, respiratory rate 16, blood pressure 102/71 coma and O2 saturation 98%. She was described as confused, lethargic, and slow in general. She did not have any focal neurologic signs identified in the emergency room. CBC showed anemia (chronic) and Chem profile was remarkable for an alk-phos of 134. This has been elevated over time. The rest of the liver profile was unremarkable and her ammonia level was 39. Hemoglobin A1c was 6.0 and TSH was 4.4. Blood gas revealed a pH is 7.33, O2 saturation of 96% and bicarb of 25. pCO2 was 48. Because of the confusion and hypercarbia, she was put on BiPAP. Later this was changed to nasal cannula. CT scan of the head showed no acute changes. Because of pain, CT scan of the cervical and lumbar spines were unremarkable without fracture. Patient tells me that in her 18 she was of very heavy alcohol user. She stopped this about 10 years ago and has not been drinking alcohol she says. Allergies Allergy/AdvReac Type Severity Reaction Status Date / Time aspirin Allergy Severe WHEEZING Verified 07/27/21 21:46 Sulfa (Sulfonamide Allergy Intermediate HIVES Verified 07/27/21 21:46 Antibiotics) Home Medications Medication Instructions Recorded Confirmed Type clonazepam 1 mg tablet 1 mg PO BID PRN 12/18/18 07/27/21 History cyclobenzaprine 10 mg tablet 10 mg PO TID PRN 12/18/18 07/27/21 History doxepin 150 mg capsule 450 mg PO HS 12/18/18 07/27/21 History hydroxyzine pamoate 50 mg capsule 50 mg PO HS PRN 12/18/18 07/27/21 History levothyroxine 137 mcg tablet See Rx Instructions .ROUTE .COMPLEX 12/18/18 07/27/21 History ondansetron 4 mg disintegrating 4 mg PO Q6H PRN 12/18/18 07/27/21 History tablet ferrous sulfate 325 mg (65 mg 325 mg PO QAM #30 tab 12/25/18 07/27/21 Rx iron) tablet,delayed release labetalol 100 mg tablet 100 mg PO BID #60 tab 12/25/18 07/27/21 Rx nicotine 21 mg/24 hr daily 21 mg TRANSDERMAL QAM #14 ea 12/25/18 07/27/21 Rx transdermal patch (Nicoderm CQ) nifedipine 30 mg tablet,extended 30 mg PO DAILY #30 tab 12/25/18 07/27/21 Rx release Incentive Spirometer #1 ea 01/03/19 07/27/21 Rx cholecalciferol (vitamin D3) 25 25 mcg PO DAILY 01/24/19 07/27/21 History mcg (1,000 unit) capsule folic acid 1 mg tablet 1 mg PO DAILY 01/24/19 07/27/21 History omeprazole 40 mg capsule,delayed 40 mg PO DAILY 01/24/19 07/27/21 History release Portable Oxygen #1 ea 06/10/19 07/27/21 Rx cyanocobalamin (vitamin B-12) 1,000 mcg PO DAILY 12/05/20 07/27/21 History 1,000 mcg tablet (Vitamin B-12) gabapentin 800 mg tablet 800 mg PO TID 12/05/20 07/27/21 History cabergoline 0.5 mg tablet 0.25 mg PO 2XWK 12/11/20 07/27/21 History metoclopramide HCl 10 mg tablet 10 mg PO TID PRN 12/11/20 07/27/21 History polyethylene glycol 3350 17 17 g PO DAILY 12/11/20 07/27/21 History gram/dose oral powder albuterol sulfate 90 mcg/actuation 2 puff INHALATION Q6H PRN #8.5 g 01/06/21 07/27/21 Rx aerosol inhaler (Ventolin HFA) levocetirizine 5 mg tablet 5 mg PO DAILY PRN #30 tab 01/06/21 07/27/21 Rx umeclidinium 62.5 mcg-vilanterol 1 inh INH DAILY #60 ea 01/06/21 07/27/21 Rx 25 mcg/actuation powdr for inhalation (Anoro Ellipta) levetiracetam 1,000 mg tablet 1,000 mg PO BID 30 Days #60 tab 04/27/21 07/27/21 Rx furosemide 20 mg tablet (Lasix) 20 mg PO DAILY 07/27/21 07/27/21 History Patient History Medical History Anxiety Asthma Depression Diastolic heart failure Fatigue Fibromyalgia High blood pressure Hypertension IBS (irritable bowel syndrome) Overweight Perforated viscus Postoperative 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) Snoring Tobacco abuse counseling Surgical History History of section History of dilation and curettage Family History Mother COPD (chronic obstructive pulmonary disease) Myocardial infarction, Onset Age: 51 Social History Smoking Status: Current every day smoker Tobacco Type: Cigarettes Cigarettes Per Day: 20; Second Hand Exposure: Yes; Hx Alcohol Use: No Hx Substance Use: No Preferred Language: Brazilian Communication Ability: Impaired Visual Impairment: No Limitations Pencil Sorter Required: No Beliefs That Will Affect Care: None Current Living Situation: Family Current Living Situation Comment: ex helps with children Other Information That Helps Us Care for You: No Feels Safe at Home: Yes Assistive Devices: Walker Assistive Devices Comment: uses at home Review of Systems Constitutional: + fatigue and + weakness; no fever Eyes: no diplopia, no eye pain and no worsening vision Ear, Nose, Mouth, Throat: no ear pain, no tinnitus, no hearing loss, no dizziness, no snoring, no hoarseness and no dysphagia Respiratory: + dyspnea; no cough Cardiovascular: no chest pain, no palpitations and no lightheadedness Gastrointestinal: no abdominal pain, no nausea and no vomiting Genitourinary: no dysuria, no urinary frequency and no urinary incontinence Musculoskeletal: + back pain and + neck pain; no radicular pain, no joint pain and no myalgia Integumentary: no rash and no lesions Neurologic: + generalized weakness, + tingling, + numbness, + confusion and + memory loss; no gait abnormality, no localized weakness, no tremor(s), no abnormal movements, no headache(s) and no abnormal speech Psychiatric: + depression and + anxiety; no irritability, no difficulty concentrating, no confusion and no hallucinations Endocrine: no fatigue and no flushing Hematologic / Lymphatic: no easy bleeding and no easy bruising Allergy / Immunological: no urticaria and no problem reported Exam (Neuro) Physical Exam: The patient is right-handed. The patient is awake, alert, and attentive. Speech is normal without any aphasia or dysarthria. The patient can name objects, repeat phrases, and has normal spontaneous speech. Mentation and thought processes are intact, with orientation to person, place and time, and normal fund of knowledge. Attention and concentration are normal. Mood and affect are normal and appropriate. General appearance and grooming are normal. Short and long-term memory Are reasonable for some things but not for details regarding her event yesterday. Pupils are 3 mm bilaterally and reactive to light. Extraocular eye muscles are intact without nystagmus. Visual acuity and visual byrd seem normal grossly to confrontation. There are no deficits to sensation in the face in all 3 distributions of the fifth cranial nerve bilaterally. Corneal reflexes are positive bilaterally. Facial strength and symmetry was normal bilaterally. Hearing seems normal bilaterally. Palate moves well without asymmetry. There is normal sternocleidomastoid strength bilaterally. Trapezius strength was mild but distinctly weaker on the left at 4/5 compared to the right which is 5/5. Tongue is midline with good strength bilaterally. The patient is somewhat slow of speech, although accurate, and somewhat bradykinetic in her movements in general. Neck has a full range of motion with some discomfort. There are no cervical bruits bilaterally. There are no cranial or ocular bruits. Heart is without murmur. There is a regular rhythm and rate. Cervical, thoracic, and lumbar spine are tender to palpation diffusely and nonspecifically. Gait seemed narrow based and stable. Stance eyes open or closed was stable. With outstretched arms there is no drift. There are no resting, postural, or action tremors. There is no ataxia with finger to nose testing. There is r easonable facility in the hands. No other abnormal involuntary movements are noted. Motor strength is 5/5 diffusely in the arms bilaterally including deltoids, biceps, triceps, brachioradialis, wrist flexors and extensors, metal container maker, and intrinsic hand muscles. Motor strength is 5/5 diffusely in the legs bilaterally including hip flexors, quadriceps, hamstrings, gastrocnemius, tibialis anterior, tibialis posterior, and Peroneii muscles. Toe extensors are normal and there is good bulk in the extensor digitorum brevis muscles bilaterally. The limbs have good tone without rigidity or spasticity. There is no atrophy noted in the muscles. Muscle bulk is normal, there is no tenderness to palpation, no myotonia to percussion, and no fasciculations seen. Sensory examination Reveals some decreased sensation to touch in the feet bilaterally. Reflexes are 2/4 in the biceps, triceps, brachioradialis, quadriceps, and Achilles tendons bilaterally. There is no clonus bilaterally. Toes are downgoing with plantar stimulation bilaterally. Peripheral pulses are present and of normal quality distally in all 4 limbs. There is no peripheral edema noted in the limbs. Results & Data ([facility]) Vital Signs (Past 12 Hours) Vital Signs Temp Pulse Pulse Resp BP BP Pulse Ox 07/28/21 07:51 36.7 C 68 24 95/59 L 99 07/28/21 04:00 82 07/28/21 03:56 36.6 C 70 16 112/74 100 07/28/21 03:23 78 18 122/68 98 07/28/21 01:00 86 20 106/71 96 07/27/21 23:20 64 26 H 97 07/27/21 23:08 67 26 H 99 07/27/21 23:05 68 16 117/83 94 07/27/21 23:00 66 18 156/85 H 99 07/27/21 21:15 72 24 98 Pulse Ox 07/28/21 07:51 07/28/21 04:00 07/28/21 03:56 100 07/28/21 03:23 07/28/21 01:00 07/27/21 23:20 07/27/21 23:08 07/27/21 23:05 07/27/21 23:00 07/27/21 21:15 PG Care Time/CCT Total # of Minutes Spent Total Time Spent with Patient: Total time spent is greater than 50% in coordination of care (as documented) at patient's floor/unit and/or counseling patient: Coding Level of Care Code 68814 Initial Inpt Care Lvl 3 Diagnoses Seizure disorder G40.909 Encephalopathy G93.40 Fibromyalgia M79.7 Bradykinesia R25.8 Cognitive dysfunction F09 Time Spent (min) 120 Comment Add modifiers as able
[2021-07-28] MEDS: HEPARIN SOD 5,000 UNIT/0.5 ML VIAL SQ SCH ×2 (09:27→14:37)
[2021-07-28] MEDS ORDERED: ACETAMINOPHEN 325 MG TAB PO PRN (10:11)
[2021-07-28] MEDS ORDERED: lamoTRIgine 25 MG TAB PO SCH (10:15)
[2021-07-28] MEDS ORDERED: LIDOCAINE 5% 1 PATCH TD SCH (10:15)
[2021-07-28] MEDS ORDERED: BETAMETHASONE DIP AUG (DIPROLENE) 0.05% CR 15 GM TUBE EXT SCH (11:00)
[2021-07-28 11:25] LABS: Prolactin 4.73 ng/ml
[2021-07-28 11:28] LABS: Folate (Folic Acid) > 22.30 ng/ml (>5.38)
[2021-07-28 11:29] LABS: Vitamin B12 1464 pg/ml (180-914)
[2021-07-28 11:51] LABS: Lyme Ab IgG w/WB Rflx Negative (Negative); Lyme Ab IgM w/WB Rflx Negative (Negative)
[2021-07-28] MEDS ORDERED: GADOBUTROL 65ML VIAL IV ONE (12:59)
[2021-07-28] MEDS ORDERED: FERROUS SULFATE 325 MG TAB PO SCH (14:00)
--- NOTE | 2021-07-28 14:09 | Hospitalist Progress Note ---
Date of Service July 28, 2021 Assessment & Plan (1) Encephalopathy: Plan: Acute encephalopathy on admission- seems resolved ?due to seizure vs polypharmacy Seizure disorder- seen by neuro and recommendations noted - On keppra- keppra level pending- continue keppra - started on lamictal and plan to uptitrate while weaning down keppra per neuro - MRI brain unremarkable- no mesial temporal sclerosis - EEG pending - Prolactin, CK, ESR, B12, folate, lyme negative - lower doxepin to 100-150 each evening - OP neuropsychology testing as well as evaluation for pseudoseizures Nocturnal hypoxemia on nocturnal oxygen 2 L- denies sleep apnea Cognitive dysfunction- OP neuropsychology testing HTN- BP is low- likely related to her BP meds- continue nifedipine and labetalol with hold parameters- might need to drop off one of her BP meds if BP remains low normal Chronic back pain- on suboxone 09/21 per patient through [facility]- called to verify but unable to complete verification of her suboxone- States she last took the dose 2 days back- if needed here, can start but will hold for now considering her presentation and concern for polypharmacy. Will try lidoderm patch, heat pad Dermatitis in hand and feet- for 6 weeks now, with itching and excoriation. States she has been treated with permethrin and ivermectin for suspected scabies with no improvement and no one in family has similar condition. Doubt scabies at this point, rather allergic dermatitis. Spoke with dermatology who will evaluate the patient as OP. Will start on steroid cream and monitor for improvement. ?LLE cellulitis- doesn't look impressive for cellulitis, looks chronic skin changes- started on doxy- to continue for 7 days. Tobacco abuse- nicoderm patch- recommended quitting MARSHAL- Cr improving with IVF. Recheck in am History of Graves disease status post surgery with postsurgical hypothyroidism- TSH normal, on synthroid History of prolactinemia attributed to multiple medications, outpatient MRI sella was negative as per [facility] [place] Endocrinology note. On cabergoline Rx from Gynecology. COPD- not in exacerbation- on anoro ellipta DVT ppx- sc heparin Dispo- Anticipate discharge tomorrow Admission and Anticipated Discharge Date Admission Date: July 27, 2021 Subjective Feels okay. Does not recall the event fully that brought her to the ER yesterday. States she was confused when she woke up in the car on way to the ED and improved in the ED- no bowel bladder incontinence. Physical Exam Physical Exam: General: Sitting in bed, not in acute distress, on NC HEENT: EOMI, JUAN, MMM Chest: Clear breath sounds bilaterally, no wheezes or crackles CVS: Regular rate and rhythm, normal heart sounds, no murmur Abdomen: Soft, non tender, not distended, normal bowel sounds Neuro: Awake, alert, oriented, conversing well, non focal Extremities: Bilateral hands and feet with chronic skin changes and dermatitis with excoriation; LLE with chronic skin changes and discoloration- venous stasis changes Results & Data Results & Data ([facility]) Vital Signs (Past 12 Hours) Vital Signs Temp Pulse Pulse Resp BP BP Pulse Ox 07/28/21 11:46 37.0 C 65 22 90/53 L 95 07/28/21 08:00 67 07/28/21 07:51 36.7 C 68 24 95/59 L 99 07/28/21 04:00 82 07/28/21 03:56 36.6 C 70 16 112/74 100 07/28/21 03:23 78 18 122/68 98 Pulse Ox 07/28/21 11:46 07/28/21 08:00 07/28/21 07:51 07/28/21 04:00 07/28/21 03:56 100 07/28/21 03:23 Laboratory Results Short CBC 07/27/21 07/28/21 Range/Units 19:00 05:48 WBC 4.99 6.95 (4.8-10.8) K/uL Hgb 11.8 L 11.1 L (12.0-16.0) g/dL Hct 36.1 L 34.2 L (37-47) % Plt Count 359 276 (130-400) K/uL BMP 07/27/21 07/28/21 19:00 05:48 Sodium 139 140 Potassium 3.7 3.6 Chloride 107 111 H Carbon Dioxide 24 25 BUN 21 19 Creatinine 1.45 H 1.17 Glucose 98 81 Calcium 9.1 8.6 Cardiac Enzymes 07/28/21 Range/Units 10:18 Total Creatine Kinase 26 (26-192) U/L Liver Function 07/27/21 Range/Units 19:00 Total Bilirubin 0.3 (0.2-1.0) mg/dl AST 26 (13-39) U/L ALT 27 (7-52) U/L Alkaline Phosphatase 134 H (34-104) U/L Albumin 4.4 (3.4-5.0) gm/dl Urine 07/28/21 Range/Units 01:00 Urine Color Yellow Urine Appearance Clear (Clear) Urine pH 6.0 (4.5-7.5) Ur Specific [place] 1.013 (1.000-1.030) Urine Protein Negative (Negative) Urine Glucose (UA) Negative (Negative) Diagnostic Findings Brain MRI 07/28/21 09:57 MR brain seizure wo/w con HISTORY: 45 years-old Female seizures; MRI with attention to temp lobe acute seizure like activity COMPARISON: Head CT 07/27/2021, brain MRI 01/29/2021 TECHNIQUE: Multiplanar multisequence MRI of the brain was obtained both with and without the use of 7.5 cc Gadavist FINDINGS: Advanced Developer localizer images demonstrate no gross extracranial abnormality. Unremarkable midline structures. There is no restricted diffusion to suggest acute or subacute infarct. There is no acute intracranial hemorrhage, midline shift, abnormal extra axial collection, hydrocephalus or intracranial mass. No pathologic blooming on the T2 star series. Several sequences are motion degraded. There are a few scattered nonspecific punctate T2/FLAIR hyperintense foci noted within the white matter which are likely of no clinical significance. The mesial temporal lobes are symmetric and within normal limits. No evidence of mesial temporal sclerosis, treadwell matter heterotopia or cortical dysplasia. No abnormal enhancement. Cerebral venous sinuses and major arterial flow voids appear patent. Small left mastoid effusion. Mild mucosal thickening of the maxillary and ethmoid sinuses. The skull, orbits and soft tissues are unremarkable. IMPRESSION: 1. Mildly motion degraded exam without acute intracranial abnormality. 2. No abnormal enhancement. 3. No evidence of mesial temporal sclerosis. ACT 112: Negative or not required by law. The above report was generated using voice recognition software. It may contain grammatical, syntax or spelling errors. Electronically signed by: Abel Mckay M.D. 07/28/2021 2:28 PM Medications Administered Current Inpatient Medications Acetaminophen (Acetaminophen 325 Mg Tab) 650 mg PO Q4H PRN PRN Reason: pain Stop: 08/27/21 10:10 Last Admin: 07/28/21 10:45 Dose: 650 mg Documented by: Betamethasone Dipropion Augmented (Betamethasone Dip Aug (Diprolene) 0.05% Cr 15 Gm Tube) 1 appln EXT BID HAL Stop: 08/27/21 10:59 Last Admin: 07/28/21 12:23 Dose: 1 appln Documented by: Cetirizine HCl (Cetirizine Hcl 10 Mg Tablet) 5 mg PO DAILY PRN PRN Reason: allergy symptoms Last Admin: 07/28/21 09:30 Dose: 5 mg Documented by: Cyanocobalamin (Cyanocobalamin (B-12) 500 Mcg Tablet) 1,000 mcg PO DAILY HAL Stop: 08/27/21 08:59 Last Admin: 07/28/21 09:33 Dose: 1,000 mcg Documented by: Doxycycline Hyclate (Doxycycline Hyclate 100 Mg Cap) 100 mg PO BID HAL Stop: 08/04/21 08:59 Last Admin: 07/28/21 09:31 Dose: 100 mg Documented by: Ferrous Sulfate (Ferrous Sulfate 325 Mg Tab) 325 mg PO Q24H HAL Stop: 08/27/21 13:59 Last Admin: 07/28/21 14:36 Dose: 325 mg Documented by: Folic Acid (Folic Acid 1 Mg Tab) 1 mg PO DAILY HAL Stop: 08/27/21 08:59 Last Admin: 07/28/21 09:32 Dose: 1 mg Documented by: Heparin Sodium (Porcine) (Heparin Sod 5,000 Unit/0.5 Ml Vial) 5,000 units SQ Q8 HAL Stop: 08/27/21 05:59 Last Admin: 07/28/21 14:37 Dose: 5,000 units Documented by: Lactated Ringer's (Lr) 1,000 mls @ 80 mls/hr IV .[id number] ONE Stop: 07/28/21 16:25 Last Admin: 07/28/21 04:22 Dose: 80 mls/hr Documented by: Ipratropium Cass (Ipratropium Cass Neb Soln 0.02% 2.5 Ml Vial) 0.5 mg INH Q4H PRN PRN Reason: Shortness Of Breath Or Wheezing Stop: 08/27/21 03:55 Labetalol HCl (Labetalol Hcl 100 Mg Tab) 100 mg PO BID HAL Stop: 08/27/21 08:59 Last Admin: 07/28/21 09:32 Dose: 100 mg Documented by: Lamotrigine (Lamotrigine 25 Mg Tab) 25 mg PO BID [facility] Stop: 08/27/21 10:14 Last Admin: 07/28/21 10:45 Dose: 25 mg Documented by: Levalbuterol HCl (Levalbuterol 1.25mg/0.5ml Neb) 1.25 mg INH Q4H PRN PRN Reason: Shortness Of Breath Or Wheezing Stop: 08/27/21 03:55 Levetiracetam (Levetiracetam 500 Mg Tab) 1,000 mg PO BID [facility] Stop: 08/27/21 08:59 Last Admin: 07/28/21 09:33 Dose: 1,000 mg Documented by: Levothyroxine Sodium (Levothyroxine Sodium 137 Mcg Tablet) 137 mcg PO MoTuWeTh@0630 [facility] Stop: 08/27/21 06:29 Last Admin: 07/28/21 09:28 Dose: 137 mcg Documented by: Levothyroxine Sodium (Levothyroxine Sodium 137 Mcg Tablet) 274 mcg PO SuFrSa@0630 [facility] Stop: 08/29/21 06:29 Lidocaine (Lidocaine 5% 1 Patch) 1 patch TD QAM [facility] Stop: 08/27/21 10:14 Last Admin: 07/28/21 10:44 Dose: 1 patch Documented by: Lorazepam (Lorazepam 2 Mg/1 Ml Vial) 1 mg IV Q10M PRN; Protocol PRN Reason: active seizures Stop: 08/27/21 03:55 Miscellaneous (Cabergoline: Order Awaiting Action) 1 ea N/A QS [facility] Stop: 08/27/21 07:59 Last Admin: 07/28/21 09:28 Dose: Not Given Documented by: Miscellaneous (Remove Nicoderm Patch) 1 ea N/A DAILY@0859 [facility] Stop: 08/27/21 08:58 Last Admin: 07/28/21 09:35 Dose: 1 ea Documented by: Miscellaneous (Remove Lidoderm Patch) 1 ea N/A DAILY@2100 [facility] Stop: 08/27/21 20:59 Nicotine (Nicotine 21 Mg/24 Hr Tdsy) 21 mg TD QAM [facility] Stop: 08/27/21 08:59 Last Admin: 07/28/21 09:34 Dose: 21 mg Documented by: Nifedipine (Nifedipine Extended Rel 30 Mg Tabcr) 30 mg PO DAILY HAL Stop: 08/27/21 08:59 Last Admin: 07/28/21 09:32 Dose: 30 mg Documented by: Pantoprazole Sodium (Pantoprazole 40 Mg Tab) 40 mg PO DAILY HAL Stop: 08/27/21 08:59 Last Admin: 07/28/21 09:32 Dose: 40 mg Documented by: Umeclidinium/Vilanterol (Umeclidinium/Vilanterol 62.5/25mcg 7 Puffs/Inhaler) 1 puffs INH DAILY HAL Stop: 08/27/21 08:59 Last Admin: 07/28/21 09:34 Dose: 1 puffs Documented by:
--- NOTE | 2021-07-28 14:29 | Magnetic Resonance Report ---
MR brain seizure wo/w con HISTORY: 45 years-old Female seizures; MRI with attention to temp lobe acute seizure like activity COMPARISON: Head CT 07/27/2021, brain MRI 01/29/2021 TECHNIQUE: Multiplanar multisequence MRI of the brain was obtained both with and without the use of 7 .5 cc Gadavist FINDINGS: [employer] Set Up Operator localizer images demonstrate no gross extracranial abnormality. Unremarkable midline structures . There is no restricted diffusion to suggest acute or subacute infarct. There is no acute intracrani al hemorrhage, midline shift, abnormal extra axial collection, hydrocephalus or intracranial mass. No pathologic blooming on the T2 star series. Several sequences are motion degraded. There are a few sc attered nonspecific punctate T2/FLAIR hyperintense foci noted within the white matter which are likel y of no clinical significance. The mesial temporal lobes are symmetric and within normal limits. No e vidence of mesial temporal sclerosis, treadwell matter heterotopia or cortical dysplasia. No abnormal enha ncement. Cerebral venous sinuses and major arterial flow voids appear patent. Small left mastoid effusion. Mil d mucosal thickening of the maxillary and ethmoid sinuses. The skull, orbits and soft tissues are unr emarkable. IMPRESSION: 1. Mildly motion degraded exam without acute intracranial abnormality. 2. No abnormal enhancement. 3. No evidence of mesial temporal sclerosis. ACT 112: Negative or not required by law. The above report was generated using voice recognition software. It may contain grammatical, syntax o r spelling errors. Electronically signed by: Abel Mckay M.D. 07/28/2021 2:28 PM
--- NOTE | 2021-07-28 14:48 | Electroencephalogram ---
EEG Procedure Note Date of Service July 28, 2021 Start / End Times Start Time: 1341 End Time: [address] Griffith History 45-year-old with history of seizures with breakthrough seizure 18 hours ago Home Medication List Medication Instructions Recorded Confirmed Type clonazepam 1 mg tablet 1 mg PO BID PRN 12/18/18 07/27/21 History cyclobenzaprine 10 mg tablet 10 mg PO TID PRN 12/18/18 07/27/21 History doxepin 150 mg capsule 450 mg PO HS 12/18/18 07/27/21 History hydroxyzine pamoate 50 mg capsule 50 mg PO HS PRN 12/18/18 07/27/21 History levothyroxine 137 mcg tablet See Rx Instructions .ROUTE .COMPLEX 12/18/18 07/27/21 History ondansetron 4 mg disintegrating 4 mg PO Q6H PRN 12/18/18 07/27/21 History tablet ferrous sulfate 325 mg (65 mg 325 mg PO QAM #30 tab 12/25/18 07/27/21 Rx iron) tablet,delayed release labetalol 100 mg tablet 100 mg PO BID #60 tab 12/25/18 07/27/21 Rx nicotine 21 mg/24 hr daily 21 mg TRANSDERMAL QAM #14 ea 12/25/18 07/27/21 Rx transdermal patch (Nicoderm CQ) nifedipine 30 mg tablet,extended 30 mg PO DAILY #30 tab 12/25/18 07/27/21 Rx release Incentive Spirometer #1 ea 01/03/19 07/27/21 Rx cholecalciferol (vitamin D3) 25 25 mcg PO DAILY 01/24/19 07/27/21 History mcg (1,000 unit) capsule folic acid 1 mg tablet 1 mg PO DAILY 01/24/19 07/27/21 History omeprazole 40 mg capsule,delayed 40 mg PO DAILY 01/24/19 07/27/21 History release Portable Oxygen #1 ea 06/10/19 07/27/21 Rx cyanocobalamin (vitamin B-12) 1,000 mcg PO DAILY 12/05/20 07/27/21 History 1,000 mcg tablet (Vitamin B-12) gabapentin 800 mg tablet 800 mg PO TID 12/05/20 07/27/21 History cabergoline 0.5 mg tablet 0.25 mg PO 2XWK 12/11/20 07/27/21 History metoclopramide HCl 10 mg tablet 10 mg PO TID PRN 12/11/20 07/27/21 History polyethylene glycol 3350 17 17 g PO DAILY 12/11/20 07/27/21 History gram/dose oral powder albuterol sulfate 90 mcg/actuation 2 puff INHALATION Q6H PRN #8.5 g 01/06/21 07/27/21 Rx aerosol inhaler (Ventolin HFA) levocetirizine 5 mg tablet 5 mg PO DAILY PRN #30 tab 01/06/21 07/27/21 Rx umeclidinium 62.5 mcg-vilanterol 1 inh INH DAILY #60 ea 01/06/21 07/27/21 Rx 25 mcg/actuation powdr for inhalation (Anoro Ellipta) levetiracetam 1,000 mg tablet 1,000 mg PO BID 30 Days #60 tab 04/27/21 07/27/21 Rx furosemide 20 mg tablet (Lasix) 20 mg PO DAILY 07/27/21 07/27/21 History Inpatient Medication List Acetaminophen (Acetaminophen 325 Mg Tab) 650 mg PO Q4H PRN PRN Reason: pain Stop: 08/27/21 10:10 Last Admin: 07/28/21 10:45 Dose: 650 mg Documented by: [id number] Betamethasone Dipropion Augmented (Betamethasone Dip Aug (Diprolene) 0.05% Cr 15 Gm Tube) 1 appln EXT BID HAL Stop: 08/27/21 10:59 Last Admin: 07/28/21 12:23 Dose: 1 appln Documented by: [id number] Cetirizine HCl (Cetirizine Hcl 10 Mg Tablet) 5 mg PO DAILY PRN PRN Reason: allergy symptoms Last Admin: 07/28/21 09:30 Dose: 5 mg Documented by: [id number] Cyanocobalamin (Cyanocobalamin (B-12) 500 Mcg Tablet) 1,000 mcg PO DAILY HAL Stop: 08/27/21 08:59 Last Admin: 07/28/21 09:33 Dose: 1,000 mcg Documented by: [id number] Doxycycline Hyclate (Doxycycline Hyclate 100 Mg Cap) 100 mg PO BID HAL Stop: 08/04/21 08:59 Last Admin: 07/28/21 09:31 Dose: 100 mg Documented by: [id number] Ferrous Sulfate (Ferrous Sulfate 325 Mg Tab) 325 mg PO Q24H HAL Stop: 08/27/21 13:59 Last Admin: 07/28/21 14:36 Dose: 325 mg Documented by: [id number] Folic Acid (Folic Acid 1 Mg Tab) 1 mg PO DAILY HAL Stop: 08/27/21 08:59 Last Admin: 07/28/21 09:32 Dose: 1 mg Documented by: [id number] Heparin Sodium (Porcine) (Heparin Sod 5,000 Unit/0.5 Ml Vial) 5,000 units SQ Q8 [facility] Stop: 08/27/21 05:59 Last Admin: 07/28/21 14:37 Dose: 5,000 units Documented by: [id number] Admin: 07/28/21 09:27 Dose: 5,000 units Documented by: [id number] Lactated Ringer's (Lr) 1,000 mls @ 80 mls/hr IV .[id number] ONE Stop: 07/28/21 16:25 Last Admin: 07/28/21 04:22 Dose: 80 mls/hr Documented by: [id number] Labetalol HCl (Labetalol Hcl 100 Mg Tab) 100 mg PO BID HAL Stop: 08/27/21 08:59 Last Admin: 07/28/21 09:32 Dose: 100 mg Documented by: [id number] Lamotrigine (Lamotrigine 25 Mg Tab) 25 mg PO BID HAL Stop: 08/27/21 10:14 Last Admin: 07/28/21 10:45 Dose: 25 mg Documented by: [id number] Levetiracetam (Levetiracetam 500 Mg Tab) 1,000 mg PO BID HAL Stop: 08/27/21 08:59 Last Admin: 07/28/21 09:33 Dose: 1,000 mg Documented by: [id number] Levothyroxine Sodium (Levothyroxine Sodium 137 Mcg Tablet) 137 mcg PO MoTuWeTh@0630 [facility] Stop: 08/27/21 06:29 Last Admin: 07/28/21 09:28 Dose: 137 mcg Documented by: [id number] Lidocaine (Lidocaine 5% 1 Patch) 1 patch TD QAM [facility] Stop: 08/27/21 10:14 Last Admin: 07/28/21 10:44 Dose: 1 patch Documented by: [id number] Miscellaneous (Cabergoline: Order Awaiting Action) 1 ea N/A QS [facility] Stop: 08/27/21 07:59 Last Admin: 07/28/21 09:28 Dose: Not Given Documented by: [id number] Miscellaneous (Remove Nicoderm Patch) 1 ea N/A DAILY@0859 [facility] Stop: 08/27/21 08:58 Last Admin: 07/28/21 09:35 Dose: 1 ea Documented by: [id number] Nicotine (Nicotine 21 Mg/24 Hr Tdsy) 21 mg TD QAM [facility] Stop: 08/27/21 08:59 Last Admin: 07/28/21 09:34 Dose: 21 mg Documented by: [id number] Nifedipine (Nifedipine Extended Rel 30 Mg Tabcr) 30 mg PO DAILY [facility] Stop: 08/27/21 08:59 Last Admin: 07/28/21 09:32 Dose: 30 mg Documented by: [id number] Pantoprazole Sodium (Pantoprazole 40 Mg Tab) 40 mg PO DAILY [facility] Stop: 08/27/21 08:59 Last Admin: 07/28/21 09:32 Dose: 40 mg Documented by: [id number] Umeclidinium/Vilanterol (Umeclidinium/Vilanterol 62.5/25mcg 7 Puffs/Inhaler) 1 puffs INH DAILY [facility] Stop: 08/27/21 08:59 Last Admin: 07/28/21 09:34 Dose: 1 puffs Documented by: [id number] Discontinued Medications Albuterol (Albut/Ipratrop 3mg/0.5mg Neb 3 Ml Vial) 3 ml NEB NOW STA; Protocol Stop: 07/27/21 23:05 Last Admin: 07/27/21 23:20 Dose: 3 ml Documented by: [id number] Gadobutrol (Gadobutrol 65ml Vial) 7.5 ml IV ONCE ONE Stop: 07/28/21 13:00 Last Admin: 07/28/21 13:00 Dose: 7.5 ml Documented by: [id number] Sodium Chloride (Nss) 500 mls @ 999 mls/hr IV .Q31M [facility] Stop: 07/27/21 20:00 Last Infusion: 07/27/21 21:07 Dose: 0 mls/hr Documented by: [id number] Admin: 07/27/21 19:58 Dose: 999 mls/hr Documented by: [id number] Ceftriaxone Sodium (Rocephin) 2,000 mg in 70 mls @ 140 mls/hr IV NOW STA Stop: 07/27/21 19:56 Last Infusion: 07/27/21 20:42 Dose: 0 mls/hr Documented by: [id number] Admin: 07/27/21 19:58 Dose: 140 mls/hr Documented by: [id number] Levetiracetam 1,000 mg/ Sodium (Chloride) 110 mls @ 440 mls/hr IV NOW STA Stop: 07/27/21 19:42 Last Infusion: 07/27/21 21:07 Dose: 0 mls/hr Documented by: [id number] Admin: 07/27/21 20:43 Dose: 440 mls/hr Documented by: [id number] Doxycycline Hyclate 100 mg/ (Dextrose) 110 mls @ 50 mls/hr IV NOW STA Stop: 07/28/21 01:14 Last Infusion: 07/28/21 02:23 Dose: 0 mls/hr Documented by: [id number] Admin: 07/27/21 23:54 Dose: 50 mls/hr Documented by: [id number] Ketorolac Tromethamine (Ketorolac Tromethamine 15 Mg/Ml Vial) 15 mg IV NOW ONE Stop: 07/28/21 03:57 Last Admin: 07/28/21 04:43 Dose: 15 mg Documented by: [id number] Description This is a 21 electrode EEG with a single channel dedicated to limited EKG. The electrodes were placed in accordance with the International 10-20 system. Interpretation The predominant background activity consists of a fairly well modulated 9 Hz activity, of up to 50 mV in amplitude,seen symmetrically distributed over the posterior head regions bilaterally. This activity attenuates nicely with eye- opening and other alerting procedures. Photic stimulation was performed and elicited no change in the background activity and no abnormal responses were seen. Hyperventilation was not performed. A minimal amount of muscle and movement artifact activity contaminated the recording and did not hinder interpretation to any significant degree. Throughout the waking portion of the recording, no focal abnormalities, abnormal slow activity, or potentially epileptogenic discharges are seen. in particular, there was no focal slowing or sharp waves in the temporal lobes bilaterally. The patient entered the drowsy state with no further activation. In summary, this EEG was normal during wakefulness and drowsiness. No focal abnormalities, potentially epileptogenic discharges, or abnormal slow activity was seen. Clinical Correlation The abscence of potentially epileptogenic activity does not exclude a seizure disorder, since interictally, EEGs can be normal. Clinical correlation is required. [facility] EEG Procedure Codes Indication for Procedure (1) Seizure-like activity: (2) Encephalopathy: Neurology Neurology: [id number] EEG include record awake & drowsy
--- NOTE | 2021-07-28 18:13 | Discharge Summary ---
Date of Service July 28, 2021 Admission HPI Per Admitting Provider History obtained from patient and records. History somewhat difficult to obtain from patient secondary to patient's lethargy and BiPAP. Medical history significant for seizure disorder, fibromyalgia as per records, asthma, tobacco abuse, postsurgical hypothyroidism, history of Graves disease, history prolactinemia, irritable bowel syndrome, GERD status post surgery, chronic anemia (baseline hemoglobin of 11), mood disorder, hx scabies status post treatment. Last confinement December 2018 for respiratory failure secondary to mycoplasma pneumonia. Patient's left leg noted to be swollen for about a week by patient. Admits to itching from scabies. Scabies noted since second week of May 2021. Has been treated with doxycycline, topical steroid and permethrin. Household disinfection recommended by PCP. Few days history of junky cough symptoms without chest pain/shortness of breath. Patient denies aspiration. No known recent sick contacts. Patient completed COVID-19 vaccination. Ivermectin dose prescribed by PCP on follow-up visit last week with note of scabbed areas on patient's extremities. Outpatient Dermatology referral contemplated as per note. Patient noted to be disoriented and not very responsive by her today. Patient thinks she may have had seizures with shaking. No tongue biting, no incontinence. Usual low back discomfort. Patient denies chest pain. Patient brought to the ER for evaluation. Ceftriaxone given for possible infection. BiPAP initiated at the ER. Patient currently more awake. MEDICAL HISTORY: As above. SURGICAL HISTORY: Tonsillectomy. D&C. section. Thyroidectomy for Graves disease. LEEP procedure for precancerous cervical lesion, wrist ganglion surgery esophogastric fundoplasty FAMILY HISTORY: Hypertension, history of pulmonary embolism. PERSONAL AND SOCIAL HISTORY: 1 pack daily, no EtOH intake, currently unemployed. Admission Exam Per Admitting Provider GENERAL: uncomfortable, lethargic, no respiratory distress SKIN: Pallor, warm, excoriations noted over extremities and finger webs HEENT: Pale palpebral conjunctivae, no ptosis, dry buccal mucosa, BiPAP in place NECK : Supple, no tenderness CHEST : Decreased breath sounds, no wheezes, no tenderness HEART : RRR, no obvious murmurs ABDOMEN: Some distention, nontender EXTREMITIES : Induration LLE with minimal tenderness with overlying excoriations NEUROLOGIC : Lethargic , no facial asymmetry, no other gross focality Principal Diagnosis Acute metabolic encephalopathy, seizure disorder Discharge Exam General: Sitting in bed, not in acute distress, on NC HEENT: EOMI, JUAN, MMM Chest: Fair breath sounds bilaterally, no wheezes or crackles CVS: Regular rate and rhythm, normal heart sounds, no murmur Abdomen: Soft, non tender, not distended, normal bowel sounds Neuro: Awake, alert, oriented, conversing well, non focal Extremities: Bilateral hands and feet with chronic skin changes and dermatitis with excoriation; LLE with chronic skin changes and discoloration- venous stasis changes Discharge Data Allergies Allergy/AdvReac Type Severity Reaction Status Date / Time aspirin Allergy Severe WHEEZING Verified 07/27/21 21:46 Sulfa (Sulfonamide Allergy Intermediate HIVES Verified 07/27/21 21:46 Antibiotics) Consultations 07/27/21 21:06 ED Decision to Admit Stat 07/27/21 23:17 Consult Neurology Routine Ordered Studies 07/27/21 19:27 CT head/brain wo con Stat 07/27/21 19:37 CT cervical spine wo con Stat CT lumbar spine wo con Stat 07/28/21 09:57 MR brain seizure wo/w con Routine Laboratory Results WBC 6.95 K/uL (4.8-10.8) 07/28/21 05:48 RBC 3.72 M/uL (4.2-5.4) L 07/28/21 05:48 Hgb 11.1 g/dL (12.0-16.0) L 07/28/21 05:48 Hct 34.2 % (37-47) L 07/28/21 05:48 MCV 91.9 fL (80-100) 07/28/21 05:48 MCH 29.8 pg (25-34) 07/28/21 05:48 MCHC 32.5 g/dL (32-36) 07/28/21 05:48 RDW Std Deviation 47.9 fL (36.4-46.3) H 07/28/21 05:48 RDW Coeff of Lorene 14.3 % (11.5-14.5) 07/28/21 05:48 Plt Count 276 K/uL (130-400) 07/28/21 05:48 MPV 9.3 fL (7.4-10.4) 07/28/21 05:48 Immature Gran % (Auto) 0.3 % 07/28/21 05:48 Neut % (Auto) 63.5 % 07/28/21 05:48 Lymph % (Auto) 17.0 % 07/28/21 05:48 Gila % (Auto) 15.7 % 07/28/21 05:48 Eos % (Auto) 3.2 % 07/28/21 05:48 Baso % (Auto) 0.3 % 07/28/21 05:48 Neut # (Auto) 4.42 K/uL (1.4-6.5) 07/28/21 05:48 Lymph # (Auto) 1.18 K/uL (1.2-3.4) L 07/28/21 05:48 Gila # (Auto) 1.09 K/uL (0.11-0.59) H 07/28/21 05:48 Eos # (Auto) 0.22 K/uL (0-0.5) 07/28/21 05:48 Baso # (Auto) 0.02 K/uL (0-0.2) 07/28/21 05:48 Immature Gran # (Auto) 0.02 K/uL (0.00-0.02) 07/28/21 05:48 ESR 13 mm/hr (0-20) 07/28/21 10:18 ABG pH 7.33 (7.35-7.45) L 07/27/21 22:19 ABG pCO2 48 mmHg (35-46) H 07/27/21 22:19 ABG pO2 84 mmHg (80-95) 07/27/21 22:19 ABG HCO3 25 mmol/L (19-24) H 07/27/21 22:19 ABG O2 Saturation 96.0 % (90-95) H 07/27/21 22:19 ABG Base Excess -1.6 mEq/L (-9-1.8) 07/27/21 22:19 Cade Test POS (Pos) 07/27/21 22:19 VBG pH 7.27 (7.36-7.41) L 07/27/21 20:00 VBG pCO2 59 mmHg (38-50) H 07/27/21 20:00 VBG pO2 21 mmHg 07/27/21 20:00 VBG HCO3 27 mmol/L 07/27/21 20:00 VBG O2 Saturation < 60.0 % 07/27/21 20:00 VBG Base Excess -1.2 mEq/L 07/27/21 20:00 Barometric Pressure 728.2 mm/Hg 07/27/21 22:19 Oxygen Given ROOM AIR 07/27/21 22:19 Sodium 140 mmol/L (136-145) 07/28/21 05:48 Potassium 3.6 mmol/L (3.5-5.1) 07/28/21 05:48 Chloride 111 mmol/L (98-107) H 07/28/21 05:48 Carbon Dioxide 25 mmol/L (21-32) 07/28/21 05:48 Anion Gap 4 (3-11) 07/28/21 05:48 BUN 19 mg/dl (6-23) 07/28/21 05:48 Creatinine 1.17 mg/dl (0.6-1.2) 07/28/21 05:48 Est Cr Clr Drug Dosing 60.4 ml/min 07/28/21 05:48 Est GFR ( Amer) 64.3 ml/min 07/28/21 05:48 Est GFR (Non-Af Amer) 55.4 ml/min 07/28/21 05:48 BUN/Creatinine Ratio 16.2 (10-20) 07/28/21 05:48 Glucose 81 mg/dl (70-99(Fasting)) 07/28/21 05:48 POC Glucose 114 mg/dl (70-99) H 07/27/21 19:15 Estimat Average Glucose 126 mg/dl 07/27/21 22:18 Hemoglobin A1c 6.0 % (4.5-5.6) H 07/27/21 22:18 Lactate 0.5 mmol/L (0.4-2.0) 07/27/21 20:00 Calcium 8.6 mg/dl (8.5-10.1) 07/28/21 05:48 Magnesium 2.1 mg/dl (1.7-2.4) 07/27/21 19:00 Total Bilirubin 0.3 mg/dl (0.2-1.0) 07/27/21 19:00 AST 26 U/L (13-39) 07/27/21 19:00 ALT 27 U/L (7-52) 07/27/21 19:00 Alkaline Phosphatase 134 U/L (34-104) H 07/27/21 19:00 Ammonia 39.0 umol/L (18-72) 07/27/21 22:19 Total Creatine Kinase 26 U/L (26-192) 07/28/21 10:18 Troponin I High Sens 3.3 pg/ml (0-14) 07/27/21 19:00 Total Protein 7.4 gm/dl (6.0-8.3) 07/27/21 19:00 Albumin 4.4 gm/dl (3.4-5.0) 07/27/21 19:00 Globulin 3.0 gm/dl (2.5-4.0) 07/27/21 19:00 Albumin/Globulin Ratio 1.5 (0.9-2) 07/27/21 19:00 Vitamin B12 1464 pg/ml (180-914) H 07/28/21 10:18 Folate > 22.30 ng/ml (>5.38) 07/28/21 10:18 TSH 4.406 uIu/ml (0.300-4.500) 07/27/21 19:00 Prolactin 4.73 ng/ml 07/28/21 10:18 Urine Color Yellow 07/28/21 01:00 Urine Appearance Clear (Clear) 07/28/21 01:00 Urine pH 6.0 (4.5-7.5) 07/28/21 01:00 Ur Specific Tyler 1.013 (1.000-1.030) 07/28/21 01:00 Urine Protein Negative (Negative) 07/28/21 01:00 Urine Glucose (UA) Negative (Negative) 07/28/21 01:00 Urine Ketones Negative (Negative) 07/28/21 01:00 Urine Blood Negative (Negative) 07/28/21 01:00 Urine Nitrite Negative (Negative) 07/28/21 01:00 Urine Bilirubin Negative (Negative) 07/28/21 01:00 Urine Urobilinogen Negative (Negative) 07/28/21 01:00 Ur Leukocyte Esterase Negative (Negative) 07/28/21 01:00 Lyme Disease IgG Ab Negative (Negative) 07/28/21 10:18 Lyme Disease IgM Ab Negative (Negative) 07/28/21 10:18 SARS-CoV-2, RNA, NAAT NEGATIVE (NEGATIVE) 07/27/21 21:05 Impressions Chest X-Ray 07/27/21 19:27 XR chest 1V portable HISTORY: 45 years-old Female weakness acute weakness COMPARISON: 12/05/2020 TECHNIQUE: Portable AP view of the chest FINDINGS: Cardiac silhouette is enlarged. Unchanged linear scarring versus atelectasis of the lung bases. No pneumothorax, pleural effusion, airspace consolidation or overt pulmonary edema. Bones appear grossly intact. IMPRESSION: Chronic findings as above without acute process. ACT 112: Negative or not required by law. The above report was generated using voice recognition software. It may contain grammatical, syntax or spelling errors. Electronically signed by: Abel Mckay M.D. 07/27/2021 7:[address] 07/27/21 19:27 CT head/brain wo con CLINICAL HISTORY: 45 years-old Female with confusion, found down. Acute head trauma status post fall TECHNIQUE: Multiple axial CT images of the head were obtained without contrast. A dose lowering technique was utilized adhering to the principles of ALARA. COMPARISON: Head CT 12/23/2020 FINDINGS: No acute intracranial hemorrhage, midline shift, intracranial mass, hydrocephalus, territorial ischemia or abnormal extra-axial collection. The calvarium is intact. The paranasal sinuses, mastoid air cells, and middle ear cavities are clear. IMPRESSION: No acute intracranial abnormality or calvarial fracture. ACT 112: Negative or not required by law. The above report was generated using voice recognition software. It may contain grammatical, syntax or spelling errors. Electronically signed by: Abel Mckay M.D. 07/27/2021 7:[address] 07/27/21 19:37 CT cervical spine wo con CT DOSE: 1839.76 mGy.cm CLINICAL HISTORY: 45 years-old Female with fall. Acute neck pain status post fall COMPARISON: Head CT of same day TECHNIQUE: Multiple axial CT images of the cervical spine were obtained without contrast. A dose lowering technique was utilized adhering to the principles of ALARA. FINDINGS: Vertebral body heights and alignment are normal. Reversal the normal cervical lordosis with kyphosis centered at C4-C5. Mild multilevel uncovertebral hypertrophy. 3 mm anterolisthesis C2 on C3 and C3 on C4 is likely degenerative. Multilevel facet arthrosis, severe on the left at C2-C3. No fracture or subluxation is identifed. The intervertebral disc spaces are preserved. No significant central canal or neural foraminal stenosis is identified. The cervical soft tissues appear unremarkable. Trace left mastoid effusion. Mild gaseous distention of the upper esophagus. Calcified plaque of the carotid bulbs. The visualized lung apices appear clear. IMPRESSION: No acute cervical spine fracture. ACT 112: Negative or not required by law. The above report was generated using voice recognition software. It may contain grammatical, syntax or spelling errors. Electronically signed by: Abel Mckay M.D. 07/27/2021 8:[address] 07/27/21 19:37 CT lumbar spine wo con HISTORY: 45 years-old Female LBP s/p fall acute low back pain status post fall COMPARISON: CT abdomen and pelvis 12/11/2020 TECHNIQUE: Multiple axial CT images of the lumbar spine were obtained without the use of IV contrast. A dose lowering technique was used consistent with the principals of ALA. FINDINGS: Minimal lumbar levoscoliosis. No acute fracture, subluxation, endplate erosion or suspicious bone lesion. There is mild multilevel facet arthrosis. The intervertebral disc spaces are generally well preserved. The imaged sacrum and iliac bones appear intact. Central canal and neuroforamina is better assessed by MRI. No significant disc bulges, high-grade central canal or neural foraminal narrowing identified. Atherosclerosis of the aorta. No paravertebral edema. Increased attenuation of the hepatic parenchyma incidentally noted. Urinary bladder distention. IMPRESSION: No acute fracture or subluxation. ACT 112: Negative or not required by law. The above report was generated using voice recognition software. It may contain grammatical, syntax or spelling errors. Electronically signed by: Abel Mckay M.D. 07/27/2021 8:07 PM Brain MRI 07/28/21 09:57 MR brain seizure wo/w con HISTORY: 45 years-old Female seizures; MRI with attention to temp lobe acute seizure like activity COMPARISON: Head CT 07/27/2021, brain MRI 01/29/2021 TECHNIQUE: Multiplanar multisequence MRI of the brain was obtained both with and without the use of 7.5 cc Gadavist FINDINGS: Washroom Cleaner localizer images demonstrate no gross extracranial abnormality. Unremarkable midline structures. There is no restricted diffusion to suggest acute or subacute infarct. There is no acute intracranial hemorrhage, midline shift, abnormal extra axial collection, hydrocephalus or intracranial mass. No pathologic blooming on the T2 star series. Several sequences are motion degraded. There are a few scattered nonspecific punctate T2/FLAIR hyperintense foci noted within the white matter which are likely of no clinical significance. The mesial temporal lobes are symmetric and within normal limits. No evidence of mesial temporal sclerosis, treadwell matter heterotopia or cortical dysplasia. No abnormal enhancement. Cerebral venous sinuses and major arterial flow voids appear patent. Small left mastoid effusion. Mild mucosal thickening of the maxillary and ethmoid sinuses. The skull, orbits and soft tissues are unremarkable. IMPRESSION: 1. Mildly motion degraded exam without acute intracranial abnormality. 2. No abnormal enhancement. 3. No evidence of mesial temporal sclerosis. ACT 112: Negative or not required by law. The above report was generated using voice recognition software. It may contain grammatical, syntax or spelling errors. Electronically signed by: Abel Mckay M.D. 07/28/2021 2:28 PM Hospital Course (1) Encephalopathy: Acute metabolic encephalopathy on admission- seems resolved ?due to polypharmacy vs seizure- It is significantly improved after holding her neuropsychotropic meds and currently AAOx3. Seizure work up negative. I spoke to her in length over the phone regarding my concerns for polypharmacy and made several suggestions and outlined them- like stopping hydroxyzine, cutting down on doxepin to 150 mg per day, cutting down on gabapentin and klonopin, stopping flexeril etc. He will follow through and follow up with PCP and neurology to simplify her meds to avoid polypharmacy. Seizure disorder- seen by neuro and recommendations noted - On keppra- keppra level pending- continue keppra - started on lamictal and plan to uptitrate while weaning down keppra per neuro - MRI brain unremarkable- no mesial temporal sclerosis - EEG negative for seizure - Prolactin, CK, ESR, B12, folate, lyme negative - lower doxepin to 100-150 each evening - OP neuropsychology testing as well as evaluation for pseudoseizures Nocturnal hypoxemia on nocturnal oxygen 2 L- denies sleep apnea- Recommended OP sleep study. Cognitive dysfunction- OP neuropsychology testing HTN- unclear if she was taking her BP meds at home per , here BP labile- recommended continued BP check at home and cutting down on her BP meds if BP stays low to prevent falls- says they have BP machine and will monitor and follow up with PCP. Instructions provided. Chronic back pain- on suboxone per patient- she will follow up with [facility] for more suboxone as needed. Dermatitis in hand and feet- for 6 weeks now, with itching and excoriation. States she has been treated with permethrin and ivermectin for suspected scabies with no improvement and no one in family has similar condition. Doubt scabies at this point, rather allergic dermatitis. Spoke with dermatology who will evaluate the patient as OP. Started on steroid cream and monitor for improvement. F/u with dermatology ?LLE cellulitis- doesn't look impressive for cellulitis, looks chronic skin changes- started on doxy- to continue for 7 days. Tobacco abuse- nicoderm patch- recommended quitting MARSHAL- Cr improving with IVF. Recommend adequate hydration. History of Graves disease status post surgery with postsurgical hypothyroidism- TSH normal, on synthroid History of prolactinemia attributed to multiple medications, outpatient MRI sella was negative as per [facility] [place]. On cabergoline Rx from Gynecology. COPD- not in exacerbation- on anoro ellipta Spoke with neuro who cleared the patient for discharge home. Obviously patient is much improved from admission, however I wanted the patient to stay overnight for observation considering her multiple issues however she was adamant to leave and threatened to leave AMA if not discharged. Hence I spoke in length to her over the phone to look for things to watch as well as other discharge instructions. All questions were answered. Total Time Total Time Spent Total Time Spent (In Minutes): 55 Discharge Plan Discharge Items Patient Disposition: Home - Self-Care Reason For Visit: ENCEPHALOPATHY Discharge Diagnosis: Encephalopathy, seizure disorder Activity: Resume your previous activity Non-emergency contact: Primary Care Provider Call non-emergency contact if: you have any medication questions, your symptoms worsen and your pain is not controlled Follow-up/Referrals: Jeanette Patel PA-C [Primary Care Provider] - Diet: Regular Addtl Attending Provider Instructions: You were seen by neurology and medication changes have been made - start on lamictal 1 tab twice daily- this will be titrated up while weaning down on keppra- Neurology will do the instructions on how to do that- Please see them in the office regularly - Also cut down your doxepin to maximum of 150 mg per night per neurology - You are on multiple medication which can affect your cognition- recommend stopping hydroxyzine, flexeril and cutting down on gabapentin and klonopin - Follow up with neurology for outpatient neuropsychology testing - Continue doxycyline twice daily for 7 days - Your blood pressure is labile here and your medications might need to be adjusted- If blood pressure stays low, recommend cutting down procardia but I do not have enough information to do that currently- check your blood pressure at home regularly and follow up with your family doctor for further recommendations - Follow up with the skin doctor for your rash- continue the steroid cream and the moisturizer - Follow up with the family doctor - Recommend OP sleep study Pending Studies at Discharge: Yes Studies:: blood culture Stand-Alone Forms: My [facility] [employer], Smoking Cessation Medications and DC Order Prescriptions: New doxycycline hyclate 100 mg Capsule 100 mg PO BID Qty: 12 RF: 0 lamotrigine [Lamictal] 25 mg Tablet 25 mg PO BID Qty: 60 RF: 0 betamethasone, augmented [Diprolene (augmented)] 0.05 % Ointment 1 applic EXT BID Qty: 100 RF: 0 Continued levetiracetam 1,000 mg tablet 1,000 mg PO BID 30 Days Qty: 60 RF: 5 (DME) Incentive Spirometer Misc See Rx Instructions .ROUTE .MEDSUPPLY Qty: 1 RF: 0 (DME) Portable Oxygen Misc See Rx Instructions .ROUTE .MEDSUPPLY Qty: 1 RF: 0 omeprazole 40 mg capsule,delayed release(DR/EC) 40 mg PO DAILY RF: 0 folic acid 1 mg tablet 1 mg PO DAILY RF: 0 cholecalciferol (vitamin D3) 25 mcg (1,000 unit) capsule 25 mcg PO DAILY RF: 0 albuterol sulfate [Ventolin HFA] 90 mcg/actuation HFA aerosol inhaler 2 puff INHALATION Q6H PRN (Reason: Shortness Of Breath) Qty: 8.5 RF: 3 Anoro Ellipta 62.5-25 mcg/actuation blister with device 1 inh INH DAILY Qty: 60 RF: 11 levocetirizine 5 mg tablet 5 mg PO DAILY PRN (Reason: allergy symptoms) Qty: 30 RF: 0 clonazepam 1 mg tablet 1 mg PO BID PRN (Reason: Anxiety) RF: 0 levothyroxine 137 mcg tablet See Rx Instructions .ROUTE .COMPLEX RF: 0 ondansetron 4 mg tablet,disintegrating 4 mg PO Q6H PRN (Reason: Nausea) RF: 0 nicotine [Nicoderm CQ] 21 mg/24 hr Patch 24 Hour 21 mg transdermal QAM Qty: 14 RF: 1 ferrous sulfate 325 mg (65 mg iron) Tablet,Delayed Release (Dr/Ec) 325 mg PO QAM Qty: 30 RF: 2 labetalol 100 mg Tablet 100 mg PO BID Qty: 60 RF: 1 nifedipine 30 mg tablet extended release 30 mg PO DAILY Qty: 30 RF: 1 furosemide [Lasix] 20 mg tablet 20 mg PO DAILY RF: 0 cyanocobalamin (vitamin B-12) [Vitamin B-12] 1,000 mcg Tablet 1,000 mcg PO DAILY RF: 0 cabergoline 0.5 mg tablet 0.25 mg PO 2XWK RF: 0 polyethylene glycol 3350 17 gram/dose powder 17 g PO DAILY RF: 0 metoclopramide HCl 10 mg tablet 10 mg PO TID PRN (Reason: Nausea) RF: 0 Changed gabapentin 800 mg tablet 600 mg PO TID Qty: 0 RF: 0 doxepin 150 mg capsule 150 mg PO HS Qty: 0 RF: 0 Discontinued cyclobenzaprine 10 mg tablet 10 mg PO TID PRN (Reason: Muscle Spasm) RF: 0 hydroxyzine pamoate 50 mg capsule 50 mg PO HS PRN (Reason: Insomnia) RF: 0 Discharge Orders: Discharge Order (Routine); Ordered 07/28/21 Ordered By: Jc Mosher/Other Patient Handouts: A1C Admission Data Admit Date/Time: 07/27/21 23:11 Attending Provider: Jc Gonzalez Admit Provider: Jack Guerrero Primary Care Provider: Jeanette Patel Other Providers: Harry Delgado ; Rk Griffith ; Rubi Becerra ; Patricia Roger ; Lilliana Perez ; Jack Guerrero
[2021-07-28 18:58] LABS: Amphetamines+Metham, Urine Neg (Neg); Barbiturates, Urine Neg (Neg); Benzodiazepine, Urine Neg (Neg); Cocaine, Urine Neg (Neg); MDMA (Ecstacy), Urine Pos (Neg); Methadone, Urine Neg (Neg); Opiate, Urine Neg (Neg); Phencyclidine, Urine Neg (Neg)
--- NOTE | 2021-07-29 06:07 | Electrocardiogram Report ---
Test Reason : Blood Pressure : / mmHG Vent. Rate : 066 BPM Atrial Rate : 066 BPM P-R Int : 136 ms QRS Dur : 092 ms QT Int : 428 ms P-R-T Axes : 026 -01 015 degrees QTc Int : 448 ms Normal sinus rhythm Normal ECG When compared with ECG of 26-DEC-2020 03:37, Incomplete right bundle branch block is no longer Present Confirmed by Avery Maher ([id number]) on 07/29/2021 6:07:45 AM Referred By: REFERRED SELF Confirmed By:Avery Maher
[2021-07-30] MEDS ORDERED: LEVOTHYROXINE SODIUM 137 MCG TABLET PO SCH (06:30)
== END 2021-07-28 19:20 | disposition home or self-care (01) | DRG 100 ==
LOC: ED 18:03 → 2S 23:11

== ENCOUNTER 2025-01-02 13:23 | Inpatient (IN) ==
[2025-01-02 16:49] LABS: Hematocrit (blood only) 33.1 % (37.0-47.0); Hemoglobin 11.3 g/dL (12.0-16.0); Immature Granulocytes # (auto) 0.02 K/uL (0.01-0.20); Immature Granulocytes % (auto) 0.5 %; Mean Corpuscular Hemoglobin 31.5 pg (25.0-34.0); Mean Corpuscular Volume 92.2 fL (80.0-100.0); Platelet Count 207 K/uL (130-400); RDW Standard Deviation 43.2 fL (36.4-46.3); Red Blood Count 3.59 M/uL (4.20-5.40); White Blood Count 4.41 K/ul (4.8-10.8)
[2025-01-02 16:53] LABS: Alanine Aminotransferase 14 U/L (7-52); Albumin Globulin Ratio 1.8 (0.9-2); Albumin Level 5.1 gm/dl (3.4-5.0); Alkaline Phosphatase 98 U/L (34-104); Anion Gap 9 (3-11); Bilirubin,Total 0.3 mg/dl (0.2-1.0); Blood Urea Nitrogen 42 mg/dl (6-23); Calcium 10.0 mg/dl (8.6-10.3); Carbon Dioxide 29 mmol/L (21-32); Chloride 101 mmol/L (98-107); Globulin 2.8 gm/dl (2.5-4.0); Glucose 123 mg/dl (70-99(Fasting)); Potassium 3.9 mmol/L (3.5-5.1); Sodium 139 mmol/L (136-145); Total Protein 7.9 gm/dl (6.0-8.3)
--- NOTE | 2025-01-02 16:59 | Emergency Department Note ---
Impression & Plan MARSHAL (acute kidney injury) ED Provider Note Provider: Jeffery Casiano MD CHIEF COMPLAINT: Kidney function abnormal HISTORY OF PRESENT ILLNESS: Patient is a 49-year-old female history of asthma/COPD, diastolic heart failure, hypertension, IBS, fibromyalgia presenting here today referred from outpatient [facility] clinic due to worsening renal function. Patient had a checkup appointment on December 24 and noted to have creatinine in the high twos. Repeat blood work earlier today showed a creatinine of 3.3. Sent here for further evaluation. States he been eating and drinking. Denies use of NSAIDs or aspirin. Denies any vomiting or diarrhea. Does report a last week or 2 feeling more fatigued. Has had some cramping/charley horses by her report. Has been taking her Lasix as prescribed in the morning. Denies swelling or breathing issues. PAST MEDICAL HISTORY: As noted above MEDICATIONS: Reviewed home medications SOCIAL HISTORY: Smoker PHYSICAL EXAM: GENERAL: alert and oriented in no acute distress on stretcher Head: normocephalic and atraumatic EYES: No injection, discharge or icterus. EOMI. NECK: Trachea midline. ENT: Mucous membranes pink and moist. LUNGS: Airway patent. No retractions or tachypnea HEART: Regular rate and rhythm. ABDOMEN: Soft and non-tender, without swelling/masses appreciable. SKIN: Acyanotic, warm, dry, without rashes EXTREMITIES: Without swelling, tenderness or deformity NEUROLOGICAL: No focal deficits. No aphasia. No facial droop or slurred speech. Ambulatory. EK bpm normal sinus rhythm. No PVC or PAC. No acute ST segment elevation or depression QTc of 404. Patient's laboratory studies and imaging reviewed. Differential includes Renal colic, UTI, infections, dehydration, medication reaction as well as other pathologies. IMPRESSION/MEDICAL DECISION MAKING: Patient referred from outpatient clinic due to worsening renal function. Baseline creatinine appears around 1 in the spring. Worsened the beginning of December and worse today at 3.3. No severe electrolyte abnormalities or signs of fluid overload. Not hypoxic. History of diastolic heart failure in the chart and is maintained on Lasix. Given small IV fluid bolus here. Does not report any significant GI losses or restriction. Unclear etiology was causing her renal dysfunction. Noncontrast CT completed to evaluate for any obstructive issues although she is not having pain. Does seem constipated on this per report but no obvious renal obstruction noted. Some of her fatigue and cramping may be related to her renal dysfunction although she does not appear severely uremic. Discussed with the hospitalist for further care here. DIAGNOSIS: MARSHAL DISPOSITION: Hospitalist will evaluate Patient was agreeable with this plan. Past Med/Surg History Problem List (Updated 01/02/25 @ 17:16 by Jeffery Casiano M.D.) MARSHAL (acute kidney injury) (Acute) Cognitive dysfunction Bradykinesia Hypercarbia (Acute) Murmur PVCs (premature ventricular contractions) Seizure-like activity Loss of consciousness Asthma-COPD overlap syndrome Nocturnal hypoxia Pulmonary nodule Tobacco abuse counseling Fatigue Overweight High blood pressure Snoring Diastolic heart failure Diffuse pulmonary alveolar hemorrhage Steroid-induced hyperglycemia Demand ischemia Hypothyroidism Iron deficiency anemia due to chronic blood loss Admitted to intensive care unit Ground glass opacity present on imaging of lung Sepsis with acute hypoxic respiratory failure Weight gain Hypokalemia Tobacco abuse Chronic low back pain DVT prophylaxis Elevated troponin Anemia Community acquired pneumonia Breath shortness (Acute) Sepsis (Acute) Hypoxia (Acute) Hypertension (Chronic) Asthma (Chronic) Fibromyalgia (Chronic) IBS (irritable bowel syndrome) (Chronic) Anxiety (Chronic) Depression (Chronic) Postoperative hypothyroidism (Chronic 12/11/10) Medical History Anxiety Asthma Depression Diastolic heart failure Fatigue Fibromyalgia High blood pressure Hypertension IBS (irritable bowel syndrome) Overweight Perforated viscus Postoperative 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) Snoring Tobacco abuse counseling Surgical History History of section History of dilation and curettage Family History Mother COPD (chronic obstructive pulmonary disease) Myocardial infarction, Onset Age: 51 Social History Smoking Status: Current every day smoker Tobacco Type: Cigarettes Cigarettes Per Day: 20; Second Hand Exposure: Yes; Do You Dip or Chew Tobacco: No; Hx Alcohol Use: No Hx Substance Use: No Preferred Language: [place] Islander Communication Ability: Impaired Visual Impairment: No Limitations Legal Services Manager Required: No Beliefs That Will Affect Care: None Current Living Situation: Family Current Living Situation Comment: ex helps with children Feels Safe at Home: Yes Assistive Devices: Walker Allergies Allergies Allergy/AdvReac Type Severity Reaction Status Date / Time aspirin Allergy Severe WHEEZING Verified 07/08/24 10:09 Sulfa (Sulfonamide Allergy Intermediate HIVES Verified 07/08/24 10:09 Antibiotics) Home Meds Home Medications Medication Instructions Recorded Confirmed clonazepam 1 mg tablet 1 mg PO BID PRN Anxiety 12/18/18 01/02/25 ondansetron 4 mg disintegrating 4 mg PO Q8 PRN Nausea or vomiting 12/18/18 01/02/25 tablet omeprazole 40 mg capsule,delayed 40 mg PO DAILYBB 01/24/19 01/02/25 release polyethylene glycol 3350 17 17 g PO DAILY PRN Constipation 12/11/20 01/02/25 gram/dose oral powder potassium chloride 10 mEq 10 meq PO AMHS 09/13/22 01/02/25 capsule,extended release levothyroxine 137 mcg tablet See Rx Instructions .Route .COMPLEX 08/07/23 01/02/25 albuterol sulfate 2.5 mg/3 mL 2.5 mg inhalation Q4H PRN Wheezing 01/02/25 01/02/25 (0.083 %) solution for nebulization albuterol sulfate 90 mcg/actuation 2 puff inhalation Q4 PRN Wheezing 01/02/25 01/02/25 aerosol inhaler (Ventolin HFA) cyclobenzaprine 10 mg tablet 18 mg PO TID 01/02/25 01/02/25 doxepin 100 mg capsule 100 - 200 mg PO HS 01/02/25 01/02/25 duloxetine 40 mg capsule,delayed 40 mg PO UD 01/02/25 01/02/25 release fluticasone propionate 50 2 spray intranasal QA 01/02/25 01/02/25 mcg/actuation nasal spray,suspension folic acid 1 mg tablet 1 mg feeding tube DAILY 01/02/25 01/02/25 furosemide 20 mg tablet 40 mg PO QAM 01/02/25 01/02/25 gabapentin 800 mg tablet 400 mg PO QAM 01/02/25 01/02/25 gabapentin 800 mg tablet 800 mg PO TID 01/02/25 01/02/25 labetalol 100 mg tablet 100 mg PO AMHS 01/02/25 01/02/25 levetiracetam 1,000 mg tablet 1,000 mg PO AMHS 01/02/25 01/02/25 metoclopramide HCl 10 mg tablet 10 mg PO TID 01/02/25 01/02/25 nifedipine 60 mg tablet,extended 60 mg PO QAM 01/02/25 01/02/25 release 24 hr varenicline tartrate 1 mg tablet 1 mg PO AMHS 01/02/25 01/02/25 Previous Rx's Medication Instructions Recorded Incentive Spirometer #1 ea 01/03/19 levocetirizine 5 mg tablet 5 mg PO DAILY PRN allergy symptoms 01/06/21 #30 tabs umeclidinium 62.5 mcg-vilanterol 1 inh inhalation DAILY #180 ea 12/24/24 25 mcg/actuation powdr for inhalation (Anoro Ellipta) Results & Data (ED) Vital Signs Vital Signs - 24 hr 01/02/25 17:24 01/02/25 18:14 Pulse Rate 65 Pulse Rate [Right Brachial] 63 Pulse Rhythm [Right Brachial] Regular Pulse Strength [Right Brachial] Normal Respiratory Rate 16 Respiratory Effort / Characteristics Non-Labored Respiratory Depth Normal Respiratory Pattern Regular Blood Pressure [Right Arm] 107/63 Blood Pressure Mean [Right Arm] 77 Blood Pressure Position [Right Arm] Sitting Pulse Oximetry 98 Oxygen Delivery Method Room Air Laboratory Data 01/02/25 14:48 01/02/25 14:48 Lab Results 01/02/25 Range/Units 14:48 WBC 4.41 L (4.8-10.8) K/ul RBC 3.59 L (4.20-5.40) M/uL Hgb 11.3 L (12.0-16.0) g/dL Hct 33.1 L (37.0-47.0) % MCV 92.2 (80.0-100.0) fL MCH 31.5 (25.0-34.0) pg MCHC 34.1 (32.0-36.0) g/dL RDW Std Deviation 43.2 (36.4-46.3) fL RDW Coeff of Lorene 12.8 (11.5-14.5) % Plt Count 207 (130-400) K/uL MPV 10.8 (9.4-12.4) fL Immature Gran % (Auto) 0.5 % Neut % (Auto) 51.2 % Lymph % (Auto) 33.8 % Hooker % (Auto) 9.1 % Eos % (Auto) 4.3 % Baso % (Auto) 1.1 % Neut # (Auto) 2.26 (1.40-6.50) K/uL Lymph # (Auto) 1.49 (1.20-3.40) K/uL Hooker # (Auto) 0.40 (0.11-0.59) K/uL Eos # (Auto) 0.19 (0.00-0.50) K/uL Baso # (Auto) 0.05 (0.00-0.20) K/uL Immature Gran # (Auto) 0.02 (0.01-0.20) K/uL Sodium 139 (136-145) mmol/L Potassium 3.9 (3.5-5.1) mmol/L Chloride 101 (98-107) mmol/L Carbon Dioxide 29 (21-32) mmol/L Anion Gap 9 (3-11) BUN 42 H (6-23) mg/dl Creatinine 3.19 H (0.6-1.2) mg/dl Est Cr Clr Drug Dosing Not Reportable eGFR 16.95 BUN/Creatinine Ratio 13.2 (10-20) Glucose 123 H (70-99(Fasting)) mg/dl Calcium 10.0 (8.6-10.3) mg/dl Phosphorus 4.6 (2.5-4.9) mg/dl Magnesium 2.3 (1.7-2.4) mg/dl Total Bilirubin 0.3 (0.2-1.0) mg/dl AST 19 (13-39) U/L ALT 14 (7-52) U/L Alkaline Phosphatase 98 (34-104) U/L Total Protein 7.9 (6.0-8.3) gm/dl Albumin 5.1 H (3.4-5.0) gm/dl Globulin 2.8 (2.5-4.0) gm/dl Albumin/Globulin Ratio 1.8 (0.9-2) Administered Medications Discontinued Medications Sodium Chloride (Nss) 500 mls @ 999 mls/hr IV .Q31M ONE Stop: 01/02/25 17:44 Last Admin: 01/02/25 18:10 Dose: 999 mls/hr Documented By: BS Imaging Data Radiologist's Impression: Abdomen/Pelvis CT 01/02/25 17:06 Technique: Axial computed tomography images were obtained of the abdomen and pelvis without intravenous contrast. Comparison is made to the prior CT dated 12/11/2020 Findings: The liver is overall of normal size, attenuation, and contour with no sign of cirrhosis or significant fatty infiltration. No definite liver mass lesion is seen on this noncontrast study. The gallbladder appears unremarkable. There is mild bile duct dilatation, with the common bile measuring up to 9 mm The spleen is of normal size. No focal splenic lesion is evident. The pancreas appears normal with no sign of acute or chronic pancreatitis and no mass lesion noted. The pancreatic duct is of normal caliber. The adrenal glands appear unremarkable. No renal or proximal ureteral calculi are seen. There is no hydronephrosis or perinephric stranding. No definite renal mass lesion is identified. The aorta is of normal caliber. No abdominal adenopathy is seen. There is a small hiatal hernia. There is no sign of small bowel obstruction. There is severe constipation. No free intraperitoneal fluid or air is identified. No distal ureteral or bladder calculi are seen. No obvious bladder mass lesion is evident. The iliac arteries are of normal caliber. No pelvic adenopathy is noted. There is mild bilateral lung base atelectasis. No fracture is identified. No focal osseous lesion is seen Impression: 1. Mild bile duct dilatation. No clear obstructing lesion is seen. Ultrasound could be considered for further evaluation 2. Severe constipation 3. Small hiatal hernia ACT 112: Positive. There are findings on this exam that require communication between the performing entity and the patient following Patient Test Result Information Act ([place] ACT 112) guidelines. Electronically signed by Alfonso Ledbetter 01-02-2025 6:04 PM Discharge Plan Visit Data Chief Complaint: Referred by Doctor Stated Complaint: LOW KIDNEY FUNCTION, DOC SENT ED Provider: Jeffery Casiano Discharge Problem: MARSHAL (acute kidney injury) Patient Disposition: Being Evaluated by Hospitalist Condition: Fair Forms Stand Alone Forms: [employer] Prescriptions Prescriptions: No Action umeclidinium-vilanterol [Anoro Ellipta] 62.5-25 mcg/actuation blister with device 1 inh INH DAILY Qty: 180 0RF (DME) Incentive Spirometer Misc See Rx Instructions .ROUTE .MEDSUPPLY Qty: 1 0RF Rx Instructions: As directed omeprazole 40 mg capsule,delayed release(DR/EC) 40 mg PO DAILYBB levocetirizine 5 mg tablet 5 mg PO DAILY PRN (Reason: allergy symptoms) Qty: 30 0RF Rx Instructions: Take daily for 10 days then PRN potassium chloride 10 mEq capsule, extended release 10 meq PO AMHS clonazepam 1 mg tablet 1 mg PO BID PRN (Reason: Anxiety) ondansetron 4 mg tablet,disintegrating 4 mg PO Q8 PRN (Reason: Nausea or vomiting) levothyroxine 137 mcg tablet See Rx Instructions .ROUTE .COMPLEX Rx Instructions: 137 mcg orally; TAKES 137 MCG ON MON, TU, WED, TH, FRI. TAKES 274 MCG ON SAT & SUN. polyethylene glycol 3350 17 gram/dose powder 17 g PO DAILY PRN (Reason: Constipation) duloxetine 40 mg capsule,delayed release(DR/EC) 40 mg PO UD Rx Instructions: new order yesterday...has not started labetalol 100 mg tablet 100 mg PO AMHS doxepin 100 mg capsule 100 - 200 mg PO HS varenicline tartrate 1 mg tablet 1 mg PO AMHS cyclobenzaprine 10 mg tablet 18 mg PO TID Rx Instructions: morning,noon and bedtime gabapentin 800 mg tablet 800 mg PO TID Rx Instructions: take in morning,noon and at bedtime gabapentin 800 mg tablet 400 mg PO QAM metoclopramide HCl 10 mg tablet 10 mg PO TID furosemide 20 mg tablet 40 mg PO QAM nifedipine 60 mg tablet extended release 24hr 60 mg PO QAM Rx Instructions: for goal pressure less than 140/90 albuterol sulfate 2.5 mg /3 mL (0.083 %) Solution For Nebulization 2.5 mg INHALATION Q4H PRN (Reason: Wheezing) folic acid 1 mg tablet 1 mg feeding tube DAILY fluticasone propionate 50 mcg/actuation spray,suspension 2 spray INTRANASAL QAM albuterol sulfate [Ventolin HFA] 90 mcg/actuation HFA aerosol inhaler 2 puff INHALATION Q4 PRN (Reason: Wheezing) levetiracetam 1,000 mg tablet 1,000 mg PO AMHS Referrals Referrals: Jeanette Garcia, THALIA [Primary Care Provider] -
[2025-01-02 17:43] LABS: Magnesium 2.3 mg/dl (1.7-2.4)
--- NOTE | 2025-01-02 18:05 | CT Scan Report ---
Technique: Axial computed tomography images were obtained of the abdomen and pelvis without intravenous contrast. Comparison is made to the prior CT dated 12/11/2020 Findings: The liver is overall of normal size, attenuation, and contour with no sign of cirrhosis or significant fatty infiltration. No definite liver mass lesion is seen on this noncontrast study. The gallbladder appears unremarkable. There is mild bile duct dilatation, with the common bile measuring up to 9 mm The spleen is of normal size. No focal splenic lesion is evident. The pancreas appears normal with no sign of acute or chronic pancreatitis and no mass lesion noted. The pancreatic duct is of normal caliber. The adrenal glands appear unremarkable. No renal or proximal ureteral calculi are seen. There is no hydronephrosis or perinephric stranding. No definite renal mass lesion is identified. The aorta is of normal caliber. No abdominal adenopathy is seen. There is a small hiatal hernia. There is no sign of small bowel obstruction. There is severe constipation. No free intraperitoneal fluid or air is identified. No distal ureteral or bladder calculi are seen. No obvious bladder mass lesion is evident. The iliac arteries are of normal caliber. No pelvic adenopathy is noted. There is mild bilateral lung base atelectasis. No fracture is identified. No focal osseous lesion is seen Impression: 1. Mild bile duct dilatation. No clear obstructing lesion is seen. Ultrasound could be considered for further evaluation 2. Severe constipation 3. Small hiatal hernia ACT 112: Positive. There are findings on this exam that require communication between the performing entity and the patient following Patient Test Result Information Act ([place] ACT 112) guidelines. Electronically signed by Alfonso Ledbetter 01-02-2025 6:04 PM
[2025-01-02] MEDS: SODIUM CHLORIDE 0.9% 500 ML IV ONE (18:10)
[2025-01-02] MEDS ORDERED: ALBUTEROL 0.083% NEBU SOLN 3 ML VIAL INH PRN (18:48)
[2025-01-02] MEDS ORDERED: ONDANSETRON 4 MG OD TAB PO PRN (18:48)
[2025-01-02] MEDS ORDERED: MAGNESIUM HYDROXIDE SUSP 30 ML UDC PO PRN (18:52)
[2025-01-02] MEDS ORDERED: ACETAMINOPHEN 325 MG TAB PO PRN (18:52)
[2025-01-02] MEDS ORDERED: SIMETHICONE 80 MG CHEW PO PRN (18:53)
--- NOTE | 2025-01-02 18:58 | History & Physical Report ---
Date of Service January 02, 2025 Assessment & Plan (1) MARSHAL (acute kidney injury): Plan Acute kidney injury: Admitting creatinine of 3.19, likely prerenal given poor appetite prior to arrival. CTAP with no hydronephrosis. Continue IV fluids, nephrology consult, hold Lasix. Abnormal CTAP: Noted mild bile duct dilatation, will get ultrasound gallbladder. Patient reports fatigue/lethargy/nausea/dry heaves for few weeks now. Follow- up on ultrasound. Severe constipation: Patient has history of IBS, continue home lactulose and MiraLAX, added further as needed bowel regimen.Hold bowel regimen for loose stools. Other chronic medical conditions: GERD, hypothyroidism, asthma COPD overlap syndrome, JOSE, epilepsy, chronic pain syndrome --- continue with/resume home meds as and when able. adjust gabapentin to renal fxn. DVT prophylaxis: Heparin subcu Full code History of Present Illness Chief Complaint: abnormal lab Primary Care Provider: Jeanette Garcia PA-C 49-year-old lady with PMH of HLD, postsurgical hypothyroidism, Graves' disease, moderate persistent asthma, HTN, Venous insufficiency, IBS, CKD stage IIIa, GERD, generalized osteoarthritis, epilepsy, chronic pain syndrome, JOSE, panic attacks, status post Emanuel fundoplication presents to the ED at referral of outpatient office for abnormal creatinine levels. Outpatient creatinine was noted to be 3.3 and hence she was referred to the ED. Admitting creatinine of 3.19. Patient reports being able to drink okay but having so-so appetite for about few weeks now, patient reports feeling lethargic and fatigued with some nausea for about few weeks. Patient reports occasional dry heaves for about the same time. Patient says she cannot vomit because she is status post Emanuel fundoplication. Patient denies fever/cough/chest pain/abdominal pain. Patient reports constipation lately, last bowel movement about 2 days ago and reports it being a very hard stool. Patient denies pain or burning while passing urine. Patient reports moving gas okay. Patient reports smoking 1 packs a day for about 20 years now, denies alcohol or recreational drug use. Medications reviewed with the patient and her at bedside. Plan of care discussed with them in detail. Full code Allergies Allergy/AdvReac Type Severity Reaction Status Date / Time aspirin Allergy Severe WHEEZING Verified 07/08/24 10:09 Sulfa (Sulfonamide Allergy Intermediate HIVES Verified 07/08/24 10:09 Antibiotics) Home Medications Medication Instructions Recorded Confirmed Type clonazepam 1 mg tablet 1 mg PO BID PRN Anxiety 12/18/18 01/02/25 History ondansetron 4 mg disintegrating 4 mg PO Q8 PRN Nausea or vomiting 12/18/18 01/02/25 History tablet Incentive Spirometer #1 ea 01/03/19 01/02/25 Rx omeprazole 40 mg capsule,delayed 40 mg PO DAILYBB 01/24/19 01/02/25 History release polyethylene glycol 3350 17 17 g PO DAILY PRN Constipation 12/11/20 01/02/25 History gram/dose oral powder potassium chloride 10 mEq 10 meq PO AMHS 09/13/22 01/02/25 History capsule,extended release levothyroxine 137 mcg tablet See Rx Instructions .Route .COMPLEX 08/07/23 01/02/25 History umeclidinium 62.5 mcg-vilanterol 1 inh inhalation DAILY #180 ea 12/24/24 01/02/25 Rx 25 mcg/actuation powdr for inhalation (Anoro Ellipta) albuterol sulfate 2.5 mg/3 mL 2.5 mg inhalation Q4H PRN Wheezing 01/02/25 01/02/25 History (0.083 %) solution for nebulization albuterol sulfate 90 mcg/actuation 2 puff inhalation Q4 PRN Wheezing 01/02/25 01/02/25 History aerosol inhaler (Ventolin HFA) buprenorphine 8 mg-naloxone 2 mg 2 tab sublingual DAILY 01/02/25 01/02/25 History sublingual tablet cyclobenzaprine 10 mg tablet 18 mg PO TID 01/02/25 01/02/25 History doxepin 100 mg capsule 100 - 200 mg PO HS 01/02/25 01/02/25 History duloxetine 40 mg capsule,delayed 40 mg PO UD 01/02/25 01/02/25 History release fluticasone propionate 50 2 spray intranasal QAM 01/02/25 01/02/25 History mcg/actuation nasal spray,suspension folic acid 1 mg tablet 1 mg PO DAILY 01/02/25 01/02/25 History furosemide 20 mg tablet 40 mg PO QAM 01/02/25 01/02/25 History gabapentin 800 mg tablet 400 mg PO QAM 01/02/25 01/02/25 History gabapentin 800 mg tablet 800 mg PO TID 01/02/25 01/02/25 History labetalol 100 mg tablet 100 mg PO AMHS 01/02/25 01/02/25 History lactulose 10 gram/15 mL oral 15 ml PO BID PRN severe 01/02/25 01/02/25 History solution (Constulose) constipation levetiracetam 1,000 mg tablet 1,000 mg PO AMHS 01/02/25 01/02/25 History levocetirizine 5 mg tablet 5 mg PO QAM 01/02/25 01/02/25 History metoclopramide HCl 10 mg tablet 10 mg PO TID 01/02/25 01/02/25 History nifedipine 60 mg tablet,extended 60 mg PO QAM 01/02/25 01/02/25 History release 24 hr simethicone 125 mg capsule 125 mg PO DAILY PRN .gas 01/02/25 01/02/25 History tacrolimus 0.1 % topical ointment 1 applic topical BID 01/02/25 01/02/25 History tretinoin 0.05 % topical cream 1 applic topical HS 01/02/25 01/02/25 History varenicline tartrate 1 mg tablet 1 mg PO AMHS 01/02/25 01/02/25 History Past Med/Surg History Problem List (Updated 01/02/25 @ 17:16 by Jeffery Casiano M.D.) MARSHAL (acute kidney injury) (Acute) Cognitive dysfunction Bradykinesia Hypercarbia (Acute) Murmur PVCs (premature ventricular contractions) Seizure-like activity Loss of consciousness Asthma-COPD overlap syndrome Nocturnal hypoxia Pulmonary nodule Tobacco abuse counseling Fatigue Overweight High blood pressure Snoring Diastolic heart failure Diffuse pulmonary alveolar hemorrhage Steroid-induced hyperglycemia Demand ischemia Hypothyroidism Iron deficiency anemia due to chronic blood loss Admitted to intensive care unit Ground glass opacity present on imaging of lung Sepsis with acute hypoxic respiratory failure Weight gain Hypokalemia Tobacco abuse Chronic low back pain DVT prophylaxis Elevated troponin Anemia Community acquired pneumonia Breath shortness (Acute) Sepsis (Acute) Hypoxia (Acute) Hypertension (Chronic) Asthma (Chronic) Fibromyalgia (Chronic) IBS (irritable bowel syndrome) (Chronic) Anxiety (Chronic) Depression (Chronic) Postoperative hypothyroidism (Chronic 12/11/10) Medical History Anxiety Asthma Depression Diastolic heart failure Fatigue Fibromyalgia High blood pressure Hypertension IBS (irritable bowel syndrome) Overweight Perforated viscus Postoperative 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) Snoring Tobacco abuse counseling Surgical History History of section History of dilation and curettage Family History Mother COPD (chronic obstructive pulmonary disease) Myocardial infarction, Onset Age: 51 Social History Smoking Status: Current every day smoker Tobacco Type: Cigarettes Cigarettes Per Day: 20; Second Hand Exposure: Yes; Do You Dip or Chew Tobacco: No; Hx Alcohol Use: No Hx Substance Use: No Preferred Language: Lithuanian Communication Ability: Impaired Visual Impairment: No Limitations Middleware Administrator Required: No Beliefs That Will Affect Care: None Current Living Situation: Family Current Living Situation Comment: ex helps with children Feels Safe at Home: Yes Assistive Devices: Walker Review of Systems Review of Systems: negative otherwise mentioned in HPI. Physical Exam Physical Exam: GENERAL: Alert and oriented x3. NAD, on RA. Appears ill/weak/tired. HEENT: No pallor, no icterus. Pupils equal, round and reactive to light. Oral mucosa dry. NECK: No JVD, no neck masses. HEART: S1 and S2 heard. Regular rate and rhythm. No murmur, no gallop. RESPIRATORY SYSTEM: Normal AP diameter. No accessory muscle use. No wheezing, no crackles. ABDOMEN: Soft, bowel sounds present, nontender, no distention. CENTRAL NERVOUS SYSTEM: No facial droop. Speech is clear. Obeys simple commands. Moves extremities. EXTREMITIES: No edema, no erythema seen. Results & Data Results & Data Vital Signs (Past 12 Hours) Vital Signs Pulse Pulse Resp BP Pulse Ox O2 Del Method 01/02/25 18:14 65 01/02/25 17:24 63 16 107/63 98 Room Air
[2025-01-02] MEDS: POLYETHYLENE (MIRALAX) 17 GM PACK PO SCH (19:47)
[2025-01-02] MEDS: Patient's HEIGHT &/or WEIGHT Needed STA (19:48)
[2025-01-02] MEDS: SODIUM CHLORIDE 0.9% 1,000 ML IV SCH (19:48)
[2025-01-02] MEDS ORDERED: GABAPENTIN 800 MG TAB PO SCH (21:00)
[2025-01-02] MEDS: CYCLOBENZAPRINE HCL 10 MG TAB PO SCH (22:09)
[2025-01-02] MEDS: clonazePAM 1 MG TAB PO PRN (22:09)
[2025-01-02] MEDS: GABAPENTIN 300 MG CAP PO SCH (22:09)
[2025-01-02] MEDS: LACTULOSE SYRUP 20 GM/30 ML UDC PO SCH (22:10)
[2025-01-02] MEDS: levETIRAcetam 500 MG TAB PO SCH (22:10)
[2025-01-02] MEDS: METOCLOPRAMIDE HCL 10 MG TABLET PO SCH (22:10)
[2025-01-02] MEDS: LABETALOL HCL 100 MG TAB PO SCH (22:10)
[2025-01-03] MEDS: LEVOTHYROXINE SODIUM 137 MCG TABLET PO SCH (06:12)
[2025-01-03 07:28] LABS: Hematocrit (blood only) 28.3 % (37.0-47.0); Hemoglobin 9.5 g/dL (12.0-16.0); Mean Corpuscular Hemoglobin 30.8 pg (25.0-34.0); Mean Corpuscular Volume 91.9 fL (80.0-100.0); Platelet Count 177 K/uL (130-400); RDW Standard Deviation 43.4 fL (36.4-46.3); Red Blood Count 3.08 M/uL (4.20-5.40); White Blood Count 3.24 K/ul (4.8-10.8)
[2025-01-03 07:54] LABS: Creatinine Clr Calc Pharmacy 21.5 ml/min
[2025-01-03] MEDS: FOLIC ACID 1 MG TAB PO SCH (08:47)
[2025-01-03] MEDS: BUPRENORPHINE/NALOXONE 8/2 MG TAB SL SCH (08:47)
[2025-01-03] MEDS: NIFEdipine EXTENDED REL 30 MG TABCR PO SCH (08:48)
[2025-01-03] MEDS: CETIRIZINE HCL 10 MG TABLET PO SCH (08:49)
[2025-01-03] MEDS: FLUTICASONE PROPIONATE NA SPR 16 GM BTL SCH (08:49)
[2025-01-03] MEDS: UMECLIDINIUM/VILANTEROL 62.5/25MCG 7 PUFFS/INHALER INH SCH (08:50)
[2025-01-03] MEDS ORDERED: GABAPENTIN 800 MG TAB PO SCH (09:00)
--- NOTE | 2025-01-03 09:06 | Ultrasound Report ---
US gallbladder CLINICAL HISTORY: cbd dilatation COMPARISON STUDY: 01/02/2025 CT FINDINGS: Pancreas is obscured by bowel gas. Liver is unremarkable measuring 15 cm. There is normal d irection of flow in the portal vein. Gallbladder is unremarkable with no gallstones or gallbladder wa ll thickening. No pericholecystic fluid or ascites. Visualized proximal common bile duct measures up to 9 mm diameter. The mid to distal common bile duct is obscured by bowel gas. Right kidney shows no hydronephrosis. IMPRESSION: 1. Limited exam. 2. No gallstones or evidence of acute cholecystitis seen. 2. Visualized proximal common bile duct is dilated measuring up to 9 mm diameter. ACT 112: Negative or not required by law. Electronically signed by: Shalom Thornton M.D. 01/03/2025 9:05 AM
--- NOTE | 2025-01-03 10:08 | Nephrology Consultation ---
Date of Consultation January 03, 2025 Assessment & Plan (1) Acute kidney injury superimposed on stage 3a chronic kidney disease: stage 2 improving presume nonoliguric SONAL on CKD 3A baseline creatinine 1.1-1.3. Peak creat as OP on 01/01 at 3.3. bland urine sediment; no obstruction or gross lesions on gu imaging. active smoker. 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 further d/c recs to follow as case develops. History of Present Illness Reason for Consultation: SONAL Requesting Physician: Dr Colon Attending Physician: Donte Sweeney MD History of Present Illness 49 y/o F whom I'm asked to see for SONAL was admitted yesterday for same after PCP sent her to hospital d/t abnormal labs/sonal. PMH includes nonalbuminuric CKD3A baseline creatinine 1.1-1.3, HTN since at least 2009, active tobacco abuse, Graves disease now w/ post surgical hypothyroid, s/p Emanuel fundiplication, migraines, seizures, anxiety/depression, nephrolithiasis, chronic pain syndrome/fibromyalgia, IBS - C. On metoclopromide as OP as well as K supplements, daily lasix. Routine labs last June w/ creatinine 1.1; on 12/24 another routine check showed creatinine 2.9, up to 3.2 on 01/01. Unremarkable OP ROS at routine visit 12/24 apart from menopausal sx; SBP 104 at that OV. UACM as OP 01/01 completely bland w/ SG 1008. received 0.5L ns in ED then started on NS at 80 mL hourly. abdominal imaging notable for unremarkable system but severe constipation and mild biliary duct dilatation. she was started on lactulose. Creatinine this AM is 2.8 w/ K 3.4. SBP 90s-110s. some diminished appetite, N, lethargy, fatigue for past few weeks w/ occasional dry heaves. some mildly decreased po intake. no nsaid use. no abd or chest pain but does thing she might have been ab it bound up >> ate some apples thinking would move bowels but instead constipated her. no sob or palpitations or cough. no change in chronic edema. no new/worrisome voiding sx. no f/c, no rash. Allergies Allergy/AdvReac Type Severity Reaction Status Date / Time aspirin Allergy Severe WHEEZING Verified 07/08/24 10:09 Sulfa (Sulfonamide Allergy Intermediate HIVES Verified 07/08/24 10:09 Antibiotics) Home Medications Medication Instructions Recorded Confirmed Type clonazepam 1 mg tablet 1 mg PO BID PRN Anxiety 12/18/18 01/02/25 History ondansetron 4 mg disintegrating 4 mg PO Q8 PRN Nausea or vomiting 12/18/18 01/02/25 History tablet Incentive Spirometer #1 ea 01/03/19 01/02/25 Rx omeprazole 40 mg capsule,delayed 40 mg PO DAILYBB 01/24/19 01/02/25 History release polyethylene glycol 3350 17 17 g PO DAILY PRN Constipation 12/11/20 01/02/25 History gram/dose oral powder potassium chloride 10 mEq 10 meq PO AMHS 09/13/22 01/02/25 History capsule,extended release levothyroxine 137 mcg tablet See Rx Instructions .Route .COMPLEX 08/07/23 01/02/25 History umeclidinium 62.5 mcg-vilanterol 1 inh inhalation DAILY #180 ea 12/24/24 01/02/25 Rx 25 mcg/actuation powdr for inhalation (Anoro Ellipta) albuterol sulfate 2.5 mg/3 mL 2.5 mg inhalation Q4H PRN Wheezing 01/02/25 01/02/25 History (0.083 %) solution for nebulization albuterol sulfate 90 mcg/actuation 2 puff inhalation Q4 PRN Wheezing 01/02/25 01/02/25 History aerosol inhaler (Ventolin HFA) buprenorphine 8 mg-naloxone 2 mg 2 tab sublingual DAILY 01/02/25 01/02/25 History sublingual tablet cyclobenzaprine 10 mg tablet 18 mg PO TID 01/02/25 01/02/25 History doxepin 100 mg capsule 100 - 200 mg PO HS 01/02/25 01/02/25 History duloxetine 40 mg capsule,delayed 40 mg PO UD 01/02/25 01/02/25 History release fluticasone propionate 50 2 spray intranasal QAM 01/02/25 01/02/25 History mcg/actuation nasal spray,suspension folic acid 1 mg tablet 1 mg PO DAILY 01/02/25 01/02/25 History furosemide 20 mg tablet 40 mg PO QAM 01/02/25 01/02/25 History gabapentin 800 mg tablet 400 mg PO QAM 01/02/25 01/02/25 History gabapentin 800 mg tablet 800 mg PO TID 01/02/25 01/02/25 History labetalol 100 mg tablet 100 mg PO AMHS 01/02/25 01/02/25 History lactulose 10 gram/15 mL oral 15 ml PO BID PRN severe 01/02/25 01/02/25 History solution (Constulose) constipation levetiracetam 1,000 mg tablet 1,000 mg PO AMHS 01/02/25 01/02/25 History levocetirizine 5 mg tablet 5 mg PO QAM 01/02/25 01/02/25 History metoclopramide HCl 10 mg tablet 10 mg PO TID 01/02/25 01/02/25 History nifedipine 60 mg tablet,extended 60 mg PO QAM 01/02/25 01/02/25 History release 24 hr simethicone 125 mg capsule 125 mg PO DAILY PRN .gas 01/02/25 01/02/25 History tacrolimus 0.1 % topical ointment 1 applic topical BID 01/02/25 01/02/25 History tretinoin 0.05 % topical cream 1 applic topical HS 01/02/25 01/02/25 History varenicline tartrate 1 mg tablet 1 mg PO AMHS 01/02/25 01/02/25 History Patient History Family History Mother COPD (chronic obstructive pulmonary disease) Myocardial infarction, Onset Age: 51 Social History Smoking Status: Current every day smoker Tobacco Type: Cigarettes Cigarettes Per Day: 20; Second Hand Exposure: Yes; Do You Dip or Chew Tobacco: No; Tobacco Cessation Education Requested by Patient: No Hx Alcohol Use: No Hx Substance Use: No Preferred Language: Bangladeshi Communication Ability: Effective Visual Impairment: No Limitations Pile Driver Operator Required: No Beliefs That Will Affect Care: None Current Living Situation: Spouse Current Living Situation Comment: ex helps with children Other Information That Helps Us Care for You: No Feels Safe at Home: Yes Safety Concerns: Feels Safe At This Time Assistive Devices: None Review of Systems 2 Review of Systems: All systems reviewed & are unremarkable except as noted in HPI & below Physical Exam 2 Constitutional: well developed, well nourished (small framed) and cooperative; no acute distress Eyes: EOM intact bilaterally ENMT: Mouth: + dry oral mucous membranes Respiratory: normal respiratory effort Auscultation: + diminished lung sounds Cardiovascular: RRR, no murmur, no edema Gastrointestinal (Abdomen): Inspection/Auscultation: normal bowel sounds P ercussion/Palpation: abdomen soft; abdomen nontender Musculoskeletal: Extremities: strength 5/5 throughout Skin: no rashes, warm and dry Neurologic: calhoun, fluent speech, no tremor Results & Data Vital Signs (Past 12 Hours) Vital Signs Temp Pulse Pulse Resp BP Pulse Ox O2 Del Method 01/03/25 05:52 61 01/03/25 05:07 77 01/03/25 03:34 36.8 C 62 16 99/65 L 94 Room Air Laboratory Results 01/03/25 06:27 01/03/25 06:[address] a/p no con The liver is overall of normal size, attenuation, and contour with no sign of cirrhosis or significant fatty infiltration. No definite liver mass lesion is seen on this noncontrast study. The gallbladder appears unremarkable. There is mild bile duct dilatation, with the common bile measuring up to 9 mm ... No distal ureteral or bladder calculi are seen. No obvious bladder mass lesion is evident. The iliac arteries are of normal caliber. No pelvic adenopathy is noted. ... Impression: 1. Mild bile duct dilatation. No clear obstructing lesion is seen. Ultrasound could be considered for further evaluation 2. Severe constipation 3. Small hiatal hernia GB u/s 1. Limited exam. 2. No gallstones or evidence of acute cholecystitis seen. 2. Visualized proximal common bile duct is dilated measuring up to 9 mm diameter.
[2025-01-03] MEDS: LACTATED RINGER'S 1,000 ML IV SCH (10:35)
[2025-01-03] MEDS: POTASSIUM CHLORIDE CRTAB 20 MEQ TABCR PO SCH (10:37)
--- NOTE | 2025-01-03 14:14 | Hospitalist Progress Note ---
Date of Service January 03, 2025 Assessment & Plan (1) MARSHAL (acute kidney injury): Plan Acute kidney injury: Admitting creatinine of 3.19, likely prerenal given poor appetite prior to arrival. CTAP with no hydronephrosis. Continue IV fluids, nephrology consult, hold Lasix. 01/03 crea 3.1 --> 2.7 continue IV fluids hold Lasix Nephro Abnormal CTAP: Mild bile duct dilatation, will get ultrasound gallbladder. Patient reports fatigue/lethargy/nausea/dry heaves for few weeks now. Follow-up on ultrasound. 01/03 GB US: 1. Limited exam. 2. No gallstones or evidence of acute cholecystitis seen. 2. Visualized proximal common bile duct is dilated measuring up to 9 mm diameter. monitor LFTs Severe constipation: Patient has history of IBS, continue home lactulose and MiraLAX, added further as needed bowel regimen.Hold bowel regimen for loose stools. Other chronic medical conditions: GERD, hypothyroidism, asthma COPD overlap syndrome, JOSE, epilepsy, chronic pain syndrome --- continue with/resume home meds as and when able. adjust gabapentin to renal fxn. DVT prophylaxis: Heparin subcu Full code Disposition admit to Med/Surgh lives at home Admission and Anticipated Discharge Date Admission Date: January 02, 2025 Subjective seen resting in bed, comfortable states she feels fine overall denies abdominal pain, problems with urination no vomiting, diarrhea, NSAID use, CT IV contrast use Review of Systems Review of Systems: all noted and negative except for above Physical Exam Physical Exam: General- oriented x 3, not in distress, speaks in sentences with no effort or accessory muscle use Eyes- anicteric Neck- no JVD Lungs- clear breath sounds bilaterally, no rales/wheezes Heart- normal rate, regular rhythm; no murmurs Abdomen- normal bowel sounds, nondistended, soft, no tenderness Extremities- no pretibial edema, no calf tenderness Neuro- alert, oriented x 3; no gross focal neurologic deficits Skin- warm & dry Results & Data Results & Data Vital Signs (Past 12 Hours) Vital Signs Temp Pulse Pulse Resp BP Pulse Ox O2 Del Method 01/03/25 05:52 61 01/03/25 05:07 77 01/03/25 03:34 36.8 C 62 16 99/65 L 94 Room Air all noted and reviewed including below
[2025-01-03 14:56] LABS: Alanine Aminotransferase 11.0 U/L (7-52); Albumin Level 3.8 gm/dl (3.4-5.0); Alkaline Phosphatase 82.0 U/L (34-104); Anion Gap 13.0 (3-11); Bilirubin,Total 0.3 mg/dl (0.2-1.0); Blood Urea Nitrogen 40.0 mg/dl (6-23); Calcium 8.9 mg/dl (8.6-10.3); Carbon Dioxide 22.0 mmol/L (21-32); Chloride 107.0 mmol/L (98-107); Glucose 88.0 mg/dl (70-99(Fasting)); Magnesium 2.1 mg/dl (1.7-2.4); Potassium 3.4 mmol/L (3.5-5.1); Sodium 142.0 mmol/L (136-145); Total Protein 6.1 gm/dl (6.0-8.3)
--- NOTE | 2025-01-03 20:10 | Electrocardiogram Report ---
Test Reason : Blood Pressure : */* mmHG Vent. Rate : 64 BPM Atrial Rate : 64 BPM P-R Int : 142 ms QRS Dur : 92 ms QT Int : 392 ms P-R-T Axes : 40 30 49 degrees QTcB Int : 404 ms Normal sinus rhythm RSR' or QR pattern in V1 suggests right ventricular conduction delay Borderline ECG When compared with ECG of 27-Jul-2021 19:14, No significant change Confirmed by Markell Rolle ([id number]) on 01/03/2025 8:09:49 PM Referred By: Jeanette Garcia Confirmed By: Markell Rolle
[2025-01-04] MEDS: LEVOTHYROXINE SODIUM 137 MCG TABLET PO SCH (05:05)
[2025-01-04 05:55] LABS: Appearance Urine Clear (Clear); Glucose Urine UA Negative (Negative)
[2025-01-04 07:46] LABS: Alanine Aminotransferase 11.0 U/L (7-52); Albumin Level 3.8 gm/dl (3.4-5.0); Alkaline Phosphatase 84.0 U/L (34-104); Bilirubin,Total 0.2 mg/dl (0.2-1.0); Total Protein 5.5 gm/dl (6.0-8.3)
[2025-01-04 08:27] LABS: Anion Gap 7.0 (3-11); Blood Urea Nitrogen 37.0 mg/dl (6-23); Calcium 9.0 mg/dl (8.6-10.3); Carbon Dioxide 26.0 mmol/L (21-32); Chloride 109.0 mmol/L (98-107); Creatinine Clr Calc Pharmacy 25.7 ml/min; Glucose 106.0 mg/dl (70-99(Fasting)); Potassium 4.3 mmol/L (3.5-5.1); Sodium 142.0 mmol/L (136-145)
[2025-01-04 08:40] LABS: Hematocrit (blood only) 27.9 % (37.0-47.0); Hemoglobin 9.1 g/dL (12.0-16.0); Immature Granulocytes # (auto) 0.02 K/uL (0.01-0.20); Immature Granulocytes % (auto) 0.5 %; Mean Corpuscular Hemoglobin 30.6 pg (25.0-34.0); Mean Corpuscular Volume 93.9 fL (80.0-100.0); Platelet Count 163 K/uL (130-400); RDW Standard Deviation 45.5 fL (36.4-46.3); Red Blood Count 2.97 M/uL (4.20-5.40); White Blood Count 4.15 K/ul (4.8-10.8)
--- NOTE | 2025-01-04 13:41 | Hospitalist Progress Note ---
Date of Service January 04, 2025 Assessment & Plan (1) MARSHAL (acute kidney injury): Plan Acute kidney injury, likely prerenal etiology, in the setting of Lasix use Admitting creatinine of 3.19, likely prerenal given poor appetite prior to arrival. CTAP with no hydronephrosis. Continue IV fluids, nephrology consult, hold Lasix. 01/04 crea 3.1 --> 2.7--> 2.3 continue LR, decrease to 75cc/hr hold Lasix Nephro consulted- appreciate the input Abnormal CTAP: Mild bile duct dilatation, will get ultrasound gallbladder. Patient reports fatigue/lethargy/nausea/dry heaves for few weeks now. Follow-up on ultrasound. 01/03 GB US: 1. Limited exam. 2. No gallstones or evidence of acute cholecystitis seen. 2. Visualized proximal common bile duct is dilated measuring up to 9 mm diameter. monitor LFTs 01/04 LFTs stable Anemia, Normocytic, Normochromic Hemoglobin around 9 Iron 58, folate more than 22 Vitamin B12 pending Further workup and management as an outpatient Severe constipation: Patient has history of IBS, continue home lactulose and MiraLAX, added further as needed bowel regimen.Hold bowel regimen for loose s tools. Other chronic medical conditions: GERD, hypothyroidism, asthma COPD overlap syndrome, JOSE, epilepsy, chronic pain syndrome --- continue with/resume home meds as and when able. adjust gabapentin to renal fxn. DVT prophylaxis: Heparin subcu Full code Disposition admit to Med/Surgh lives at home Admission and Anticipated Discharge Date Admission Date: January 02, 2025 Subjective seen resting in bed, comfortable, not in distress States she feels fine overall No abdominal pain or problems with urination No other symptoms Review of Systems Review of Systems: all noted and negative except for above Physical Exam Physical Exam: General- oriented x 3, not in distress, speaks in sentences with no effort or accessory muscle use Eyes- anicteric Neck- no JVD Lungs- clear breath sounds bilaterally, no rales/wheezes Heart- normal rate, regular rhythm; no murmurs Abdomen- normal bowel sounds, nondistended, soft, no tenderness Extremities- no pretibial edema, no calf tenderness Neuro- alert, oriented x 3; no gross focal neurologic deficits Skin- warm & dry Results & Data Results & Data Vital Signs (Past 12 Hours) Vital Signs Temp Pulse Resp BP Pulse Ox O2 Del Method 01/04/25 11:33 36.6 C 74 20 113/75 95 Room Air 01/04/25 08:11 36.6 C 69 18 110/71 94 Room Air 01/04/25 03:45 36.7 C 68 20 98/65 L 94 Room Air all noted and reviewed including below
--- NOTE | 2025-01-04 15:37 | Nephrology Progress Note ---
Date of Service January 04, 2025 Assessment & Plan (1) Acute kidney injury superimposed on stage 3a chronic kidney disease: Plan: stage 2 improving presume nonoliguric MARSHAL on CKD 3A baseline creatinine 1.1-1.3. Peak creat as OP on 01/01 at 3.3>>> improving bland urine sediment; no obstruction or gross lesions on gu imaging. active smoker. 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 further d/c recs to follow as case develops. Admission and Anticipated Discharge Date Admission Date: January 02, 2025 Subjective seen resting in bed, comfortable, not in distress States she feels fine overall No abdominal pain or problems with urination Review of Systems 2 Review of Systems: All systems reviewed & are unremarkable except as noted in HPI & below Results & Data Vital Signs (Past 12 Hours) Vital Signs Temp Pulse Resp BP Pulse Ox O2 Del Method 01/04/25 15:12 36.7 C 79 20 101/66 96 Room Air 01/04/25 11:33 36.6 C 74 20 113/75 95 Room Air 01/04/25 08:11 36.6 C 69 18 110/71 94 Room Air 01/04/25 03:45 36.7 C 68 20 98/65 L 94 Room Air Laboratory Results 01/04/25 06:40 01/04/25 06:41
--- NOTE | 2025-01-04 20:14 | Communication Note ---
Date of Service: January 04, 2025 Note made aware by RN of hypotension upon arrival at the floor. SBP 80s Patient asymptomatic as per RN. AP Hypotension Increase IVF rate Hold multiple antihypertensive medications for now.
[2025-01-05 07:33] LABS: Hematocrit (blood only) 27.1 % (37.0-47.0); Hemoglobin 8.9 g/dL (12.0-16.0); Immature Granulocytes # (auto) 0.01 K/uL (0.01-0.20); Immature Granulocytes % (auto) 0.2 %; Mean Corpuscular Hemoglobin 30.9 pg (25.0-34.0); Mean Corpuscular Volume 94.1 fL (80.0-100.0); Platelet Count 154 K/uL (130-400); RDW Standard Deviation 45.3 fL (36.4-46.3); Red Blood Count 2.88 M/uL (4.20-5.40); White Blood Count 4.37 K/ul (4.8-10.8)
[2025-01-05 08:08] LABS: Anion Gap 6.0 (3-11); Blood Urea Nitrogen 44.0 mg/dl (6-23); Calcium 8.8 mg/dl (8.6-10.3); Carbon Dioxide 26.0 mmol/L (21-32); Chloride 110.0 mmol/L (98-107); Creatinine Clr Calc Pharmacy 32.5 ml/min; Glucose 90.0 mg/dl (70-99(Fasting)); Potassium 4.4 mmol/L (3.5-5.1); Sodium 142.0 mmol/L (136-145)
[2025-01-05 11:33] VITALS: RESP 16; TEMP 97.9; O2SAT 98
--- NOTE | 2025-01-05 15:00 | Discharge Summary ---
Discharge Summary Date of Service January 05, 2025 Principal Dx & Hospital Course #1 = Principal Diagnosis (1) MARSHAL (acute kidney injury): Plan Acute kidney injury, likely prerenal etiology, in the setting of Lasix use Admitting creatinine of 3.19, likely prerenal given poor appetite prior to arrival. CTAP with no hydronephrosis. Continue IV fluids, nephrology consult, hold Lasix. 01/05 Lasix held,Given lactated Ringer's with gradual improvement of renal function crea 3.1 --> 2.7--> 2.3-->2.1 Nephro consulted recommend repeat BMP within this week care primary care physician or n ephrologist Also the following medications have been reduced in dose: Reglan, Flexeril, gabapentin, Keppra--> please increase dose accordingly based on improvement of renal function Abnormal CTAP: Mild bile duct dilatation, will get ultrasound gallbladder. Patient reports fatigue/lethargy/nausea/dry heaves for few weeks now. Follow-up on ultrasound. 01/03 GB US: 1. Limited exam. 2. No gallstones or evidence of acute cholecystitis seen. 2. Visualized proximal common bile duct is dilated measuring up to 9 mm diameter. monitor LFTs 01/05 LFTs stable further recommend management as an outpatient Anemia, Normocytic, Normochromic Hemoglobin around 9 Iron 58, folate more than 22 Vitamin B12 1103 Further workup and management as an outpatient Hypertension As per patient blood pressure also fluctuates at home but checks blood pressure 2-3 times a day and holds blood pressure meds accordingly Monitor closely Severe constipation: Patient has history of IBS, continue home lactulose and MiraLAX, added further as needed bowel regimen.Hold bowel regimen for loose stools. Other chronic medical conditions: GERD, hypothyroidism, asthma COPD overlap syndrome, JOSE, epilepsy, chronic pain syndrome --- continue with/resume home meds as and when able. adjust gabapentin to renal fxn. Disposition discharge to home Follow-up with PCP or Extension Professor in 1 week plan of care discussed with patient in detail and at length all questions answered she is understanding, agreeable, comfortable with the plan of care Notes For Next Care Provider Medication Changes From Visit Lasix stopped Reglan, Flexeril, gabapentin, Keppra decreased in dosing per renal function Admission HPI Per Admitting Provider 49-year-old lady with PMH of HLD, postsurgical hypothyroidism, Graves' disease, moderate persistent asthma, HTN, Venous insufficiency, IBS, CKD stage IIIa, GERD, generalized osteoarthritis, epilepsy, chronic pain syndrome, JOSE, panic attacks, status post Emanuel fundoplication presents to the ED at referral of outpatient office for abnormal creatinine levels. Outpatient creatinine was noted to be 3.3 and hence she was referred to the ED. Admitting creatinine of 3.19. Patient reports being able to drink okay but having so-so appetite for about few weeks now, patient reports feeling lethargic and fatigued with some nausea for about few weeks. Patient reports occasional dry heaves for about the same time. Patient says she cannot vomit because she is status post Emanuel fundoplication. Patient denies fever/cough/chest pain/abdominal pain. Patient reports constipation lately, last bowel movement about 2 days ago and reports it being a very hard stool. Patient denies pain or burning while passing urine. Patient reports moving gas okay. Patient reports smoking 1 packs a day for about 20 years now, denies alcohol or recreational drug use. Medications reviewed with the patient and her at bedside. Plan of care discussed with them in detail. Full code Admission Exam Per Admitting Provider GENERAL: Alert and oriented x3. NAD, on RA. Appears ill/weak/tired. HEENT: No pallor, no icterus. Pupils equal, round and reactive to light. Oral mucosa dry. NECK: No JVD, no neck masses. HEART: S1 and S2 heard. Regular rate and rhythm. No murmur, no gallop. RESPIRATORY SYSTEM: Normal AP diameter. No accessory muscle use. No wheezing, no crackles. ABDOMEN: Soft, bowel sounds present, nontender, no distention. CENTRAL NERVOUS SYSTEM: No facial droop. Speech is clear. Obeys simple commands. Moves extremities. EXTREMITIES: No edema, no erythema seen. Discharge Exam General- oriented x 3, not in distress, speaks in sentences with no effort or accessory muscle use Eyes- anicteric Neck- no JVD Lungs- clear breath sounds bilaterally, no rales/wheezes Heart- normal rate, regular rhythm; no murmurs Abdomen- normal bowel sounds, nondistended, soft, nontender Extremities- no pretibial edema, no calf tenderness Neuro- alert, oriented x 3; no gross focal neurologic deficits Skin- warm & dry Updated Medication List Medication Instructions Recorded Confirmed Type clonazepam 1 mg tablet 1 mg PO BID PRN Anxiety 12/18/18 01/02/25 History ondansetron 4 mg disintegrating 4 mg PO Q8 PRN Nausea or vomiting 12/18/18 01/02/25 History tablet Incentive Spirometer #1 ea 01/03/19 01/02/25 Rx omeprazole 40 mg capsule,delayed 40 mg PO DAILYBB 01/24/19 01/02/25 History release polyethylene glycol 3350 17 17 g PO DAILY PRN Constipation 12/11/20 01/02/25 History gram/dose oral powder potassium chloride 10 mEq 10 meq PO AMHS 09/13/22 01/02/25 History capsule,extended release levothyroxine 137 mcg tablet See Rx Instructions .Route .COMPLEX 08/07/23 01/02/25 History umeclidinium 62.5 mcg-vilanterol 1 inh inhalation DAILY #180 ea 12/24/24 Rx 25 mcg/actuation powdr for inhalation (Anoro Ellipta) albuterol sulfate 2.5 mg/3 mL 2.5 mg inhalation Q4H PRN Wheezing 01/02/25 01/02/25 History (0.083 %) solution for nebulization albuterol sulfate 90 mcg/actuation 2 puff inhalation Q4 PRN Wheezing 01/02/25 01/02/25 History aerosol inhaler (Ventolin HFA) buprenorphine 8 mg-naloxone 2 mg 2 tab sublingual DAILY 01/02/25 01/02/25 History sublingual tablet cyclobenzaprine 10 mg tablet 18 mg PO TID 01/02/25 01/02/25 History doxepin 100 mg capsule 100 - 200 mg PO HS 01/02/25 01/02/25 History duloxetine 40 mg capsule,delayed 40 mg PO UD 01/02/25 01/02/25 History release fluticasone propionate 50 2 spray intranasal QAM 01/02/25 01/02/25 History mcg/actuation nasal spray,suspension folic acid 1 mg tablet 1 mg PO DAILY 01/02/25 01/02/25 History furosemide 20 mg tablet 40 mg PO QAM 01/02/25 01/02/25 History gabapentin 800 mg tablet 400 mg PO QAM 01/02/25 01/02/25 History gabapentin 800 mg tablet 800 mg PO TID 01/02/25 01/02/25 History labetalol 100 mg tablet 100 mg PO AMHS 01/02/25 01/02/25 History lactulose 10 gram/15 mL oral 15 ml PO BID PRN severe 01/02/25 01/02/25 History solution (Constulose) constipation levetiracetam 1,000 mg tablet 1,000 mg PO AMHS 01/02/25 01/02/25 History levocetirizine 5 mg tablet 5 mg PO QAM 01/02/25 01/02/25 History metoclopramide HCl 10 mg tablet 10 mg PO TID 01/02/25 01/02/25 History nifedipine 60 mg tablet,extended 60 mg PO QAM 01/02/25 01/02/25 History release 24 hr simethicone 125 mg capsule 125 mg PO DAILY PRN .gas 01/02/25 01/02/25 History tacrolimus 0.1 % topical ointment 1 applic topical BID 01/02/25 01/02/25 History tretinoin 0.05 % topical cream 1 applic topical HS 01/02/25 01/02/25 History varenicline tartrate 1 mg tablet 1 mg PO AMHS 01/02/25 01/02/25 History cyclobenzaprine 10 mg tablet 10 mg PO TID 14 days #42 tabs 01/05/25 Rx gabapentin 300 mg capsule 300 mg PO BID 14 days #28 caps 01/05/25 Rx levetiracetam 500 mg tablet 500 mg PO AMHS 14 days #14 tabs 01/05/25 Rx (Keppra) Hospital Stay Data Consultations 01/02/25 18:13 ED Decision to Admit Stat 01/02/25 18:51 Consult Nephrology Routine Diagnostic Imagining Performed Laboratory Results WBC 4.37 K/ul (4.8-10.8) L 01/05/25 06:45 RBC 2.88 M/uL (4.20-5.40) L 01/05/25 06:45 Hgb 8.9 g/dL (12.0-16.0) L 01/05/25 06:45 Hct 27.1 % (37.0-47.0) L 01/05/25 06:45 MCV 94.1 fL (80.0-100.0) 01/05/25 06:45 MCH 30.9 pg (25.0-34.0) 01/05/25 06:45 MCHC 32.8 g/dL (32.0-36.0) 01/05/25 06:45 RDW Std Deviation 45.3 fL (36.4-46.3) 01/05/25 06:45 RDW Coeff of [place] 13.1 % (11.5-14.5) 01/05/25 06:45 Plt Count 154 K/uL (130-400) 01/05/25 06:45 MPV 10.6 fL (9.4-12.4) 01/05/25 06:45 Immature Gran % (Auto) 0.2 % 01/05/25 06:45 Neut % (Auto) 40.3 % 01/05/25 06:45 Lymph % (Auto) 41.4 % 01/05/25 06:45 [place] % (Auto) 11.2 % 01/05/25 06:45 Eos % (Auto) 5.5 % 01/05/25 06:45 Baso % (Auto) 1.4 % 01/05/25 06:45 Neut # (Auto) 1.76 K/uL (1.40-6.50) 01/05/25 06:45 Lymph # (Auto) 1.81 K/uL (1.20-3.40) 01/05/25 06:45 [place] # (Auto) 0.49 K/uL (0.11-0.59) 01/05/25 06:45 Eos # (Auto) 0.24 K/uL (0.00-0.50) 01/05/25 06:45 Baso # (Auto) 0.06 K/uL (0.00-0.20) 01/05/25 06:45 Immature Gran # (Auto) 0.01 K/uL (0.01-0.20) 01/05/25 06:45 Sodium 142 mmol/L (136-145) 01/05/25 06:45 Potassium 4.4 mmol/L (3.5-5.1) 01/05/25 06:45 Chloride 110 mmol/L (98-107) H 01/05/25 06:45 Carbon Dioxide 26 mmol/L (21-32) 01/05/25 06:45 Anion Gap 6 (3-11) 01/05/25 06:45 BUN 44 mg/dl (6-23) H 01/05/25 06:45 Creatinine 2.13 mg/dl (0.6-1.2) H 01/05/25 06:45 Est Cr Clr Drug Dosing 32.5 ml/min 01/05/25 06:45 eGFR 27.53 01/05/25 06:45 BUN/Creatinine Ratio 20.7 (10-20) H 01/05/25 06:45 Glucose 90 mg/dl (70-99(Fasting)) 01/05/25 06:45 Lactate 1.3 mmol/L (0.4-2.0) 01/04/25 20:30 Calcium 8.8 mg/dl (8.6-10.3) 01/05/25 06:45 Phosphorus 5.1 mg/dl (2.5-4.9) H 01/03/25 06:27 Magnesium 2.1 mg/dl (1.7-2.4) 01/03/25 06:27 Iron 58 mcg/dl (35-150) 01/04/25 06:41 Total Bilirubin 0.2 mg/dl (0.2-1.0) 01/04/25 06:41 Direct Bilirubin 0.1 mg/dl (0-0.2) 01/04/25 06:41 AST 15 U/L (13-39) 01/04/25 06:41 ALT 11 U/L (7-52) 01/04/25 06:41 Alkaline Phosphatase 84 U/L (34-104) 01/04/25 06:41 Total Protein 5.5 gm/dl (6.0-8.3) L 01/04/25 06:41 Albumin 3.8 gm/dl (3.4-5.0) 01/04/25 06:41 Globulin 2.8 gm/dl (2.5-4.0) 01/02/25 14:48 Albumin/Globulin Ratio 1.8 (0.9-2) 01/02/25 14:48 Vitamin B12 1103 pg/ml (180-914) H 01/05/25 06:45 Folate > 22.30 ng/ml (>5.38) 01/04/25 06:41 Urine Color Yellow 01/04/25 05:05 Urine Appearance Clear (Clear) 01/04/25 05:05 Urine pH 6.5 (4.5-7.5) 01/04/25 05:05 Ur Specific [place] 1.008 (1.000-1.030) 01/04/25 05:05 Urine Protein Negative (Negative) 01/04/25 05:05 Urine Glucose (UA) Negative (Negative) 01/04/25 05:05 Urine Ketones Negative (Negative) 01/04/25 05:05 Urine Blood Negative (Negative) 01/04/25 05:05 Urine Nitrite Negative (Negative) 01/04/25 05:05 Urine Bilirubin Negative (Negative) 01/04/25 05:05 Urine Urobilinogen Negative (Negative) 01/04/25 05:05 Ur Leukocyte Esterase Negative (Negative) 01/04/25 05:05 Urine Comment 01/04/25 05:05 Impressions Abdomen/Pelvis CT 01/02/25 17:06 Technique: Axial computed tomography images were obtained of the abdomen and pelvis without intravenous contrast. Comparison is made to the prior CT dated 12/11/2020 Findings: The liver is overall of normal size, attenuation, and contour with no sign of cirrhosis or significant fatty infiltration. No definite liver mass lesion is seen on this noncontrast study. The gallbladder appears unremarkable. There is mild bile duct dilatation, with the common bile measuring up to 9 mm The spleen is of normal size. No focal splenic lesion is evident. The pancreas appears normal with no sign of acute or chronic pancreatitis and no mass lesion noted. The pancreatic duct is of normal caliber. The adrenal glands appear unremarkable. No renal or proximal ureteral calculi are seen. There is no hydronephrosis or perinephric stranding. No definite renal mass lesion is identified. The aorta is of normal caliber. No abdominal adenopathy is seen. There is a small hiatal hernia. There is no sign of small bowel obstruction. There is severe constipation. No free intraperitoneal fluid or air is identified. No distal ureteral or bladder calculi are seen. No obvious bladder mass lesion is evident. The iliac arteries are of normal caliber. No pelvic adenopathy is noted. There is mild bilateral lung base atelectasis. No fracture is identified. No focal osseous lesion is seen Impression: 1. Mild bile duct dilatation. No clear obstructing lesion is seen. Ultrasound could be considered for further evaluation 2. Severe constipation 3. Small hiatal hernia ACT 112: Positive. There are findings on this exam that require communication between the performing entity and the patient following Patient Test Result Information Act ([place] ACT 112) guidelines. Electronically signed by Alfonso Ledbetter 01-02-2025 6:04 PM Gallbladder Ultrasound 01/03/25 00:00 US gallbladder CLINICAL HISTORY: cbd dilatation COMPARISON STUDY: 01/02/2025 CT FINDINGS: Pancreas is obscured by bowel gas. Liver is unremarkable measuring 15 cm. There is normal direction of flow in the portal vein. Gallbladder is unremarkable with no gallstones or gallbladder wall thickening. No pericholecystic fluid or ascites. Visualized proximal common bile duct measures up to 9 mm diameter. The mid to distal common bile duct is obscured by bowel gas. Right kidney shows no hydronephrosis. IMPRESSION: 1. Limited exam. 2. No gallstones or evidence of acute cholecystitis seen. 2. Visualized proximal common bile duct is dilated measuring up to 9 mm diameter. ACT 112: Negative or not required by law. Electronically signed by: Shalom Thornton M.D. 01/03/2025 9:05 AM Pending Results Patient Have Any Pending Studies at Discharge: Yes Discharge Instructions Given to Patient (Per Discharging Provider) PLEASE STOP TAKING LASIX. The following medications have been reduced in dosing based on your current kidney function: Metoclopramide- lowered to 5 mg 3 times a day Cyclobenzaprine-lowered 10 mg 3 times a day Gabapentin-lowered to 300 mg twice a day Keppra-lowered to 500 mg twice a day New prescription sent to your pharmacy. Please discuss with your primary care physician or tribal delegate when you can resume your usual dosing of the above medications CONTINUE TO MONITOR BLOOD PRESSURE CLOSELY AT HOME AND HOLD BLOOD PRESSURE MEDICATION IF SYSTOLIC BLOOD PRESSURE (TOP NUMBER) BELOW 110. DO NOT USE MEDICATIONS UNDER THE CLASS OF NSAIDS INCLUDING IBUPROFEN, NAPROXEN, MELOXICAM, ETC. DRINK AT LEAST 7-8 GLASSES OF WATER PER DAY. PLEASE CALL YOUR PRIMARY CARE PHYSICIAN OR RETURN TO THE ER IF WITH WORSENING OF SYMPTOMS, INCLUDING PROBLEMS WITH URINATION, WEAKNESS, DIZZINESS, ETC FOLLOW UP WITH PRIMARY CARE PHYSICIAN OR PRINCIPAL NETWORK ENGINEER THIS WEEK WITH REPEAT BLOOD WORK THIS WEEK (BASIC METABOLIC PROFILE). IT IS VERY IMPORTANT TO ENSURE YOUR KIDNEY FUNCTION CONTINUES TO IMPROVE. THANK YOU. Total Time Total Time Spent Total Time Spent (In Minutes): 45 minutes
[2025-01-05 15:10] VITALS: BP 99/65; PULSE 77
== END 2025-01-05 15:49 | disposition home or self-care (01) | DRG 683 ==
LOC: ED 13:23 → 2N 18:52 → SUATTDRO 18:52 → 2N 21:00